=== PATIENT | female | born 1960 | race Caucasian/White ===

== ENCOUNTER 2016-10-15 15:53 | Outpatient (CLI) | payer OTHER | END 2016-10-15 15:54 | disposition home or self-care (01) | DX: Z12.2 Encounter for screening for malignant neoplasm of respiratory organs (principal); F17.210 Nicotine dependence, cigarettes, uncomplicated ==

== ENCOUNTER 2016-12-06 13:36 | Outpatient (CLI) | payer OTHER | END 2016-12-06 13:37 | disposition home or self-care (01) | DX: Z12.31 Encounter for screening mammogram for malignant neoplasm of breast (principal) ==

== ENCOUNTER 2017-01-17 11:56 | Outpatient (CLI) | payer OTHER | END 2017-01-17 11:57 | disposition home or self-care (01) | DX: N64.4 Mastodynia (principal) ==

== ENCOUNTER 2017-02-03 15:00 | Outpatient (CLI) | payer OTHER ==
[2017-02-03] MEDS ORDERED: GADOBUTROL 10 MMOL/10 ML VIAL IVP ONE (16:27)
[2017-02-03 16:29] LABS: CREATININE 0.8 mg/dL (0.4-1.0)
--- NOTE | 2017-02-03 21:33 | MRI Report ---
MRI CERVICAL SPINE WITHOUT AND WITH CONTRAST INDICATION: 56-year-old female with cervical radiculopathy. Please assess. TECHNIQUE: 1. Sagittal STIR, T1 and T2. 2. Axial T1 and T2. 3. 9 mL IV Gadavist. T1 axial and fat saturated T1 sagittal. COMPARISON: 10/14/2012. FINDINGS: There is straightening of the cervical alignment with absence of normal lordosis, unchanged. In addit ion, again demonstrated is mild retrolisthesis of C5 on C6 (roughly 2.5 mm), stable. Alignment is oth erwise unremarkable. Degenerative changes are demonstrated in the disks at all levels. There has been interval progression in disk space narrowing at C4-C5 with moderate disk space narrowing now demonstrated. Moderate to se daniela disk space narrowing is again seen at C5-C6. The disk space heights are otherwise relatively pre served. The marrow signal intensity is unremarkable. Axial images: C2-C3: No disk herniation or spinal stenosis. Right-sided degenerative facet arthrosis with associate d bony hypertrophy gives rise to mild to moderate right foraminal stenosis, essentially unchanged. No left foraminal narrowing. C3-C4: No disk herniation or spinal stenosis. Again demonstrated is fairly advanced, left-sided degen erative facet arthrosis with associated bony hypertrophy. In addition, there is left-sided uncoverteb ral hypertrophy. These changes appear to be giving rise to relatively severe left foraminal stenosis. There may have been some progression since the previous examination. There is mild right foraminal n arrowing, unchanged. C4-C5: Again demonstrated is a small right paracentral protrusion, essentially unchanged. The CSF jose elias tral to the right side of the cord remains effaced. There is a small amount of CSF dorsal to the cord without high-grade spinal stenosis. There is minimal, if any, flattening of the cord on the right to suggest impingement. Facet and uncovertebral hypertrophy give rise to foraminal narrowing that appea rs to be at least moderate on the right and probably mild to moderate on the left. C5-C6: Retrolisthesis. Posterior spondylotic bar indenting the ventral aspect of the thecal sac. The mid sagittal canal diameter appears be on the order of about 7 mm, decreased from about 7.5 mm on maikel or study. The CSF surrounding the cord is almost completely effaced. However, there is minimal if any cord flattening. No abnormal T2 hyperintensity is demonstrated in the spinal cord. Uncovertebral hyp ertrophy gives rise to foraminal narrowing that appears to be severe bilaterally, similar to previous examination. C6-C7: Small right paracentral protrusion, unchanged. No spinal stenosis. Mild foraminal narrowing. C7-T1: No disk herniation or spinal stenosis. Right-sided degenerative facet arthrosis with associate d bony hypertrophy. No significant foraminal encroachment. The spinal cord appears to have a normal signal intensity throughout. Postcontrast sequence shows no evidence of abnormal enhancement. In particular, no enhancing spinal c ord lesion is demonstrated. Again demonstrated is an ovoid, T2 hyperintense and nonenhancing lesion in posterior nasopharyngeal s oft tissues, consistent with a benign submucosal cyst. IMPRESSION: 1. Facet and uncovertebral hypertrophy give rise to relatively severe left-sided foraminal stenosis a t C3-C4. There certainly could be impingement of the exiting left C4 nerve root. Recommend clinical c orrelation for possible left C4 radiculopathy. 2. There continue to be high-grade, bony foraminal stenoses at C5-C6 bilaterally where there certainl y could be impingement of exiting right and/or left C6 nerve roots. 3. Multilevel degenerative disk disease with disk herniations or spondylotic bars at a few levels as described, similar to previous examination. There has been some interval progression in diskogenic sp inal stenosis at C5-C6. The mid sagittal canal diameter now measures about 7 mm and the CSF surroundi ng the cord is almost completely effaced. However, there is minimal if any flattening of the cord to suggest impingement. No abnormal T2 hyperintensity is demonstrated in the cord to suggest edema. Referring Provider Line: [phone] SITE ID: [id number]
== END 2017-02-03 15:01 | disposition home or self-care (01) ==
LOC: LAB 15:00
PROVIDERS: ATTEND Physical Medicine & Rehabilitation
DX: M50.10 Cervical disc disorder with radiculopathy, unspecified cervical region (principal); M50.221 Other cervical disc displacement at C4-C5 level; M50.223 Other cervical disc displacement at C6-C7 level; M47.892 Other spondylosis, cervical region; M47.893 Other spondylosis, cervicothoracic region; Z01.812 Encounter for preprocedural laboratory examination
CPT/HCPCS: 36415; 72156; 82565; 84520; A9585

== ENCOUNTER 2017-03-02 10:07 | Outpatient (CLI) | payer OTHER ==
[2017-03-02 13:00] LABS: BASOPHILS # (AUTO) 0.1 10^3/uL (0.0-0.1); BASOPHILS % (AUTO) 0.8 %; EOSINOPHILS # (AUTO) 0.5 10^3/uL (0.0-0.7); HCT - HEMATOCRIT 39.8 % (37.0-47.0); HGB - HEMOGLOBIN 13.5 g/dL (12.0-16.0); LYMPHOCYTES # (AUTO) 2.7 10^3/uL (1.5-3.5); LYMPHOCYTES % (AUTO) 28.9 %; MEAN CORPUSCULAR HEMOGLOBIN 34.2 pg (27.0-31.0); MEAN CORPUSCULAR VOLUME 100.6 fL (81.0-99.0); MEAN PLATELET VOLUME 7.9 fL (7.9-10.8); MONOCYTES # (AUTO) 0.6 10^3/uL (0.0-1.0); MONOCYTES % (AUTO) 6.1 %; NEUTROPHILS # (AUTO) 5.6 10^3/uL (1.5-6.6); NEUTROPHILS % (AUTO) 59.2 %; RED BLOOD COUNT 3.96 10^6/uL (4.20-5.40); RED CELL DISTRIBUTION WIDTH 15.5 % (12.0-15.0); UNCORRECTED WHITE BLOOD COUNT 9.4 x10^3/uL; WHITE BLOOD COUNT 9.4 x10^3/uL (4.8-10.8)
[2017-03-02 13:21] LABS: HEMOGLOBIN A1C 0.62 g/dL
[2017-03-02 13:24] LABS: ALBUMIN/GLOBULIN RATIO 1.3 (1.0-2.2); BILIRUBIN,TOTAL 0.6 mg/dL (0.2-1.0); BUN - BLOOD UREA NITROGEN 17 mg/dL (6-20); CALCIUM 9.6 mg/dL (8.5-10.3); CARBON DIOXIDE - CO2 27 mmol/L (21-32); CHLORIDE 102 mmol/L (101-111); CHOL/HDL RATIO 7.6 (<4.4); CHOLESTEROL 281 mg/dL; CREATININE 0.7 mg/dL (0.4-1.0); GFR - MDRD 86 (>89); GLUCOSE 128 mg/dL (70-100); HDL CHOLESTEROL 37 mg/dL; SODIUM 138 mmol/L (135-145); TOTAL PROTEIN 7.6 g/dL (6.7-8.2); TRIGLYCERIDES 501 mg/dL
[2017-03-02 14:01] LABS: LDL CHOLESTEROL,DIRECT 179 mg/dL; THYROID STIMULATING HORMONE 26.47 uIU/mL (0.34-5.60)
== END 2017-03-02 10:08 ==
LOC: LAB.WCP 10:07
PROVIDERS: ATTEND Physician Assistant Medical
DX: I10 Essential (primary) hypertension (principal); E11.9 Type 2 diabetes mellitus without complications; E03.9 Hypothyroidism, unspecified
CPT/HCPCS: 36415; 80053; 80061; 83036; 84436; 84443; 85025

== ENCOUNTER 2017-05-02 14:00 | Outpatient (CLI) | payer OTHER ==
--- NOTE | 2017-05-02 21:54 | MRI Report ---
EXAM: MRI LUMBAR SPINE WITHOUT CONTRAST EXAM DATE: 05/02/2017 02:42 PM. CLINICAL HISTORY: Other intervertebral disk displacement, lumbar reg. Chronic centralized low back pa in. COMPARISON: 08/28/2015. TECHNIQUE: Multiplanar, multisequence T1-weighted and fluid-sensitive sequences of the lumbar spine f rom T12 to S1 without contrast. Other: None. FINDINGS: Spinal Cord: The conus terminates at T12-L1. No signal abnormality in the visualized spinal cord. Alignment: As previous, loss of the normal lordosis above L4. Minimal, 23 mm retrolisthesis of L3 on L4 and L4 on L5. No evidence for pars defects. Bone Marrow: Five [id number] lumbar vertebral bodies are assumed. No gross fractures or bone les ions. No bone marrow edema. Disk Levels/Facets: T12-L1: Unremarkable. L1-L2: Unremarkable. L2-L3: Unremarkable. L3-L4: Mild disk height loss and disk desiccation. Mild to moderate facet arthropathy and circumferen tial bulge. Circumferential bulge extends to the right foraminal/extraforaminal zone with right extra foraminal annular fissure. Moderate right foraminal stenosis. Mild central canal narrowing and patent left neural foramen. No significant change. L4-L5: Disk desiccation. Bilateral facet arthropathy and ligamentum flavum thickening. Shallow right foraminal/subarticular protrusion associated with mild stenosis of the right subarticular and foramin al zone. No significant canal narrowing. Patent left neural foramen. No significant change. L5-S1: Mild bilateral facet arthropathy, otherwise unremarkable. No significant change. Musculature: Normal. No edema or fatty atrophy. Other: There is infrarenal abdominal aortic ectasia borderline aneurysm measuring up to 3 cm in anter oposterior diameter, similar and unchanged compared to 08/28/2015. IMPRESSION: 1. Unchanged degenerative slight retrolisthesis at L3-L4 and L4-L5. 2. At L3-L4, right extraforaminal protrusion abutting the right L3 nerve root, unchanged. Moderate ri ght foraminal narrowing, mild subarticular narrowing and mild canal narrowing appear unchanged. 3. At L4-L5, circumferential bulge with a shallow right foraminal and subarticular protrusion, unchan ged. Mild to moderate right greater than left subarticular narrowing appears unchanged around the rig ht L5 nerve root. Mild canal narrowing. Mild right foraminal narrowing. 4. At L5-S1, mild bilateral facet arthropathy, otherwise unremarkable. 5. Ectasia, and borderline aneurysm of the infrarenal abdominal aorta, without significant change com pared to 08/28/2015. Suggest ultrasound follow-up. Comment: The following findings are so common in adults without low back pain that while we report th eir presence, they must be interpreted with caution and in the context of the clinical situation. (Re jay Pradhan et al, Spine 2001) Prevalence of findings in patients without low back pain: Disk degeneration (any evidence): 92% Disk desiccation/T2 signal loss: 83% Disk height loss: 56% Disk bulge: 64% Disk protrusion: 32% Annular tear/high intensity zone: 38% [facility] Referring Provider Line: [phone] SITE ID: [id number]
== END 2017-05-02 14:01 | disposition home or self-care (01) ==
LOC: DI 14:00
PROVIDERS: ATTEND Physical Medicine & Rehabilitation
DX: M51.26 Other intervertebral disc displacement, lumbar region (principal)
CPT/HCPCS: 72148

== ENCOUNTER 2017-05-19 11:10 | Outpatient (CLI) | payer OTHER ==
[2017-05-19 11:21] LABS: CREATININE 0.6 mg/dL (0.4-1.0)
[2017-05-19] MEDS ORDERED: IOPAMIDOL-300 100 ML VIAL IVP ONE ×2 (16:47)
--- NOTE | 2017-05-20 10:50 | CT Report ---
CT ANGIOGRAM ABDOMINAL AORTA WITH RUNOFF: 05/19/2017 CLINICAL INDICATION: Aneurysm, claudication. TECHNIQUE: Axial CT images of the abdomen, pelvis, and lower extremities were obtained in arterial p hase of enhancement. Three-dimensional reconstructions were performed. In accordance with CT protocol optimization, one or more of the following dose reduction techniques w ere utilized for this exam: automated exposure control, adjustment of mA and/or KV based on patient size, or use of iterative reconstructive technique. FINDINGS: Limited evaluation of the lung bases is unremarkable. Abdomen: There is mild atherosclerotic disease of the abdominal aorta, with slight aneurysmal dilata tion distally, measuring up to 3 cm in diameter. There is no evidence of a hemodynamically significa nt stenosis. The celiac, superior mesenteric, inferior mesenteric arteries are patent. Main and acc essory renal arteries are patent bilaterally. Right leg: The right common, external, and internal iliac arteries are patent, with mild atheroscler otic disease. The right common femoral artery, profunda femoris, and superficial femoral artery are patent. The right popliteal artery is patent. There is two-vessel runoff to the right foot. Left leg: The left common iliac, internal and external iliac arteries are patent, with mild atherosc lerotic calcification. The left common femoral, profunda femoris, and superficial femoral arteries a re patent, and mildly diseased. The left popliteal artery is patent, and there is two-vessel runoff to the left foot. Limited evaluation of abdominal and pelvic organs is unremarkable, allowing for phase of contrast enh ancement. Osseous structures demonstrate degenerative changes. IMPRESSION: SMALL ABDOMINAL AORTIC ANEURYSM. NO EVIDENCE OF A HEMODYNAMICALLY SIGNIFICANT STENOSIS. NO EVIDENCE OF A HEMODYNAMICALLY SIGNIFICANT STENOSIS IN EITHER LEG. JOB #: [id number] EXT JOB #:[id number]
== END 2017-05-19 11:11 | disposition home or self-care (01) ==
LOC: DI 11:10
PROVIDERS: ATTEND Physician Assistant Medical
DX: I71.4 Abdominal aortic aneurysm, without rupture (principal)
CPT/HCPCS: 36415; 75635; 82565; Q9967

== ENCOUNTER 2017-07-01 08:48 | Outpatient (CLI) | payer OTHER ==
[2017-07-01 13:37] LABS: ALBUMIN/GLOBULIN RATIO 1.4 (1.0-2.2); BILIRUBIN,TOTAL 0.9 mg/dL (0.2-1.0); BUN - BLOOD UREA NITROGEN 15 mg/dL (6-20); CALCIUM 9.7 mg/dL (8.5-10.3); CARBON DIOXIDE - CO2 30 mmol/L (21-32); CHLORIDE 95 mmol/L (101-111); CHOL/HDL RATIO 4.5 (<4.4); CHOLESTEROL 176 mg/dL; CREATININE 0.8 mg/dL (0.4-1.0); GFR - MDRD 74 (>89); GLUCOSE 124 mg/dL (70-100); HDL CHOLESTEROL 39 mg/dL; LDL/HDL RATIO 1.6 (<4.4); POTASSIUM 4.3 mmol/L (3.5-5.0); SODIUM 135 mmol/L (135-145); TOTAL PROTEIN 7.8 g/dL (6.7-8.2); TRIGLYCERIDES 364 mg/dL; VLDL CHOLESTEROL 73 mg/dL
[2017-07-01 13:59] LABS: HEMOGLOBIN A1C 0.72 g/dL
[2017-07-01 14:25] LABS: THYROID STIMULATING HORMONE 49.4 uIU/mL (0.34-5.60)
== END 2017-07-01 08:49 | disposition home or self-care (01) ==
LOC: LAB.WCP 08:48
PROVIDERS: ATTEND Physician Assistant Medical
DX: Z51.81 Encounter for therapeutic drug level monitoring (principal); E03.9 Hypothyroidism, unspecified; E78.5 Hyperlipidemia, unspecified; E11.9 Type 2 diabetes mellitus without complications
CPT/HCPCS: 36415; 80053; 80061; 83036; 84439; 84443; 84481

== ENCOUNTER 2017-10-03 08:00 | Outpatient (CLI) | payer OTHER ==
[2017-10-03 19:19] LABS: ALBUMIN 4.4 g/dL (3.2-5.5); ALBUMIN/GLOBULIN RATIO 1.5 (1.0-2.2); ALKALINE PHOSPHATASE 58 IU/L (42-121); ALT ALANINE AMINOTRANSFERASE 55 IU/L (10-60); AST ASPARTATE AMINOTRANSFERASE 51 IU/L (10-42); BILIRUBIN,TOTAL 0.7 mg/dL (0.2-1.0); BUN - BLOOD UREA NITROGEN 16 mg/dL (6-20); CALCIUM 10.9 mg/dL (8.5-10.3); CARBON DIOXIDE - CO2 26 mmol/L (21-32); CHLORIDE 95 mmol/L (101-111); CHOL/HDL RATIO 5.6 (<4.4); CHOLESTEROL 207 mg/dL; CREATININE 0.8 mg/dL (0.4-1.0); GFR - MDRD 74 (>89); GLUCOSE 104 mg/dL (70-100); HDL CHOLESTEROL 37 mg/dL; SODIUM 135 mmol/L (135-145); TOTAL PROTEIN 7.3 g/dL (6.7-8.2)
[2017-10-03 19:25] LABS: HB2 TOTAL 14.4 g/dL; HEMOGLOBIN A1C 0.6 g/dL
[2017-10-03 19:27] LABS: THYROID STIMULATING HORMONE 39.72 uIU/mL (0.34-5.60)
[2017-10-03 19:42] LABS: LDL CHOLESTEROL,DIRECT 106 mg/dL; LDLD/HDL RATIO 2.9 (<4.4)
[2017-10-03 20:14] LABS: FREE T4 (FREE THYROXINE) 0.67 ng/dL (0.58-1.64)
== END 2017-10-03 08:01 | disposition home or self-care (01) ==
LOC: LAB.WCP 08:00
PROVIDERS: ATTEND Physician Assistant Medical
DX: Z51.81 Encounter for therapeutic drug level monitoring (principal); E78.5 Hyperlipidemia, unspecified; E11.9 Type 2 diabetes mellitus without complications; E03.9 Hypothyroidism, unspecified
CPT/HCPCS: 36415; 80053; 80061; 83036; 83721; 84439; 84443

== ENCOUNTER 2017-10-04 08:00 | Outpatient (CLI) | payer OTHER ==
[2017-10-05 12:08] LABS: HEPATITIS C ANTIBODY NON-REACTIVE (NON-REACTIVE)
== END 2017-10-04 08:01 | disposition home or self-care (01) ==
LOC: LAB.WCP 08:00
PROVIDERS: ATTEND Physician Assistant Medical
DX: R74.8 Abnormal levels of other serum enzymes (principal); K76.0 Fatty (change of) liver, not elsewhere classified; E03.9 Hypothyroidism, unspecified; E83.52 Hypercalcemia
CPT/HCPCS: 36415; 82306; 83970; 86803

== ENCOUNTER 2017-10-12 14:19 | Outpatient (CLI) | payer OTHER ==
--- NOTE | 2017-10-12 16:17 | Ultrasound Report ---
DATE OF SERVICE: 10/12/2017 THYROID ULTRASOUND: 10/12/2017 CLINICAL INDICATION: Hypothyroidism, hypercalcemia. TECHNIQUE: Real-time scanning was performed with administrative representative static images obtained. FINDINGS: The thyroid is diminutive, with the right lobe measuring 3.0 x 0.8 x 0.5 cm and the left lobe measuring 2.3 x 0.6 x 0.4 cm. The isthmus measures 3 mm. No focal thyroid lesion is seen. No adenopathy is appreciated. IMPRESSION: DIMINUTIVE THYROID, WITHOUT EVIDENCE OF A FOCAL LESION. TD: 10/12/2017 17:16
== END 2017-10-12 14:20 | disposition home or self-care (01) ==
LOC: DI 14:19
PROVIDERS: ATTEND Physician Assistant Medical
DX: E03.9 Hypothyroidism, unspecified (principal); E83.52 Hypercalcemia
CPT/HCPCS: 76536

== ENCOUNTER 2017-12-27 08:56 | Outpatient (CLI) | payer OTHER ==
[2017-12-27 13:21] LABS: ALBUMIN 4.5 g/dL (3.2-5.5); ALBUMIN/GLOBULIN RATIO 1.3 (1.0-2.2); ALKALINE PHOSPHATASE 70 IU/L (42-121); ALT ALANINE AMINOTRANSFERASE 69 IU/L (10-60); AST ASPARTATE AMINOTRANSFERASE 76 IU/L (10-42); BILIRUBIN,TOTAL 0.4 mg/dL (0.2-1.0); BUN - BLOOD UREA NITROGEN 17 mg/dL (6-20); CALCIUM 10.1 mg/dL (8.5-10.3); CARBON DIOXIDE - CO2 28 mmol/L (21-32); CHLORIDE 98 mmol/L (101-111); CHOL/HDL RATIO 7.3 (<4.4); CHOLESTEROL 240 mg/dL; CREATININE 0.8 mg/dL (0.4-1.0); GFR - MDRD 74 (>89); GLUCOSE 117 mg/dL (70-100); HDL CHOLESTEROL 33 mg/dL; SODIUM 136 mmol/L (135-145)
[2017-12-27 13:52] LABS: HB2 TOTAL 14.9 g/dL; HEMOGLOBIN A1C 0.61 g/dL; HEMOGLOBIN A1C % 5.9 % (4.6-6.2)
[2017-12-27 14:03] LABS: LDL CHOLESTEROL,DIRECT 109 mg/dL; LDLD/HDL RATIO 3.3 (<4.4)
== END 2017-12-27 08:57 | disposition home or self-care (01) ==
LOC: LAB.WCP 08:56
PROVIDERS: ATTEND Family Medicine
DX: R74.8 Abnormal levels of other serum enzymes (principal); Z51.81 Encounter for therapeutic drug level monitoring; E78.5 Hyperlipidemia, unspecified; E11.9 Type 2 diabetes mellitus without complications
CPT/HCPCS: 36415; 80053; 80061; 83036; 83721

== ENCOUNTER 2018-01-04 14:51 | Outpatient (CLI) | payer OTHER ==
--- NOTE | 2018-01-06 15:05 | DEXA Report ---
DEXA SCAN 01/04/2018 CLINICAL INDICATION: Osteopenia. TECHNIQUE: Dual energy x-ray absorptiometry (DXA) was performed on a [employer] system. Regions measured are the AP spine, femoral neck, and, if needed, forearm. FINDINGS Data for the lumbar spine is as follows: REGION BMD (g/cm/cm) T-SCORE Z-SCORE L1 0.968 -1.4 -1.2 L2 1.060 -1.2 -1.1 L3 1.030 -1.4 -1.3 L4 1.044 -1.3 -1.2 L1-L4s 1.028 -1.3 -1.2 NOTE: All evaluable vertebrae are used for classification. Data for the hip is as follows: REGION BMD (g/cm/cm) T-SCORE Z-SCORE Neck 0.984 -0.4 0.2 TOTAL 1.095 0.7 0.8 NOTE: The femoral neck or total proximal femur, whichever is lowest, is used for classification. IMPRESSION WHO CLASSIFICATION BASED ON THE INTERNATIONAL REFERENCE STANDARD IS OSTEOPENIA. FRACTURE RISK IS INCREASED. RECOMMENDATION: Patients with diagnosis of osteoporosis or osteopenia should have regular bone mineral density assessment. For those eligible for Medicare, routine testing is allowed once every 2 years. Testing frequency can be increased for patients who have rapidly progressing disease or for those who are receiving medical therapy to restore bone mass. COMMENT: World Health Organization (WHO) definitions for osteoporosis and osteopenia: NORMAL BMD: T-score at 1.0 or higher, fracture risk is low. OSTEOPENIA BMD: T-score between 1.0 and -2.5, fracture risk is increased. OSTEOPOROSIS BMD: T-score at 2.5 or lower, fracture risk high. National Osteoporosis Foundation recommends: 1. Obtain adequate dietary calcium (at least 1200 mg per day) and vitamin D (400 -800 international units per day). 2. Participate, as appropriate, in regular weightbearing and muscle- strengthening exercise. 3. Avoid tobacco use and reduce alcohol and caffeine intake. 4. For more detailed information see the website at www.NOF.org. TD: 01/05/2018 14:56 MTDLos
== END 2018-01-04 14:52 | disposition home or self-care (01) ==
LOC: DI 14:51
PROVIDERS: ATTEND Family Medicine
DX: M85.88 Other specified disorders of bone density and structure, other site (principal)
CPT/HCPCS: 77080

== ENCOUNTER 2018-01-19 15:03 | Outpatient (CLI) | payer OTHER ==
--- NOTE | 2018-01-24 12:52 | Mammography Report ---
DIGITAL SCREENING MAMMOGRAM: 01/19/2018 CLINICAL INDICATION: A 57-year-old for screening. COMPARISON: 01/2017, 11/2016, 11/2015, 09/2014, 08/2013, 08/2012, 07/2012, 06/2011, 06/2010. TECHNIQUE: Routine CC and MLO projections were obtained of the breasts. FINDINGS: The breasts again demonstrate heterogeneously dense fibroglandular parenchyma bilaterally. Coarse, typically benign calcifications are present. No suspicious masses, clustered microcalcifications, or regions of architectural distortion are identified. IMPRESSION: BENIGN FINDINGS. RECOMMENDATION: Routine annual screening unless otherwise clinically indicated. BI-RADS CATEGORY 2 - BENIGN FINDINGS. STANDARD QUALIFYING STATEMENTS: 1. This examination was reviewed with the aid of Computer-Aided Detection (CAD). 2. A negative or benign imaging report should not delay biopsy if clinically suspicious findings are present. Consider surgical consultation if warranted. More than 5% of cancers are not identified by imaging. 3. Dense breasts may obscure an underlying neoplasm. TD: 01/24/2018 12:29
== END 2018-01-19 15:04 | disposition home or self-care (01) ==
LOC: DI 15:03
PROVIDERS: ATTEND Family Medicine
DX: Z12.31 Encounter for screening mammogram for malignant neoplasm of breast (principal)
CPT/HCPCS: 77067

== ENCOUNTER 2018-02-14 08:00 | Outpatient (CLI) | payer OTHER ==
[2018-02-14 19:32] LABS: THYROID STIMULATING HORMONE 25.74 uIU/mL (0.34-5.60)
[2018-02-14 19:34] LABS: FREE T4 (FREE THYROXINE) 0.75 ng/dL (0.58-1.64)
[2018-02-14 19:37] LABS: ALBUMIN 4.6 g/dL (3.2-5.5); ALKALINE PHOSPHATASE 54 IU/L (42-121); ALT ALANINE AMINOTRANSFERASE 65 IU/L (10-60); AST ASPARTATE AMINOTRANSFERASE 81 IU/L (10-42); BILIRUBIN,DIRECT 0.1 mg/dL (0.1-0.5); BILIRUBIN,TOTAL 0.7 mg/dL (0.2-1.0); CHOL/HDL RATIO 5.3 (<4.4); CHOLESTEROL 171 mg/dL; HDL CHOLESTEROL 32 mg/dL; LDL CHOLESTEROL,CALCULATED 60 mg/dL; LDL/HDL RATIO 1.9 (<4.4); TOTAL PROTEIN 7.9 g/dL (6.7-8.2); VLDL CHOLESTEROL 79 mg/dL
[2018-02-14 20:09] LABS: HB2 TOTAL 15.9 g/dL; HEMOGLOBIN A1C 0.61 g/dL; HEMOGLOBIN A1C % 5.7 % (4.6-6.2)
== END 2018-02-14 08:01 | disposition home or self-care (01) ==
LOC: LAB.WCP 08:00
PROVIDERS: ATTEND Family Medicine
DX: R74.8 Abnormal levels of other serum enzymes (principal); E11.9 Type 2 diabetes mellitus without complications; E78.5 Hyperlipidemia, unspecified; E03.9 Hypothyroidism, unspecified
CPT/HCPCS: 36415; 80061; 80076; 82043; 83036; 83721; 84439; 84443

== ENCOUNTER 2018-04-09 09:58 | Outpatient (CLI) | payer OTHER ==
--- NOTE | 2018-04-09 23:52 | Ultrasound Report ---
Procedure Date: 04/09/2018 Accession Number: [id number] / [id number] Procedure: US - Abdomen Complete CPT Code: FULL RESULT: EXAM: ABDOMEN ULTRASOUND EXAM DATE: 04/09/2018 11:10 AM. CLINICAL HISTORY: Liver function tests, abnormal. COMPARISON: 05/19/2017. TECHNIQUE: Real-time scanning was performed with static images obtained. FINDINGS: Liver: Liver parenchyma is heterogeneous and moderately hyperechoic. No discrete liver masses or intrahepatic bile duct dilation. However, evaluation for masses is limited secondary to the echogenicity. 21.3 cm. Main portal vein flow: Hepatopetal. Gallbladder: Normal. No stones, wall thickening, or sonographic Caldera's sign. Biliary System: Common bile duct measures 6.7 mm. No intrahepatic or extrahepatic ductal dilatation. Pancreas: Visualized portion is unremarkable. Kidneys: Right: 14.4 cm longitudinally. Normal. No contour-deforming mass, stones, or hydronephrosis. Left: 14.7 cm longitudinally. Normal. No contour-deforming mass, stones, or hydronephrosis. Spleen: 11.6 x 5 x 4.4 cm. Normal in size and echotexture. Aorta and Inferior Vena Cava: Fusiform dilation of the distal abdominal aorta measuring 2.8 x 3.1 cm. No retroperitoneal hematoma. Normal IVC. Other: None. IMPRESSION: 1. Enlarged fatty liver. 2. Fusiform aneurysmal dilation of the distal abdominal aorta measuring 2.8 x 3.1 cm. 3. Otherwise, normal abdominal ultrasound. [facility]
== END 2018-04-09 09:59 | disposition home or self-care (01) ==
LOC: DI 09:58
PROVIDERS: ATTEND Family Medicine
DX: I71.4 Abdominal aortic aneurysm, without rupture (principal); K76.0 Fatty (change of) liver, not elsewhere classified; R94.5 Abnormal results of liver function studies
CPT/HCPCS: 76700

== ENCOUNTER 2018-07-07 08:38 | Outpatient (CLI) | payer OTHER ==
[2018-07-07 12:54] LABS: BASOPHILS # (AUTO) 0.1 10^3/uL (0.0-0.1); BASOPHILS % (AUTO) 0.8 %; EOSINOPHILS # (AUTO) 0.3 10^3/uL (0.0-0.7); EOSINOPHILS % (AUTO) 3.2 %; HGB - HEMOGLOBIN 12.8 g/dL (12.0-16.0); LYMPHOCYTES # (AUTO) 2.9 10^3/uL (1.5-3.5); LYMPHOCYTES % (AUTO) 28.5 %; MEAN CORPUSCULAR HEMOGLOBIN 35.6 pg (27.0-31.0); MEAN CORPUSCULAR HGB CONC 34.3 g/dL (32.0-36.0); MEAN PLATELET VOLUME 7.5 fL (7.9-10.8); MONOCYTES # (AUTO) 0.7 10^3/uL (0.0-1.0); MONOCYTES % (AUTO) 6.3 %; NEUTROPHILS # (AUTO) 6.3 10^3/uL (1.5-6.6); NEUTROPHILS % (AUTO) 61.2 %; PLT - PLATELET COUNT 351 10^3/uL (130-450); RED CELL DISTRIBUTION WIDTH 13.9 % (12.0-15.0); WHITE BLOOD COUNT 10.3 x10^3/uL (4.8-10.8)
[2018-07-07 13:21] LABS: ALBUMIN 4.6 g/dL (3.2-5.5); ALBUMIN/GLOBULIN RATIO 1.4 (1.0-2.2); ALKALINE PHOSPHATASE 63 IU/L (42-121); ALT ALANINE AMINOTRANSFERASE 43 IU/L (10-60); AST ASPARTATE AMINOTRANSFERASE 36 IU/L (10-42); BILIRUBIN,TOTAL 0.7 mg/dL (0.2-1.0); BUN - BLOOD UREA NITROGEN 22 mg/dL (6-20); CALCIUM 9.6 mg/dL (8.5-10.3); CARBON DIOXIDE - CO2 27 mmol/L (21-32); CHLORIDE 99 mmol/L (101-111); CHOL/HDL RATIO 3.4 (<4.4); CHOLESTEROL 155 mg/dL; CREATININE 0.8 mg/dL (0.4-1.0); GAMMA GLUTAMYL TRANSPEPTIDASE 111 IU/L (8-38); GFR - MDRD 74 (>89); GLUCOSE 114 mg/dL (70-100); HDL CHOLESTEROL 45 mg/dL; LDL CHOLESTEROL,CALCULATED 73 mg/dL; LDL/HDL RATIO 1.6 (<4.4); SODIUM 137 mmol/L (135-145); TOTAL PROTEIN 7.8 g/dL (6.7-8.2); VLDL CHOLESTEROL 37 mg/dL
[2018-07-07 14:03] LABS: HB2 TOTAL 13.3 g/dL; HEMOGLOBIN A1C 0.53 g/dL; HEMOGLOBIN A1C % 5.8 % (4.6-6.2)
[2018-07-08 11:11] LABS: HEPATITIS B SURFACE ANTIGEN NON-REACTIVE (NON-REACTIVE); HEPATITIS C ANTIBODY NON-REACTIVE (NON-REACTIVE)
== END 2018-07-07 08:39 | disposition home or self-care (01) ==
LOC: LAB.WCP 08:38
PROVIDERS: ATTEND Family Medicine
DX: R94.5 Abnormal results of liver function studies (principal); E83.52 Hypercalcemia; E11.9 Type 2 diabetes mellitus without complications
CPT/HCPCS: 36415; 80053; 80061; 82977; 83036; 83721; 83970; 85025; 86317; 86704; 86803; 87340

== ENCOUNTER 2019-02-09 16:46 | Outpatient (CLI) | payer OTHER ==
--- NOTE | 2019-02-12 08:54 | Mammography Report ---
Reason: SCREENING MAMMO Procedure Date: 02/09/2019 Accession Number: [id number] / [id number] Procedure: EWA - Screening Mammo w/Fredis CPT Code: FULL RESULT: EXAM: Screening Mammo w/Fredis DATE: 02/09/2019 5:05 PM CLINICAL HISTORY: Screening encounter. Family history of breast cancer in the maternal grandmother at age 76. TECHNIQUE: (B) - Bilateral CC and MLO views were obtained. COMPARISON: 01/19/2018 through 11/26/2015. PARENCHYMAL PATTERN: (A) - The breast(s) demonstrate(s) scattered fibroglandular densities. FINDINGS: There are no suspicious masses, calcifications, or areas of distortion. IMPRESSION: Negative examination. BI-RADS category 1. RECOMMENDATION: (ANNUAL) - Recommend routine annual screening mammography. BI-RADS CATEGORY: (1) - Negative. STANDARD QUALIFYING STATEMENTS: 1. This examination was not reviewed with the aid of Computer-Aided Detection (CAD). 2. A negative or benign imaging report should not preclude biopsy if clinically suspicious findings are present. 3. Dense breasts may obscure an underlying neoplasm. 4. This examination was reviewed with the aid of 3D breast imaging (tomosynthesis).
== END 2019-02-09 16:47 | disposition home or self-care (01) ==
LOC: DI 16:46
DX: Z12.31 Encounter for screening mammogram for malignant neoplasm of breast (principal); Z80.3 Family history of malignant neoplasm of breast
CPT/HCPCS: 77063; 77067

== ENCOUNTER 2019-02-13 15:48 | Outpatient (CLI) | payer OTHER ==
--- NOTE | 2019-02-14 10:46 | XRAY Report ---
Reason: WHEEZING Procedure Date: 02/13/2019 Accession Number: [id number] / [id number] Procedure: WCP - Chest 2 View X-Ray CPT Code: 58827 FULL RESULT: EXAM: CHEST RADIOGRAPHY EXAM DATE: 02/13/2019 03:59 PM. CLINICAL HISTORY: Wheezing, and shortness of breath. COMPARISON: None. TECHNIQUE: 2 views. FINDINGS: Lungs/Pleura: No focal opacities evident. No pleural effusion. No pneumothorax. Normal volumes. Mediastinum: Mild borderline cardiomegaly of the cardiac silhouette and mild calcifications of the aortic arch. Other: None. IMPRESSION: Mild borderline cardiomegaly with no definite airspace disease detected. [facility]
== END 2019-02-13 15:49 | disposition home or self-care (01) ==
LOC: DI.WCP 15:48
PROVIDERS: ATTEND Physician Assistant
DX: R06.2 Wheezing (principal)
CPT/HCPCS: 71046

== ENCOUNTER 2019-04-06 08:00 | Outpatient (CLI) | payer OTHER ==
[2019-04-06 12:38] LABS: BASOPHILS # (AUTO) 0.1 10^3/uL (0.0-0.1); BASOPHILS % (AUTO) 0.9 %; EOSINOPHILS # (AUTO) 0.4 10^3/uL (0.0-0.7); EOSINOPHILS % (AUTO) 4.4 %; HGB - HEMOGLOBIN 15.6 g/dL (12.0-16.0); LYMPHOCYTES # (AUTO) 3.2 10^3/uL (1.5-3.5); LYMPHOCYTES % (AUTO) 32.9 %; MEAN CORPUSCULAR HEMOGLOBIN 34.3 pg (27.0-31.0); MEAN CORPUSCULAR HGB CONC 32.1 g/dL (32.0-36.0); MEAN CORPUSCULAR VOLUME 106.8 fL (81.0-99.0); MEAN PLATELET VOLUME 9.7 fL (7.9-10.8); MONOCYTES # (AUTO) 0.7 10^3/uL (0.0-1.0); MONOCYTES % (AUTO) 6.9 %; NEUTROPHILS # (AUTO) 5.3 10^3/uL (1.5-6.6); NEUTROPHILS % (AUTO) 54.5 %; PLT - PLATELET COUNT 322 10^3/uL (130-450); RED BLOOD COUNT 4.55 10^6/uL (4.20-5.40); RED CELL DISTRIBUTION WIDTH 13.2 % (12.0-15.0); WHITE BLOOD COUNT 9.6 x10^3/uL (4.8-10.8)
[2019-04-06 13:18] LABS: PLATELET ESTIMATE, MANUAL NORMAL (130-450,000) (NORMAL); PLATELET MORPHOLOGY NORMAL APPEARANCE (NORMAL)
[2019-04-06 14:26] LABS: HB2 TOTAL 17.1 g/dL; HEMOGLOBIN A1C 0.68 g/dL; HEMOGLOBIN A1C % 5.8 % (4.6-6.2)
[2019-04-06 16:39] LABS: ALBUMIN 4.4 g/dL (3.2-5.5); ALBUMIN/GLOBULIN RATIO 1.2 (1.0-2.2); ALKALINE PHOSPHATASE 59 IU/L (42-121); ALT ALANINE AMINOTRANSFERASE 31 IU/L (10-60); AST ASPARTATE AMINOTRANSFERASE 42 IU/L (10-42); BILIRUBIN,TOTAL 0.6 mg/dL (0.2-1.0); BUN - BLOOD UREA NITROGEN 16 mg/dL (6-20); CALCIUM 9.8 mg/dL (8.5-10.3); CARBON DIOXIDE - CO2 28 mmol/L (21-32); CHLORIDE 97 mmol/L (101-111); CHOL/HDL RATIO 7.8 (<4.4); CHOLESTEROL 305 mg/dL; CREATININE 0.7 mg/dL (0.4-1.0); GFR - MDRD 86 (>89); GLUCOSE 99 mg/dL (70-100); HDL CHOLESTEROL 39 mg/dL; SODIUM 138 mmol/L (135-145); TOTAL PROTEIN 8.1 g/dL (6.7-8.2)
[2019-04-06 17:11] LABS: LDL CHOLESTEROL,DIRECT 225 mg/dL; LDLD/HDL RATIO 5.8 (<4.4)
[2019-04-06 17:18] LABS: CREATININE,URINE 132.4 mg/dL; MICROALBUM/CREATININE RATIO,UR 17.4 ug/mg (<30.0); MICROALBUMIN,URINE 2.3 mg/dL (0-300.0)
== END 2019-04-06 23:59 | disposition home or self-care (01) ==
LOC: LAB.WCP 08:00
PROVIDERS: ATTEND Family Medicine
DX: E11.9 Type 2 diabetes mellitus without complications (principal)
CPT/HCPCS: 36415; 80053; 80061; 82043; 82570; 83036; 83721; 84443; 85025

== ENCOUNTER 2019-04-24 17:33 | Outpatient (CLI) | payer OTHER ==
--- NOTE | 2019-04-26 06:44 | Ultrasound Report ---
Reason: AAA MONITORING Procedure Date: 04/24/2019 Accession Number: [id number] / [id number] Procedure: US - Retroperitoneal Limited CPT Code: FULL RESULT: EXAM: AORTIC DOPPLER ULTRASOUND. EXAM DATE: 04/24/2019 06:20 PM. CLINICAL HISTORY: Abdominal aortic aneurysm monitoring. COMPARISON: ABDOMEN COMPLETE 04/09/2018 10:33 AM. TECHNIQUE: Real-time sonographic imaging of retroperitoneal vascular structures, including color-flow, Doppler flow and spectral analysis was performed by the tile and marble setter. Multiple communications representative static images were saved for review. FINDINGS: Aorta: Atheromatous plaques are noted in the abdominal aorta. There is a fusiform aneurysmal dilation of the distal abdominal aorta measuring 4.7 cm in length and having an axial diameter of 3 x 3.3 cm measured by this radiologist. Previously measuring 2.8 x 3.1 cm. No retroperitoneal hematoma is noted. Aortic measurements are as follows: Aorta: Proximal: Sagittal AP 3 cm. Mid: Transverse 2.2 x 3.4 cm. Distal: Transverse 3.2 x 3.7 cm. Caliber: WNL: Abnormal, see above.. Plaque visualized: Present, see above. Iliacs: Right Iliac: Transverse 1.1 x 1.4 cm. Left Iliac: Transverse 1.1 x 1.5 cm. Doppler: Prox Aorta PSV: 62.3 cm/sec. Mid Aorta PSV: 46.0 cm/sec. Dist Aorta PSV: 58.7 cm/sec. Prox RCIA PSV: 124.2 cm/sec. Prox LCIA PSV: 168.9 cm/sec. Iliac Vessels: The visualized proximal common iliac arteries are normal in caliber. Other: Study limited by bowel gas. Echogenic fatty liver. No mass noted on this limited ultrasound. IMPRESSION: 1. Fusiform aneurysmal dilation of the distal abdominal aorta measuring 3 x 3.3 cm. Previously measuring 2.8 x 3.1 cm. 2. No retroperitoneal hematoma. [facility]
== END 2019-04-24 17:34 | disposition home or self-care (01) ==
LOC: DI 17:33
PROVIDERS: ATTEND Family Medicine
DX: I71.4 Abdominal aortic aneurysm, without rupture (principal)
CPT/HCPCS: 76775

== ENCOUNTER 2019-05-04 15:26 | Outpatient (CLI) | payer OTHER ==
[2019-05-04 15:50] LABS: BASOPHILS # (AUTO) 0.1 10^3/uL (0.0-0.1); BASOPHILS % (AUTO) 0.5 %; EOSINOPHILS # (AUTO) 0.3 10^3/uL (0.0-0.7); EOSINOPHILS % (AUTO) 2.8 %; HGB - HEMOGLOBIN 15.1 g/dL (12.0-16.0); LYMPHOCYTES # (AUTO) 3.1 10^3/uL (1.5-3.5); LYMPHOCYTES % (AUTO) 25.6 %; MEAN CORPUSCULAR HEMOGLOBIN 35.1 pg (27.0-31.0); MEAN CORPUSCULAR HGB CONC 33.9 g/dL (32.0-36.0); MEAN CORPUSCULAR VOLUME 103.7 fL (81.0-99.0); MONOCYTES # (AUTO) 0.8 10^3/uL (0.0-1.0); MONOCYTES % (AUTO) 6.9 %; NEUTROPHILS # (AUTO) 7.6 10^3/uL (1.5-6.6); NEUTROPHILS % (AUTO) 63.7 %; PLT - PLATELET COUNT 282 10^3/uL (130-450); RED CELL DISTRIBUTION WIDTH 12.9 % (12.0-15.0)
[2019-05-04] MEDS ORDERED: IOVERSOL 320 100 ML VIAL IVP ONE (15:51)
[2019-05-04] MEDS ORDERED: IOVERSOL 320 50 ML VIAL ONE (15:51)
[2019-05-04 16:06] LABS: ALBUMIN 4.4 g/dL (3.2-5.5); ALBUMIN/GLOBULIN RATIO 1.3 (1.0-2.2); BILIRUBIN,TOTAL 0.7 mg/dL (0.2-1.0); CALCIUM 10.2 mg/dL (8.5-10.3); CREATININE 0.7 mg/dL (0.4-1.0); TOTAL PROTEIN 7.9 g/dL (6.7-8.2)
--- NOTE | 2019-05-04 17:29 | CT Report ---
Reason: ABDOMINAL PAIN, LUQ Procedure Date: 05/04/2019 Accession Number: [id number] / [id number] Procedure: CT - Abdomen/Pelvis W CPT Code: FULL RESULT: EXAM: CT ABDOMEN AND PELVIS EXAM DATE: 05/04/2019 05:01 PM. CLINICAL HISTORY: ABDOMINAL PAIN, LUQ. COMPARISONS: None. TECHNIQUE: Routine helical CT imaging was performed through the abdomen and pelvis. IV contrast: . Enteric contrast: No. Reconstructions: Coronal and sagittal. In accordance with CT protocol optimization, one or more of the following dose reduction techniques were utilized for this exam: automated exposure control, adjustment of mA and/or KV based on patient size, or use of iterative reconstructive technique. FINDINGS: Lung Bases: Mild atelectasis and scarring in right middle lobe. There is a small hiatal hernia. Liver: Patchy hypoattenuating hepatic parenchyma suggestive of steatosis. No masses. Gallbladder/Bile Ducts: Unremarkable. Spleen: Normal. Pancreas: Normal. Adrenal Glands: Normal. Kidneys: Normal. No masses or hydronephrosis. Peritoneal Cavity/Bowel: Normal. No free fluid, free air or adenopathy. No masses or acute inflammatory process. The appendix is well visualized and normal. Diffuse colonic diverticulosis however no diverticulitis. Pelvic Organs: Normal. The bladder and visualized pelvic organs are within normal limits. Vasculature: No aneurysms or other significant abnormality. Bones: No significant abnormality. Other: None. IMPRESSION: Normal appendix. Diffuse colonic diverticulosis, however no diverticulitis. Mild diffuse hepatic steatosis. A small hiatal hernia. No other significant abnormality. [facility] The call report notification system was initiated by Dr. Prerna Subramanian at 05:28 PM on 05/04/2019. ADDENDUM: 05/04/19 17:30 The above call report findings were discussed with Holiday by Dr. Prerna Subramanian at 05:30 PM on 05/04/2019. Distal esophagus is thickened, wall thickness is 12 mm. Esophagitis. Esophageal mass is not excluded. Suggestion of endoscopy was made at the time of discussion.
== END 2019-05-04 15:27 | disposition home or self-care (01) ==
LOC: LAB 15:26 → DI 15:27
PROVIDERS: ATTEND Physician Assistant
DX: K57.30 Diverticulosis of large intestine without perforation or abscess without bleeding (principal); K76.0 Fatty (change of) liver, not elsewhere classified; K44.9 Diaphragmatic hernia without obstruction or gangrene; R10.12 Left upper quadrant pain
CPT/HCPCS: 36415; 74177; 80053; 82150; 83690; 85025; Q9967

== ENCOUNTER 2019-05-21 08:00 | Outpatient (CLI) | payer OTHER | END 2019-05-21 23:59 | disposition home or self-care (01) | LOC: LAB.WCP 08:00 | PROVIDERS: ATTEND Family Medicine | DX: R07.89 Other chest pain (principal) | CPT/HCPCS: 36415; 84484 ==

== ENCOUNTER 2019-05-21 09:46 | Outpatient (CLI) | payer OTHER ==
--- NOTE | 2019-05-22 10:40 | XRAY Report ---
Reason: CHEST PAIN Procedure Date: 05/21/2019 Accession Number: [id number] / [id number] Procedure: WCP - Chest 2 View X-Ray CPT Code: 80664 FULL RESULT: EXAM: CHEST RADIOGRAPHY EXAM DATE: 05/21/2019 10:44 AM. CLINICAL HISTORY: CHEST PAIN. COMPARISON: CHEST 2 VIEW 02/13/2019 3:40 PM CHEST ANGIO 05/19/2017 12:51 PM CHEST SCREEN LOW DOSE W/O 10/15/2016 4:12 PM. TECHNIQUE: 2 views. FINDINGS: Lungs/Pleura: Increased lung markings. Labs at the apices. Small bibasilar opacities. No effusions. Mediastinum: Stable Other: None. IMPRESSION: 1. Airways disease with blebs at the apices. 2. Bibasilar subsegmental atelectasis or scarring [facility]
== END 2019-05-21 23:59 | disposition home or self-care (01) ==
LOC: DI.WCP 09:46 → EDSTATUS 13:32 → DI.WCP 23:59
PROVIDERS: ATTEND Family Medicine
DX: R91.8 Other nonspecific abnormal finding of lung field (principal)
CPT/HCPCS: 71046

== ENCOUNTER 2019-07-09 15:49 | Outpatient (CLI) | payer OTHER ==
--- NOTE | 2019-07-09 17:22 | Ultrasound Report ---
Reason: RT LEG PAIN Procedure Date: 07/09/2019 Accession Number: [id number] / [id number] Procedure: US - Duplex Ext Veins Right CPT Code: FULL RESULT: EXAM: RIGHT LOWER EXTREMITY VENOUS ULTRASOUND EXAM DATE: 07/09/2019 04:21 PM. CLINICAL HISTORY: RT LEG PAIN. COMPARISON: None. TECHNIQUE: Real-time sonographic vascular imaging was performed by the gas plant worker through the lower extremity utilizing both color-flow and Doppler spectral analysis. Multiple strategic partnership representative static images were saved for review. FINDINGS: Right side: Common Femoral Vein (CFV): Normal. CFV-GSV Junction: Normal. Profunda Femoral Vein (PFV): Normal. Femoral Vein (FV) Prox: Normal. Femoral Vein (FV) Mid: Normal. Femoral Vein (FV) Dist: Normal. Popliteal Vein: Normal. Posterior Tibial Veins: Normal. Peroneal Veins: Normal. Other: None. IMPRESSION: No evidence for deep venous thrombosis right lower extremity. [facility]
== END 2019-07-09 15:50 | disposition home or self-care (01) ==
LOC: DI 15:49
PROVIDERS: ATTEND Family Medicine
DX: M79.604 Pain in right leg (principal)

== ENCOUNTER 2019-10-09 15:36 | Outpatient (CLI) | payer OTHER ==
[2019-10-09 19:20] LABS: CHOL/HDL RATIO 3.8 (<4.4); CHOLESTEROL 171 mg/dL; HDL CHOLESTEROL 45 mg/dL; LDL CHOLESTEROL,CALCULATED 71 mg/dL; LDL/HDL RATIO 1.6 (<4.4); VLDL CHOLESTEROL 55 mg/dL
[2019-10-09 19:43] LABS: HB2 TOTAL 14.9 g/dL; HEMOGLOBIN A1C 0.58 g/dL; HEMOGLOBIN A1C % 5.7 % (4.6-6.2)
== END 2019-10-09 23:59 | disposition home or self-care (01) ==
LOC: LAB.WCP 15:36
PROVIDERS: ATTEND Family Medicine
DX: E78.5 Hyperlipidemia, unspecified (principal); E11.9 Type 2 diabetes mellitus without complications; E03.9 Hypothyroidism, unspecified
CPT/HCPCS: 36415; 80061; 83036; 83721; 84439; 84481

== ENCOUNTER 2020-01-07 11:26 | Outpatient (CLI) | payer OTHER ==
--- NOTE | 2020-01-08 00:17 | Ultrasound Report ---
Reason: AORTIC ANEURYSM Procedure Date: 01/07/2020 Accession Number: [id number] / [id number] Procedure: US - Retroperitoneal Limited CPT Code: Final Report FULL RESULT: EXAM: AORTIC DOPPLER ULTRASOUND EXAM DATE: 01/07/2020 11:56 AM. CLINICAL HISTORY: AORTIC ANEURYSM. COMPARISON: RETROPERITONEAL LIMITED 04/24/2019 6:20 PM. TECHNIQUE: Real-time sonographic imaging of retroperitoneal vascular structures, including color-flow, Doppler flow and spectral analysis was performed by the cookie mixer helper. Multiple mill representative static images were saved for review. FINDINGS: Aorta: The abdominal aorta was adequately visualized. Distal aneurysmal dilatation is again seen, now measuring 3.4 x 3.2 cm (previously 3.3 x 3.0 cm on 04/24/2019). Proximal: 3.2 cm Mid: 2.4 x 2.3 cm Distal 3.4 x 3.2 cm Iliac Vessels: The visualized proximal common iliac arteries are normal in caliber. Other: None. IMPRESSION: No significant interval change in size of distal abdominal aortic aneurysm, now measuring 3.4 x 3.2 cm (previously 3.3 x 3.0 cm). [facility]
== END 2020-01-07 11:27 | disposition home or self-care (01) ==
LOC: DI 11:26
PROVIDERS: ATTEND Family Medicine
DX: I71.4 Abdominal aortic aneurysm, without rupture (principal)
CPT/HCPCS: 76775

== ENCOUNTER 2020-01-28 20:47 | Outpatient (CLI) | payer OTHER | END 2020-01-28 20:48 | disposition home or self-care (01) | LOC: COV 20:47 | PROVIDERS: ATTEND Family Medicine | DX: R50.9 Fever, unspecified (principal) | CPT/HCPCS: 81599 ==

== ENCOUNTER 2020-02-14 08:00 | Outpatient (CLI) | payer OTHER ==
[2020-02-14 18:28] LABS: BASOPHILS # (AUTO) 0.1 10^3/uL (0.0-0.1); BASOPHILS % (AUTO) 0.6 %; EOSINOPHILS # (AUTO) 0.3 10^3/uL (0.0-0.7); EOSINOPHILS % (AUTO) 3.4 %; HGB - HEMOGLOBIN 14.4 g/dL (12.0-16.0); LYMPHOCYTES # (AUTO) 3.1 10^3/uL (1.5-3.5); LYMPHOCYTES % (AUTO) 30.6 %; MEAN CORPUSCULAR HEMOGLOBIN 31.9 pg (27.0-31.0); MEAN CORPUSCULAR HGB CONC 32.2 g/dL (32.0-36.0); MEAN CORPUSCULAR VOLUME 99.1 fL (81.0-99.0); MEAN PLATELET VOLUME 9.6 fL (7.9-10.8); MONOCYTES # (AUTO) 0.8 10^3/uL (0.0-1.0); MONOCYTES % (AUTO) 7.6 %; NEUTROPHILS # (AUTO) 5.8 10^3/uL (1.5-6.6); NEUTROPHILS % (AUTO) 57.2 %; PLT - PLATELET COUNT 352 10^3/uL (130-450); RED BLOOD COUNT 4.51 10^6/uL (4.20-5.40); RED CELL DISTRIBUTION WIDTH 13.2 % (12.0-15.0); WHITE BLOOD COUNT 10.1 x10^3/uL (4.8-10.8)
[2020-02-14 19:03] LABS: ALBUMIN 4.3 g/dL (3.2-5.5); ALBUMIN/GLOBULIN RATIO 1.3 (1.0-2.2); ALKALINE PHOSPHATASE 78 IU/L (42-121); ALT ALANINE AMINOTRANSFERASE 19 IU/L (10-60); AST ASPARTATE AMINOTRANSFERASE 23 IU/L (10-42); BILIRUBIN,TOTAL 0.6 mg/dL (0.2-1.0); BUN - BLOOD UREA NITROGEN 18 mg/dL (6-20); CALCIUM 9.6 mg/dL (8.5-10.3); CARBON DIOXIDE - CO2 28 mmol/L (21-32); CHLORIDE 97 mmol/L (101-111); CHOLESTEROL 272 mg/dL; CREATININE 0.6 mg/dL (0.4-1.0); GLUCOSE 91 mg/dL (70-100); HDL CHOLESTEROL 45 mg/dL; SODIUM 137 mmol/L (135-145); TOTAL PROTEIN 7.5 g/dL (6.7-8.2)
[2020-02-14 19:04] LABS: HB2 TOTAL 14.8 g/dL; HEMOGLOBIN A1C 0.59 g/dL; HEMOGLOBIN A1C % 5.8 % (4.6-6.2)
[2020-02-14 19:08] LABS: CREATININE,URINE 82.2 mg/dL; MICROALBUM/CREATININE RATIO,UR 14.6 ug/mg (<30.0); MICROALBUMIN,URINE 1.2 mg/dL (0-300.0)
[2020-02-14 19:32] LABS: LDL CHOLESTEROL,DIRECT 165 mg/dL; LDLD/HDL RATIO 3.7 (<4.4)
[2020-02-14 19:41] LABS: FREE T4 (FREE THYROXINE) 0.99 ng/dL (0.58-1.64)
== END 2020-02-14 23:59 | disposition home or self-care (01) ==
LOC: LAB.WCP 08:00
PROVIDERS: ATTEND Family Medicine
DX: E11.9 Type 2 diabetes mellitus without complications (principal)
CPT/HCPCS: 36415; 80053; 80061; 82043; 82570; 83036; 83721; 84439; 84443; 85025

== ENCOUNTER 2020-02-14 10:18 | Outpatient (CLI) | payer OTHER ==
--- NOTE | 2020-02-14 12:40 | XRAY Report ---
Reason: COPD Procedure Date: 02/14/2020 Accession Number: [id number] / [id number] Procedure: WCP - Chest 2 View X-Ray CPT Code: 30891 Final Report FULL RESULT: PROCEDURE: Chest 2 View X-Ray INDICATIONS: COPD TECHNIQUE: 2 views of the chest. COMPARISON: 05/21/2019. FINDINGS: Surgical changes and devices: None. Lungs and pleura: No pleural effusions or pneumothorax. There is hyperinflation of the lungs with flattening of the hemidiaphragms compatible with COPD redemonstrated. No acute consolidation. Mediastinum: Mediastinal contours are normal. Heart size is normal. Bones and chest wall: No suspicious bony abnormalities. Soft tissues appear unremarkable. IMPRESSION: 1. Findings compatible with COPD redemonstrated without acute cardiopulmonary disease. Reviewed by: Beck Hardin MD on 02/14/2020 12:39 PM PDT Approved by: Beck Hardin MD on 02/14/2020 12:39 PM PDT Station ID: [id number]
== END 2020-02-14 23:59 | disposition home or self-care (01) ==
LOC: DI.WCP 10:18
PROVIDERS: ATTEND Family Medicine
DX: J44.9 Chronic obstructive pulmonary disease, unspecified (principal); E11.9 Type 2 diabetes mellitus without complications
CPT/HCPCS: 36415; 71046; 80053; 80061; 82043; 82570; 83036; 83721; 84439; 84443; 85025

== ENCOUNTER 2020-02-27 12:59 | Outpatient (CLI) | payer OTHER ==
--- NOTE | 2020-02-28 08:13 | Mammography Report ---
BILATERAL DIGITAL SCREENING MAMMOGRAM 3D/2D: 02/27/2020 CLINICAL: Routine screening. Comparison is made to exams dated: 02/09/2019 mammogram, 01/19/2018 mammogram, 01/17/2017 mammogram, and 12/06/2017 mammogram - [facility]. The tissue of both breasts is heterogeneously d ense. This may lower the sensitivity of mammography. There is a 0.6 cm oval equal density asymmetry in the right breast anterior depth central to the nipp le seen on the mediolateral oblique view only. This is more prominent. No other significant masses, calcifications, or other findings are seen in either breast. IMPRESSION: INCOMPLETE: NEEDS ADDITIONAL IMAGING EVALUATION The 0.6 cm oval equal density asymmetry in the right breast is indeterminate. Additional views with possible ultrasound are recommended. This exam was interpreted at Station ID: [id number]. NOTE: For mammograms, a report in lay terms will be sent to the patient. Approximately 15% of breast malignancies will not be visualized mammographically. In the management of a palpable breast mass, a negative mammogram must not discourage biopsy of a clinically suspicious lesion. Electronically Signed By: Lj douglas/karissa:02/27/2020 14:25:00 ACR BI-RADS Category 0: Incomplete 3340F PARENCHYMAL PATTERN: (D) - The breast(s) demonstrate(s) heterogeneously dense fibroglandular kranthi pereira. BI-RADS CATEGORY: (0) - 0 Mammo and US [id number] Immediate follow-up LATERALITY: (R)
== END 2020-02-27 13:00 | disposition home or self-care (01) ==
LOC: DI 12:59
DX: Z12.31 Encounter for screening mammogram for malignant neoplasm of breast (principal); R92.8 Other abnormal and inconclusive findings on diagnostic imaging of breast
CPT/HCPCS: 77063; 77067

== ENCOUNTER 2020-05-20 12:20 | Outpatient (CLI) | payer OTHER ==
--- NOTE | 2020-05-21 10:02 | Mammography Report ---
UNILATERAL RIGHT DIGITAL DIAGNOSTIC MAMMOGRAM 3D/2D: 05/20/2020 CLINICAL: Patient returns today to evaluate a focal asymmetry in the right breast. Comparison is made to exams dated: 02/27/2020 mammogram, 02/09/2019 mammogram, 01/19/2018 mammogram, mammogram, 01/17/2017 mammogram, and 01/17/2017 ultrasound - [facility]. The t issue of right breast is heterogeneously dense. This may lower the sensitivity of mammography. The asymmetry in the right breast anterior depth central to the nipple seen on the mediolateral obliq ue view only is less prominent on additional views. No other significant masses or calcifications are seen in the breast. IMPRESSION: INCOMPLETE: NEEDS ADDITIONAL IMAGING EVALUATION The oval asymmetry in the right breast likely represents fibroglandular tissue but is indeterminate. A targeted ultrasound of the right breast is recommended and will be performed immediately following this exam. This exam was interpreted at Station ID: [id number]. NOTE: For mammograms, a report in lay terms will be sent to the patient. Approximately 15% of breast malignancies will not be visualized mammographically. In the management of a palpable breast mass, a negative mammogram must not discourage biopsy of a clinically suspicious lesion. Electronically Signed By: Giulia Rehman M.D. lk/:05/20/2020 14:44:58 ACR BI-RADS Category 0: Incomplete 3340F PARENCHYMAL PATTERN: (D) - The breast(s) demonstrate(s) heterogeneously dense fibroglandular kranthi pereira. BI-RADS CATEGORY: (0) - 0 Ultrasound [id number] Immediate follow-up LATERALITY: (B)
--- NOTE | 2020-05-21 10:02 | Ultrasound Report ---
LIMITED ULTRASOUND OF RIGHT BREAST: 05/20/2020 CLINICAL: Patient returns today to evaluate a density in the right breast. Comparison is made to exams dated: 05/20/2020 mammogram, 02/27/2020 mammogram, 02/09/2019 mammogram, 01/10 mammogram, 12/06/2017 mammogram, and 01/17/2017 ultrasound - [facility]. Ultrasound of the right breast retroareolar was performed on the area of interest. IMPRESSION: NEGATIVE There is no sonographic evidence of malignancy. There is no sonographic abnormality seen in the right breast to correspond with the questionable mamm ographic asymmetry. The mammograppic finding is most consistent with superimposed fibroglandular tis timur and is benign. A 1 year screening mammogram is recommended. This exam was interpreted at Station ID: [id number]. Electronically Signed By: Giulia Rehman M.D. lk/:05/20/2020 14:56:08 Ultrasound BI-RADS: 1 Negative BI-RADS CATEGORY: (1) - 1 RECOMMENDATION: (ANNUAL) - Recommend routine annual screening mammography. [id number] 1 year screening LATERALITY: (B)
== END 2020-05-20 12:21 | disposition home or self-care (01) ==
LOC: DI 12:20
PROVIDERS: ATTEND Nurse Practitioner
DX: R92.8 Other abnormal and inconclusive findings on diagnostic imaging of breast (principal)
CPT/HCPCS: 76642

== ENCOUNTER 2020-07-31 09:15 | Outpatient (CLI) | payer OTHER | END 2020-07-31 23:59 | disposition home or self-care (01) | LOC: LAB.R 09:15 | PROVIDERS: ATTEND Internal Medicine | DX: N39.0 Urinary tract infection, site not specified (principal) | CPT/HCPCS: 87086; 87181 ==

== ENCOUNTER 2020-08-04 10:20 | Outpatient (CLI) | payer OTHER | END 2020-08-04 10:21 | disposition home or self-care (01) | LOC: COV 10:20 | PROVIDERS: ATTEND Family Medicine | DX: R50.9 Fever, unspecified (principal); R53.83 Other fatigue; Z20.828 Contact with and (suspected) exposure to other viral communicable diseases ==

== ENCOUNTER 2020-09-02 08:00 | Outpatient (CLI) | payer OTHER | END 2020-09-02 23:59 | disposition home or self-care (01) | LOC: LAB.N 08:00 | PROVIDERS: ATTEND Physician Assistant Medical | DX: J44.1 Chronic obstructive pulmonary disease with (acute) exacerbation (principal); Z20.828 Contact with and (suspected) exposure to other viral communicable diseases ==

== ENCOUNTER 2020-09-02 12:52 | Outpatient (CLI) | payer OTHER ==
--- NOTE | 2020-09-02 13:45 | XRAY Report ---
PROCEDURE: Chest 2 View X-Ray INDICATIONS: COPD, ACUTE EXACERBATION TECHNIQUE: 2 view(s) of the chest. COMPARISON: 05/21/2019 chest x-ray examination FINDINGS: Surgical changes and devices: None. Lungs and pleura: No pleural effusions or pneumothorax. Lungs are clear. Mediastinum: Mediastinal contours are normal. Heart size is normal. Bones and chest wall: No suspicious bony abnormalities. Soft tissues appear unremarkable. IMPRESSION: No acute process. Reviewed by: Librado Layne MD on 09/02/2020 1:43 PM PST Approved by: Librado Layne MD on 09/02/2020 1:43 PM PST Station ID: [id number]
== END 2020-09-02 23:59 | disposition home or self-care (01) ==
LOC: DI.N 12:52
PROVIDERS: ATTEND Physician Assistant Medical
DX: J44.1 Chronic obstructive pulmonary disease with (acute) exacerbation (principal)

== ENCOUNTER 2020-09-26 13:17 | Outpatient (CLI) | payer OTHER ==
--- NOTE | 2020-09-26 14:59 | CT Report ---
PROCEDURE: CHEST WO INDICATIONS: CHRONIC COUGH TECHNIQUE: Noncontrast 5 mm thick sections acquired from the pulmonary apices to the posterior costophrenic angl es. 7 mm thick coronal and sagittal MIP reformats were then acquired. For radiation dose reduction, the following was used: automated exposure control, adjustment of mA and/or kV according to patient size. COMPARISON: None. FINDINGS: Image quality: Excellent. Lungs and pleura: Scattered subsegmental scarring/atelectasis. No acute consolidation. . No pleur al effusions or pneumothorax. Diffuse peribronchial cuffing suggestive of nonspecific bronchitis and /or reactive airways disease. Upper lobe bilateral paraseptal emphysema. 2 mm pulmonary nodule seen i n the left lung base image 203/4 which is indeterminate Mediastinum: Heart size is normal. No pericardial effusion. No mediastinal adenopathy by size cri teria. Thoracic aorta and central pulmonary arteries are normal in size. Circumferential wall thicke preethi of the distal esophagus at the GE junction Coronary artery calcifications are noted. Scattered vascular calcifications are present in the aorta. Bones and chest wall: No suspicious bony lesions. No vertebral body compression fractures. No axi llary or supraclavicular adenopathy by size criteria. The thyroid is normal in size. Abdomen: Visualized upper abdominal solid organs and bowel loops appear normal in the absence of con trast. IMPRESSION: No acute consolidation. Scattered scarring and subsegmental atelectasis. Severe upper lobe paraseptal emphysema 2 mm indeterminate pulmonary nodule in the left lung base. As clinically warranted, follow-up with CT chest in one year could be performed for further assessment. Circumferential wall thickening of the distal esophagus, which could reflect infectious or inflammato ry etiologies are listed technically nonspecific and as clinically warranted, upper endoscopy could d irectly visualize to exclude malignant possibilities. Coronary artery disease Reviewed by: Eamon Del Cid MD on 09/26/2020 2:58 PM PST Approved by: Eamon Del Cid MD on 09/26/2020 2:58 PM PST Station ID: [id number]
== END 2020-09-26 13:18 | disposition home or self-care (01) ==
LOC: DI 13:17
PROVIDERS: ATTEND Family Medicine
DX: R05 Cough (principal); R91.1 Solitary pulmonary nodule; J43.9 Emphysema, unspecified
CPT/HCPCS: 71250

== ENCOUNTER 2020-10-31 12:40 | Outpatient (CLI) | payer OTHER | END 2020-10-31 12:41 | disposition home or self-care (01) | LOC: COV 12:40 | PROVIDERS: ATTEND Surgery | DX: Z01.812 Encounter for preprocedural laboratory examination (principal); K22.8 Other specified diseases of esophagus; E11.9 Type 2 diabetes mellitus without complications; Z86.010 Personal history of colon polyps; Z20.822 Contact with and (suspected) exposure to COVID-19 ==

== ENCOUNTER 2020-11-04 07:19 | Day surgery (SDC) | payer OTHER ==
[2020-11-04] MEDS ORDERED: LACTATED RINGERS 1,000 ML IV ONE ×2 (07:38→08:44)
[2020-11-04] MEDS ORDERED: LIDO GARGLE 30 ML BOTTLE ONE (07:48)
[2020-11-04] MEDS ORDERED: LIDO GARGLE 30 ML BOTTLE TOP ONE (07:55)
[2020-11-04] MEDS ORDERED: BENZOCAINE/TETRACAINE/BUTAMBEN 20 GM TOP ONE (07:56)
[2020-11-04] MEDS ORDERED: fentaNYL 250 MCG/5 ML VIAL ONE (08:04)
[2020-11-04] MEDS ORDERED: MIDAZOLAM 2 MG/2 ML VIAL ONE ×3 (08:04→08:14)
[2020-11-04 09:29] VITALS: BP 140/82
[2020-11-04] MEDS ORDERED: ONDANSETRON 4 MG/2 ML VIAL ONE (09:32)
== END 2020-11-04 07:20 | disposition home or self-care (01) ==
LOC: SDS 07:19
PROVIDERS: ATTEND Surgery
PROC: 0DB28ZX Excision of Middle Esophagus, Via Natural or Artificial Opening Endoscopic, Diagnostic (ICD-10-PCS; 2020-11-04)
PROC: 0DB38ZX Excision of Lower Esophagus, Via Natural or Artificial Opening Endoscopic, Diagnostic (ICD-10-PCS; 2020-11-04)
PROC: 0DB48ZX Excision of Esophagogastric Junction, Via Natural or Artificial Opening Endoscopic, Diagnostic (ICD-10-PCS; 2020-11-04)
PROC: 0DBL8ZZ Excision of Transverse Colon, Via Natural or Artificial Opening Endoscopic (ICD-10-PCS; principal; 2020-11-04 08:30)
PROC: 0DB98ZX Excision of Duodenum, Via Natural or Artificial Opening Endoscopic, Diagnostic (ICD-10-PCS; 2020-11-04 08:30)
DX: Z12.11 Encounter for screening for malignant neoplasm of colon (principal); D12.3 Benign neoplasm of transverse colon; K64.8 Other hemorrhoids; K22.8 Other specified diseases of esophagus; K29.70 Gastritis, unspecified, without bleeding; K44.9 Diaphragmatic hernia without obstruction or gangrene; K22.5 Diverticulum of esophagus, acquired; K21.9 Gastro-esophageal reflux disease without esophagitis; I10 Essential (primary) hypertension; J44.9 Chronic obstructive pulmonary disease, unspecified; F17.210 Nicotine dependence, cigarettes, uncomplicated
CPT/HCPCS: 43239; 45380; A9270; J3010; J7120

== ENCOUNTER 2020-11-11 13:11 | Outpatient (CLI) | payer OTHER ==
[2020-11-11] MEDS ORDERED: ALBUTEROL 1 PUFF INH STA (15:11)
== END 2020-11-11 13:12 | disposition home or self-care (01) ==
LOC: RT 13:11
PROVIDERS: ATTEND Family Medicine
DX: R05 Cough (principal)
CPT/HCPCS: 94060

== ENCOUNTER 2020-12-08 18:26 | Outpatient (CLI) | payer OTHER ==
--- NOTE | 2020-12-09 10:15 | XRAY Report ---
PROCEDURE: Lumbar Spine 2 View INDICATIONS: LOW BACK PX TECHNIQUE: AP and lateral views of the lumbar spine were acquired. COMPARISON: MRI dated 05/02/2017 . FINDINGS: Bones: 5 [id number] vertebrae are present. There is normal bony alignment. No acute vertebral body compression fractures. No suspicious bony lesions. Multilevel lumbar spondylitic changes are visualized as evidenced by degenerative endplate changes, small anterior endplate osteophyte formatio n and mid and lower lumbar facet arthropathy. Soft tissues: Overlying bowel gas pattern is normal. No suspicious soft tissue calcifications. Den se atherosclerotic calcifications of the abdominal aorta are visualized. The AP diameter measures patrica roximately 3.0 cm. IMPRESSION: 1. Lumbar spine without acute osseous abnormalities. 2. Mild multilevel mid and lower lumbar spondylosis. 3. Possible mild aneurysmal dilatation of the infrarenal abdominal aorta. Recommend further evaluatio n with dedicated ultrasound. Reviewed by: Lj Delgadillo MD on 12/09/2020 10:13 AM PDT Approved by: Lj Delgadillo MD on 12/09/2020 10:13 AM PDT Station ID: [id number]
--- NOTE | 2020-12-09 17:51 | XRAY Report ---
PROCEDURE: Cervical Spine 2 View INDICATIONS: CERVICAL PX TECHNIQUE: 3 view(s) of the cervical spine were acquired. COMPARISON: Prior cervical spine plain film imaging is not available for review.. FINDINGS: Bones: No fractures or dislocations to the T1 level. The lateral masses of C1 appear intact on the odontoid view. No suspicious bony lesions. Soft tissues: No prevertebral soft tissue swelling. IMPRESSION: There is moderate degenerative disc disease at C4-5 and moderately severe such degenerat ion at C5-6 with facet osteoarthritis difficult to visualize on the lateral view from the mid cervica l spine inferiorly. No acute trauma found. Significant spinal and foraminal stenosis may be present o ney the lower half of the cervical spine. Body habitus reduces quality of visualization, CT or MR sca nning may be warranted. Reviewed by: Tyler Mae MD on 12/09/2020 5:50 PM PDT Approved by: Tyler Mae MD on 12/09/2020 5:50 PM PDT Station ID: [id number]
== END 2020-12-08 18:27 | disposition home or self-care (01) ==
LOC: DI.N 18:26
PROVIDERS: ATTEND Family Medicine
DX: M47.816 Spondylosis without myelopathy or radiculopathy, lumbar region (principal); M50.321 Other cervical disc degeneration at C4-C5 level; M47.812 Spondylosis without myelopathy or radiculopathy, cervical region

== ENCOUNTER 2021-02-15 11:06 | Outpatient (CLI) | payer OTHER ==
--- NOTE | 2021-02-15 13:32 | Ultrasound Report ---
PROCEDURE: Retroperitoneal Limited INDICATIONS: AORTIC ANEURYSM TECHNIQUE: Real-time scanning was performed of the retroperitoneal organs, with image documentation. COMPARISON: Prior abdominal ultrasound 01/07/[address] 05/04/2019. FINDINGS: There is a normal caliber of the proximal aorta measuring up to 2.4 x 3.1 cm and the middl e third of the aorta is not aneurysmal measuring 2.3 x 2.4 cm. The distal third of the aorta shows a mild fusiform aneurysm over a craniocaudad length tapering above and below 4.8 cm with maximal axial dimension 3.3 x 3.2 cm. IMPRESSION: Mild distal abdominal aortic aneurysm, measuring up to 3.3 x 3.2 cm. No dissection found, no area of high-grade aortic stenosis suspected. Quality of visualization of the iliac arteries is limited by eduardo dy habitus and bowel gas and these measure between 1.6 and 1.0 cm, respectively. These are not aneury smal. Reviewed by: Tyler Mae MD on 02/15/2021 12:31 PM RONNY Approved by: Tyler Mae MD on 02/15/2021 12:31 PM RONNY Station ID: [id number]
== END 2021-02-15 11:07 | disposition home or self-care (01) ==
LOC: DI 11:06
PROVIDERS: ATTEND Family Medicine
DX: I71.9 Aortic aneurysm of unspecified site, without rupture (principal)

== ENCOUNTER 2021-02-16 08:00 | Outpatient (CLI) | payer OTHER ==
[2021-02-16 18:20] LABS: BASOPHILS % (AUTO) 0.5 %; EOSINOPHILS # (AUTO) 0.4 10^3/uL (0.0-0.7); EOSINOPHILS % (AUTO) 5.7 %; HCT - HEMATOCRIT 39.7 % (37.0-47.0); HGB - HEMOGLOBIN 12.9 g/dL (12.0-16.0); LYMPHOCYTES # (AUTO) 2.1 10^3/uL (1.5-3.5); MEAN CORPUSCULAR HEMOGLOBIN 33.1 pg (27.0-31.0); MEAN CORPUSCULAR HGB CONC 32.5 g/dL (32.0-36.0); MEAN CORPUSCULAR VOLUME 101.8 fL (81.0-99.0); MONOCYTES # (AUTO) 0.6 10^3/uL (0.0-1.0); MONOCYTES % (AUTO) 8.2 %; NEUTROPHILS # (AUTO) 4.2 10^3/uL (1.5-6.6); NEUTROPHILS % (AUTO) 56.9 %; PLT - PLATELET COUNT 289 10^3/uL (130-450); RED CELL DISTRIBUTION WIDTH 13.2 % (12.0-15.0); WHITE BLOOD COUNT 7.4 x10^3/uL (4.8-10.8)
[2021-02-16 18:36] LABS: ALBUMIN 4.5 g/dL (3.2-5.5); ALBUMIN/GLOBULIN RATIO 1.5 (1.0-2.2); ALKALINE PHOSPHATASE 76 IU/L (42-121); ALT ALANINE AMINOTRANSFERASE 108 IU/L (10-60); AST ASPARTATE AMINOTRANSFERASE 80 IU/L (10-42); BILIRUBIN,TOTAL 0.5 mg/dL (0.2-1.0); BUN - BLOOD UREA NITROGEN 21 mg/dL (6-20); CALCIUM 9.7 mg/dL (8.5-10.3); CARBON DIOXIDE - CO2 26 mmol/L (21-32); CHLORIDE 97 mmol/L (101-111); CHOL/HDL RATIO 5.9 (<4.4); CHOLESTEROL 259 mg/dL; CREATININE 0.9 mg/dL (0.4-1.0); GFR - MDRD 64 (>89); GLUCOSE 179 mg/dL (70-100); HDL CHOLESTEROL 44 mg/dL; POTASSIUM 4.9 mmol/L (3.5-5.0); SODIUM 136 mmol/L (135-145); TOTAL PROTEIN 7.6 g/dL (6.7-8.2); TRIGLYCERIDES 623 mg/dL
[2021-02-16 18:48] LABS: THYROID STIMULATING HORMONE 0.78 uIU/mL (0.34-5.60)
[2021-02-16 19:11] LABS: LDL CHOLESTEROL,DIRECT 167 mg/dL; LDLD/HDL RATIO 3.8 (<4.4)
[2021-02-16 21:52] LABS: ESTIMATED AVERAGE GLUCOSE 146 mg/dL (70-100); HEMOGLOBIN A1c% 6.7 % (4.27-6.07)
== END 2021-02-16 23:59 | disposition home or self-care (01) ==
LOC: LAB.WCP 08:00
PROVIDERS: ATTEND Family Medicine
DX: E11.9 Type 2 diabetes mellitus without complications (principal)
CPT/HCPCS: 36415; 80053; 80061; 83036; 83721; 84443; 85025

== ENCOUNTER 2021-05-16 10:17 | Outpatient (CLI) | payer OTHER ==
[2021-05-16 13:36] LABS: BASOPHILS % (AUTO) 0.4 %; EOSINOPHILS # (AUTO) 0.2 10^3/uL (0.0-0.7); EOSINOPHILS % (AUTO) 2.6 %; HGB - HEMOGLOBIN 12.3 g/dL (12.0-16.0); LYMPHOCYTES # (AUTO) 1.9 10^3/uL (1.5-3.5); MEAN CORPUSCULAR HEMOGLOBIN 32.9 pg (27.0-31.0); MEAN CORPUSCULAR HGB CONC 32.4 g/dL (32.0-36.0); MEAN CORPUSCULAR VOLUME 101.6 fL (81.0-99.0); MEAN PLATELET VOLUME 9.9 fL (7.9-10.8); MONOCYTES # (AUTO) 0.7 10^3/uL (0.0-1.0); MONOCYTES % (AUTO) 7.6 %; NEUTROPHILS # (AUTO) 6.2 10^3/uL (1.5-6.6); PLT - PLATELET COUNT 259 10^3/uL (130-450); RED BLOOD COUNT 3.74 10^6/uL (4.20-5.40); RED CELL DISTRIBUTION WIDTH 12.8 % (12.0-15.0); WHITE BLOOD COUNT 9.2 x10^3/uL (4.8-10.8)
[2021-05-16 14:01] LABS: ALBUMIN 4.1 g/dL (3.2-5.5); ALBUMIN/GLOBULIN RATIO 1.3 (1.0-2.2); ALKALINE PHOSPHATASE 80 IU/L (42-121); ALT ALANINE AMINOTRANSFERASE 131 IU/L (10-60); AST ASPARTATE AMINOTRANSFERASE 82 IU/L (10-42); BILIRUBIN,TOTAL 0.7 mg/dL (0.2-1.0); BUN - BLOOD UREA NITROGEN 20 mg/dL (6-20); CALCIUM 9.3 mg/dL (8.5-10.3); CARBON DIOXIDE - CO2 29 mmol/L (21-32); CHLORIDE 97 mmol/L (101-111); CHOL/HDL RATIO 5.2 (<4.4); CHOLESTEROL 237 mg/dL; CREATININE 0.7 mg/dL (0.4-1.0); GFR - MDRD 85 (>89); GLUCOSE 193 mg/dL (70-100); HDL CHOLESTEROL 46 mg/dL; LDL CHOLESTEROL,CALCULATED 131 mg/dL; LDL/HDL RATIO 2.8 (<4.4); POTASSIUM 4.8 mmol/L (3.5-5.0); SODIUM 138 mmol/L (135-145); TOTAL PROTEIN 7.2 g/dL (6.7-8.2); TRIGLYCERIDES 301 mg/dL; VLDL CHOLESTEROL 60 mg/dL
[2021-05-16 14:10] LABS: THYROID STIMULATING HORMONE 5.1 uIU/mL (0.34-5.60)
[2021-05-16 14:33] LABS: ESTIMATED AVERAGE GLUCOSE 203 mg/dL (70-100); HEMOGLOBIN A1c% 8.7 % (4.27-6.07)
[2021-05-16 16:59] LABS: CREATININE,URINE 123.6 mg/dL; MICROALBUM/CREATININE RATIO,UR 22.7 ug/mg (<30.0); MICROALBUMIN,URINE 2.8 mg/dL (0-300.0)
== END 2021-05-16 10:18 | disposition home or self-care (01) ==
LOC: LAB.N 10:17
PROVIDERS: ATTEND Family Medicine
DX: E11.9 Type 2 diabetes mellitus without complications (principal)
CPT/HCPCS: 36415; 80053; 80061; 82043; 82570; 83036; 83721; 84443; 85025

== ENCOUNTER 2021-06-08 09:38 | Outpatient (CLI) | payer OTHER ==
[2021-06-08] MEDS ORDERED: GADOBUTROL 15 MMOL/15 ML VIAL ONE (09:53)
--- NOTE | 2021-06-08 11:13 | MRI Report ---
PROCEDURE: Brain W/WO INDICATIONS: DIPLOPIA CONTRAST: IV CONTRAST: Gadavist ml: 8.6 TECHNIQUE: Noncontrast axial T1 spin echo, axial T2 fast spin echo, sagittal and axial FLAIR, coronal T2 fast sp in echo, axial gradient echo, axial diffusion and ADC through the brain. After the administration of contrast, axial and coronal T1 spin echo with fat saturation through the brain. COMPARISON: Relation is made with head CT, 02/01/2016 02/01/2016 FINDINGS: Image quality: Excellent. CSF spaces: Basal cisterns are patent. No extra-axial fluid collections. No hydrocephalus is seen. There is stable ex vacuo dilatation of the left lateral ventricle. Brain: No midline shift. No intracranial bleeds or masses. No abnormal intracranial enhancement. There is cerebral volume loss for age. There is periventricular white matter chronic small vessel is chemic change. The brainstem appears normal. Diffusion-weighted images demonstrate no acute ischemi c insults. There is a stable remote infarction seen involving the left basal ganglia and left deep w hannah matter, which is similar to the [address] Normal intravascular flow voids are present. Skull and face: Calvarial marrow is normal in signal. Orbits appear normal. Sinuses: Mild to moderate mucosal thickening is seen within the left sphenoid sinus, with milder muco richa thickening seen elsewhere within the paranasal sinuses. No significant abnormal fluid can be seen within the mastoid air cells or within the middle ear cavities. IMPRESSION: No imaging explanation is found for the patient's presenting symptoms. No masses or abnormal enhancement can be seen. No findings of acute or subacute infarction are seen. Remote, stable left sided infarction. Reviewed by: Prosper Becker MD on 06/08/2021 10:11 AM RONNY Approved by: Prosper Becker MD on 06/08/2021 10:11 AM RONNY Station ID: [id number]
[2021-06-08] MEDS ORDERED: GADOBUTROL 15 MMOL/15 ML VIAL IVP ONE (16:50)
== END 2021-06-08 09:39 | disposition home or self-care (01) ==
LOC: DI 09:38
PROVIDERS: ATTEND Family Medicine
DX: H53.2 Diplopia (principal); Z86.73 Personal history of transient ischemic attack (TIA), and cerebral infarction without residual deficits
CPT/HCPCS: 70553; A9585

== ENCOUNTER 2021-08-18 08:00 | Outpatient (CLI) | payer OTHER ==
[2021-08-18 21:31] LABS: BASOPHILS # (AUTO) 0.1 10^3/uL (0.0-0.1); BASOPHILS % (AUTO) 0.7 %; EOSINOPHILS # (AUTO) 0.4 10^3/uL (0.0-0.7); EOSINOPHILS % (AUTO) 5.9 %; HCT - HEMATOCRIT 37.8 % (37.0-47.0); HGB - HEMOGLOBIN 12.2 g/dL (12.0-16.0); LYMPHOCYTES # (AUTO) 2.4 10^3/uL (1.5-3.5); LYMPHOCYTES % (AUTO) 32.5 %; MEAN CORPUSCULAR HEMOGLOBIN 31.9 pg (27.0-31.0); MEAN CORPUSCULAR HGB CONC 32.3 g/dL (32.0-36.0); MEAN CORPUSCULAR VOLUME 98.7 fL (81.0-99.0); MONOCYTES # (AUTO) 0.5 10^3/uL (0.0-1.0); MONOCYTES % (AUTO) 6.2 %; NEUTROPHILS # (AUTO) 4.1 10^3/uL (1.5-6.6); NEUTROPHILS % (AUTO) 54.4 %; PLT - PLATELET COUNT 276 10^3/uL (130-450); RED BLOOD COUNT 3.83 10^6/uL (4.20-5.40); RED CELL DISTRIBUTION WIDTH 12.3 % (12.0-15.0); WHITE BLOOD COUNT 7.4 x10^3/uL (4.8-10.8)
[2021-08-18 22:22] LABS: ALBUMIN 4.1 g/dL (3.2-5.5); ALBUMIN/GLOBULIN RATIO 1.4 (1.0-2.2); ALKALINE PHOSPHATASE 58 IU/L (42-121); ALT ALANINE AMINOTRANSFERASE 123 IU/L (10-60); AST ASPARTATE AMINOTRANSFERASE 71 IU/L (10-42); BILIRUBIN,TOTAL 0.6 mg/dL (0.2-1.0); BUN - BLOOD UREA NITROGEN 19 mg/dL (6-20); CALCIUM 9.5 mg/dL (8.5-10.3); CARBON DIOXIDE - CO2 28 mmol/L (21-32); CHLORIDE 99 mmol/L (101-111); CHOLESTEROL 234 mg/dL; CREATININE 0.7 mg/dL (0.4-1.0); ESTIMATED AVERAGE GLUCOSE 140 mg/dL (70-100); GAMMA GLUTAMYL TRANSPEPTIDASE 101 IU/L (8-38); GFR - MDRD 85 (>89); GLUCOSE 150 mg/dL (70-100); HDL CHOLESTEROL 39 mg/dL; HEMOGLOBIN A1c% 6.5 % (4.27-6.07); LDL CHOLESTEROL,CALCULATED 154 mg/dL; LDL/HDL RATIO 3.9 (<4.4); POTASSIUM 4.3 mmol/L (3.5-5.0); SODIUM 139 mmol/L (135-145); TOTAL PROTEIN 7.1 g/dL (6.7-8.2); TRIGLYCERIDES 205 mg/dL; VLDL CHOLESTEROL 41 mg/dL
[2021-08-18 22:26] LABS: CREATININE,URINE 176.4 mg/dL
[2021-08-18 22:29] LABS: THYROID STIMULATING HORMONE 0.21 uIU/mL (0.34-5.60)
[2021-08-18 23:04] LABS: FREE T4 (FREE THYROXINE) 1.06 ng/dL (0.58-1.64)
== END 2021-08-18 23:59 | disposition home or self-care (01) ==
LOC: LAB.WCP 08:00
PROVIDERS: ATTEND Family Medicine
DX: E11.9 Type 2 diabetes mellitus without complications (principal); R94.5 Abnormal results of liver function studies; Z13.89 Encounter for screening for other disorder
CPT/HCPCS: 36415; 80053; 80061; 82043; 82570; 82977; 83036; 83721; 84439; 84443; 85025; 86735; 86762; 86765; 86787

== ENCOUNTER 2021-09-30 11:27 | Outpatient (CLI) | payer OTHER ==
--- NOTE | 2021-10-01 13:45 | Mammography Report ---
BILATERAL DIGITAL SCREENING MAMMOGRAM 3D/2D: 09/30/2021 CLINICAL: Routine screening. Comparison is made to exams dated: 05/20/2020 ultrasound, 05/20/2020 mammogram, 02/27/2020 mammogram, 01/12 mammogram, 01/19/2018 mammogram, and 12/06/2017 mammogram - [facility]. The t issue of both breasts is heterogeneously dense. This may lower the sensitivity of mammography. No significant masses, calcifications, or other findings are seen in either breast. There has been no significant interval change. IMPRESSION: NEGATIVE There is no mammographic evidence of malignancy. A 1 year screening mammogram is recommended. This exam was interpreted at Station ID: [id number]. NOTE: For mammograms, a report in lay terms will be sent to the patient. Approximately 15% of breast malignancies will not be visualized mammographically. In the management of a palpable breast mass, a negative mammogram must not discourage biopsy of a clinically suspicious lesion. Electronically Signed By: Dann Leach acr/penrad:09/30/2021 12:52:11 ACR BI-RADS Category 1: Negative 3341F PARENCHYMAL PATTERN: (D) - The breast(s) demonstrate(s) heterogeneously dense fibroglandular parjosé miguel ma. BI-RADS CATEGORY: (1) - 1 RECOMMENDATION: (ANNUAL) - Recommend routine annual screening mammography. [id number] 1 year screening LATERALITY: (B)
== END 2021-09-30 11:28 | disposition home or self-care (01) ==
LOC: DI.N 11:27
DX: Z12.31 Encounter for screening mammogram for malignant neoplasm of breast (principal)

== ENCOUNTER 2021-09-30 14:44 | Outpatient (CLI) | payer OTHER ==
--- NOTE | 2021-09-30 16:51 | CT Report ---
PROCEDURE: Low Dose Lung Cancer Screen INDICATIONS: FORMER SMOKER TECHNIQUE: Noncontrast low-dose images were acquired from the pulmonary apices to the posterior costophrenic ang les. Multiplanar MIP reformats were then acquired. For radiation dose reduction, the following was used: automated exposure control, adjustment of mA and/or kV according to patient size. COMPARISON: None. FINDINGS: Image quality: Excellent. Lungs and pleura: No evidence of edema or pneumonia. Moderate apical predominant emphysema. Mediastinum: Heart size is normal. No pericardial effusion. Mild calcification of the coronary vas culature. No mediastinal adenopathy by size criteria. Thoracic aorta and central pulmonary arteries are normal in size. Esophagus is normal in caliber. Small hiatal hernia. Bones and chest wall: No suspicious bony lesions. No vertebral body compression fractures. No axil donald or supraclavicular adenopathy by size criteria. The thyroid is normal in size and there are no incidental findings. Abdomen: Visualized portions of the upper abdomen demonstrate diffusely decreased hepatic density. IMPRESSION: 1. No evidence of malignancy. Lung RADS 1. Repeat screening chest CT in one year is recommended. 2. Emphysema. 3. Coronary artery disease. 4. Hiatal hernia. 5. Hepatic steatosis. Reviewed by: Librado Layne MD on 09/30/2021 4:49 PM PST Approved by: Librado Layne MD on 09/30/2021 4:49 PM PST Station ID: [id number]
== END 2021-09-30 14:45 | disposition home or self-care (01) ==
LOC: DI 14:44
PROVIDERS: ATTEND Family Medicine
DX: Z12.2 Encounter for screening for malignant neoplasm of respiratory organs (principal); Z87.891 Personal history of nicotine dependence; J43.9 Emphysema, unspecified; I25.10 Atherosclerotic heart disease of native coronary artery without angina pectoris; K44.9 Diaphragmatic hernia without obstruction or gangrene; K76.0 Fatty (change of) liver, not elsewhere classified

== ENCOUNTER 2021-11-04 08:08 | Outpatient (CLI) | payer OTHER ==
[2021-11-04 11:50] LABS: BASOPHILS % (AUTO) 0.5 %; EOSINOPHILS # (AUTO) 0.5 10^3/uL (0.0-0.7); EOSINOPHILS % (AUTO) 6.3 %; HCT - HEMATOCRIT 40.2 % (37.0-47.0); HGB - HEMOGLOBIN 13.2 g/dL (12.0-16.0); LYMPHOCYTES # (AUTO) 2.1 10^3/uL (1.5-3.5); MEAN CORPUSCULAR HEMOGLOBIN 32.6 pg (27.0-31.0); MEAN CORPUSCULAR HGB CONC 32.8 g/dL (32.0-36.0); MEAN CORPUSCULAR VOLUME 99.3 fL (81.0-99.0); MEAN PLATELET VOLUME 9.8 fL (7.9-10.8); MONOCYTES # (AUTO) 0.5 10^3/uL (0.0-1.0); NEUTROPHILS # (AUTO) 4.2 10^3/uL (1.5-6.6); NEUTROPHILS % (AUTO) 57.7 %; PLT - PLATELET COUNT 270 10^3/uL (130-450); RED BLOOD COUNT 4.05 10^6/uL (4.20-5.40); RED CELL DISTRIBUTION WIDTH 12.5 % (12.0-15.0); WHITE BLOOD COUNT 7.3 x10^3/uL (4.8-10.8)
[2021-11-04 12:13] LABS: CREATININE,URINE 181.1 mg/dL; MICROALBUMIN,URINE 3.8 mg/dL (0-300.0)
[2021-11-04 12:35] LABS: ALBUMIN/GLOBULIN RATIO 1.1 (1.0-2.2); ALKALINE PHOSPHATASE 62 IU/L (42-121); ALT ALANINE AMINOTRANSFERASE 105 IU/L (10-60); AST ASPARTATE AMINOTRANSFERASE 85 IU/L (10-42); BILIRUBIN,TOTAL 0.5 mg/dL (0.2-1.0); BUN - BLOOD UREA NITROGEN 14 mg/dL (6-20); CALCIUM 9.8 mg/dL (8.5-10.3); CARBON DIOXIDE - CO2 29 mmol/L (21-32); CHLORIDE 97 mmol/L (101-111); CHOL/HDL RATIO 5.5 (<4.4); CHOLESTEROL 224 mg/dL; CREATININE 0.6 mg/dL (0.4-1.0); GFR - MDRD 101 (>89); GLUCOSE 170 mg/dL (70-100); HDL CHOLESTEROL 41 mg/dL; LDL CHOLESTEROL,CALCULATED 128 mg/dL; LDL/HDL RATIO 3.1 (<4.4); POTASSIUM 4.2 mmol/L (3.5-5.0); SODIUM 139 mmol/L (135-145); TOTAL PROTEIN 7.6 g/dL (6.7-8.2); TRIGLYCERIDES 274 mg/dL; VLDL CHOLESTEROL 55 mg/dL
[2021-11-04 12:39] LABS: ESTIMATED AVERAGE GLUCOSE 163 mg/dL (70-100); HEMOGLOBIN A1c% 7.3 % (4.27-6.07)
== END 2021-11-04 08:09 | disposition home or self-care (01) ==
LOC: LAB.F 08:08
PROVIDERS: ATTEND Family Medicine
DX: E11.9 Type 2 diabetes mellitus without complications (principal)
CPT/HCPCS: 36415; 80053; 80061; 82043; 82570; 83036; 83721; 85025

== ENCOUNTER 2022-01-19 14:55 | Outpatient (CLI) | payer OTHER | END 2022-01-19 23:59 | disposition home or self-care (01) | LOC: LAB.N 14:55 | PROVIDERS: ATTEND Physician Assistant Medical | DX: R50.9 Fever, unspecified (principal); R31.9 Hematuria, unspecified; Z20.822 Contact with and (suspected) exposure to COVID-19 | CPT/HCPCS: 87086 ==

== ENCOUNTER 2022-01-22 08:00 | Outpatient (CLI) | payer OTHER ==
[2022-01-22 20:02] LABS: BILIRUBIN,URINE NEGATIVE (NEGATIVE); GLUCOSE, URINE (UA) NEGATIVE (NEGATIVE); KETONES,URINE (UA) NEGATIVE (NEGATIVE); LEUKOCYTE ESTERASE, URINE NEGATIVE (NEGATIVE); NITRITE,URINE NEGATIVE (NEGATIVE); OCCULT BLOOD,URINE NEGATIVE (NEGATIVE); PH,URINE 5.5 PH (5.0-7.5); PROTEIN,URINE NEGATIVE (NEGATIVE); UROBILINOGEN,URINE 0.2 (NORMAL) E.U./dL (NORMAL)
[2022-01-22 20:07] LABS: CLARITY,URINE CLOUDY (CLEAR)
[2022-01-22 20:12] LABS: AMORPHOUS SEDIMENT,UR Marked /LPF; BACTERIA,URINE None Seen /HPF (None Seen); RBC,URINE None Seen /HPF (0-5); SQUAMOUS EPITHELIAL CELL,UR NONE SEEN (<= Few); WBC,URINE 0-3 /HPF (0-5)
== END 2022-01-22 23:59 | disposition home or self-care (01) ==
LOC: LAB 08:00
PROVIDERS: ATTEND Nurse Practitioner Family
DX: R82.998 Other abnormal findings in urine (principal); R53.83 Other fatigue
CPT/HCPCS: 36415; 80053; 81001; 84443; 85025; 87086

== ENCOUNTER 2022-01-22 12:23 | Outpatient (CLI) | payer OTHER ==
[2022-01-22 18:14] LABS: ALBUMIN 3.6 g/dL (3.2-5.5); ALBUMIN/GLOBULIN RATIO 0.9 (1.0-2.2); BILIRUBIN,TOTAL 0.3 mg/dL (0.2-1.0); CALCIUM 9.6 mg/dL (8.5-10.3); CREATININE 0.8 mg/dL (0.4-1.0); POTASSIUM 4.2 mmol/L (3.5-5.0); TOTAL PROTEIN 7.4 g/dL (6.7-8.2)
[2022-01-22 18:22] LABS: THYROID STIMULATING HORMONE 0.54 uIU/mL (0.34-5.60)
[2022-01-22 18:28] LABS: BASOPHILS % (AUTO) 0.6 %; EOSINOPHILS # (AUTO) 0.3 10^3/uL (0.0-0.7); EOSINOPHILS % (AUTO) 4.4 %; HCT - HEMATOCRIT 33.6 % (37.0-47.0); HGB - HEMOGLOBIN 10.7 g/dL (12.0-16.0); LYMPHOCYTES % (AUTO) 28.1 %; MEAN CORPUSCULAR HEMOGLOBIN 32.4 pg (27.0-31.0); MEAN CORPUSCULAR HGB CONC 31.8 g/dL (32.0-36.0); MEAN CORPUSCULAR VOLUME 101.8 fL (81.0-99.0); MEAN PLATELET VOLUME 9.8 fL (7.9-10.8); MONOCYTES # (AUTO) 0.5 10^3/uL (0.0-1.0); NEUTROPHILS # (AUTO) 4.2 10^3/uL (1.5-6.6); NEUTROPHILS % (AUTO) 59.2 %; PLT - PLATELET COUNT 392 10^3/uL (130-450); RED CELL DISTRIBUTION WIDTH 12.9 % (12.0-15.0)
[2022-01-22 18:41] LABS: BILIRUBIN,URINE NEGATIVE (NEGATIVE); GLUCOSE, URINE (UA) NEGATIVE (NEGATIVE); KETONES,URINE (UA) NEGATIVE (NEGATIVE); LEUKOCYTE ESTERASE, URINE NEGATIVE (NEGATIVE); NITRITE,URINE NEGATIVE (NEGATIVE); OCCULT BLOOD,URINE NEGATIVE (NEGATIVE); PH,URINE 5.5 PH (5.0-7.5); PROTEIN,URINE NEGATIVE (NEGATIVE); UROBILINOGEN,URINE 0.2 (NORMAL) E.U./dL (NORMAL)
[2022-01-22 18:45] LABS: CLARITY,URINE CLOUDY (CLEAR)
[2022-01-22 18:55] LABS: RBC,URINE None Seen /HPF (0-5); WBC,URINE 0-3 /HPF (0-5)
[2022-01-22 18:56] LABS: AMORPHOUS SEDIMENT,UR Marked /LPF; BACTERIA,URINE None Seen /HPF (None Seen); SQUAMOUS EPITHELIAL CELL,UR NONE SEEN (<= Few)
== END 2022-01-22 12:24 | disposition home or self-care (01) ==
LOC: LAB.N 12:23
PROVIDERS: ATTEND Nurse Practitioner Family
DX: R53.83 Other fatigue (principal); R82.998 Other abnormal findings in urine
CPT/HCPCS: 36415; 80053; 81001; 84443; 85025; 87086

== ENCOUNTER 2022-01-30 09:45 | Outpatient (CLI) | payer OTHER ==
--- NOTE | 2022-01-30 15:32 | CT Report ---
PROCEDURE: CT abdomen pelvis without contrast INDICATIONS: HEMATURIA TECHNIQUE: Noncontrast 5 mm thick sections acquired from the diaphragms to the symphysis. 5 mm coronal and sagi ttal reformats were then performed. For radiation dose reduction, the following was used: automated exposure control, adjustment of mA and/or kV according to patient size. COMPARISON: None. FINDINGS: Lower thorax: Liver shows diffusely decreased attenuation without focal mass lesion. Distal esophagea l wall thickening could reflect esophagitis Liver: Normal in size and attenuation. No contour deformity present. Biliary system: No calcified cholelithiasis or pericholecystic inflammation. No evidence of bile du ct dilatation. Pancreas: Unremarkable without mass or inflammation evident. Spleen: Normal in size and density. Adrenals: Normal morphology and density. Reproductive system: Unremarkable as visualized. Urinary system: Normal renal size and attenuation. 2 mm nonobstructive right renal calculus noted wi thout hydronephrosis. Urinary bladder unremarkable. Gastrointestinal system: The bowel appears unremarkable with no evidence of bowel obstruction or inf lammation. The stomach appears unremarkable. Multiple diverticula arise from the colon without eviden ce of diverticulitis Appendix: No findings to suggest acute appendicitis. Peritoneal spaces: No mesenteric or retroperitoneal adenopathy. No free air. No free fluid. Vasculature: Infrarenal abdominal aortic aneurysm measures 3.5 cm, similar the prior Musculoskeletal: Normal bone mineralization. No acute fractures. Abdominal wall intact without justen dence of ventral or inguinal hernias. IMPRESSION: 1. Nonobstructive right renal 2 mm calculus. No hydronephrosis bilaterally. 2. Distal esophageal wall thickening may reflect chronic esophagitis. 3. Diverticulosis without evidence of diverticulitis. Stable infrarenal abdominal aortic aneurysm, 3. 5 cm Reviewed by: Anjel Cochran MD on 01/30/2022 2:31 PM AKDT Approved by: Anjel Cochran MD on 01/30/2022 2:31 PM AKDT Station ID: [id number]
== END 2022-01-30 09:46 | disposition home or self-care (01) ==
LOC: DI 09:45
PROVIDERS: ATTEND Physician Assistant Medical
DX: R31.0 Gross hematuria (principal); R50.9 Fever, unspecified; R53.83 Other fatigue; N20.0 Calculus of kidney; K57.30 Diverticulosis of large intestine without perforation or abscess without bleeding; I71.4 Abdominal aortic aneurysm, without rupture; R93.3 Abnormal findings on diagnostic imaging of other parts of digestive tract

== ENCOUNTER 2022-02-01 09:09 | Outpatient (CLI) | payer OTHER ==
[2022-02-01 12:36] LABS: BASOPHILS # (AUTO) 0.1 10^3/uL (0.0-0.1); BASOPHILS % (AUTO) 0.7 %; EOSINOPHILS # (AUTO) 0.4 10^3/uL (0.0-0.7); EOSINOPHILS % (AUTO) 5.3 %; HCT - HEMATOCRIT 37.4 % (37.0-47.0); HGB - HEMOGLOBIN 12.1 g/dL (12.0-16.0); LYMPHOCYTES # (AUTO) 2.2 10^3/uL (1.5-3.5); LYMPHOCYTES % (AUTO) 27.3 %; MEAN CORPUSCULAR HEMOGLOBIN 32.2 pg (27.0-31.0); MEAN CORPUSCULAR HGB CONC 32.4 g/dL (32.0-36.0); MEAN CORPUSCULAR VOLUME 99.5 fL (81.0-99.0); MEAN PLATELET VOLUME 9.6 fL (7.9-10.8); MONOCYTES # (AUTO) 0.6 10^3/uL (0.0-1.0); MONOCYTES % (AUTO) 7.2 %; NEUTROPHILS # (AUTO) 4.8 10^3/uL (1.5-6.6); NEUTROPHILS % (AUTO) 58.8 %; PLT - PLATELET COUNT 345 10^3/uL (130-450); RED BLOOD COUNT 3.76 10^6/uL (4.20-5.40); RED CELL DISTRIBUTION WIDTH 13.2 % (12.0-15.0); WHITE BLOOD COUNT 8.2 x10^3/uL (4.8-10.8)
[2022-02-01 12:41] LABS: ALBUMIN 3.9 g/dL (3.2-5.5); ALBUMIN/GLOBULIN RATIO 1.2 (1.0-2.2); ALKALINE PHOSPHATASE 59 IU/L (42-121); ALT ALANINE AMINOTRANSFERASE 95 IU/L (10-60); AST ASPARTATE AMINOTRANSFERASE 63 IU/L (10-42); BILIRUBIN,TOTAL 0.5 mg/dL (0.2-1.0); BUN - BLOOD UREA NITROGEN 12 mg/dL (6-20); CALCIUM 10.1 mg/dL (8.5-10.3); CARBON DIOXIDE - CO2 28 mmol/L (21-32); CHLORIDE 99 mmol/L (101-111); CHOL/HDL RATIO 6.9 (<4.4); CHOLESTEROL 229 mg/dL; CREATININE 0.6 mg/dL (0.4-1.0); GFR - MDRD 101 (>89); GLUCOSE 214 mg/dL (70-100); HDL CHOLESTEROL 33 mg/dL; LDL CHOLESTEROL,CALCULATED 131 mg/dL; POTASSIUM 4.6 mmol/L (3.5-5.0); SODIUM 138 mmol/L (135-145); TOTAL PROTEIN 7.2 g/dL (6.7-8.2); TRIGLYCERIDES 324 mg/dL; VLDL CHOLESTEROL 65 mg/dL
[2022-02-01 13:57] LABS: ESTIMATED AVERAGE GLUCOSE 197 mg/dL (70-100); HEMOGLOBIN A1c% 8.5 % (4.27-6.07)
== END 2022-02-01 09:10 | disposition home or self-care (01) ==
LOC: LAB.N 09:09
PROVIDERS: ATTEND Family Medicine
DX: E11.9 Type 2 diabetes mellitus without complications (principal)
CPT/HCPCS: 36415; 80053; 80061; 83036; 83721; 85025

== ENCOUNTER 2022-02-04 08:00 | Outpatient (CLI) | payer OTHER ==
[2022-02-04 20:28] LABS: BILIRUBIN,URINE NEGATIVE (NEGATIVE); GLUCOSE, URINE (UA) 100 mg/dL (NEGATIVE); KETONES,URINE (UA) NEGATIVE (NEGATIVE); LEUKOCYTE ESTERASE, URINE NEGATIVE (NEGATIVE); NITRITE,URINE NEGATIVE (NEGATIVE); OCCULT BLOOD,URINE NEGATIVE (NEGATIVE); PH,URINE 5.5 PH (5.0-7.5); PROTEIN,URINE NEGATIVE (NEGATIVE); UROBILINOGEN,URINE 0.2 (NORMAL) E.U./dL (NORMAL)
[2022-02-04 20:34] LABS: CLARITY,URINE CLOUDY (CLEAR)
[2022-02-04 20:54] LABS: AMORPHOUS SEDIMENT,UR Marked /LPF; BACTERIA,URINE Few /HPF (None Seen); RBC,URINE None Seen /HPF (0-5); SQUAMOUS EPITHELIAL CELL,UR NONE SEEN (<= Few)
[2022-02-04 20:55] LABS: WBC,URINE 0-3 /HPF (0-5)
== END 2022-02-04 23:59 | disposition home or self-care (01) ==
LOC: LAB 08:00
PROVIDERS: ATTEND Family Medicine
DX: N20.0 Calculus of kidney (principal)
CPT/HCPCS: 81001; 87086

== ENCOUNTER 2022-03-04 12:05 | Outpatient (CLI) | payer OTHER ==
[2022-03-04 17:48] LABS: BASOPHILS # (AUTO) 0.1 10^3/uL (0.0-0.1); BASOPHILS % (AUTO) 0.7 %; EOSINOPHILS # (AUTO) 0.5 10^3/uL (0.0-0.7); EOSINOPHILS % (AUTO) 5.3 %; HCT - HEMATOCRIT 38.9 % (37.0-47.0); HGB - HEMOGLOBIN 12.6 g/dL (12.0-16.0); LYMPHOCYTES # (AUTO) 2.2 10^3/uL (1.5-3.5); LYMPHOCYTES % (AUTO) 24.4 %; MEAN CORPUSCULAR HEMOGLOBIN 31.8 pg (27.0-31.0); MEAN CORPUSCULAR HGB CONC 32.4 g/dL (32.0-36.0); MEAN CORPUSCULAR VOLUME 98.2 fL (81.0-99.0); MEAN PLATELET VOLUME 10.2 fL (7.9-10.8); MONOCYTES # (AUTO) 0.6 10^3/uL (0.0-1.0); MONOCYTES % (AUTO) 7.3 %; NEUTROPHILS # (AUTO) 5.5 10^3/uL (1.5-6.6); NEUTROPHILS % (AUTO) 61.8 %; PLT - PLATELET COUNT 273 10^3/uL (130-450); RED BLOOD COUNT 3.96 10^6/uL (4.20-5.40); RED CELL DISTRIBUTION WIDTH 12.6 % (12.0-15.0); WHITE BLOOD COUNT 8.8 x10^3/uL (4.8-10.8)
== END 2022-03-04 12:06 | disposition home or self-care (01) ==
LOC: LAB.N 12:05
PROVIDERS: ATTEND Physician Assistant
DX: M70.30 Other bursitis of elbow, unspecified elbow (principal)
CPT/HCPCS: 36415; 85025

== ENCOUNTER 2022-06-14 09:26 | Outpatient (CLI) | payer OTHER ==
[2022-06-14 12:44] LABS: ESTIMATED AVERAGE GLUCOSE 169 mg/dL (70-100); HEMOGLOBIN A1c% 7.5 % (4.27-6.07)
[2022-06-14 12:52] LABS: CALCIUM 9.7 mg/dL (8.5-10.3); CREATININE 0.7 mg/dL (0.4-1.0); POTASSIUM 4.7 mmol/L (3.5-5.0)
== END 2022-06-14 09:27 | disposition home or self-care (01) ==
LOC: LAB.N 09:26
PROVIDERS: ATTEND Physician Assistant
DX: E11.9 Type 2 diabetes mellitus without complications (principal)
CPT/HCPCS: 36415; 80048; 83036

== ENCOUNTER 2022-07-08 12:42 | Outpatient (CLI) | payer OTHER ==
--- NOTE | 2022-07-08 15:36 | Ultrasound Report ---
PROCEDURE: Retroperitoneal Limited INDICATIONS: AAA TECHNIQUE: Real time scanning was performed of the aorta and iliac arteries, with image documentatio n. COMPARISON: CT abdomen pelvis 01/30/2022 FINDINGS: Aorta: Proximal aortic diameter measures 3.4 x 3.7 cm. Mid-aorta measures 2.3 x 2.0 cm. Distal aor tic diameter is 3.4 x 3.3 cm, for a length of 4.9 cm. Atherosclerotic calcification throughout the ao rta. Iliac arteries: Right common iliac artery measures 0.9 cm. Left common iliac artery measures 1.0 cm . IMPRESSION: 1. Proximal abdominal aorta has minimally increased in AP diameter by 2 mm since the prior CT scan. 2. The distal abdominal aortic aneurysm is stable size, measured 2 mm smaller than the prior CT scan in the AP direction. Reviewed by: Sully Araujo MD on 07/08/2022 2:35 PM RONNY Approved by: Sully Araujo MD on 07/08/2022 2:35 PM RONNY Station ID: [id number]
== END 2022-07-08 12:43 | disposition home or self-care (01) ==
LOC: DI 12:42
PROVIDERS: ATTEND Physician Assistant
DX: I71.40 Abdominal aortic aneurysm, without rupture, unspecified (principal)

== ENCOUNTER 2022-07-16 14:19 | Outpatient (CLI) | payer OTHER ==
[2022-07-16 14:56] VITALS: BP 128/68
--- NOTE | 2022-07-16 14:56 | SLEEP CARE CONSULTATION ---
Information from patient questionnaire entered by Sandra Antunez. I have reviewed and concur with the information entered by Sandra Antunez. This document represents the service I personally performed and the decisions made by me, Merary Chacon ARNP. History of Present Illness Service Date and Time: 07/16/2022 1419 Reason for Visit: New patient Chief Complaint: reports: Insomnia, Unrefreshed sleep, Snoring, Excessive daytime sleepiness, Fatigue, Frequent awakenings at night Date of Onset: 2YRS Usual bedtime: 10PM Time it takes to fall asleep: 2HRS Snores at night: No Observed to quit breathing while asleep: No Sleeps alone due to snoring: No Number of times waking at night: 6-7 Reasons for waking at night: reports: Pain, Bathroom, Other (UNKNOWN REASON ). denies: Choking Toss, Turn, or Twitch while sleeping: Yes Recalls having dreams: Yes Usually gets out of bed at: 8AM Feels refreshed in the morning: No Morning headache: No Sleepy or fatigued during the day: Yes Ever fallen asleep while driving: No Takes day naps: Yes (2 times a week for about 45-60 minutes) Dreams during day naps: Yes Prior sleep studies: No Additional HPI information: I had the pleasure of seeing BABS MCCABE today regarding the possibility of her having a sleep disorder. Her current complaints are insomnia, unrefreshed sleep, excessive daytime sleepiness, fatigue and frequent night awakenings. She has a chronic productive cough that they are looking more closely at because it is not improving over time. She is up about 2 times to use the bathroom but feels she is "constantly tossing and turning" in her bed at night. She is being woke up with cramping in her feet. She states her late partner did tell that she snores but he about 3.5 years ago. - Parasomnia Symptoms Ever been unable to move upon waking from sleep: No Walks in sleep: No Talks in sleep: Yes Ever acted out dreams in sleep: No Ever felt weak in the knees when startled or emotional: No Bothered by creepy, crawly, restless sensations in legs: Yes Problems with memory or concentration: Yes (memory, thinks it is age related) Subjective Initial Cando Sleepiness Scale score: 8 (06/23/2022) Past Medical History Past Medical History: reports: Hypertension, Diabetes, Stroke (2003, Jul), Arthritis, Hypothyroidism (SINCE 2003), Anemia, Anxiety, Asthma, Depression, Emphysema, GERD, Other (Barretts esophagus) Social History 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 Patient is Single and lives in [place]. Have you smoked in the past 12 months: No Alcohol use: Yes Alcohol amount and frequency: 3-4 DRINKS 5 DAYS Caffeine use: Yes Caffeine amount and frequency: 1 CUP 1 TIME DAILY Family History Family history of sleep disordered breathing: Yes Family Hx Sleep Apnea: Father: Snoring, Sleep apnea - Treated Allergies and Home Medications Known drug allergies: No Drug allergies reviewed: Yes (adhesive tape) Home medication list reviewed: Yes Allergy and home medication list: Medications: Acyclovir 400 mg, prn Albuterol HFA 90 mcg inhaler budesonide-formoterol Humalog Humulin NPH Ipratropium-albuterol nebs Levothyroxine 150 mcg Losartan 100 mg pantoprazole 20 mg Pravastatin 20 mg Verapamil SR 120 mg Review of Systems Weight gain over past 5 years: 40 Cardiovascular: reports: high blood pressure, palpitations, chest pain Respiratory: reports: shortness of breath, wheeze, sputum production, chronic cough Gastrointestinal: reports: heartburn, difficulty swallowing Urinary: reports: incontinence Neurological: reports: headaches Psychiatric: reports: anxiety, depression Ear/Nose/Throat: reports: nasal congestion, sinus problems, dry mouth/throat, wisdom teeth removed. denies: tonsillectomy Endocrine: reports: thyroid disease, sluggishness, too hot or cold, unexplained weakness Musculoskeletal: reports: joint pain, neck pain, back pain, muscle pain or cramping, mobility problems Immunologic: reports: itching Physical Exam Vital signs obtained and entered by: SANDRA Fernández MA Blood Pressure: 128/68 (left arm) Cuff size: regular Heart Rate: 99 O2 Saturation: 94 Height: 5 ft 4 in Weight: 210 lb 6.4 oz Body Mass Index: 36.1 BMI Classification: Obese Neck circumference: 19.25 Mouth and throat: narrow oropharynx Soft palate: long Hard palate: normal Uvula: normal Uvula visualization: 25% Mallampati Class III Tongue: normal in size Tonsils: small Neck: normal w/o lymphadenopathy or thyromegaly Heart: regular rate and rhythm Lungs: clear bilaterally Impression and Plan 1. Suspected Obstructive Sleep Apnea-Hypopnea Syndrome, as suggested by a history of loud and irregular snoring, frequent awakening during the night, unrefreshed sleep, cognitive impairment, and excessive daytime sleepiness. Narrow oropharynx and obesity are common predisposing factors for obstructive sleep apnea-hypopnea syndrome. I recommend proceeding to polysomnography to confirm the diagnosis and to assess severity. If the patient has significant sle ep disordered breathing, a manual CPAP titration study will also be performed to find the optimal treatment pressure. I informed the patient of what the sleep studies involve and after some discussion, obtained agreement to proceed. The pathophysiology of obstructive sleep apnea-hypopnea syndrome was discussed with the patient and health risks of cardiovascular and cerebrovascular disease if not treated. Risks of drowsy driving discussed in detail and patient advised to avoid long distance driving and to lung puller at the first sign of drowsiness. Patient agreed to plan. * Schedule polysomnography * Avoid long distance driving or driving when feeling sleepy. * Avoid alcohol, sedative and muscle relaxant around bedtime. * Attempt to lose weight. * Review instructions provided by trained office staff on how to prepare for the sleep study. * Return for follow-up after sleep study completed. Counseling Topics: Weight loss health impact Visit Type: In Office Time Spent with Patient (minutes): 31 Provider Statement: I spent 100% of the Face to Face Visit with the patient with greater than 50% spent counseling the patient and coordination of care.
== END 2022-07-16 14:20 | disposition home or self-care (01) ==
LOC: SC 14:19
PROVIDERS: ATTEND Nurse Practitioner Family
DX: G47.10 Hypersomnia, unspecified (principal); R53.83 Other fatigue; G47.8 Other sleep disorders; R06.83 Snoring; E11.9 Type 2 diabetes mellitus without complications; I10 Essential (primary) hypertension; E66.9 Obesity, unspecified; Z68.36 Body mass index [BMI] 36.0-36.9, adult
CPT/HCPCS: 99203; 99212

== ENCOUNTER 2022-08-03 20:41 | Outpatient (CLI) | payer OTHER | END 2022-08-03 20:42 | disposition home or self-care (01) | LOC: SC 20:41 | PROVIDERS: ATTEND Nurse Practitioner Family | DX: G47.33 Obstructive sleep apnea (adult) (pediatric) (principal); G47.61 Periodic limb movement disorder | CPT/HCPCS: 95810 ==

== ENCOUNTER 2022-09-02 12:49 | Outpatient (CLI) | payer OTHER ==
[2022-09-02 13:17] VITALS: BP 110/60
--- NOTE | 2022-09-02 13:17 | SLEEP CARE CONSULTATION ---
Information from patient questionnaire entered by Jame Lopez. I have reviewed and concur with the information entered by Jame Lopez. This document represents the service I personally performed and the decisions made by me, Merary Chacon ARNP. History of Present Illness Service Date and Time: 09/02/2022 1249 Initial Sandy Sleepiness Scale score: 8 (06/23/2022) Current Sandy Sleepiness Scale score: 3 (09/02/22) Additional HPI information: BABS MCCABE returns for follow up and results of the recently performed polysomnography. I explained the pathophysiology behind obstructive sleep apnea. We then spent quite a bit of time discussing different treatment options. For mild obstructive sleep apnea, surgery and oral appliance are alternatives to nasal CPAP therapy but in moderate or severe cases, nasal CPAP is the most effective and reliable treatment. Because apnea is primarily in supine position, then positional management therapy could be effective. Methods discussed such as positioning with pillows to prevent supine sleep. I reviewed the impact of weight changes on sleep apnea and strongly recommended losing weight. After some discussion, the patient opted to go with the nasal CPAP therapy. Nasal autoCPAP set at 4-15 cmH20 will be ordered with rationale explained. A manual titration study will be ordered if unable to find optimal pressure with office adjustments. I explained how CPAP machine works and what to expect when using the machine. Using CPAP every night in order to get used to it was emphasized. Patient advised to put CPAP mask on before getting into bed so as not to fall asleep without CPAP. To assist acclimation to CPAP use, it could also be used for a short time during day while reading or watching TV. The patient was instructed to call the CPAP supplier to discuss any mechanical problem that may occur. If the mask given is uncomfortable or is difficult to keep on through the night even with adjustment, contact the CPAP supplier as many will replace with another mask style if notified before 30 days. If snoring or perceives is not getting enough air or too much air from the machine, notify this office. Patient counseled not drink alcohol less than 4 hours before bedtime as it can increase snoring and apnea. Patient was cautioned about risks of drowsy driving until sleepiness symptoms resolve. Patient denies drowsy driving. Sleep Study - Results Type of Sleep Study: Polysomnography (DONE 08/03/22) Prior sleep studies: No Polysomnography/Home Sleep Study results: IMPRESSION: The quality of the study is good. The patient had reduced sleep efficiency due to two prolonged awakenings during the night. The sleep architecture was abnormal for sleep fragmentation and reduced amount of time spent in slow wave sleep (N3). Respiratory monitoring showed moderate obstructive sleep apnea-hypopnea (AHI = 23.2) associated with frequent arousals, oxyhemoglobin desaturation and mild hypoxia (elba oxygen saturation of 82%). The respiratory events occurred almost exclusively during supine sleep (supine AHI = 93.1; non-supine = 3.62). Snore was light to moderate in intensity. There was severe periodic leg movement of sleep contributing to the sleep fragmentation. Cardiac rhythm was normal sinus rhythm without significant arrhythmia. No abnormal behavior (parasomnia) observed during the night. Allergies and Home Medications Drug allergies reviewed: Yes (as listed in EMR) Home medication list reviewed: Yes (no changes) Review of Systems Review of systems same as previous: Yes (no changes) Physical Exam Vital signs obtained and entered by: MICHAEL SINGH Blood Pressure: 110/60 (left arm ) Cuff size: regular Heart Rate: 102 O2 Saturation: 98 Height: 5 ft 4 in Weight: 207 lb Body Mass Index: 35.5 BMI Classification: Obese Impression and Plan 1. Obstructive Sleep Apnea-Hypopnea Syndrome, moderate, with lowest oxygen saturation of 82%. Obviously this is the cause of the patients symptoms of unrefreshed sleep, and excessive daytime sleepiness. Positive pressure therapy could benefit hypertension, diabetes, cerebrovascular disease, anxiety, depression, gastric reflux and asthma. As mentioned above, the patient will be started on nasal autoCPAP therapy with pressure set at 4-15 cmH2O. Compliance guidelines also reviewed. A copy of compliance guidelines will be given for reference at check out. Because the apnea is more severe supine, I instructed to avoid sleeping supine using pillow positioning until able to start CPAP use. 2. Periodic limb movement, severe, that did fragment patients sleep. Periodic limb movement of sleep (PLMS) is characterized by episodes of repetitive limb movements that occur during sleep and usually involve the lower limbs. The etiology is unknown. Caffeine can aggravate PLMS and should be avoided. Sleep hygiene methods can also improve sleep as well as lifestyle changes such as regular exercise. Patient was advised that no treatment is needed at this time. If symptoms increase, then further evaluation is indicated. 3. Hypoxemia, mild, with a elba oxygen saturation of 82% and 84.9 minutes spent under 90%. Her baseline oxygen saturation was normal with an average oxygen saturation of 90%. * Nasal auto CPAP therapy, pressure at 4-15 cm H2O. * Attempt to lose weight. * Avoid alcohol consumption near bedtime. * Avoid supine sleep until using CPAP. * The patient is again cautioned about driving until sleepiness completely resolves. * Return one month after CPAP obtained. I will assess response to therapy and compliance at that time. Counseling Topics: Spare mask, Weight loss health impact Prescriptions: Auto CPAP Visit Type: In Office Time Spent with Patient (minutes): 20 Provider Statement: I spent 100% of the Face to Face Visit with the patient with greater than 50% spent counseling the patient and coordination of care.
== END 2022-09-02 12:50 | disposition home or self-care (01) ==
LOC: SC 12:49
PROVIDERS: ATTEND Nurse Practitioner Family
DX: G47.33 Obstructive sleep apnea (adult) (pediatric) (principal); G47.61 Periodic limb movement disorder; R09.02 Hypoxemia; E66.9 Obesity, unspecified; Z68.35 Body mass index [BMI] 35.0-35.9, adult
CPT/HCPCS: 99212; 99213

== ENCOUNTER 2022-09-29 09:03 | Outpatient (CLI) | payer OTHER ==
[2022-09-29 13:00] LABS: CALCIUM 9.4 mg/dL (8.5-10.3); CREATININE 0.8 mg/dL (0.4-1.0); POTASSIUM 4.2 mmol/L (3.5-5.0)
[2022-09-29 13:31] LABS: ESTIMATED AVERAGE GLUCOSE 154 mg/dL (70-100)
== END 2022-09-29 09:04 | disposition home or self-care (01) ==
LOC: LAB.N 09:03
PROVIDERS: ATTEND Physician Assistant
DX: E11.9 Type 2 diabetes mellitus without complications (principal)
CPT/HCPCS: 36415; 80048; 83036

== ENCOUNTER 2022-10-02 10:49 | Outpatient (CLI) | payer OTHER ==
--- NOTE | 2022-10-02 15:18 | CT Report ---
PROCEDURE: Low Dose Lung Cancer Screen INDICATIONS: FORMER SMOKER TECHNIQUE: Noncontrast low-dose axial images were acquired from the pulmonary apices to the posterior costophren ic angles. Multiplanar MIP reformats were then reconstructed. For radiation dose reduction, the follo wing was used: automated exposure control, adjustment of mA and/or kV according to patient size. COMPARISON: 09/30/2021 FINDINGS: Image quality: Excellent. Lungs and pleura: Severe biapical centrilobular and paraseptal emphysematous change. No suspicious l suad nodules. A few 2 mm calcifications in the left lower lobe consistent with healed granulomas. Tomi r bibasilar gravitational changes. No acute consolidations, pleural effusions, pleural calcification, or pneumothorax. Central and peripheral airways are normal. Mediastinum: Heart size is normal. No pericardial effusion. Moderate aortic valvular and mitral deborah ular calcification. No mediastinal adenopathy by size criteria. Thoracic aorta and central pulmonary arteries are normal in size. Esophagus is normal in caliber. Mild mid to distal esophageal wall thi ckening circumferentially. Tiny Hiatal hernia. Bones and chest wall: Left axilla is not fully imaged due to field of view for this study. No suspic ious bony lesions. No vertebral body compression fractures. No visible axillary or supraclavicular adenopathy by size criteria. The thyroid gland is not well seen due to technique. Abdomen: Visualized upper abdomen solid organs and bowel loops appear normal given technique and in the absence of contrast. IMPRESSION: 1. No suspicious lung nodules. Lung RADS category 1, negative. Continue annual low-dose chest CT scre ening as long as the patient meets established criteria. 2. Severe upper lobe emphysematous change. 3. Cardiac valvular calcification. Reviewed by: Sully Araujo MD on 10/02/2022 2:17 PM AKST Approved by: Sully Araujo MD on 10/02/2022 2:17 PM AKST Station ID: [id number]
== END 2022-10-02 10:50 | disposition home or self-care (01) ==
LOC: DI 10:49
PROVIDERS: ATTEND Physician Assistant
DX: Z12.2 Encounter for screening for malignant neoplasm of respiratory organs (principal); J43.9 Emphysema, unspecified; F17.201 Nicotine dependence, unspecified, in remission

== ENCOUNTER 2022-10-12 11:01 | Outpatient (CLI) | payer OTHER ==
--- NOTE | 2022-10-13 11:27 | Mammography Report ---
BILATERAL DIGITAL SCREENING MAMMOGRAM 3D/2D: 10/12/2022 CLINICAL: Routine screening. Comparison is made to exams dated: 09/30/2021 mammogram, 05/20/2020 ultrasound, 05/20/2020 mammogram, 02/10 mammogram, 02/09/2019 mammogram, and 01/19/2018 mammogram - [facility]. Both breasts are heterogeneously dense, which may obscure small masses (category c / 51-75% glandular tissue). No significant masses, calcifications, or other findings are seen in either breast. There has been no significant interval change. IMPRESSION: NEGATIVE There is no mammographic evidence of malignancy. A 1 year screening mammogram is recommended. Based on the Tyrer Cuzick model (a risk assessment model) the patients lifetime risk is 10.3% and he r 10 year risk is 4.7%. According to the ACR, ACS, and NCCN guidelines, an annual breast MRI exam anh ng with mammogram is recommended if the patients lifetime risk is 20% or greater. This exam was interpreted at Station ID: [id number]. NOTE: For mammograms, a report in lay terms will be sent to the patient. Approximately 15% of breast malignancies will not be visualized mammographically. In the management of a palpable breast mass, a negative mammogram must not discourage biopsy of a clinically suspicious lesion. Electronically Signed By: Lj Delgadillo M.D. atnina/ruirad:10/12/2022 17:18:36 ACR BI-RADS Category 1: Negative 3341F PARENCHYMAL PATTERN: (D) - The breast(s) demonstrate(s) heterogeneously dense fibroglandular kranthi pereira. BI-RADS CATEGORY: (1) - 1 RECOMMENDATION: (ANNUAL) - Recommend routine annual screening mammography. [id number] 1 year screening LATERALITY: (B)
== END 2022-10-12 11:02 | disposition home or self-care (01) ==
LOC: DI.N 11:01
DX: Z12.31 Encounter for screening mammogram for malignant neoplasm of breast (principal)

== ENCOUNTER 2022-10-21 06:50 | Outpatient (CLI) | payer OTHER ==
--- NOTE | 2022-10-21 17:27 | Ultrasound Report ---
PROCEDURE: Retroperitoneal Limited INDICATIONS: AAA TECHNIQUE: Real-time scanning was performed of the retroperitoneal organs, with image documentation. COMPARISON: Ultrasound retroperitoneum, limited, 07/08/2022. FINDINGS: Calcified plaques are seen throughout abdominal aorta and iliac arteries. Proximal abdominal aorta: 3.5 x 3.7 cm; previously 3.4 x 3.7 cm. Mid abdominal aorta: 2.3 x 2.3 cm; previously 2.3 x 2.0 cm. Distal abdominal aorta: 3.5 x 3.3 cm; previously 3.4 x 3.3 cm. There is fusiform dilation of the dist al abdominal aorta measuring 4.8 cm longitudinal. Right common iliac artery: 1.1 x 1.2 cm. Left common iliac artery: 0.9 x 1.1 cm. IMPRESSION: No significant change in abdominal aortic aneurysm. Reviewed by: Elfego Bustillo MD on 10/21/2022 4:55 PM PST Approved by: Elfego Bustillo MD on 10/21/2022 4:55 PM PST Station ID: [id number]
== END 2022-10-21 06:51 | disposition home or self-care (01) ==
LOC: DI 06:50
PROVIDERS: ATTEND Physician Assistant
DX: I71.40 Abdominal aortic aneurysm, without rupture, unspecified (principal)

== ENCOUNTER 2022-10-21 14:01 | Outpatient (CLI) | payer OTHER ==
[2022-10-21 14:50] VITALS: BP 116/58
--- NOTE | 2022-10-21 14:50 | SLEEP CARE CONSULTATION ---
Information from patient questionnaire entered by Sandra Antunez. I have reviewed and concur with the information entered by Sandra Antunez. This document represents the service I personally performed and the decisions made by me, Merary Chacon ARNP. History of Present Illness Service Date and Time: 10/21/2022 1401 Previous diagnosis: Moderate, Obstructive Sleep Apnea-Hypopnea Syndrome AHI: 23.2 (in 2021) Reason for follow up: other (2MONTH F/U) Equipment type: CPAP (RESMED PT WANTS TO BE SHOWN HOW TO USE CPAP) Prior sleep studies: No Type of Sleep Study: Polysomnography (DONE 08/03/22) HPI additional information: BABS MCCABE was diagnosed to have moderate, AHI 23.2, obstructive sleep apnea-hypopnea syndrome and returned today for CPAP therapy two month follow-up. Sleep Study - Results Type of Sleep Study: Polysomnography (DONE 08/03/22) Prior sleep studies: No CPAP Compliance Data Compliance data discussion: She has received her new ResMed Airsense 11 but does not know how to set up and use it. Subjective Initial Ephraim Sleepiness Scale score: 8 (06/23/2022) Current Ephraim Sleepiness Scale score: 3 (10/21/22) Allergies and Home Medications Drug allergies reviewed: Yes (adhesive tape) Home medication list reviewed: Yes (no changes) Review of Systems Review of systems same as previous: Yes (no changes) Physical Exam Vital signs obtained and entered by: SANDRA Fernández MA Blood Pressure: 116/58 (LEFT ARM) Cuff size: regular Heart Rate: 88 O2 Saturation: 94 Height: 5 ft 4 in Weight: 211 lb 9.6 oz Body Mass Index: 36.3 BMI Classification: Obese Impression and Plan 1. Obstructive Sleep Apnea-Hypopnea Syndrome, moderate. Patient comes in today for help with learning how to use her CPAP. I spent quite a bit of time helping her to put on her mask and connect all the hoses together. She downloaded MyAir and made a sign in. I showed her how to turn machine on to start therapy and how to turn off. We reviewed the menu on her ResMed Airsense 11 and how to use her MyAir application. She states she feels she will be able to use the CPAP now and will start tonight. She feels that her mouth may come open when she is using her CPAP and I advised trying a chinstrap and gave her a sample of one from the office and showed her how to put on. She will make an appointment for her first compliance. Patient's apnea severity and rationale for treatment to reduce apnea, improve sleep quality and reduce cardiovascular and cerebrovascular events was reviewed. I also reviewed the benefit of consistent device use of CPAP for hypertension, cerebrovascular disease, diabetes, gastric reflux, depression, anxiety, and asthma. 2. Obesity, unspecified. Currently patients BMI is 36.3. Obesity increases the risk of apnea, CPAP pressure requirements and overall health risks especially cardiovascular and diabetes. Thus patient is advised to lose weight. * Continue auto CPAP pressure at 4-15 cmH2O * Notify me if snoring with mask or feeling that the pressure is too much or too little * Attempt to lose weight * Call this office if any problems using CPAP * Return for follow up in 1 month, or sooner if concerns arise Counseling Topics: Weight loss health impact Visit Type: In Office Time Spent with Patient (minutes): 24 Provider Statement: I spent 100% of the Face to Face Visit with the patient with greater than 50% spent counseling the patient and coordination of care.
== END 2022-10-21 14:02 | disposition home or self-care (01) ==
LOC: SC 14:01
PROVIDERS: ATTEND Nurse Practitioner Family
DX: G47.33 Obstructive sleep apnea (adult) (pediatric) (principal); E66.9 Obesity, unspecified; Z68.36 Body mass index [BMI] 36.0-36.9, adult; I71.40 Abdominal aortic aneurysm, without rupture, unspecified
CPT/HCPCS: 99212; 99213

== ENCOUNTER 2022-11-24 07:59 | Outpatient (CLI) | payer OTHER | END 2022-11-24 08:00 | disposition home or self-care (01) | LOC: DI 07:59 | PROVIDERS: ATTEND Family Medicine | DX: I38 Endocarditis, valve unspecified (principal); I05.0 Rheumatic mitral stenosis; I70.0 Atherosclerosis of aorta | CPT/HCPCS: 93306 ==

== ENCOUNTER 2022-12-01 06:44 | Outpatient (CLI) | payer OTHER ==
--- NOTE | 2022-12-01 13:30 | Ultrasound Report ---
PROCEDURE: Ankle Brachial Index INDICATIONS: PVD TECHNIQUE: Ankle-brachial indices were obtained bilaterally and recorded. COMPARISONS: None. FINDINGS: Right ankle brachial index (CHERIE): 0.54 monophasic arterial flow. Left ankle brachial index (CHERIE): 0.51 monophasic arterial flow. Healing potential: Ankle pressures >55 mm Hg in non-diabetics and >80 mm Hg in diabetics are likely to achieve primary h ealing of ischemic foot ulcers. Toe pressures >30 mm Hg are likely to achieve primary healing of ischemic foot ulcers, toe or transme tatarsal amputations. IMPRESSION: Moderately decreased ankle brachial index bilaterally. Healing potential of any distal ischemic soft tissue disease is borderline. Reviewed by: Sully Araujo MD on 12/01/2022 1:28 PM PDT Approved by: Sully Araujo MD on 12/01/2022 1:28 PM PDT Station ID: [id number]
== END 2022-12-01 06:45 | disposition home or self-care (01) ==
LOC: DI 06:44
PROVIDERS: ATTEND Physician Assistant
DX: R94.39 Abnormal result of other cardiovascular function study (principal)
CPT/HCPCS: 93922

== ENCOUNTER 2022-12-08 14:29 | Outpatient (CLI) | payer OTHER ==
--- NOTE | 2022-12-08 16:32 | Ultrasound Report ---
PROCEDURE: Duplex Lwr Ext Arterial Bilat INDICATIONS: PAD TECHNIQUE: Color and pulse Doppler interrogation was performed of both lower extremity arterial systems, with im age documentation. COMPARISON: None FINDINGS: Right lower extremity: Common femoral artery: 100 cm/sec, with biphasic flow. Deep femoral artery: 43 cm/sec, with biphasic flow. Proximal superficial femoral artery: 94 cm/sec, with biphasic flow. Mid superficial femoral artery: 58 cm/sec, with biphasic flow. Distal superficial femoral artery: 87 cm/sec, with biphasic flow. Popliteal artery: 27 cm/sec, with biphasic flow. Posterior tibial artery: 38 cm/sec, with biphasic flow. Anterior tibial artery/dorsalis pedis: 51 cm/sec, with biphasic flow. Finney-scale imaging description: Mild diffuse plaque. Left lower extremity: Common femoral artery: 81 cm/sec, with biphasic flow. Deep femoral artery: 49 cm/sec, with biphasic flow. Proximal superficial femoral artery: 58 cm/sec, with biphasic flow. Mid superficial femoral artery: 48 cm/sec, with biphasic flow. Distal superficial femoral artery: 77 cm/sec, with biphasic flow. Popliteal artery: 19 cm/sec, with biphasic flow. Posterior tibial artery: 28 cm/sec, with biphasic flow. Anterior tibial artery/dorsalis pedis: 23 cm/sec, with biphasic flow. Finney-scale imaging description: Mild diffuse plaque. IMPRESSION: No significant stenosis in the lower extremities bilaterally. Reviewed by: Dann Leach on 12/08/2022 4:31 PM PDT Approved by: Dann Leach on 12/08/2022 4:31 PM PDT Station ID: [id number]
== END 2022-12-08 14:30 | disposition home or self-care (01) ==
LOC: DI 14:29
PROVIDERS: ATTEND Family Medicine
DX: I73.9 Peripheral vascular disease, unspecified (principal)
CPT/HCPCS: 93925

== ENCOUNTER 2022-12-29 09:38 | Outpatient (CLI) | payer OTHER ==
[2022-12-29 13:03] LABS: % IRON SATURATION 14 % (20-50); IRON 46 ug/dL (28-170); TOTAL IRON BINDING CAPACITY 319 ug/dL (250-450); TRANSFERRIN 228 mg/dL (192-382)
== END 2022-12-29 09:39 | disposition home or self-care (01) ==
LOC: LAB.N 09:38
PROVIDERS: ATTEND Physician Assistant
DX: E11.9 Type 2 diabetes mellitus without complications (principal)
CPT/HCPCS: 36415; 82728; 83540; 84466

== ENCOUNTER 2023-01-10 10:00 | Outpatient (CLI) | payer OTHER | END 2023-01-10 10:15 | disposition home or self-care (01) | LOC: LAB.N 10:00 | PROVIDERS: ATTEND Physician Assistant Medical | DX: R30.0 Dysuria (principal) | CPT/HCPCS: 87086; 87181 ==

== ENCOUNTER 2023-01-25 09:31 | Outpatient (CLI) | payer OTHER ==
--- NOTE | 2023-01-25 16:59 | Ultrasound Report ---
PROCEDURE: Retroperitoneal Limited INDICATIONS: AAA TECHNIQUE: Real-time scanning was performed of the retroperitoneal organs, with image documentation. COMPARISON: Retroperitoneal ultrasound 10/21/2022, CT abdomen pelvis 01/30/2022 FINDINGS: Proximal mid and distal portions of the abdominal aorta measure 2.7 x 2.9 cm, 2.0 x 1.9 cm and 3.0 x 3.5 x 5.5 cm within the proximal, mid and inferior portions respectively. Distal aorta previously antonia sured 3.5 x 3.3 x 4.8 cm on ultrasound of 10/21/2022. However, on prior CT of 01/30/2022, it measured 3. 3 x 3.5 x 5.7 cm.. Right common iliac artery measures 1.1 x 1.6 cm. Left common iliac artery measures 0.5 x 1.5 cm. IMPRESSION: Distal abdominal aorta appearing to demonstrate mild elongation in the craniocaudal dimension compare d to prior ultrasound but similar compared to CT of 01/30/2022. This is felt to be likely slight diffe rences in ultrasound technique between current and most recent prior exam and overall no convincing e vidence of interval enlargement. Reviewed by: Kerri Lyons MD on 01/25/2023 4:57 PM PDT Approved by: Kerri Lyons MD on 01/25/2023 4:57 PM PDT Station ID: [id number]
== END 2023-01-25 09:32 | disposition home or self-care (01) ==
LOC: DI 09:31
PROVIDERS: ATTEND Physician Assistant
DX: I71.9 Aortic aneurysm of unspecified site, without rupture (principal)

== ENCOUNTER 2023-02-02 08:03 | Outpatient (CLI) | payer OTHER ==
[2023-02-02 12:06] LABS: BASOPHILS # (AUTO) 0.1 10^3/uL (0.0-0.1); BASOPHILS % (AUTO) 0.7 %; EOSINOPHILS # (AUTO) 0.7 10^3/uL (0.0-0.7); EOSINOPHILS % (AUTO) 8.9 %; HCT - HEMATOCRIT 43.6 % (37.0-47.0); HGB - HEMOGLOBIN 14.2 g/dL (12.0-16.0); LYMPHOCYTES # (AUTO) 2.5 10^3/uL (1.5-3.5); LYMPHOCYTES % (AUTO) 29.5 %; MEAN CORPUSCULAR HGB CONC 32.6 g/dL (32.0-36.0); MEAN CORPUSCULAR VOLUME 98.2 fL (81.0-99.0); MEAN PLATELET VOLUME 10.2 fL (7.9-10.8); MONOCYTES # (AUTO) 0.6 10^3/uL (0.0-1.0); MONOCYTES % (AUTO) 7.1 %; NEUTROPHILS # (AUTO) 4.5 10^3/uL (1.5-6.6); NEUTROPHILS % (AUTO) 53.4 %; PLT - PLATELET COUNT 283 10^3/uL (130-450); RED BLOOD COUNT 4.44 10^6/uL (4.20-5.40); RED CELL DISTRIBUTION WIDTH 13.7 % (12.0-15.0); WHITE BLOOD COUNT 8.4 x10^3/uL (4.8-10.8)
[2023-02-02 12:09] LABS: ESTIMATED AVERAGE GLUCOSE 157 mg/dL (70-100); HEMOGLOBIN A1c% 7.1 % (4.27-6.07)
[2023-02-02 12:12] LABS: ALBUMIN/GLOBULIN RATIO 1.1 (1.0-2.2); ALKALINE PHOSPHATASE 60 IU/L (42-121); ALT ALANINE AMINOTRANSFERASE 47 IU/L (10-60); AST ASPARTATE AMINOTRANSFERASE 34 IU/L (10-42); BILIRUBIN,TOTAL 0.5 mg/dL (0.2-1.0); BUN - BLOOD UREA NITROGEN 13 mg/dL (6-20); CALCIUM 9.8 mg/dL (8.5-10.3); CARBON DIOXIDE - CO2 27 mmol/L (21-32); CHLORIDE 101 mmol/L (101-111); CHOL/HDL RATIO 6.6 (<4.4); CHOLESTEROL 232 mg/dL; CREATININE 0.7 mg/dL (0.4-1.0); GFR - MDRD 85 (>89); GLUCOSE 168 mg/dL (70-100); HDL CHOLESTEROL 35 mg/dL; POTASSIUM 4.6 mmol/L (3.5-5.0); SODIUM 138 mmol/L (135-145); TOTAL PROTEIN 7.6 g/dL (6.7-8.2); TRIGLYCERIDES 739 mg/dL
[2023-02-02 12:14] LABS: CREATININE,URINE 109.8 mg/dL; MICROALBUM/CREATININE RATIO,UR 20.9 ug/mg (<30.0); MICROALBUMIN,URINE 2.3 mg/dL (0-300.0)
[2023-02-02 12:18] LABS: THYROID STIMULATING HORMONE < 0.08 uIU/mL (0.34-5.60)
[2023-02-02 12:20] LABS: FREE T4 (FREE THYROXINE) 1.32 ng/dL (0.58-1.64)
[2023-02-02 12:31] LABS: LDL CHOLESTEROL,DIRECT 133 mg/dL; LDLD/HDL RATIO 3.8 (<4.4)
== END 2023-02-02 08:04 | disposition home or self-care (01) ==
LOC: LAB.N 08:03
PROVIDERS: ATTEND Physician Assistant
DX: E11.9 Type 2 diabetes mellitus without complications (principal); E78.5 Hyperlipidemia, unspecified; E03.9 Hypothyroidism, unspecified
CPT/HCPCS: 36415; 80053; 80061; 82043; 82570; 83036; 83721; 84439; 84443; 85025

== ENCOUNTER 2023-02-17 11:19 | Outpatient (CLI) | payer OTHER ==
--- NOTE | 2023-02-17 11:52 | SLEEP CARE CONSULTATION ---
Information from patient questionnaire entered by Yue Antunez. I have reviewed and concur with the information entered by Yue Antunez. This document represents the service I personally performed and the decisions made by me, Merary Chacon ARNP. History of Present Illness Service Date and Time: 02/17/2023 1119 Previous diagnosis: Moderate, Obstructive Sleep Apnea-Hypopnea Syndrome AHI: 23.2 (in 2021) Reason for follow up: other (5 MONTH F/U) Equipment type: CPAP (RESMED Airsense 11, 09/2022) Equipment obtained from: [facility] Mask style: Full face Backup mask available: Yes (nasal mask, unable to use) Prior sleep studies: No Type of Sleep Study: Polysomnography (DONE 08/03/22) HPI additional information: BABS MCCABE was diagnosed to have moderate, AHI 23.2, obstructive sleep apnea-hypopnea syndrome and returned today for CPAP therapy 5 month follow-up. Sleep Study - Results Type of Sleep Study: Polysomnography (DONE 08/03/22) Prior sleep studies: No CPAP Compliance Data - Data Reviewed with Patient Compliance rate %: 0 (pt states unable to use due to mask issues) Compliance data discussion: Patient got her new full face Dhara View medium cushion mask from [facility] but states she did not get it fitted to her face because she did not have time to travel to [facility] in [place]. She has not been using the machine because she did not know how to put the mask on properly. Subjective Missed days of use due to: reports: mask issues (needs mask fitting to use new full face mask) Patient concerns: reports: mask discomfort (nasal mask, unable to breathe with when laying down) On therapy, patient: denies: drowsiness while driving Initial Warren Sleepiness Scale score: 8 (06/23/2022) Current Warren Sleepiness Scale score: 1 (02/17/23) Allergies and Home Medications Known drug allergies: Yes (adhesive tape) Drug allergies reviewed: Yes Home medication list reviewed: Yes (no changes) Allergy and home medication list: Allergies adhesive tape Allergy (Verified 02/16/23 10:17) blisters please use paper tape. Review of Systems Review of systems same as previous: Yes (no changes) Physical Exam Vital signs obtained and entered by: YUE Fernández MA Blood Pressure: 110/52 (LEFT ARM) Cuff size: regular Heart Rate: 112 O2 Saturation: 94 Height: 5 ft 4 in Weight: 209 lb 9.6 oz Body Mass Index: 35.9 BMI Classification: Obese Impression and Plan 1. Obstructive Sleep Apnea-Hypopnea Syndrome, moderate, with poor treatment compliance and unknown apnea control. Babs tried to use the nasal mask but her nose would become congested when she lies down because she has a deviated septum to the right. She did receive a new mask to try, full face Dhara View, medium cushion. She came in today because she is not sure how to wear it and needs it fitted to her face. I showed the patient how to put the mask on and then had her demonstrate her ability to put the mask on and hookup the hose during the visit. She felt she would be able to put her mask on. I advised her to put the mask on and turn pressure on for about 30 minutes after dinner before using her CPAP the first time to help her acclimatized to it prior to going to bed. I advised her to put the mask on every night, adjust straps as needed for comfort and let me know if she has any problems with the pressure. She is to make an appointment to come back in 1 to 2 months so that we can check compliance and see how she is doing with the new mask. She voiced agreement with plan of care. Patient's apnea severity and rationale for treatment to reduce apnea, improve sleep quality and reduce cardiovascular and cerebrovascular events was reviewed. I also reviewed the benefit of consistent device use of CPAP for hypertension, cerebrovascular disease, gastric reflux, depression, anxiety and asthma. 2. Obesity, unspecified. Currently patients BMI is 35.9. Obesity increases the risk of apnea, CPAP pressure requirements and overall health risks especially cardiovascular and diabetes. Thus patient is advised to lose weight. * Continue auto CPAP pressure at 4-15 cmH2O * Notify me if snoring with mask or feeling that the pressure is too much or too little * Attempt to lose weight * Call this office if any problems using CPAP * Return for follow up in 1-2 months, or sooner if concerns arise Counseling Topics: Spare mask, Weight loss health impact Visit Type: In Office Time Spent with Patient (minutes): 23 Provider Statement: I spent 100% of the Face to Face Visit with the patient with greater than 50% spent counseling the patient and coordination of care.
[2023-02-17 11:54] VITALS: BP 110/52
== END 2023-02-17 11:20 | disposition home or self-care (01) ==
LOC: SC 11:19
PROVIDERS: ATTEND Nurse Practitioner Family
DX: G47.33 Obstructive sleep apnea (adult) (pediatric) (principal); E66.9 Obesity, unspecified; Z68.35 Body mass index [BMI] 35.0-35.9, adult
CPT/HCPCS: 99212; 99213

== ENCOUNTER 2023-04-07 08:00 | Outpatient (CLI) | payer OTHER ==
[2023-04-07 18:25] LABS: BILIRUBIN,URINE NEGATIVE (NEGATIVE); GLUCOSE, URINE (UA) >=1000 mg/dL (NEGATIVE); KETONES,URINE (UA) NEGATIVE (NEGATIVE); LEUKOCYTE ESTERASE, URINE NEGATIVE (NEGATIVE); NITRITE,URINE NEGATIVE (NEGATIVE); OCCULT BLOOD,URINE SMALL (NEGATIVE); PROTEIN,URINE NEGATIVE (NEGATIVE); UROBILINOGEN,URINE 0.2 (NORMAL) E.U./dL (NORMAL)
[2023-04-07 18:30] LABS: CLARITY,URINE HAZY (CLEAR)
[2023-04-07 19:08] LABS: BACTERIA,URINE Rare /HPF (None Seen); RBC,URINE TNTC /HPF (0-5); SQUAMOUS EPITHELIAL CELL,UR RARE Squamous (<= Few); WBC,URINE 0-3 /HPF (0-5)
== END 2023-04-07 23:59 | disposition home or self-care (01) ==
LOC: LAB 08:00
PROVIDERS: ATTEND Urology
DX: R32 Unspecified urinary incontinence (principal)
CPT/HCPCS: 81001; 87086

== ENCOUNTER 2023-07-06 09:10 | Outpatient (CLI) | payer OTHER ==
[2023-07-06 12:00] LABS: ALBUMIN 4.5 g/dL (3.2-5.5); ALBUMIN/GLOBULIN RATIO 1.6 (1.0-2.2); BILIRUBIN,TOTAL 0.4 mg/dL (0.2-1.0); CALCIUM 9.6 mg/dL (8.5-10.3); CREATININE 0.7 mg/dL (0.6-1.3); POTASSIUM 4.2 mmol/L (3.5-4.5); TOTAL PROTEIN 7.3 g/dL (6.4-8.9)
[2023-07-06 12:04] LABS: ESTIMATED AVERAGE GLUCOSE 126 mg/dL (70-100)
== END 2023-07-06 09:11 | disposition home or self-care (01) ==
LOC: LAB.N 09:10
PROVIDERS: ATTEND Physician Assistant
DX: E11.9 Type 2 diabetes mellitus without complications (principal)
CPT/HCPCS: 36415; 80053; 83036

== ENCOUNTER 2023-07-25 15:06 | Outpatient (CLI) | payer OTHER ==
--- NOTE | 2023-07-26 08:44 | Ultrasound Report ---
PROCEDURE: Carotid Doppler Complete INDICATIONS: CAROTID ARTERY STENOSIS TECHNIQUE: Color and pulse Doppler interrogation was performed of both carotid systems, with image documentation and velocity measurements. COMPARISON: Carotid Doppler ultrasound, 11/26/2015. FINDINGS: Right side: Brachial blood pressure: 123/64 mm Hg. Common carotid artery peak systolic velocity: 76 cm/sec. Internal carotid artery peak systolic velocity: 196 cm/sec. Internal carotid artery end diastolic velocity: 48 cm/sec. External carotid artery peak systolic velocity: 130 cm/sec. ICA/CCA peak systolic ratio: 2.58 . Finney scale imaging description: Moderate atherosclerotic plaque. Percent internal carotid artery stenosis: 50-69%. Vertebral artery: Flow direction is antegrade. Left side: Brachial blood pressure: 120/60 mm Hg. Common carotid artery peak systolic velocity: 107 cm/sec. Internal carotid artery peak systolic velocity: 202 cm/sec. Internal carotid artery end diastolic velocity: 33 cm/sec. External carotid artery peak systolic velocity: 142 cm/sec. ICA/CCA peak systolic ratio: 1.89 . Finney scale imaging description: Moderate atherosclerotic plaque. Percent internal carotid artery stenosis: 50-69%. Vertebral artery: Flow direction is antegrade. IMPRESSION: 1. 50-69% internal carotid artery stenosis bilaterally, wrists compared to last exam. 2. Moderate atherosclerotic plaques in carotid arteries bilaterally. 3. Antegrade blood flow within the vertebral arteries bilaterally. The estimate of stenosis included in the report of the imaging study was calculated using the [facility]-end orsed standards of carotid artery stenosis. Reviewed by: Elfego Bustillo MD on 07/26/2023 8:43 AM PST Approved by: Elfego Bustillo MD on 07/26/2023 8:43 AM PST Station ID: [id number]
== END 2023-07-25 15:07 | disposition home or self-care (01) ==
LOC: DI 15:06
PROVIDERS: ATTEND Physician Assistant
DX: I65.23 Occlusion and stenosis of bilateral carotid arteries (principal)
CPT/HCPCS: 93880

== ENCOUNTER 2023-08-05 14:03 | Outpatient (CLI) | payer OTHER ==
--- NOTE | 2023-08-05 14:41 | XRAY Report ---
PROCEDURE: Shoulder 3 View LT INDICATIONS: SHOULDER PAIN TECHNIQUE: 3 views of the shoulder were acquired. COMPARISON: None. FINDINGS: Bones: No fractures or dislocations. Mild degenerative changes of the acromioclavicular and glenohum eral joints. No suspicious bony lesions. Visualized ribs appear intact. Soft tissues: Calcification just to the greater tuberosity. No suspicious soft tissue calcifications . The visualized lungs are within normal limits. IMPRESSION: 1.Mild degenerative changes of the glenohumeral and acromial clavicular joints. 2.Calcification adjacent to the greater tuberosity, may represent calcific tendinosis. Reviewed by: Jeffrey Stoner MD on 08/05/2023 2:40 PM PST Approved by: Jeffrey Stoner MD on 08/05/2023 2:40 PM PST Station ID: [id number]
--- NOTE | 2023-08-05 14:42 | XRAY Report ---
PROCEDURE: Hips 2V BILAT INDICATIONS: BILATERAL HIP JOINT PAIN TECHNIQUE: 3 views of the bilateral hips were acquired. COMPARISON: None. FINDINGS: Bones: No fractures or dislocations. Mild degenerative changes of the bilateral hips. No suspicious bony lesions. Soft tissues: No suspicious soft tissue calcifications or masses. IMPRESSION: No acute bony abnormality. Mild degenerative changes of the bilateral hips. Reviewed by: Jeffrey Stoner MD on 08/05/2023 2:41 PM PST Approved by: Jeffrey Stoner MD on 08/05/2023 2:41 PM PST Station ID: [id number]
== END 2023-08-05 14:04 | disposition home or self-care (01) ==
LOC: DI 14:03
PROVIDERS: ATTEND Physician Assistant
DX: M19.012 Primary osteoarthritis, left shoulder (principal); M25.812 Other specified joint disorders, left shoulder; M16.0 Bilateral primary osteoarthritis of hip

== ENCOUNTER 2023-11-01 10:46 | Outpatient (CLI) | payer OTHER ==
--- NOTE | 2023-11-02 09:31 | Mammography Report ---
BILATERAL DIGITAL DIAGNOSTIC MAMMOGRAM 3D/2D: 11/01/2023 CLINICAL: Diffuse right breast pain. Due for bilateral exam. Comparison is made to exams dated: 10/12/2022 mammogram, 09/30/2021 mammogram, 05/20/2020 mammogram, 02/10 mammogram, 02/09/2019 mammogram, and 01/19/2018 mammogram - [facility]. Both breasts are heterogeneously dense, which may obscure small masses (category c / 51-75% glandular tissue). No significant masses, calcifications, or other findings are seen in either breast. Because the mainor ent's symptoms are diffuse no BB marker was placed. IMPRESSION: NEGATIVE No mammographic evidence of malignancy. A 1 year screening mammogram is recommended. Diffuse, non-focal symptoms, such as pain or fullness are typically benign. Clinical follow-up is rec ommended, and further management of these symptoms should be based on the results of clinical evaluat ion. If diffuse symptoms persist or become more focal in nature, further clinical evaluation should b e considered. Findings and recommendations were conveyed to the patient during today's evaluation. Based on the Tyrer Cuzick model (a risk assessment model) the patient's lifetime risk is 10.0% and he r 10 year risk is 4.7%. According to the ACR, ACS, and NCCN guidelines, an annual breast MRI exam anh ng with mammogram is recommended if the patient's lifetime risk is 20% or greater. This exam was interpreted at Station ID: [id number]. NOTE: For mammograms, a report in lay terms will be sent to the patient. Approximately 15% of breast malignancies will not be visualized mammographically. In the management of a palpable breast mass, a negative mammogram must not discourage biopsy of a clinically suspicious lesion. Electronically Signed By: Tatyana Henry M.D., PH.D eb/:11/01/2023 11:32:34 ACR BI-RADS Category 1: Negative 3341F PARENCHYMAL PATTERN: (D) - The breast(s) demonstrate(s) heterogeneously dense fibroglandular parjosé miguel pereira. BI-RADS CATEGORY: (1) - 1 Mammogram [id number] 1 year screening LATERALITY: (B)
== END 2023-11-01 10:47 | disposition home or self-care (01) ==
LOC: DI 10:46
PROVIDERS: ATTEND Physician Assistant
DX: N64.4 Mastodynia (principal); R92.333 Mammographic heterogeneous density, bilateral breasts

== ENCOUNTER 2023-11-01 10:47 | Outpatient (CLI) | payer OTHER ==
--- NOTE | 2023-11-01 16:40 | CT Report ---
PROCEDURE: Lung Cancer Screen INDICATIONS: NICOTINE ADDICTION TECHNIQUE: A CT scan of the chest was performed. Intravenous contrast media was not administered. Images were re corded and evaluated at appropriate window settings. Reformats: axial MIP of the chest, coronal and s agittal. For radiation dose reduction, the following was used: automated exposure control, adjustment of mA and/or kV according to patient size. COMPARISON: 10/02/2022, 09/30/2021 FINDINGS: Image quality: Excellent. Prior cancer history: None given Lungs and pleura: No pleural effusions. No pneumothorax. There is a 2 mm subpleural left lower lobe pulmonary nodule seen, as on series 4 image 57. This is not increased compared to the prior. No new p ulmonary nodules can be seen. There is right lower lobe scarring seen inferiorly. Mediastinum: Heart size is normal. No pericardial effusion. No large vessel abnormality. No mediastin al adenopathy by size criteria. Atherosclerotic calcification is seen, including moderate coronary c alcification. A small hiatal hernia is incidentally noted. Calcification of the mitral valve annulus can be seen. Chest wall and lower neck: Thyroid is unremarkable. No axillary or supraclavicular adenopathy by size . Bones: No aggressive osseous abnormality. Age-appropriate degenerative changes are seen. There is accentuated thoracic kyphosis. Upper Abdomen: Unremarkable. IMPRESSION: Stable 2 mm left lower lobe pulmonary nodule, which is regarded to be benign. Lung RAD: 2 - Benign. Recommendation: Recommend annual low-dose CT chest screening examinations, as long as the patient juni ts the published screening criteria. Additional findings: Calcification of the mitral valve annulus Moderate coronary calcification Small hiatal hernia Reviewed by: Prosper Becker MD on 11/01/2023 3:38 PM [place] Approved by: Prosper Becker MD on 11/01/2023 3:38 PM [place] Station ID: [id number]
== END 2023-11-01 10:48 | disposition home or self-care (01) ==
LOC: DI 10:47
PROVIDERS: ATTEND Physician Assistant
DX: Z12.2 Encounter for screening for malignant neoplasm of respiratory organs (principal); F17.201 Nicotine dependence, unspecified, in remission; R91.1 Solitary pulmonary nodule; I34.81 Nonrheumatic mitral (valve) annulus calcification; I25.10 Atherosclerotic heart disease of native coronary artery without angina pectoris; K44.9 Diaphragmatic hernia without obstruction or gangrene; N64.4 Mastodynia; R92.333 Mammographic heterogeneous density, bilateral breasts

== ENCOUNTER 2023-12-28 09:22 | Outpatient (CLI) | payer OTHER ==
--- NOTE | 2023-12-28 17:40 | Ultrasound Report ---
PROCEDURE: Ultrasound aorta INDICATIONS: AAA TECHNIQUE: Real-time scanning was performed of the retroperitoneal organs, with image documentation. COMPARISON: 01/25/2023 FINDINGS: Proximal bowel aorta is ectatic at 2.7 x 3.2 cm. Mid abdominal aorta measures at 2.2 x 2.1 cm it. Distal infrarenal abdominal aortic aneurysm measures 3.5 x 3.2 cm. Right and left common iliac arteries measure 1.1 x 1.1 cm in 1.6 x 1.4 cm respectively. IMPRESSION: 1. Stable infrarenal aortic aneurysm Reviewed by: Anjel Cochran MD on 12/28/2023 4:38 PM AKDT Approved by: Anjel Cochran MD on 12/28/2023 4:38 PM AKDT Station ID: [id number]
== END 2023-12-28 09:23 | disposition home or self-care (01) ==
LOC: DI 09:22
PROVIDERS: ATTEND Physician Assistant
DX: I71.43 Infrarenal abdominal aortic aneurysm, without rupture (principal)

== ENCOUNTER 2024-01-05 07:15 | Outpatient (CLI) | payer OTHER ==
[2024-01-05 12:00] LABS: BASOPHILS # (AUTO) 0.1 10^3/uL (0.0-0.1); BASOPHILS % (AUTO) 0.7 %; EOSINOPHILS # (AUTO) 0.6 10^3/uL (0.0-0.7); EOSINOPHILS % (AUTO) 7.9 %; HGB - HEMOGLOBIN 13.5 g/dL (12.0-16.0); MEAN CORPUSCULAR HEMOGLOBIN 31.1 pg (27.0-31.0); MEAN CORPUSCULAR HGB CONC 31.4 g/dL (32.0-36.0); MEAN CORPUSCULAR VOLUME 99.1 fL (81.0-99.0); MEAN PLATELET VOLUME 9.9 fL (7.9-10.8); MONOCYTES # (AUTO) 0.7 10^3/uL (0.0-1.0); MONOCYTES % (AUTO) 8.8 %; NEUTROPHILS # (AUTO) 4.3 10^3/uL (1.5-6.6); NEUTROPHILS % (AUTO) 56.5 %; PLT - PLATELET COUNT 308 10^3/uL (130-450); RED BLOOD COUNT 4.34 10^6/uL (4.20-5.40); RED CELL DISTRIBUTION WIDTH 12.8 % (12.0-15.0); WHITE BLOOD COUNT 7.6 x10^3/uL (4.8-10.8)
[2024-01-05 12:19] LABS: ALBUMIN 4.6 g/dL (3.2-5.5); ALBUMIN/GLOBULIN RATIO 1.6 (1.0-2.2); ALKALINE PHOSPHATASE 60 IU/L (42-121); ALT ALANINE AMINOTRANSFERASE 24 IU/L (10-60); AST ASPARTATE AMINOTRANSFERASE 19 IU/L (10-42); BILIRUBIN,TOTAL 0.5 mg/dL (0.2-1.0); BUN - BLOOD UREA NITROGEN 22 mg/dL (6-20); CALCIUM 10.3 mg/dL (8.5-10.3); CARBON DIOXIDE - CO2 28 mmol/L (21-32); CHLORIDE 102 mmol/L (101-111); CHOL/HDL RATIO 3.9 (<4.4); CHOLESTEROL 139 mg/dL; CREATININE 0.8 mg/dL (0.6-1.3); GFR - MDRD 72 (>89); GLUCOSE 174 mg/dL (74-104); HDL CHOLESTEROL 36 mg/dL; LDL CHOLESTEROL,CALCULATED 41 mg/dL; LDL/HDL RATIO 1.1 (<4.4); POTASSIUM 4.3 mmol/L (3.5-4.5); SODIUM 138 mmol/L (135-145); TOTAL PROTEIN 7.4 g/dL (6.4-8.9); TRIGLYCERIDES 308 mg/dL (48-352); VLDL CHOLESTEROL 62 mg/dL
[2024-01-05 12:29] LABS: CREATININE,URINE 166.8 mg/dL; ESTIMATED AVERAGE GLUCOSE 126 mg/dL (70-100); MICROALBUM/CREATININE RATIO,UR 17.4 ug/mg (<30.0); MICROALBUMIN,URINE 2.9 mg/dL
[2024-01-05 12:34] LABS: THYROID STIMULATING HORMONE 0.06 uIU/mL (0.34-5.60)
== END 2024-01-05 07:16 | disposition home or self-care (01) ==
LOC: LAB.N 07:15
PROVIDERS: ATTEND Physician Assistant
DX: E11.9 Type 2 diabetes mellitus without complications (principal); E03.9 Hypothyroidism, unspecified
CPT/HCPCS: 36415; 80053; 80061; 82043; 82570; 83036; 83721; 84439; 84443; 85025

== ENCOUNTER 2024-03-23 07:17 | Outpatient (CLI) | payer OTHER ==
[2024-03-23 12:34] LABS: ALBUMIN 4.3 g/dL (3.2-5.5); ALBUMIN/GLOBULIN RATIO 1.4 (1.0-2.2); BILIRUBIN,TOTAL 0.4 mg/dL (0.2-1.0); CALCIUM 10.3 mg/dL (8.5-10.3); CREATININE 0.7 mg/dL (0.6-1.3); POTASSIUM 4.3 mmol/L (3.5-4.5); TOTAL PROTEIN 7.4 g/dL (6.4-8.9)
[2024-03-23 12:47] LABS: THYROID STIMULATING HORMONE 0.81 uIU/mL (0.34-5.60)
== END 2024-03-23 07:18 | disposition home or self-care (01) ==
LOC: LAB.N 07:17
PROVIDERS: ATTEND Physician Assistant
DX: E03.9 Hypothyroidism, unspecified (principal); E78.1 Pure hyperglyceridemia
CPT/HCPCS: 36415; 80053; 84439; 84443

== ENCOUNTER 2024-06-05 12:30 | Outpatient (CLI) | payer OTHER | END 2024-06-05 12:45 | disposition home or self-care (01) | LOC: LAB.N 12:30 | PROVIDERS: ATTEND Physician Assistant Medical | DX: N30.00 Acute cystitis without hematuria (principal) | CPT/HCPCS: 87086 ==

== ENCOUNTER 2025-08-13 13:43 | Observation (INO) ==
--- OUTSIDE RECORDS SUMMARY | 2025-08-13 13:52 | EXTERNAL MEDICAL SUMMARY RPT | Continuity of Care Document ---
Author Organization [facility] Address [address] [address] Phone Problems date description facility 2025-06-12 00:04 Type 2 diabetes mellitus with h yperglycemia [facility] 2025-06-12 00:04 Type 2 [facility] t complications [facility] 11:51 Type 2 diabetes mellitus with h yperglycemia [facility] 2025-06-14 11:56 Type 2 diabetes mellitus with h yperglycemia [facility] 2025-06-14 11:56 Type 2 diabetes mellitus withou t complications [facility] 2025-06-14 11:56 Encounter for screen ing for malignant neoplasm of colon [facility] 2025-06-14 11:56 Encounter for immunization [employer] 2025-06-21 11:13 Type 2 diabetes mellitus with d iabetic polyneuropathy [facility] 2025-06-21 11:13 Type 2 diabetes mellitus with h yperglycemia [facility] [employer] [facility] 2025-06-21 11:13 Type 2 diabetes mellitus withou t complications [facility] 2025-06-21 11:13 Pure hyperglyceridemia [facility] 2025-06-21 11:13 Chronic obstructive pulmonary d isease, unspecified [facility] [employer] [facility] 2025-06-21 11:13 Lower abdominal pain, unspecifi ed [facility]25-[facility]-21 11:13 Right lower quadrant pain [employer] 2025-06-21 11:13 Other abnormal cytol ogical findings on specimens from cervix uteri [facility] 2025-06-21 11:13 Encounter for screen ing for malignant neoplasm of colon [facility] 2025-06-21 11:13 Encounter for immunization [employer] 2025-07-08 13:31 Diarrhea, unspecified [facility] 2025-07-08 13:58 Papillomavirus as th e cause of diseases classified elsewhere [facility] 2025-07-08 13:58 Cervical high risk h uman papillomavirus (HPV) DNA test positive [facility] 2025-07-09 00:05 Diarrhea, unspecified [facility] 2025-07-10 10:02 Diarrhea, unspecified [facility] 2025-07-17 11:43 Diarrhea, unspecified [facility] 2025-08-07 09:01 Benign neoplasm of colon, unspe [facility]ified [facility] 2025-08-07 09:01 Gastro-esophageal reflux diseas e without esophagitis [facility] 2025-08-07 09:01 Esophageal obstruction [facility] 2025-08-07 09:01 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 [facility] 2025-08-07 09:01 Diarrhea, unspecified [facility] 2025-08-07 14:09 [facility]ign [facility] colon, [facility] 2025-08-07 14:09 Gastro-esophageal reflux diseas e without esophagitis [facility] 2025-08-07 14:09 Esophageal obstruction [facility] [employer] [facility] 2025-08-07 14:09 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 [facility] 2025-08-07 14:09 [facility]arrhea, unspecified [facility] 2025-08-09 13:48 Shortness of breath [facility] Results/Labs test date facility value unit notes Result panel 1 NUCLEATED RED BLOOD CELLS AUTO 2025-06-11 09:34 [email or web address] 0.0 /100wbc (missing) NRBC ABSOLUTE COUNT (AUTO) 2025-06-11 09:34 [facility] 0.00 x10 3/ul (missing) BASOPHILS # (AUTO) 2025-06-11 09:34 [facility] 0.1 10 3/ul (missing) MONOCYTES # (AUTO) 2025-06-11 09:34 [facility] 0.5 10 3/ul (missing) EOSINOPHILS # (AUTO) 2025-06-11 09:34 [facility] 0.8 10 3/ul (missing) CREATININE 2025-06-11 09:34 [email or web address] 0.8 mg/dl As of March 2023 testing method has changed, this may include reference ranges. LYMPHOCYTES # (AUTO) 2025-06-11 09:34 [email or web address] 1.8 10 3/ul (missing) LDL/HDL RATIO 2025-06-11 09:34 [email or web address] 1.9 (missing) (missing) MEAN PLATELET VOLUME 2025-06-11 09:34 [email or web address] 10.0 fl (missing) CHLORIDE 2025-06-11 09:34 [email or web address] 101 mmol/l As of March 2023 testing method has changed, this may include reference ranges. RED CELL DISTRIBUTION WIDTH 2025-06-11 09:34 [email or web address] 12.9 % (missing) HGB - HEMOGLOBIN 2025-06-11 09:34 [email or web address] 13.5 g/dl (missing) ESTIMATED AVERAGE GLUCOSE 2025-06-11 09:34 [email or web address] 137 mg/dl (missing) SODIUM 2025-06-11 09:34 [email or web address] 138 mmol/l (missing) GLUCOSE 2025-06-11 09:34 [email or web address] 155 mg/dl As of March 2023 testing method has changed, this may include reference ranges. CHOLESTEROL 2025-06-11 09:34 [email or web address] 163 mg/dl Total Cholesterol Risk Classification Cholesterol Level Risk Classification <200 mg/dL Desirable 200-239 mg/dL Borderline High >240 mg/dL High As of March 2023 testing method has changed, this may include reference ranges. BUN - BLOOD UREA NITROGEN 2025-06-11 09:34 [email or web address] 19 mg/dl As of March 2023 testing method has changed, this may include reference ranges. TRIGLYCERIDES 2025-06-11:34 [email or web address] 199 mg/dl Unknown Triglyceride Risk Classification <150 mg/dL Normal 150-199 mg/dL Borderline High 200-499 mg/dL High >500 mg/dL Very High As of March 2023 testing method has changed, this may include reference ranges. PLT - PLATELET COUNT 2025-06-11 09:34 [email or web address] 263 10 3/ul (missing) CHOL/HDL RATIO 2025-06-11 09:34 [email or web address] 3.9 (missing) NATIONAL CHOLESTEROL GUIDELINE [facility] ([facility]) guidelines for classificaton, testing and management of cholesterol levels in adults over 20 years of age. This new classification creates three categories of risk for coronary heart disease, regardless of age or sex, according to total amd LDL cholesterols levels: Based on total cholesterol level Desirable <200 mg/dl Borderline-high 200-239 mg/dl High >=240 mg/dl Based on cholesterol ratio CHD RISK CHOL/HDL RATIO MALE FEMALE 0.5 x Average 3.4 3.3 1.0 x Average 5.0 4.4 2.0 x Average 9.6 7.1 3.0 x Average 13.5 11.0 CARBON DIOXIDE - CO2 2025-06-11 09:34 [email or web address] 30 mmol/l As of March 2023 testing method has changed, this may include reference ranges. MEAN CORPUSCULAR HEMOGLOBIN 2025-06-11 09:34 [email or web address] 32.6 pg (missing) MEAN CORPUSCULAR HGB CONC 2025-06-11 09:34 [email or web address] 32.8 g/dl (missing) POTASSIUM 2025-06-11:34 [email or web address] 4.1 mmol/l As of March 2023 testing method has changed, this may include reference ranges. RED BLOOD COUNT 2025-06-11 09:34 [email or web address] 4.14 10 6/ul (missing) VLDL CHOLESTEROL 2025-06-11:34 [email or web address] 40 mg/dl (missing) HCT - HEMATOCRIT 2025-06-11:34 [email or web address] 41.2 % (missing) HDL CHOLESTEROL 2025-06-11:34 [email or web address] 42 mg/dl Coronary Heart Disease Risk Classification HDL Level Risk factor < 40 mg/dL major risk > 60 mg/dL negative risk As of March 2023 testing method has changed, this may include reference ranges. NEUTROPHILS # (AUTO) 2025-06-11 09:34 [email or web address] 5.2 10 3/ul (missing) HEMOGLOBIN A1c% 2025-06-11 09:34 [email or web address] 6.4 % The [place] [employer] (ADA) has made the following recommendations: Monitoring HbA1c in Diabetic Patients: A1c (NGSP%) Goal <8 Less Stringent Goal <7 General Goal <6.5 More Stringent Goal Diagnosis of Diabetes: A1c (NGSP%) Goal >6.5 Diabetic 5.7-6.4 Pre-Diabetic <5.7 Non-Diabetic ANION GAP 2025-06-11 09:34 [email or web address] 7.0 (missing) (missing) GFR - MDRD 2025-06-11 09:34 [email or web address] 72 (missing) The IDMS-traceable MDRD Study Equation has been validated extensively in and populations between the ages of 18 and 70 with impaired kidney function (eGFR < 60 mL/min/1.73m2) and has shown good performance for patients with all common causes of kidney disease. Although this equation has not been validated for patients older than 70, an MDRD-derived eGFR may still be a useful tool for providers caring for patients older than 70. References: http://www.nkdep.nih .gov/lab-evaluation/ gfr/creatinine-stand ardization, last updated November 2011. WHITE BLOOD COUNT 2025-06-11 09:34 [email or web address] 8.4 x10 3/ul (missing) LDL CHOLESTEROL,CALCULAT ED 2025-06-11 09:34 [email or web address] 81 mg/dl LDLD REFERENCE RANGE AND CARDIOVASCULAR RISK: <130 mg/dL Desirable 130-159 mg/dL Borderline High Risk >160 mg/dL High Risk CALCIUM 2025-06-11 09:34 [email or web address] 9.9 mg/dl As of March 2023 testing method has changed, this may include reference ranges. MEAN CORPUSCULAR VOLUME 2025-06-11 09:34 [email or web address] 99.5 fl (missing) Result panel 2 MICROALBUMIN,URINE 2025-06-11 09:36 [email or web address] 12.9 mg/dl [place] [employer] Definition of Moderately increased urine albumin Spot collection Urine 24-h collection Timed collection (g/mg Volume (mg/24h) (g/min) creatinine) ======= Normal < 30 < 20 < 30 Moderately 30 - 299 20 - 199 30 - 299 increased Clinical >= 300 >= 200 >= 300 albuminuria Reference Intervals shown above were taken from the literature. As of March 2023 testing method has changed, this may include reference ranges. CREATININE,URINE 2025-06-11 09:36 [email or web address] 231.8 mg/dl As of March 2023 testing method has changed, this may include reference ranges. MICROALBUM/CREATININE RATIO,UR 2025-06-11 09:36 [email or web address] 55.7 ug/mg (missing) Result panel 3 CALPROTECTIN FECAL 2025-07-08 10:00 [email or web address] 9 ug/g Concentration Interpretation Follow-Up < 5 - 50 ug/g Normal None >50 -120 ug/g Borderline Re-evaluate in 4-6 weeks >120 ug/g Abnormal Repeat as clinically indicated Performed at: [facility] [address] [facility] [address], [place] [id number] Special Crimes Investigator: Amelie Miller MD, Phone: [phone] SALMONELLA/SHIGELL A RESULT 1 2025-07-08 10:00 [email or web address] Comment (missing ) Microbiological testing to rule out the presence of possible pathogens is in progress. Performed at: [facility], [place], [place] [id number] Special Crimes Investigator: Beck Dumont MD, Phone: [phone] SALMONELLA/SHIGELL A RESULT 1 2025-07-08 10:00 [email or web address] Comment (missing ) Microbiological testing to rule out the presence of possible pathogens is in progress. CAMPYLOBACTER CULTURE RESULT 1 2025-07-08 10:00 [email or web address] Comment (missing ) No Campylobacter species isolated. SALMONELLA/SHIGELL A RESULT 1 2025-07-08 10:00 [email or web address] Comment (missing ) No Salmonella or Shigella recovered. O P RESULT 1 2025-07-08 10:00 [facility] Comment (missing ) No ova, cysts, or parasites seen. One negative specimen does not rule out the possibility of a parasitic infection. Performed at: [facility] [address] [facility] [address], [place], [place] [id number] Special Crimes Investigator: Amelie Miller MD, Phone: [phone] CAMPYLOBACTER CULTURE 2025-07-08 10:00 [facility] Final report (missing ) (missing) SALMONELLA/SHIGELL A SCREEN 2025-07-08 10:00 [facility] Final report (missing ) (missing) OVA + PARASITE EXAM 2025-07-08 10:00 [facility] Final report (missing ) These results were obtained using wet preparation(s) and trichrome stained smear. This test does not include testing for Cryptosporidium parvum, Cyclospora, or Microsporidia. E COLI SHIGA TOXIN EIA 2025-07-08 10:00 [facility] Negative (missing ) Performed at: [address], [place] [id number] Special Crimes Investigator: Beck Dumont MD, Phone: [phone] SALMONELLA/SHIGELL A SCREEN 2025-07-08 10:00 [facility] Preliminary report (missing ) (missing) Result panel 4 GLUCOSE, WHOLE BLOOD 2025-08-07 06:56 [facility] 179 (missing) RN notified. Social History date description facility
--- NOTE | 2025-08-13 14:45 | XRAY Report ---
PROCEDURE: XR Chest 1V INDICATIONS: chest pain, tightness TECHNIQUE: One view of the chest was acquired. COMPARISON: 08/30/2024 FINDINGS: Surgical changes and devices: None. Lungs and pleura: No pleural effusions or pneumothorax. Mild pulmonary vascular congestion is seen. No consolidation. Mediastinum: Mediastinal contours appear normal. Heart size is enlarged. Bones and chest wall: No suspicious bony lesions. Overlying soft tissues appear unremarkable. IMPRESSION: Cardiomegaly and mild congestion. No focal infiltrate, pleural effusion or pneumothorax. Reviewed by: Brandon Mina MD on 08/13/2025 2:41 PM PST Approved by: Brandon Mina MD on 08/13/2025 2:41 PM PST Station ID: [id number]
[2025-08-13 14:54] LABS: HCT - HEMATOCRIT 40.5 % (37.0-47.0); HGB - HEMOGLOBIN 13.2 g/dL (12.0-16.0); MEAN PLATELET VOLUME 9.4 fL (7.9-10.8); NRBC ABSOLUTE COUNT (AUTO) 0.00 x10^3/uL; NUCLEATED RED BLOOD CELLS AUTO 0.0 /100WBC; PLT - PLATELET COUNT 412 10^3/uL (130-450); RED CELL DISTRIBUTION WIDTH 13.5 % (12.0-15.0)
[2025-08-13 15:17] LABS: ALT ALANINE AMINOTRANSFERASE 15.0 IU/L (10-60); AST ASPARTATE AMINOTRANSFERASE 13.0 IU/L (10-42); BUN - BLOOD UREA NITROGEN 31.0 mg/dL (6-20); CARBON DIOXIDE - CO2 27.0 mmol/L (21-32); CREATININE 0.8 mg/dL (0.6-1.3); GFR - MDRD 72.0 (>89)
[2025-08-13 15:24] LABS: TROPONIN I HIGH SENSITIVITY 4.8 ng/L (2.3-14.8)
[2025-08-13] MEDS: IPRATROPIUM/ALBUTEROL 3 ML NEB INH PRN (15:40)
[2025-08-13 16:23] LABS: B. PARAPERTUSSIS- RESP PCR PAN NOT DETECTED; B. PERTUSSIS- RESP PCR PANEL NOT DETECTED; C. PNEUMONIAE- RESP PCR PANEL NOT DETECTED; CORONAVIRUS 229E-RESP PCR NOT DETECTED; CORONAVIRUS HKU1-RESP PCR NOT DETECTED; CORONAVIRUS NL63-RESP PCR NOT DETECTED; CORONAVIRUS OC43-RESP PCR NOT DETECTED; HUMAN METAPNEUMOVIRUS NOT DETECTED; INFLUENZA A- RESP PCR PANEL NOT DETECTED; INFLUENZA B - RESP PCR PANEL NOT DETECTED; M. PNEUMONIAE- RESP PCR PANEL NOT DETECTED; PARAINFLUENZA VIRUS 1 NOT DETECTED; PARAINFLUENZA VIRUS 2 NOT DETECTED; PARAINFLUENZA VIRUS 4 NOT DETECTED; RHINOVIRUS/ENTEROVIRUS NOT DETECTED; RSV- RESP PCR PANEL NOT DETECTED; SARS-CoV-2 -RESP PCR PANEL NOT DETECTED
--- NOTE | 2025-08-13 17:09 | CT Report ---
PROCEDURE: CT Angio Chest INDICATIONS: PE ruleout, week of chest pain CONTRAST: OMNI 300 80ml TECHNIQUE: After the administration of intravenous contrast images of the chest were acquired. 3-dimensional coronal oblique maximum intensity projection (MIP) reformats, axial MIP, and coronal and sagittal MPR reformats were then performed through the chest. For radiation dose reduction, the following was used: automated exposure control, adjustment of mA and/or kV according to patient size. COMPARISON: CT chest without contrast dated 09/26/2020 FINDINGS: Image quality: Excellent. Large vessels: No filling defects within the opacified pulmonary arteries, accounting for motion and contrast timing. No evidence of acute aortic syndrome or aortic aneurysm. Lungs and pleura: Severe biapical emphysematous change. No focal pulmonary infiltrates. No suspicious pulmonary nodules. No pleural effusions. No pneumothorax. No suspicious pulmonary nodules which require follow up. Mediastinum: Heart size is normal. Coronary artery calcifications. Dense mitral annular calcifications. No pericardial effusion. No large vessel abnormality. No mediastinal adenopathy by size criteria. Small hiatal hernia. Mild distal esophageal thickening. Chest wall and lower neck: Thyroid is unremarkable. No axillary or supraclavicular adenopathy by size. Bones: No aggressive osseous abnormality. Upper Abdomen: Mild supraceliac upper abdominal aortic aneurysm measuring 3.3 x 3.5 cm. There is mild associated luminal thrombus. Right kidney is at least somewhat small. IMPRESSION: No pulmonary embolus. No acute cardiopulmonary pathology. Severe centrilobular emphysema. Coronary artery disease. 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 Small hiatal hernia with distal esophageal thickening suggesting distal reflux esophagitis. Reviewed by: Grover Angela MD on 08/13/2025 5:06 PM PST Approved by: Grover Angela MD on 08/13/2025 5:06 PM PST Station ID: [id number]
--- NOTE | 2025-08-13 17:59 | ED Physician Documentation ---
History of Present Illness Stated complaint Stated Complaint: CP/SOA X5 DAYS Chief complaint Chief Complaint: Cardiac Additonal information Additional information: 64-year-old female presenting to the ER with a weeklong history of chest tightness, chest pain. She was evaluated last week by a previous physician who thought that she could be having COPD exacerbation. She was started on steroids daily for 5 days, 60 mg daily. She has also been using her albuterol with increasing regularity over the last several days, though the symptoms have not improved much. She was evaluated earlier today, where walk-in provider was concerned that possibly patient was having an acute ischemic event. Patient denies chest pain that radiates to her back. Endorses persistent chest tightness and pressure sensation. Denies fever, chills. Endorses chronic cough. Endorses history of MARTIN at baseline. Denies abdominal pain, flank pain, changes to urination or bowel movements. Denies nausea. Review of Systems Status of ROS: See HPI Meds/Allgy Home Medications Ambulatory Orders Medication Instructions Recorded Confirmed nebulizer and compressor (Vios 07/14/22 08/13/25 Aerosol Delivery System) blood-glucose meter (Gruviuch #1 ea 06/20/24 08/13/25 Verio Flex Meter) B complex 11-folic acid 1 mg-C 100 1 tab PO QDAY 07/1008/13/25 mg-biotin 300 mcg-zinc 50 mg tablet blood sugar diagnostic (SnapeeeTouch 07/10/24 08/13/25 Verio test strips) cetirizine 10 mg tablet 10 mg PO QDAY PRN allergy sy mptoms 07/10/24 08/13/25 cholecalciferol (vitamin D3) 125 125 mcg PO QDAY 07/1008/13/25 mcg (5,000 unit) capsule clobetasol 0.05 % scalp solution 1 applic topical QDAY 07/10/24 08/13/25 flash glucose sensor (FreeStyle 07/10/24 08/13/25 Adela 14 Day Sensor kit) lancets 33 gauge 07/10/24 08/13/25 magnesium oxide 400 mg PO QDAY 07/10/2411/06 multivitamin (Daily Multi-Vitamin 1 tab PO QDAY 08/13/25 tablet) omega-3 fatty acids 1,000 mg 1,000 mg PO QDAY 07/10/24 08/13/25 capsule pen needle, diabetic 31 gauge x 07/10/24 08/13/25 5/16" semaglutide 2 mg/dose (8 mg/3 mL) 2 mg (0.75 mL) subcu t QWEEK #3 mL 08/31/24 08/13/25 subcutaneous pen injector (Ozempic) verapamil 120 mg tablet,extended 120 mg PO BID #180 ta bs 09/18/24 08/13/25 release rosuvastatin 40 mg tablet See Rx Instructions .Route 0 12/27/24 08/13/25 .COMPLEX #90 tabs acyclovir 400 mg tablet 400 mg PO BID #180 tabs 04/0508/13/25 albuterol sulfate 90 mcg/actuation See Rx Instructions .Route 01/19/25 08/13/25 aerosol inhaler .COMPLEX #20.1 grams losartan 100 mg tablet See Rx Instructions .Route 0 01/24/25 08/13/25 .COMPLEX #90 tabs levothyroxine 200 mcg tablet 200 mcg PO QDAY #90 tabs 03/08/25 08/13/25 (Synthroid) duloxetine 60 mg capsule,delayed 60 mg PO QDAY #90 cap s 04/19/25 08/13/25 release ipratropium 0.5 mg-albuterol 3 mg 3 ml inhalation QID #180 mL 07/04/25 08/13/25 (2.5 mg base)/3 mL nebulization soln pregabalin 50 mg capsule 50 mg PO BID #60 caps 08/13/25 tiotropium 2.5 mcg-olodaterol 2.5 2 puff inhalation QD AY #12 grams 08/06/25 08/13/25 mcg/actuation mist for inhalation pantoprazole 40 mg tablet,delayed 40 mg PO DAILY #90 t abs 08/07/25 08/13/25 release prednisone 20 mg tablet 60 mg (3 x 20 mg) PO QDAY 5 days 08/09/25 08/13/25 #15 tabs Allergies Allergies Allergy/AdvReac Type Severity Reaction Status Date / Time adhesive tape Allergy Severe blisters Verified 08/13/25 13:50 grass pollen Allergy Unknown Unknown Verified 08/13/25 13:50 codeine AdvReac Severe nausea, Verified 08/13/25 13:50 blisters meloxicam AdvReac Severe shortness Verified 08/13/25 13:50 of breath latex AdvReac Unknown Rash Verified 08/13/25 13:50 PFS Active Problems All Active Problems (Updated 08/13/25 @ 20:07 by LICHA Bolaños) Hyponatremia (Acute) Sleep apnea (Chronic) COPD exacerbation (Acute) CAP (community acquired pneumonia) (Acute) Acute and chronic respiratory failure (Acute) Chest tightness (Acute) SOB (shortness of breath) on exertion (Acute) Pyloric ulcer (Acute) HPV in female (Acute) GERD with stricture (Acute) Pap smear abnormality of cervix/human papillomavirus (HPV) positive (Acute) Cervical cancer screening (Acute) Diabetic peripheral neuropathy (Acute) Pelvic fracture (Acute) Left carotid artery occlusion (Acute) Allodynia (Acute) Postmenopausal status (Acute) Macrocytosis associated with alcohol (Acute) Chronic neck pain (Acute) UTI (urinary tract infection) (Acute) Tobacco abuse, in remission (Acute 09/15/21) Neurogenic claudication due to lumbar spinal stenosis (Acute 02/26/21) Chronic low back pain (Acute 12/01/20) Pain of both hip joints (Acute 03/04/22) Anxiety and depression (Acute 09/03/16) Peripheral artery disease (Acute 12/02/22) Osteopenia (Acute 11/11/15) Obstructive sleep apnea, adult (Acute 01/05/23) Eczema (Acute 06/05/20) Diabetes mellitus, type II (Acute 02/12/16) Chronic obstructive pulmonary disease (Chronic 06/15/13) Carotid artery stenosis (Acute) Johns's esophagus (Acute 11/13/20) Aortic aneurysm (Acute 05/05/17) Migraine (Acute) Medical History Medical History Diarrhea 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 Herniated lumbar intervertebral disc (11/11/15) Nonalcoholic fatty liver disease (10/04/17) Degenerative joint disease of cervical spine (06/03/21) CVA (cerebral vascular accident) (02/12/16) Pain of both breasts (10/19/23) Incisional hernia of anterior abdominal wall without obstruction or gangrene (06/14/11) Vertigo (05/31/18) Valvular heart disease (10/04/22) Tubular adenoma of colon (11/11/15) Recurrent UTI (10/06/18) Onychocryptosis (11/11/15) Menopausal syndrome (08/21/15) Kidney stone (02/04/22) Hypertriglyceridemia (02/26/21) Hypercalcemia (10/04/17) Hematuria (01/19/22) Esophagitis (05/04/19) Dry eye syndrome, bilateral (10/01/16) Contact dermatitis (11/07/14) Closed fracture of metatarsal bone (03/31/12) Cervical radiculopathy (11/05/13) Arthropathy of lumbar facet joint (11/11/15) Alcoholism (03/21/18) Surgical History Surgical History History of abdominoplasty History of bilateral inguinal hernia repair laparoscopic Hx of esophagogastroduodenoscopy (~08/07/25) [facility] Dr. Shawn jaquez- mild chronic Gastritis [facility] 11/04/2020 Dr Morrow path- Gastroeso junction bx consistent with Barretts 2024: gastritis, small superficial pyloric ulcer Hx of colonoscopy (~08/07/25) [facility] DR. Escobar 11/04/[address] [facility] [address] Morrow TA Repeat in 3 to 5 years 2024: diverticulosis, no polyps. Hx of appendectomy Family History Family History Father Diabetes High blood pressure Mother Allergies Maternal grandmother Breast cancer Brother Prostate cancer Social History Social History Smoking Status: Former smoker If you are a former smoker, when did you quit? (Date/Year): 04/2020 Number of Years Smoked: 40 How many cigarettes a day do you smoke? 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 HENMT normocephalic Eyes conjunctivae normal Neck/C-Spine visual inspection normal, cervical full ROM noted and supple Respiratory Diminished breath sounds bilaterally, with no wheeze, no rhonchi. Saturating at 94% on 2 L nasal cannula. Cardiovascular normal heart rate noted, regular rhythm noted, no murmur and peripheral pulses 2+ throughout Distant heart sounds, regular rate and rhythm. No murmur appreciated. Normal S1-S2 despite limitations of auscultation. 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 and GCS 15 Psychiatry mental status grossly normal and oriented x3 Results Vitals Vitals: Vital Signs - 24 hr 08/13/25 13:54 08/13/25 13:58 08/13/25 14:02 Temperature 36.5 C Temperature Source Temporal Artery Scan Pulse Rate 75 77 Respiratory Rate 17 Blood Pressure 143/82 H 143/82 H Blood Pressure [Left] 143/82 H O2 Saturation 94 93 O2 Source Room air Room air If not protocol: Oxygen Flow, liters/minute Pain Intensity 3 08/13/25 15:09 08/13/25 15:44 08/13/25 17:18 Temperature Temperature Source Pulse Rate 80 77 82 Respiratory Rate 25 H Blood Pressure 152/75 H 145/70 H Blood Pressure [Left] O2 Saturation 92 93 O2 Source Nasal cannula Nasal cannula If not protocol: Oxygen Flow, liters/minute 1 1 Pain Intensity 5 Oxygen O2 Source Nasal cannula Labs Labs: Laboratory Tests 08/13/25 08/13/25 14:35 15:10 WBC 12.0 H RBC 4.17 L Hgb 13.2 Hct 40.5 MCV 97.1 MCH 31.7 H MCHC 32.6 RDW 13.5 Plt Count 412 MPV 9.4 Neut # (Auto) 9.8 H Lymph # (Auto) 1.1 L [place] # (Auto) 0.9 Eos # (Auto) 0.0 Baso # (Auto) 0.0 Absolute Nucleated RBC 0.00 Nucleated RBC % 0.0 Sodium 128 L Potassium 4.6 H Chloride 93 L Carbon Dioxide 27 Anion Gap 8.0 BUN 31 H Creatinine 0.8 Estimated GFR (MDRD) 72 L Glucose 205 H Calcium 10.1 Total Bilirubin 0.5 AST 13 ALT 15 Alkaline Phosphatase 47 Troponin I High Sens 4.8 B-Natriuretic Peptide 59 Total Protein 7.4 Albumin 4.5 Globulin 2.9 Albumin/Globulin Ratio 1.6 Nasal Adenovirus (PCR) NOT DETECTED Nasal B. parapertussis DNA (PCR) NOT DETECTED Nasal Coronavir 229E PCR NOT DETECTED Nasal Coronavir HKU1 PCR NOT DETECTED Nasal Coronavir NL63 PCR NOT DETECTED Nasal Coronavir OC43 PCR NOT DETECTED Nasal Enterovir/Rhinovir PCR NOT DETECTED Nasal Influenza B PCR NOT DETECTED Nasal Influenza A PCR NOT DETECTED Nasal Parainfluen 1 PCR NOT DETECTED Nasal Parainfluen 2 PCR NOT DETECTED Nasal Parainfluen 3 PCR NOT DETECTED Nasal Parainfluen 4 PCR NOT DETECTED Nasal RSV (PCR) NOT DETECTED Nasal B.pertussis DNA PCR NOT DETECTED Nasal C.pneumoniae (PCR) NOT DETECTED Bob Human Metapneumo PCR NOT DETECTED Nasal M.pneumoniae (PCR) NOT DETECTED Nasal SARS-CoV-2 (PCR) NOT DETECTED PD Medical Decision Making ED course ED course: Assessment: 64-year-old female with significant medical history, presenting with 5 days of chest pain not responded to conservative treatment of COPD exacerbation at home. Endorses anterior chest tightness and pain minimally relieved by COPD treatment. Denies previous history of cardiac stenting or ACS. Was given aspirin via ambulance earlier today. DDx: Includes but is not limited to, ACS, [place], NSTEMI, STEMI, PE, myocarditis, pericarditis, COPD exacerbation, pneumonia, viral upper respiratory illness, bacterial pneumonia, etc. Workup: CBC with white count 12.0. Sodium with new hyponatremia at 128, potassium 4.6. BUN 31. Glucose 205. Initial troponin 4.8. BNP 59. Respiratory panel negative. Chest x-ray shows cardiomegaly with some congestion. No effusion, no pneumothorax, no infiltrates. CTA chest shows no PE, severe emphysema, CAD, as well as mild aneurysmal dilation of the supraceliac abdominal aorta. Patient does have a small hiatal hernia with distal esophageal thickening suggestive of distal reflux esophagitis. EKG per my read: Sinus rhythm, rate 75, regular intervals. Leftward axis deviation. No malignant ST segment changes. Discussion: Patient has had a workup with notable hyponatremia, significant emphysema, some evidence of congestion in her chest without a corresponding BNP rise. Troponin is not elevated. EKG appears stable. However despite this workup, patient continues to have discomfort across her chest. When I road tested this patient with oxygen monitoring, she desaturated to the low 80s. Ultimately discussed this patient's presentation with hospitalist, who agreed that it would be reasonable to admit this patient for observation given her risk factors and desaturation event today. Nontender to clear was causing her chest pain this time, though have less concern for cardiac event. Possible this was related to esophagitis that was seen on CT. Discharge Plan Discharge Patient Disposition: 66 [facility] DC/Xfer Condition: Stable Clinical Impression: Acute and chronic respiratory failure Interventions: ED Admission Assessment Last Done: 08/13/25 19:35 Vitals documented within 30 minutes of discharge?: No
[2025-08-13] MEDS ORDERED: oxyCODONE 5 MG TABLET PO PRN (18:59)
[2025-08-13] MEDS ORDERED: ONDANSETRON 4 MG/2 ML VIAL IVP PRN (18:59)
[2025-08-13] MEDS ORDERED: ROSUVASTATIN 40 MG SCH (18:59)
[2025-08-13] MEDS ORDERED: KETOROLAC 15 MG/ML VIAL IVP PRN (18:59)
[2025-08-13] MEDS ORDERED: LOSARTAN 50 MG TABLET PO SCH ×2 (19:00→20:00)
[2025-08-13] MEDS ORDERED: LEVOTHYROXINE 100 MCG TABLET PO SCH (19:00)
--- NOTE | 2025-08-13 19:12 | HISTORY & PHYSICAL EXAMINATION ---
Chief Complaint Chief Complaint Chief Complaint: shortness of breath History of Present Illness Admitted From Admitted From:: home History Obtained From Records Reviewed: [facility]/Primary care notes History obtained from: patient History of Present Illness HPI Comment/Other: 64-year-old female with past medical history of COPD, non-smoker for 5 years, diabetes mellitus, sleep apnea, peripheral vascular disease, depression hypertension hyperlipidemia presents to the emergency department with shortness of breath. She is been sick now for 7 days. She has been seen by several outpatient providers, she has been on prednisone 60 mg a day for about 3 days now. She has a home nebulizer and has been using her albuterol treatments at home greater than 4 times a day. She is also taking her prescribed COPD medications. She had a colonoscopy and EGD done several days ago was diagnosed with a gastric ulcer. Biopsies are pending at this time. She has been having worsening midsternal chest pain. This is accompanied by the hypoxia. In the emergency department she had CT of the chest which was negative for pneumonia, pulmonary embolism or esophageal perforation. She had a negative troponin. ED provider did not trend the troponin given that the pain has been going on for 5 days now. 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 Does not drink alcohol or use marijuana. She lives with a roommate who is non-I[place]ic speaking. [place] Her daughter is her power of transactional attorney and surrogate medical decision maker. Her daughter lives in [place]. Her CODE STATUS is full code. She does not have a POLST. Meds/Allgy Home Medications Ambulatory Orders Medication Instructions Recorded Confirmed nebulizer and compressor (Vios 07/14/22 08/13/25 Aerosol Delivery System) blood-glucose meter ([employer] TekTouch #1 ea 06/20/24 08/13/25 Verio Flex Meter) B complex 11-folic acid 1 mg-C 100 1 tab PO QDAY 07/1008/13/25 mg-biotin 300 mcg-zinc 50 mg tablet blood sugar diagnostic (OneTouch 07/10/24 08/13/25 Verio test strips) cetirizine 10 mg tablet 10 mg PO QDAY PRN allergy sy mptoms 07/10/24 08/13/25 cholecalciferol (vitamin D3) 125 125 mcg PO QDAY 07/1008/13/25 mcg (5,000 unit) capsule clobetasol 0.05 % scalp solution 1 applic topical QDAY 07/10/24 08/13/25 flash glucose sensor (FreeStyle 07/10/24 08/13/25 Adela 14 Day Sensor kit) lancets 33 gauge 07/10/24 08/13/25 magnesium oxide 400 mg PO QDAY 07/10/2411/06 multivitamin (Daily Multi-Vitamin 1 tab PO QDAY 08/13/25 tablet) omega-3 fatty acids 1,000 mg 1,000 mg PO QDAY 07/10/24 08/13/25 capsule pen needle, diabetic 31 gauge x 07/10/24 08/13/25 5" semaglutide 2 mg/dose (8 mg/3 mL) 2 mg (0.75 mL) subcu t QWEEK #3 mL 08/31/24 08/13/25 subcutaneous pen injector ([employer]) verapamil 120 mg tablet,extended 120 mg PO BID #180 ta bs 09/18/24 08/13/25 release rosuvastatin 40 mg tablet See Rx Instructions .Route 0 12/27/24 08/13/25 .COMPLEX #90 tabs acyclovir 400 mg tablet 400 mg PO BID #180 tabs 04/0508/13/25 albuterol sulfate 90 mcg/actuation See Rx Instructions .Route 01/19/25 08/13/25 aerosol inhaler .COMPLEX #20.1 grams losartan 100 mg tablet See Rx Instructions .Route 0 01/24/25 08/13/25 .COMPLEX #90 tabs levothyroxine 200 mcg tablet 200 mcg PO QDAY #90 tabs 03/08/25 08/13/25 (Synthroid) duloxetine 60 mg capsule,delayed 60 mg PO QDAY #90 cap s 04/19/25 08/13/25 release ipratropium 0.5 mg-albuterol 3 mg 3 ml inhalation QID #180 mL 07/04/25 08/13/25 (2.5 mg base)/3 mL nebulization soln pregabalin 50 mg capsule 50 mg PO BID #60 caps 08/13/25 tiotropium 2.5 mcg-olodaterol 2.5 2 puff inhalation QD AY #12 grams 08/06/25 08/13/25 mcg/actuation mist for inhalation pantoprazole 40 mg tablet,delayed 40 mg PO DAILY #90 t abs 08/07/25 08/13/25 release prednisone 20 mg tablet 60 mg (3 x 20 mg) PO QDAY 5 days 08/09/25 08/13/25 #15 tabs Allergies Allergies Allergy/AdvReac Type Severity Reaction Status Date / Time adhesive tape Allergy Severe blisters Verified 08/13/25 13:50 grass pollen Allergy Unknown Unknown Verified 08/13/25 13:50 codeine AdvReac Severe nausea, Verified 08/13/25 13:50 blisters meloxicam AdvReac Severe shortness Verified 08/13/25 13:50 of breath latex AdvReac Unknown Rash Verified 08/13/25 13:50 PFSH Active Problems All Active Problems (Updated 08/13/25 @ 20:07 by LICHA Bolaños) Hyponatremia (Acute) Sleep apnea (Chronic) COPD exacerbation (Acute) CAP (community acquired pneumonia) (Acute) Acute and chronic respiratory failure (Acute) Chest tightness (Acute) SOB (shortness of breath) on exertion (Acute) Pyloric ulcer (Acute) HPV in female (Acute) GERD with stricture (Acute) Pap smear abnormality of cervix/human papillomavirus (HPV) positive (Acute) Cervical cancer screening (Acute) Diabetic peripheral neuropathy (Acute) Pelvic fracture (Acute) Left carotid artery occlusion (Acute) Allodynia (Acute) Postmenopausal status (Acute) Macrocytosis associated with alcohol (Acute) Chronic neck pain (Acute) UTI (urinary tract infection) (Acute) Tobacco abuse, in remission (Acute 09/15/21) Neurogenic claudication due to lumbar spinal stenosis (Acute 02/26/21) Chronic low back pain (Acute 12/01/20) Pain of both hip joints (Acute 03/04/22) Anxiety and depression (Acute 09/03/16) Peripheral artery disease (Acute 12/02/22) Osteopenia (Acute 11/11/15) Obstructive sleep apnea, adult (Acute 01/05/23) Eczema (Acute 06/05/20) Diabetes mellitus, type II (Acute 02/12/16) Chronic obstructive pulmonary disease (Chronic 06/15/13) Carotid artery stenosis (Acute) Johns's esophagus (Acute 11/13/20) Aortic aneurysm (Acute 05/05/17) Migraine (Acute) Medical History Medical History Diarrhea 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 Herniated lumbar intervertebral disc (11/11/15) Nonalcoholic fatty liver disease (10/04/17) Degenerative joint disease of cervical spine (06/03/21) CVA (cerebral vascular accident) (02/12/16) Pain of both breasts (10/19/23) Incisional hernia of anterior abdominal wall without obstruction or gangrene (06/14/11) Vertigo (05/31/18) Valvular heart disease (10/04/22) Tubular adenoma of colon (11/11/15) Recurrent UTI (10/06/18) Onychocryptosis (11/11/15) Menopausal syndrome (08/21/15) Kidney stone (02/04/22) Hypertriglyceridemia (02/26/21) Hypercalcemia (10/04/17) Hematuria (01/19/22) Esophagitis (05/04/19) Dry eye syndrome, bilateral (10/01/16) Contact dermatitis (11/07/14) Closed fracture of metatarsal bone (03/31/12) Cervical radiculopathy (11/05/13) Arthropathy of lumbar facet joint (11/11/15) Alcoholism (03/21/18) Surgical History Surgical History History of abdominoplasty History of bilateral inguinal hernia repair laparoscopic Hx of esophagogastroduodenoscopy (~08/07/25) [facility] Dr. Escobar path- mild chronic Gastritis [facility] 11/04/2020 Dr Morrow path- Gastroeso junction bx consistent with Barretts 2024: gastritis, small superficial pyloric ulcer Hx of colonoscopy (~08/07/25) [facility] DR. Escobar 11/04/[address] [facility] DR. Cristhian CONSTANTINO Repeat in 3 to 5 years 2024: diverticulosis, no polyps. Hx of appendectomy Family History Family History Father Diabetes High blood pressure Mother Allergies Maternal grandmother Breast cancer Brother Prostate cancer Social History Social History Smoking Status: Former smoker If you are a former smoker, when did you quit? (Date/Year): 04/2020 Number of Years Smoked: 40 How many cigarettes a day do you smoke? 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 Does not use assistive devices. She does have a nebulizer at home Exam Exam Vital Signs: Vital Signs x48h Temp Pulse Pulse Resp BP BP BP 08/13/25 18:49 36.5 C 80 18 160/88 H 08/13/25 18:48 20 08/13/25 18:47 18 08/13/25 17:18 82 145/70 H 08/13/25 15:44 77 25 H 08/13/25 15:09 80 152/75 H 08/13/25 14:02 77 143/82 H 08/13/25 13:58 143/82 H 08/13/25 13:54 36.5 C 75 17 143/82 H Pulse Ox O2 Flow Rate 08/13/25 18:49 92 1 08/13/25 18:48 80 L 08/13/25 18:47 90 L 08/13/25 17:18 93 1 08/13/25 15:44 08/13/25 15:09 92 1 08/13/25 14:02 93 08/13/25 13:58 08/13/25 13:54 94 Constitutional normal general appearance and no apparent distress Sitting in a chair, fully dressed in the emergency department room with oxygen in place. Well-groomed but looks like she feels ill. HENMT normocephalic, nasal mucous membranes normal, oral mucous membranes normal, dentition normal and gingiva normal Eyes conjunctivae normal and no scleral icterus Neck/C-Spine visual inspection normal and trachea midline Lymph no lymphadenopathy noted Respiratory breath sounds equal bilaterally and normal respiratory effort No wheezes rales or rhonchi on exam. She has decreased breath sounds at the bases. Cardiovascular normal heart rate noted Gastrointestinal abdomen soft to palpation Extremities normal to inspection Neurology no movement abnormality noted, no focal motor deficit noted, gait normal and GCS 15 Psychiatry mental status grossly normal, oriented x3, thought process normal and cooperative Skin skin color normal Conclusion/Plan Problem List (1) Acute and chronic respiratory failure: Plan: 64-year-old female not on home oxygen with a past medical history of COPD non- smoker for 5 years presents to the emergency department with progressive dyspnea over the last week having tried multiple outpatient therapies At home her pulse oximetry read at 66%. She was 90% on room air at rest here, then got up to the bathroom and was dyspneic and recorded at 80% on room air with minimal exertion. Given her refractory symptoms I think this patient is appropriate for admission to observation. I discussed this patient with Dr. Del Angel in the emergency department who is requesting to admit her to observation for acute hypoxic respiratory failure likely secondary to COPD exacerbation and possible community-acquired pneumonia. (2) COPD exacerbation: Plan: This has been going on for a week now. Is been getting worse and worse. She has been placed on prednisone outpatient. She has been using her nebulizer at home multiple times a day and not getting better. She is having dyspnea chest pain and hypoxia. She is on prednisone. 60 mg a day she has completed 3 days of this treatment and it is refractory to that. She has not received any antibiotics. She has had workup for other causes of this pain to include troponin which was negative CT PE protocol chest which was also negative I believe much of her symptoms may be due to COPD exacerbation given her hypoxia. I am placing her on 4 times daily DuoNebs. I am giving her Solu- Medrol 40 mg 3 times daily..I am also presumptively treating her for pneumonia given her leukocytosis. (3) CAP (community acquired pneumonia): Plan: With her chest pain/tightness difficulty breathing cough and hypoxia I believe this patient may have a community-acquired pneumonia which is not showing up on imaging. She also has leukocytosis which admittedly may be due to steroid use. I am going to place her on azithromycin 500 mg daily x 3 days and Rocephin 1 g IV daily x 5 days. (4) Pyloric ulcer: Plan: Status post EGD and colonoscopy on 08/07/2025. I reviewed Dr. Ricardo's notes. She did have a gastric ulcer. Patient has been changed from famotidine to pantoprazole. I will be giving her pantoprazole IV BID while she is here given the stress of steroids. And given the fact that she is having this chest pain. She states that her chest pain that she has been experiencing these last several days is not as bad as any GERD symptoms she has ever had. I wonder if this may be related to her GI pathology. CT of the chst not showing any signs of perforation related to recent endoscopy. (5) Peripheral artery disease: Plan: Status post bilateral iliac stenting by Dr. Pop prakash in [place] in 2022. She is on chronic Lyrica therapy for neuropathy. I do not see any antiplatelet regimen in her home medications. She is a non-smoker x 5 years. (6) Diabetes mellitus, type II: Plan: She takes Ozempic on Saturdays. She did take her dose this weekend. I will place her on [id number] glucose testing AC and at bedtime and sliding scale insulin to cover. Last A1c in the outpatient environment was 06/11/2025 at 6.4%. I will repeat A1c in the AM. (7) Sleep apnea: Plan: .She is not compliant with home CPAP that has been prescribed. (8) Hyponatremia: Plan: Hyponatremia of 128. Looking back in this patient's history she does not have a history of hyponatremia. She is on on SSRI treatment. I suspect that her hyponatremia will resolve as her acute illness resolves. Plan I have spent 85 minutes in the care of this patient today. This includes time [id number], review and ordering of diagnostic imaging and laboratory studies and consultation with other providers. Monitoring the patient's signs symptoms, evaluation of medication effectiveness and patient's response to treatment. Lab Results Lab results reviewed: Yes 08/13/25 14:35 08/13/25 14:35
[2025-08-13] MEDS ORDERED: PETROLATUM WHITE 5 GM PACKET TOP PRN (19:29)
[2025-08-13] MEDS: IPRATROPIUM/ALBUTEROL 3 ML NEB INH SCH (19:37)
[2025-08-13] MEDS: PANTOPRAZOLE 40 MG VIAL IVP SCH ×2 (19:41→21:39)
[2025-08-13] MEDS: VERAPAMIL ER 120 MG TABLET PO SCH (21:37)
[2025-08-13] MEDS: PREGABALIN 25 MG CAPSULE PO SCH (21:37)
[2025-08-13] MEDS: ATORVASTATIN 40 MG TABLET PO SCH (21:38)
[2025-08-13] MEDS: methylPREDNISolone SUCCINATE 40 MG/ML VIAL IVP SCH (21:39)
[2025-08-13] MEDS: INSULIN LISPRO 300 UNIT/3 ML PEN SUBQ SCH (21:41)
[2025-08-14] MEDS: SODIUM CHLORIDE FLUSH 0.9% 10 ML SYRINGE IVP SCH (01:03)
[2025-08-14 05:52] LABS: HCT - HEMATOCRIT 43.1 % (37.0-47.0); HGB - HEMOGLOBIN 14.1 g/dL (12.0-16.0); MEAN PLATELET VOLUME 9.2 fL (7.9-10.8); NRBC ABSOLUTE COUNT (AUTO) 0.00 x10^3/uL; NUCLEATED RED BLOOD CELLS AUTO 0.0 /100WBC; PLT - PLATELET COUNT 415 10^3/uL (130-450); RED CELL DISTRIBUTION WIDTH 13.4 % (12.0-15.0)
[2025-08-14 06:08] LABS: BUN - BLOOD UREA NITROGEN 36.0 mg/dL (6-20); CARBON DIOXIDE - CO2 25.0 mmol/L (21-32); CREATININE 0.9 mg/dL (0.6-1.3); GFR - MDRD 63.0 (>89)
[2025-08-14] MEDS: SODIUM CHLORIDE FLUSH 0.9% 10 ML SYRINGE IVP PRN (07:02)
[2025-08-14] MEDS: LEVOTHYROXINE 100 MCG TABLET PO SCH (08:58)
[2025-08-14] MEDS: AZITHROMYCIN INJ 500 MG in SODIUM CHLORIDE 0.9% 250 ML IV SCH (09:00)
[2025-08-14] MEDS ORDERED: PANTOPRAZOLE 40 MG TABLET PO SCH (09:00)
[2025-08-14] MEDS: cefTRIAXone 1 GM in SODIUM CHLORIDE 0.9% MINIBAG 100 ML IV SCH (09:00)
[2025-08-14] MEDS: ENOXAPARIN 40 MG/0.4 ML SYRINGE SUBQ SCH (09:03)
[2025-08-14 09:25] LABS: ESTIMATED AVERAGE GLUCOSE 134 mg/dL (70-100); HEMOGLOBIN A1c% 6.3 % (4.27-6.07)
[2025-08-14] MEDS: ACETAMINOPHEN 325 MG TABLET PO PRN (10:52)
--- NOTE | 2025-08-14 12:01 | PHARMACY PROGRESS NOTE ---
Best Possible Medication History Admit Date and Time: 08/13/25 1759 Home Medications Medication Instructions Recorded Confirmed Type nebulizer and compressor (Vios 07/14/22 08/13/25 Hist ory Aerosol Delivery System) blood-glucose meter (OneTouch #1 ea 06/20/24 08/13/25 Rx Verio Flex Meter) B complex 11-folic acid 1 mg-C 100 1 tab PO DAILY 06/1308/14/25 History mg-biotin 300 mcg-zinc 50 mg tablet blood sugar diagnostic (OneTouch 07/10/24 08/13/25 Hi story Verio test strips) cetirizine 10 mg tablet 10 mg PO DAILY PRN allergy s ymptoms 07/10/24 08/14/25 History cholecalciferol (vitamin D3) 125 125 mcg PO DAILY 06/1308/14/25 History mcg (5,000 unit) capsule clobetasol 0.05 % scalp solution 1 applic topical PRN 07/10/24 08/14/25 History flash glucose sensor (FreeStyle 07/10/24 08/13/25 His tory Adela 14 Day Sensor kit) lancets 33 gauge 07/10/24 08/13/25 History magnesium oxide 400 mg PO QDAY 07/10/2412/04 History multivitamin (Daily Multi-Vitamin 1 tab PO QDAY 08/14/25 History tablet) omega-3 fatty acids 1,000 mg 1,000 mg PO QDAY 07/10/24 08/14/25 History capsule pen needle, diabetic 31 gauge x 07/10/24 08/13/25 His tory 5/16" semaglutide 2 mg/dose (8 mg/3 mL) 2 mg (0.75 mL) subcu t QWEEK #3 mL 08/31/24 08/14/25 Rx subcutaneous pen injector (Ozempic) verapamil 120 mg tablet,extended 120 mg PO BID #180 ta bs 09/18/24 08/14/25 Rx release rosuvastatin 40 mg tablet See Rx Instructions .Route 0 12/27/24 08/14/25 Rx .COMPLEX #90 tabs acyclovir 400 mg tablet 400 mg PO BID #180 tabs 05/0 04/0508/14/25 Rx albuterol sulfate 90 mcg/actuation See Rx Instructions .Route 05/10/25 12/03/25 Rx aerosol inhaler .COMPLEX #20.1 grams ipratropium 0.5 mg-albuterol 3 mg 3 ml inhalation QID #180 mL 07/04/25 08/13/25 Rx (2.5 mg base)/3 mL nebulization soln pregabalin 50 mg capsule 50 mg PO BID #60 caps 08/14/25 Rx tiotropium 2.5 mcg-olodaterol 2.5 2 puff inhalation QD AY #12 grams 08/06/25 08/14/25 Rx mcg/actuation mist for inhalation pantoprazole 40 mg tablet,delayed 40 mg PO DAILY #90 t abs 08/07/25 08/13/25 Rx release duloxetine 60 mg capsule,delayed 60 mg PO DAILY 08/14/25 History release levothyroxine 200 mcg tablet 200 mcg PO DAILY 08/14/25 08/14/25 History (Synthroid) losartan 100 mg tablet 100 mg PO DAILY 08/14/2512/04 History prednisone 20 mg tablet 60 mg PO DAILY 08/14/2512/04 History Processed by: Pharmacy (Medication reconciliation completed by Auditing ClerkFina) Medications reviewed in ED?: No Medication History completed: Yes Patient Interview: Completed Secondary Source(s): Insurance records [facility] Statement: As the person ultimately responsible for medication therapy, providers are able to order a medication from an existing home medication list in [facility] via the "Reconcile Routine" prior to Confirmation of that medication by computer technical support specialist. Such practice is discouraged except when the physician, in their clinical judgment, deems that a medical need exists for a medication without regard to previous use.
[2025-08-14 13:02] VITALS: TEMP 98.8
[2025-08-14 14:33] VITALS: BP 115/57; O2SAT 91
--- NOTE | 2025-08-14 16:19 | Discharge Summary ---
Discharge Summary Admit Date: 08/13/25 Discharge Date: 08/14/25 Discharging Provider: Radha Wong PA-C Primary Care Provider: Sonia Jason PA-C Code Status: Attempt Resuscitation DIAGNOSES Discharge Diagnoses with Status of Each Condition: Acute on chronic respiratory failure, resolved COPD exacerbation Community acquired pneumonia, treated Pyloric ulcer Peripheral arterial disease Diabetes mellitus type 2 Sleep apnea, noncompliant with therapy Hyponatremia, resolving HPI History of Present Illness: 64-year-old female with past medical history of COPD, non-smoker for 5 years, diabetes mellitus, sleep apnea, peripheral vascular disease, depression hypertension hyperlipidemia presents to the emergency department with shortness of breath. She is been sick now for 7 days. She has been seen by several outpatient providers, she has been on prednisone 60 mg a day for about 3 days now. She has a home nebulizer and has been using her albuterol treatments at home greater than 4 times a day. She is also taking her prescribed COPD medications. She had a colonoscopy and EGD done several days ago was diagnosed with a gastric ulcer. Biopsies are pending at this time. She has been having worsening midsternal chest pain. This is accompanied by the hypoxia. In the emergency department she had CT of the chest which was negative for pneumonia, pulmonary embolism or esophageal perforation. She had a negative troponin. ED provider did not trend the troponin given that the pain has been going on for 5 days now. 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 Does not drink alcohol or use marijuana. She lives with a roommate who is non-Liberian speaking. [place] Her daughter is her power of consumer attorney and surrogate medical decision maker. Her daughter lives in [place]. Her CODE STATUS is full code. She does not have a POLST. HOSPITAL COURSE Hospital Course: Admitted with acute hypoxic respiratory failure and hypoxia with ambulation after several healthcare encounters in the outpatient setting. She been placed on oral steroids. She was having midsternal chest pain and pressure. Workup in the ED showed a negative troponin. She had had an EGD and colonoscopy on 08/07/2025 with general surgery and at that time Dr. Ricardo identified a gastric ulcer. With her hypoxia and chest discomfort I think it is possible that this patient had a radiographically negative pneumonia and I believed it to be worthwhile to treat her with antibiotics for community-acquired pneumonia. This was started and she was placed on supplemental oxygen. By the afternoon of hospital day 2 she had weaned to room air and was independently ambulatory in the room without dyspnea. Her chest pain was much better and she requested discharge to home. She was discharged home in stable condition with instructions to complete courses of Zithromax and Augmentin. I instructed her to double up on her Protonix to 40 mg twice a day. She insisted to me that she did not need additional refills on this. She was also encouraged to use her nebulizer as needed at home. I have encouraged her to follow-up with general surgery to discuss biopsy results and discuss her diagnosis of peptic ulcer. I have encouraged her to follow-up with primary care for her COPD exacerbation and treatment of the community-acquired pneumonia. ALLERGIES Allergies Allergy/AdvReac Type Severity Reaction Status Date / Time adhesive tape Allergy Severe blisters Verified 08/13/25 13:50 grass pollen Allergy Unknown Unknown Verified 08/13/25 13:50 codeine AdvReac Severe nausea, Verified 08/13/25 13:50 blisters meloxicam AdvReac Severe shortness Verified 08/13/25 13:50 of breath latex AdvReac Unknown Rash Verified 08/13/25 13:50 MEDICATIONS Ambulatory Orders Medication Instructions Recorded Confirmed nebulizer and compressor (Vios 07/14/22 08/13/25 Aerosol Delivery System) blood-glucose meter (XipLinkuch #1 ea 06/20/24 08/13/25 Verio Flex Meter) B complex 11-folic acid 1 mg-C 100 1 tab PO DAILY 06/1308/14/25 mg-biotin 300 mcg-zinc 50 mg tablet blood sugar diagnostic (SolazymeTouch 07/10/24 08/13/25 Verio test strips) cetirizine 10 mg tablet 10 mg PO DAILY PRN allergy s ymptoms 07/10/24 08/14/25 cholecalciferol (vitamin D3) 125 125 mcg PO DAILY 06/1308/14/25 mcg (5,000 unit) capsule clobetasol 0.05 % scalp solution 1 applic topical PRN 07/10/24 08/14/25 flash glucose sensor (FreeStyle 07/10/24 08/13/25 Adela 14 Day Sensor kit) lancets 33 gauge 07/10/24 08/13/25 magnesium oxide 400 mg PO QDAY 07/10/24 12/12/04 multivitamin (Daily Multi-Vitamin 1 tab PO QDAY 08/14/25 tablet) omega-3 fatty acids 1,000 mg 1,000 mg PO QDAY 07/10/24 08/14/25 capsule pen needle, diabetic 31 gauge x 07/10/24 08/13/25 5/16" semaglutide 2 mg/dose (8 mg/3 mL) 2 mg (0.75 mL) subcu t QWEEK #3 mL 08/31/24 08/14/25 subcutaneous pen injector (Ozempic) verapamil 120 mg tablet,extended 120 mg PO BID #180 ta bs 09/18/24 08/14/25 release rosuvastatin 40 mg tablet See Rx Instructions .Route 0 12/27/24 08/14/25 .COMPLEX #90 tabs acyclovir 400 mg tablet 400 mg PO BID #180 tabs 04/0508/14/25 albuterol sulfate 90 mcg/actuation See Rx Instructions .Route 01/19/25 08/14/25 aerosol inhaler .COMPLEX #20.1 grams ipratropium 0.5 mg-albuterol 3 mg 3 ml inhalation QID #180 mL 07/04/25 08/13/25 (2.5 mg base)/3 mL nebulization soln pregabalin 50 mg capsule 50 mg PO BID #60 caps 08/14/25 tiotropium 2.5 mcg-olodaterol 2.5 2 puff inhalation QD AY #12 grams 08/06/25 08/14/25 mcg/actuation mist for inhalation pantoprazole 40 mg tablet,delayed 40 mg PO DAILY #90 t abs 08/07/25 08/13/25 release Augmentin 875 mg-potassium 1 tab PO BID #8 tabs clavulanate 125 mg tablet azithromycin 500 mg tablet 500 mg PO DAILY 2 days #2 t abs 08/14/25 (Zithromax) duloxetine 60 mg capsule,delayed 60 mg PO DAILY 08/14/25 release levothyroxine 200 mcg tablet 200 mcg PO DAILY 08/14/25 08/14/25 (Synthroid) losartan 100 mg tablet 100 mg PO DAILY 08/14/2512/04 prednisone 20 mg tablet 60 mg PO DAILY 08/14/25 1212/04 PHYSICAL EXAM AT DISCHARGE Vital Signs: Vital Signs x48h Temp Pulse Resp BP Pulse Ox 08/14/25 14:00 37.1 C 90 16 115/57 L 91 L 08/14/25 13:00 37.1 C 85 16 123/64 92 LABS 08/14/25 05:29 08/14/25 05:29 DIAGNOSTIC IMAGING Diagnostic Imaging Results Comments: CTA chest: No PE, no acute cardiopulmonary pathology, severe centrilobular emphysema, coronary artery disease, 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 No focal infiltrate, pleural effusion or pneumothorax. FOLLOW UP Follow Up: PCP 7 to 10 days General Surgery when biopsy findings are back TIME SPENT Time Spent in Discharge (Minutes): 45 Discharge Plan Discharge Patient Disposition: Home, Self Care Condition: Stable Prescriptions: New amoxicillin-pot clavulanate 875-125 mg tablet 1 tab PO BID Qty: 8 0RF azithromycin [Zithromax] 500 mg tablet 500 mg PO DAILY 2 Days Qty: 2 0RF Rx Instructions: start on day 2 of therapy Continued (DME) blood-glucose meter [SolazymeTouch Verio Flex meter] [facility] See Rx Instructions .Route Qty: 1 0RF Rx Instructions: Use twice daily as directed to check blood sugars, DX E11.9, insulin use Ozempic 2 mg/dose (8 mg/3 mL) pen injector 2 mg subcut QWEEK Qty: 3 6RF Patient Comments: Tuesday verapamil 120 mg tablet extended release 120 mg PO BID Qty: 180 3RF Rx Instructions: Take 1 tablet by mouth twice a day rosuvastatin 40 mg tablet See Rx Instructions .ROUTE .COMPLEX Qty: 90 3RF Dose Instruction: Take 1 tablet by mouth every evening Rx Instructions: Take 1 tablet by mouth every evening acyclovir 400 mg tablet 400 mg PO BID Qty: 180 3RF Rx Instructions: Take 1 tablet by mouth twice a day for prevention of cold sores albuterol sulfate 90 mcg/actuation HFA aerosol inhaler See Rx Instructions .ROUTE .COMPLEX Qty: 20.1 2RF Dose Instruction: Inhale 2 puffs every 4 hours as needed for wheezing. Rx Instructions: Inhale 2 puffs every 4 hours as needed for wheezing. ipratropium-albuterol 0.5 mg-3 mg(2.5 mg base)/3 mL solution for nebulization 3 ml inhalation QID Qty: 180 3RF Rx Instructions: Inhale contents of 1 vial (1 ampule) via nebulizer four times a day pregabalin 50 mg capsule 50 mg PO BID Qty: 60 4RF tiotropium-olodaterol 2.5-2.5 mcg/actuation mist 2 puff inhalation QDAY Qty: 12 3RF Rx Instructions: Inhale 2 puffs once a day (DME) nebulizer and compressor [zLenseos Aerosol Delivery System] 1 EACH device See Rx Instructions .Route .COMPLEX Rx Instructions: pt inhales a small amount 3 x daily pantoprazole 40 mg tablet,delayed release (DR/EC) 40 mg PO DAILY Qty: 90 4RF prednisone 20 mg tablet 60 mg PO DAILY levothyroxine [Synthroid] 200 mcg tablet 200 mcg PO DAILY Rx Instructions: Take 1 tablet by mouth once a day. Skip dose one day a week losartan 100 mg tablet 100 mg PO DAILY duloxetine 60 mg capsule,delayed release(DR/EC) 60 mg PO DAILY (DME) OneTouch Verio test strips Strip See Rx Instructions .Route Rx Instructions: As directed clobetasol 0.05 % solution 1 applic topical PRN (DME) pen needle, diabetic 31 gauge x 5/16" needle See Rx Instructions .Route Rx Instructions: As directed (DME) FreeStyle Adela 14 Day Sensor Kit See Rx Instructions .Route Rx Instructions: As directed B complex 78-rryvw-Y-biot-zinc [id number] ll-cv-rwd-mg tablet 1 tab PO DAILY Rx Instructions: administer with a meal cetirizine 10 mg tablet 10 mg PO DAILY PRN (Reason: allergy symptoms) Rx Instructions: Take 1 tablet by mouth once a day as needed for allergies cholecalciferol (vitamin D3) 125 mcg (5,000 unit) capsule 125 mcg PO DAILY Rx Instructions: Take 1 capsule by mouth once a day magnesium oxide 400 mg magnesium tablet 400 mg PO QDAY Rx Instructions: Take 1 tablet by mouth once a day multivitamin [Daily Multi-Vitamin] Tablet 1 tab PO QDAY Rx Instructions: Take 1 tablet by mouth once a day omega-3 fatty acids 1,000 mg capsule 1,000 mg PO QDAY Rx Instructions: Take 1 capsule by mouth once a day (DME) lancets 33 gauge misc See Rx Instructions .Route Rx Instructions: As directed Interventions: Belongings Inventory Last Done: 08/13/25 19:28 Discharge Last Done: 08/14/25 14:33 Discharge Checklist - Nursing Last Done: 08/14/25 14:33 Discharge Vital Signs (30 Minutes) Last Done: 08/14/25 14:00 Health Concerns: You are being discharged home after treatment for aflare-up of your chronic lung disease (COPD) and pneumonia. Please follow these instructions carefully to continue your recovery. Your Medications Antibiotics for Pneumonia and Lung Infection: * Start your antibiotic tomorrowas prescribed * Take the full 5-day course even if you feel better. * Common antibiotics used include amoxicillin-clavulanate, and azithromycin * If you develop a rash, severe diarrhea, or difficulty breathing after starting the antibiotic, contact your doctor immediately Stomach Ulcer Treatment: * Take your proton pump inhibitor (PPI)twice dailyuntil your surgical follow- up appointment * This medication reduces stomach acid to help your ulcer heal * Take it 30-60 minutes before meals for best results * Most ulcers heal within 4 weeks, though larger ulcers may require 8 weeks of treatment * Continue this medication until your surgeon tells you to stop Inhaler Medications: * Continue all your regular COPD inhalers as prescribed * Use your rescue inhaler (short-acting bronchodilator) as needed for shortness of breath * If you were given steroids, complete the full course (typically 5 days) Warning Signs - Call Your Doctor or Go to the Emergency Room If You Experience: * Worsening shortness of breath not relieved by your rescue inhaler * Fever (temperature above 100.4F or 38C) * Chest pain * Increased swelling in your legs or ankles * Confusion or difficulty thinking clearly * Coughing up blood * Severe abdominal pain or black, tarry stools (may indicate ulcer bleeding) Activity and Recovery * Rest as needed, but try to stay as active as possible * Recovery from a COPD flare-up can take 4-6 weeks * Avoid smoking and secondhand smoke, as this slows healing and increases risk of future flare-ups * Gradually increase your activity level as you feel better Follow-Up Care * Schedule an appointment with your primary care doctor within 1 weekof discharge * Keep your scheduled surgical follow-up appointment to reassess your stomach ulcer * A follow-up chest X-ray is typically not needed unless your symptoms persist or worsen Preventing Future Flare-Ups * Take all your COPD medications exactly as prescribed, even when feeling well * Get your annual flu shot and pneumonia vaccine as recommended * Wash your hands frequently to prevent infections * Avoid people who are sick when possible * Continue taking your ulcer medication as directed to prevent complications Questions or Concerns If you have any questions about your medications or recovery, contact your doctor's office. Do not stop taking any medications without talking to your doctor first. Print Language: Liberian Patient Instructions: Bleeding Peptic Ulcer: Treatment, Discharge Instructions: COPD Follow-up Care: Mary Alice Jason PA-C [Primary Care Provider, Family Practice] Codi Ricardo DO [Provider Admit Priv/Credential, Surgery, General] Vitals documented within 30 minutes of discharge?: Yes
[2025-08-15] MEDS ORDERED: LEVOTHYROXINE 100 MCG TABLET PO SCH (07:00)
--- OUTSIDE RECORDS SUMMARY | 2025-08-17 21:51 | EXTERNAL MEDICAL SUMMARY RPT | Encounter Summary ---
Author Organization [facility] Address [address] [place] [address] Care Team Providers Care Hot Mill Tin Roller Name Role Phone Demetra Clark Primary Care Provider [phone] Mary Alice Jason Primary Care Provider Unavailabl e Reason for Referral * Radiology (Routine) - Closed Specialty Diagnoses / Procedures Referred By Contac t Referred To Contact Radiology Diagnoses Chronic obstructive pulmonary disease with acute exacerbation Moderate persistent asthma with acute exacerbation Cough Procedures REF RADIOLOGY COMPUTED TOMOGRAPHY, THORAX, DIAGNOSTIC; W/O CONTRAST MATERIAL Demetra Clark [employer] PRIMARY CAR [address] [place] [address] fax: [facility] [place] [address] [address] [place] [address] Referral ID Status Reason Start Date Expiration Date V isits Requested Visits Authorized [id number] Closed Itemized Services 09/19/2020 03/18/2021 1 1 Encounter Details Date Type Department Care Team (Latest Contact Info) Description 09/19/2020 Community Orders Non [facility] Provider Demetra Clark [employer] [facility]IMARY [facility] [address] [place] [address] Chronic obstructive pulmonary disease with acute exacerbation (Primary Dx); Moderate persistent asthma with acute exacerbation; Cough Social History Tobacco Use Types Packs/Day Years Used Date Smoking Tobacco: Never Assessed Comments Unknown Sex and Gender Information Value Date Recorded Sex Assigned at Not on file Legal Sex Female 5:59 AM PST Gender Identity Not on file Sexual Orientation Not on file documented as of this encounter Plan of Treatment Not on file documented as of this encounter Visit Diagnoses Diagnosis Chronic obstructive pulmonary disease with acute exacerbation- Primary Obstructive chronic bronchitis with exacerbation Moderate persistent asthma with acute exacerbation Cough documented in this encounter Care Teams Hot Mill Tin Roller Relationship Specialty Start Date End Date Demetra Clark [employer] PRIMARY CAR [address] [place], [place] [id number] PCP - General 05/16/18 12/22/21 Mary Alice Jason [employer] PRIMARY [facility] [address] [place] [address] PCP - General 12/23/21 documented as of this encounter
--- OUTSIDE RECORDS SUMMARY | 2025-08-17 21:51 | EXTERNAL MEDICAL SUMMARY RPT | Encounter Summary ---
Author Organization [facility] Address [address] [place] [address] Care Team Providers Care Guide Escort Name Role Phone Mary Alice Jason Primary Care Provider Aster ayers Reason for Referral * PT/OT/ST (Routine) - Authorized Specialty Diagnoses / Procedures Referred By Isamar jim Referred To Contact Physical Therapy Diagnoses Right shoulder pain, unspecified chronicity Procedures REF PHYSICAL THERAPY - EXTERNAL THERA PROC 1+ AREAS EA 15 MIN THERA EXERCISES Mary Alice Jason PRIMARY [facility] [address] [place] [address] Therapy, [facility] [address] [place] [address] Referral ID Status Reason Start Date Expiration Date Visits Requested Visits Authorized [id number] Authorized Itemized Services 07/14/2023 07/14/2024 15 15 Encounter Details Date Type Department Care Team (Late st Contact Info) Description 07/14/2023 Community Orders Non [facility] Provider Mary Alice Jason PRIMARY [facility] [address] [place] [address] Right shoulder pain, unspecified chronicity (Primary Dx) Social History Tobacco Use Types Packs/Day Years Used Date Smoking Tobacco: Never Assessed Comments Unknown Sex and Gender Information Value Date Recorded Sex Assigned at Not on file Legal Sex Female 5:59 AM PST Gender Identity Not on file Sexual Orientation Not on file documented as of this encounter Plan of Treatment Not on file documented as of this encounter Visit Diagnoses Diagnosis Right shoulder pain, unspecified chronicity- Primary documented in this encounter Care Teams Guide Escort Relationship Specialty Start Date End Date [facility] [address] [place] [address] PCP - General 12/23/21 documented as of this encounter
--- OUTSIDE RECORDS SUMMARY | 2025-08-17 21:51 | EXTERNAL MEDICAL SUMMARY RPT | Encounter Summary ---
Author Organization [facility] Address [address] [place] [address] Care Team Providers Care Environmental Systems Coordinator Name Role Phone Demetra Clark Primary Care Provider [phone] Mary Alice Jason Primary Care Provider Unavailabl e Reason for Referral * PT/OT/ST (Routine) - Closed Specialty Diagnoses / Procedures Referred By Contac t Referred To Contact Physical Therapy Diagnoses Chronic low back pain, unspecified back pain laterality, unspecified whether sciatica present Disc disease, degenerative, cervical Procedures REF PT/OT THERA PROC 1+ AREAS EA 15 MIN THERA EXERCISES Demetra Clark [employer] PRIMARY CAR [address] [place] [address] fax: [facility] [address] [place] [address] Phone: tel: Referral ID Status Reason Start Date Expiration Date V isits Requested Visits Authorized [id number] Closed Itemized Services 12/11/2020 06/12/2021 15 15 Encounter Details Date Type Department Care Team (Late st Contact Info) Description 12/11/2020 Community Orders Non [facility] Provider Demetra Clark [employer] PRIMARY CAR [address] [place] [address] Chronic low back pain, unspecified back pain laterality, unspecified whether sciatica present (Primary Dx); Disc disease, degenerative, cervical Social History Tobacco Use Types Packs/Day Years [...] of this encounter Visit Diagnoses Diagnosis Chronic low back pain, unspecified back pain laterality, unspecified whether sciatica present- Primary Disc disease, degenerative, cervical Degeneration of cervical intervertebral disc documented in this encounter Care Teams Environmental Systems Coordinator Relationship Specialty Start Date End Date Demetra Clark [facility] [address] [place], [place] [id number] PCP - General 05/16/18 12/22/21 Mary Alice Jason [employer] PRIMARY CAR [address] [place] [address] PCP - General 12/23/21 documented as of this encounter
--- OUTSIDE RECORDS SUMMARY | 2025-08-17 21:51 | EXTERNAL MEDICAL SUMMARY RPT | Encounter Summary ---
Author Organization [facility] Address [address] [place] [address] Care Team Providers Care Feedmobile Driver Name Role Phone Mary Alice Jason Primary Care Provider Aster ayers Reason for Referral * Outpatient Service (Urgent) - Authorized Specialty Diagnoses / Procedures Referred By Isamar jim Referred To Contact Otolaryngology (ENT) Diagnoses Unspecified chronic suppurative otitis media Procedures REF BIANCA/ENT - EXTERNAL OFFICE/OUTPATIENT ESTABLISHED MOD MDM 30 MIN Mary Alice Jason [facility]IMARY [facility] [address] [place] [address] [facility] [address] [place] [address] Referral ID Status Reason Start Date Expiration Date Visits Requested Visits Authorized [id number] Authorized Evaluate and Treat-Surgery if Indicated 05/18/2024 05/18/2025 6 6 Encounter Details Date Type Department Care Team (Late st Contact Info) Description 05/18/2024 Community Orders Non [facility] Provider Mary Alice Jason [employer]IMARY [facility] [address] [place] [address] Unspecified chronic suppurative otitis media (Primary Dx) Social History Tobacco Use Types [...] as of this encounter Visit Diagnoses Diagnosis Unspecified chronic suppurative otitis media- Primary documented in this encounter Care Teams Feedmobile Driver Relationship Specialty Start Date End Date [facility] [address] [place] [address] PCP - General 12/23/21 documented as of this encounter
--- OUTSIDE RECORDS SUMMARY | 2025-08-17 21:51 | EXTERNAL MEDICAL SUMMARY RPT | Encounter Summary ---
Author Organization [facility] Address [address] [place] [address] Care Team Providers Care House Worker General Name Role Phone Pcp, None Selected Primary Care Provider Unavail able Encounter Details Date Type Department Care Team (Late st Contact Info) Description 06/09/2022 Orders Only [facility] [address] [phone] Tameka Hutson MA Social History Tobacco Use Types Packs/Day Years Used Date Smoking Tobacco: Former Cigarettes 1.5 45.6 0 09/12/1974 - 04/14/2020 Smokeless Tobacco: Never Comments:Quit 2019. Alcohol Use Standard Drinks/Week Comments Yes 13 (1 standard drink = 0.6 oz pu re alcohol) Vodka 9 drinks a week Comments No Sex and Gender Information Value Date Recorded Sex Assigned at Female 07/07/2021 9:51 AM PDT Legal Sex Female 5:23 PM PDT Gender Identity Female 07/07/2021 9:51 AM PDT Sexual Orientation Straight 07/07/2021 9: 51 AM PDT documented as of this encounter Plan of Treatment Not on file documented as of this encounter Visit Diagnoses Not on filedocumented in this encounter Care Teams House Worker General Relationship Specialty Start Date End Date Pcp, None Selected PCP - General Internal Medicine 05/07/25 documented as of this encounter
--- OUTSIDE RECORDS SUMMARY | 2025-08-17 21:51 | EXTERNAL MEDICAL SUMMARY RPT | Encounter Summary ---
Author Organization [facility] Address [address] [place] [address] Care Team Providers Care Radio Frequency Design Engineer Name Role Phone Pcp, None Selected Primary Care Provider Unavail able Reason for Visit * Reason Onset Date Comments Appointment 01/22/2022 surgery surgery scheduling 01/22/2022 Encounter Details Date Type Department Care Team (Late st Contact Info) Description 01/22/2022 Telephone [facility] Orthopedics [id number] [place] [address] Gab Ureña, DO [address] [address] Appointment (surgery); surgery scheduling Social History Tobacco Use Types Packs/Day Years [...] AM PDT documented as of this encounter Miscellaneous Notes * Telephone Encounter - Conchis [place] - 01/22/2022 9:47 AM PDT Surgery scheduled for 01/28/22. Pre op and post ops scheduled. Patient was informed to get a covid swab 3 days prior to surgery. Approved CPT codes: 87682 Patient Class: outpatient Future Appointments Provider Department 02/12/2022 1:00 PM LICHA Bingham [facility] 03/12/2022 1:00 PM Gab Ureña DO [facility] * Telephone Encounter - Yue Pickens - 01/22/2022 9:34 AM PDT Patient is returning a call; warm transferred to project scheduler documented in this encounter Plan of Treatment Not on file documented as of this encounter Visit Diagnoses Not on filedocumented in this encounter Care Teams Radio Frequency Design Engineer Relationship Specialty Start Date End Date Pcp, None Selected PCP - General Internal Medicine 05/07/25 documented as of this encounter
--- OUTSIDE RECORDS SUMMARY | 2025-08-17 21:51 | EXTERNAL MEDICAL SUMMARY RPT | Encounter Summary ---
Author Organization [facility] Address [address] [place] [address] Care Team Providers Care Legal Support Manager Name Role Phone Mary Alice Jason Primary Care Provider Aster e Reason for Referral * Radiology (Routine) - Authorized Specialty Diagnoses / Procedures Referred By Controb t Referred To Contact Radiology Diagnoses Tobacco abuse, in remission Procedures REF RADIOLOGY COMPUTED TOMOGRAPHY, THORAX, LOW DOSE LUNG CA SCREENING, W/O CONTRAST Mary Alice Jason [facility] [address] [place] [address] [facility] [address] [address] [place] [address] Referral ID Status Reason Start Date Expiration Date Visits Requested Visits Authorized [id number] Authorized Itemized Services 10/05/2023 04/06/2024 1 1 Encounter Details Date Type Department Care Team (Late st Contact Info) Description 10/05/2023 Community Orders Non [facility] Provider Mary Alice Jason [facility] PRIMARY CAR [address] [place] [address] Tobacco abuse, in remission (Primary Dx) Social History Tobacco Use Types [...] as of this encounter Visit Diagnoses Diagnosis Tobacco abuse, in remission- Primary Personal history of tobacco use, presenting hazards to health documented in this encounter Care Teams Legal Support Manager Relationship Specialty Start Date End Date Mary Alice Jason [facility] PRIMARY CAR [address] [place] [address] PCP - General 12/23/21 documented as of this encounter
--- OUTSIDE RECORDS SUMMARY | 2025-08-17 21:51 | EXTERNAL MEDICAL SUMMARY RPT | Encounter Summary ---
Author Organization [facility] Address [address] [place] [address] Care Team Providers Care Crop Roller Name Role Phone Demetra Clark Primary Care Provider [phone] Mary Alice Jason Primary Care Provider Unavailabl e Reason for Referral * Outpatient Service (Routine) - Closed Specialty Diagnoses / Procedures Referred By Isamar jim Referred To Contact Physical Medicine & Rehabilitation Diagnoses DDD (degenerative disc disease), cervical Chronic low back pain, unspecified back pain laterality, unspecified whether sciatica present Procedures REF PHYSICAL MED/ REHAB OFFICE VISIT E&M EST PT, MODERATE MDM, 30-39 MINS Demetra Clark [facility] PRIMARY [address] [place] [address] fax: [address] [phone] fax: Referral ID Status Reason Start Date Expiration Date V isits Requested Visits Authorized [id number] Closed Evaluate and Treat-Surgery if Indicated 06/10/2021 06/10/2022 6 6 Encounter Details Date Type Department Care Team (Late st Contact Info) Description 06/10/2021 Community Orders Non [facility] Provider Demetra Clark [facility] PRIMARY CAR [address] [place] [address] DDD (degenerative disc disease), cervical (Primary Dx); Chronic low back pain, unspecified back pain laterality, unspecified whether sciatica present Social History Tobacco Use Types Packs/Day Years Used Date Smoking Tobacco: Never Assessed Comments Unknown Sex and Gender Information Value Date Recorded Sex Assigned at Not on file Legal Sex Female 5:59 AM PST Gender Identity Not on file Sexual Orientation Not on file documented as of this encounter Plan of Treatment Not on file documented as of this encounter Visit Diagnoses Diagnosis DDD (degenerative disc disease), cervical- Primary Degeneration of cervical intervertebral disc Chronic low back pain, unspecified back pain laterality, unspecified whether sciatica present documented in this encounter Care Teams Crop Roller Relationship Specialty Start Date End Date Demetra Clark [facility] PRIMARY CAR [address] [place], [place] [id number] PCP - General 05/16/18 12/22/21 Mary Alice Jason [employer] PRIMARY CAR [address] [place] [address] PCP - General 12/23/21 documented as of this encounter
--- OUTSIDE RECORDS SUMMARY | 2025-08-17 21:51 | EXTERNAL MEDICAL SUMMARY RPT | Encounter Summary ---
Author Organization [facility] Address [address] [place] [address] Care Team Providers Care Technical Agronomist Name Role Phone Pcp, None Selected Primary Care Provider Unavail able Encounter Details Date Type Department Care Team (Late st Contact Info) Description 06/13/2024 Abstract [facility] Nose [facility] Throat [place] [id number] [place] [phone] Maynor Sung MD [address] [place] [address] Social History Tobacco Use Types Packs/Day Years Used Date Smoking Tobacco: Former Cigarettes 1.5 45.6 0 09/12/1974 - 04/14/2020 Passive Smoke Exposure: Never Smokeless Tobacco: Never Comments:Quit 2019. Alcohol Use [...] on filedocumented in this encounter Care Teams Technical Agronomist Relationship Specialty Start Date End Date Pcp, None Selected PCP - General Internal Medicine 05/07/25 documented as of this encounter
--- OUTSIDE RECORDS SUMMARY | 2025-08-17 21:51 | EXTERNAL MEDICAL SUMMARY RPT | Encounter Summary ---
Author Organization [facility] Address [address] [place] [address] Care Team Providers Care Cad Draftsman Name Role Phone Mary Alice Jason Primary Care Provider Aster e Reason for Referral * Alternative Health (Routine) - Authorized Specialty Diagnoses / Procedures Referred By Isamar jim Referred To Contact Massage Therapy Diagnoses Neck pain Chronic neck pain Procedures REF MASSAGE THERAPY THERA PROC 1+ AREAS EA 15 MIN MASSAGE Mary Alice Jason PR[address] [place] [address] Therapy, [facility] [address] [place] [phone] Referral ID Status Reason Start Date Expiration Date Visits Requested Visits Authorized [id number] Authorized Itemized Services 09/20/2024 09/20/2025 8 8 Encounter Details Date Type Department Care Team (Late st Contact Info) Description 09/20/2024 Community Orders Non [facility] Provider Mary Alice Jason PRIMARY [address] [place] [address] Neck pain (Primary Dx); Chronic neck pain Social History Tobacco Use Types Packs/Day Years Used Date Smoking Tobacco: Never Assessed Comments Unknown Sex and Gender Information Value Date Recorded Sex Assigned at Not on file Legal Sex Female 5:59 AM PST Gender Identity Not on file Sexual Orientation Not on file documented as of this encounter Plan of Treatment Not on file documented as of this encounter Visit Diagnoses Diagnosis Neck pain- Primary Cervicalgia Chronic neck pain Cervicalgia documented in this encounter Care Teams Cad Draftsman Relationship Specialty Start Date End Date Mary Alice Jason [facility] PRIMARY CAR [address] [place] [address] PCP - General 12/23/21 documented as of this encounter
--- OUTSIDE RECORDS SUMMARY | 2025-08-17 21:51 | EXTERNAL MEDICAL SUMMARY RPT | Encounter Summary ---
Author Organization [facility] Address [address] [place] [address] Care Team Providers Care Olericulture Professor Name Role Phone Mary Alice Jason Primary Care Provider Unavailabl e Encounter Details Date Type Department Care Team (Late st Contact Info) Description 07/28/2023 Community Orders Non [facility] Provider Inez Michaels [address] [place] [address] Social History Tobacco Use Types Packs/Day Years [...] on filedocumented in this encounter Care Teams Olericulture Professor Relationship Specialty Start Date End Date Mary Alice Jason [facility] PRIMARY CAR [address] [place] [address] PCP - General 12/23/21 documented as of this encounter
--- OUTSIDE RECORDS SUMMARY | 2025-08-17 21:51 | EXTERNAL MEDICAL SUMMARY RPT | Encounter Summary ---
Author Organization [facility] Address [address] [place] [address] Care Team Providers Care Rnfa Name Role Phone Serahernán Demetra Betancourt Primary Care Provider [phone] Mary Alice Jason Primary Care Provider Unavailabl e Reason for Referral * Radiology (Routine) - Denied Specialty Diagnoses / Procedures Referred By Contac t Referred To Contact Radiology Diagnoses Lumbar radiculopathy Procedures REF RADIOLOGY MRI LUMBAR W/WO CONTRST SPINE [facility] PR[facility] [address] [place] [address] fax: [facility] [address] [place] [phone] fax: Referral ID Status Reason Start Date Expiration Date V isits Requested Visits Authorized [id number] Denied Itemized Services 03/11/2021 09/11/2021 1 0 Encounter Details Date Type Department Care Team (Latest Contact Info) Description 03/11/2021 Community Orders Non [facility] [address] [place] [address] Lumbar radiculopathy (Primary Dx) Social History Tobacco Use Types [...] as of this encounter Visit Diagnoses Diagnosis Lumbar radiculopathy- Primary Thoracic or lumbosacral neuritis or radiculitis, unspecified documented in this encounter Care Teams Rnfa Relationship Specialty Start Date End Date Demetra Clark [facility]ENTERPi[facility]qual[facility] PRIMARY CAR [address] [place], [place] [phone] PCP - General 05/16/18 12/22/21 Mary Alice Jason [facility]ENTERPi[facility]qual[facility] PRIMARY [address] [place] [address] PCP - General 12/23/21 documented as of this encounter
--- OUTSIDE RECORDS SUMMARY | 2025-08-17 21:51 | EXTERNAL MEDICAL SUMMARY RPT | Encounter Summary ---
Author Organization [facility] Address [address] [place] [address] Care Team Providers Care Asphalt Blender Name Role Phone Mary Alice Jason Primary Care Provider Aster ayers Reason for Referral * Outpatient Service (Routine) - Authorized Specialty Diagnoses / Procedures Referred By Isamar jim Referred To Contact Dermatology Diagnoses Eczema, unspecified type Procedures REF DERMATOLOGY-EXTERNAL OFFICE/OUTPATIENT ESTABLISHED MOD MDM 30 MIN Mary Alice Jason PRIMARY [address] [place] [address] [facility] [address] [place] [address] Referral ID Status Reason Start Date Expiration Date Visits Requested Visits Authorized [id number] Authorized Evaluate and Treat-Surgery if Indicated 4 08/23/2025 6 6 Encounter Details Date Type Department Care Team (Late st Contact Info) Description 08/23/2024 Community Orders Non [facility] Provider Mary Alice Jason PRIMARY [address] [place] [address] Eczema, unspecified type (Primary Dx) Social History Tobacco Use Types [...] as of this encounter Visit Diagnoses Diagnosis Eczema, unspecified type- Primary documented in this encounter Care Teams Asphalt Blender Relationship Specialty Start Date End Date Mary Alice Jason [employer] PRIMARY CAR [address] [place] [address] PCP - General 12/23/21 documented as of this encounter
--- OUTSIDE RECORDS SUMMARY | 2025-08-17 21:51 | EXTERNAL MEDICAL SUMMARY RPT | Encounter Summary ---
Author Organization [facility] Address [address] [place] [address] Care Team Providers Care Core Driller Helper Name Role Phone Pcp, None Selected Primary Care Provider Unavail able Encounter Details Date Type Department Care Team (Late st Contact Info) Description 07/13/2022 Abstract [facility] [place] [address] [place] [phone] Lauren Khan, DO [address] [place] [address] Social History Tobacco Use Types Packs/Day Years [...] on filedocumented in this encounter Care Teams Core Driller Helper Relationship Specialty Start Date End Date Pcp, None Selected PCP - General Internal Medicine 05/07/25 documented as of this encounter
--- OUTSIDE RECORDS SUMMARY | 2025-08-17 21:51 | EXTERNAL MEDICAL SUMMARY RPT | Encounter Summary ---
Author Organization [facility] Address [address] [place] [address] Care Team Providers Care Database Design Analyst Name Role Phone Demetra Clark Primary Care Provider + Mary Alice Jason Primary Care Provider Unavailabl e Reason for Referral * Radiology (Routine) - Denied Specialty Diagnoses / Procedures Referred By Contac t Referred To Contact Radiology Diagnoses Chronic low back pain, unspecified back pain laterality, unspecified whether sciatica present Procedures REF RADIOLOGY MRI LUMBAR W/WO CONTRST SPINE Demetra Clark [employer] PRIMARY [address] [place] [address] fax: [address] [phone] fax: Referral ID Status Reason Start Date Expiration Date V isits Requested Visits Authorized [id number] Denied Itemized Services 02/26/2021 08/29/2021 1 0 Encounter Details Date Type Department Care Team (Late st Contact Info) Description 02/26/2021 Community Orders Non [facility] Provider Demetra Clark [employer] PRIMARY [address] [place] [address] Chronic low back pain, unspecified back pain laterality, unspecified whether sciatica present (Primary Dx) Social History Tobacco Use Types [...] pain laterality, unspecified whether sciatica present- Primary documented in this encounter Care Teams Database Design Analyst Relationship Specialty Start Date End Date Demetra Clark [employer] PRIMARY CAR [address] [place], [place] [phone] PCP - General 05/16/18 12/22/21 Mary Alice Jason [employer] PRIMARY CAR [address] [place] [address] PCP - General 12/23/21 documented as of this encounter
--- OUTSIDE RECORDS SUMMARY | 2025-08-17 21:51 | EXTERNAL MEDICAL SUMMARY RPT | Encounter Summary ---
Author Organization [facility] Address [address] [place] [address] Care Team Providers Care Mathematics Technician Name Role Phone Pcp, None Selected Primary Care Provider Unavail able Encounter Details Date Type Department Care Team (Late st Contact Info) Description 06/17/2022 Orders Only [facility] Ear N[facility] and Throat [address] [place] [phone] Maynor Sung MD [address] [place] [address] Chronic pansinusitis; Postnasal drip Social History Tobacco Use Types Packs/Day Years [...] on file documented as of this encounter Procedures Procedure Name Priority Date/Time Associated Diagnosis Comments CT SINUS WITHOUT CONTRAST Routine 06/17/2022 Chronic pansinusitis Postnasal drip documented in this encounter Results * CT SINUS WITHOUT CONTRAST (06/17/2022) us Maynor Sung MD [facility] CT PROCEDURES Final R esult documented in this encounter Visit Diagnoses Diagnosis Chronic pansinusitis Other chronic sinusitis Postnasal drip documented in this encounter Care Teams Mathematics Technician Relationship Specialty Start Date End Date Pcp, None Selected PCP - General Internal Medicine 05/07/25 documented as of this encounter
--- OUTSIDE RECORDS SUMMARY | 2025-08-17 21:51 | EXTERNAL MEDICAL SUMMARY RPT | Clinical Summary ---
Author Organization [facility] Address [address] [place] [address] Care Team Providers Care Business Technology Teacher Name Role Phone Pcp, None Selected Primary Care Provider Unavail able Allergies Active Allergy Reactions Criticality Noted Date Comments Adhesive Tape-Silicones High 02/15/2022 Other reaction(s): blisters Other Reaction(s): Other (See Comments) Blister Codeine GI intolerance Medium 08/20/2010 Other reaction(s): Vomiting Latex Other (see comments) High 10/06/2017 blisters Metformin Diarrhea 08/17/2022 Meloxicam Other (see comments) High 10/06/2017 Medications blood sugar diagnostic strip 2 (two) times a day. Active lancets 33 gauge misc 2 (two) times a day. Active ipratropium-alb uterol (DUO-NEB) 0.5-2.5 mg/3 mL nebulizer solution Take 3 mL by nebulization daily Active albuterol HFA (PROVENTIL HFA;VENTOLIN HFA) 90 mcg/actuation inhaler Inhale 2 puffs every 6 (six) hours as needed for wheezing Active acyclovir (ZOVIRAX) 400 mg tablet Take 1 tablet (400 mg total) by mouth 2 (two) times a day Active insulin NPH isoph U-100 human (HumuLIN N NPH Insulin KwikPen) 100 unit/mL (3 mL) insulin pen Inject 12 Units under the skin 2 times daily 1 Active losartan (COZAAR) 100 mg tablet Take 1 tablet (100 mg total) by mouth daily 1 Active pen needle, diabetic 31 gauge x 3/16" needle use to inject insulin every evening 1 Active verapamil SR (CALAN-SR) 120 mg CR tablet Take 1 tablet (120 mg total) by mouth nightly 1 Active Vios Aerosol Delivery System device INHALE A SMALL AMOUNT DIRECTED THREE TIMES A DAY 2 Active tiotropium-olod ateroL 2.5-2.5 mcg/actuation mistIndications :Simple chronic bronchitis (CMS/HCC) Inhale 2 puffs daily 12 g 3 2 Active ibuprofen (ADVIL,MOTRIN) 600 mg tablet Take 1 tablet (600 mg total) by mouth every 6 (six) hours as needed 2 Active levothyroxine (SYNTHROID) 200 mcg tablet Take 1 tablet (200 mcg total) by mouth daily Active b complex vitamins tablet Take 1 tablet by mouth daily Active cholecalciferol (VITAMIN D3) 125 mcg (5,000 unit) tablet oral tablet Take 1 tablet (5,000 Units total) by mouth daily Active cetirizine (ZyrTEC) 10 mg tablet Take 1 tablet (10 mg total) by mouth daily Active omega 2-xhy-htd-fish oil 1,200 (144-216) mg capsule Take by mouth Active biotin 10,000 mcg capsule Take by mouth Acti ve multivitamin (THERAGRAN) tablet tablet Take 1 tablet by mouth daily Active ascorbic acid/collagen hydr (COLLAGEN PLUS VITAMIN C ORAL) Take by mouth Active diazePAM (VALIUM) 5 mg tabletIndicatio ns:History of spinal surgery Take 1 tablet (5 mg total) by mouth every 6 (six) hours as needed for muscle spasms for up to 7 days 28 tablet 3 Active aspirin 81 mg EC tablet Take 1 tablet (81 mg total) by mouth daily Active rosuvastatin (CRESTOR) 10 mg tablet Take 2 tablets (20 mg total) by mouth daily 3 Active TURMERIC ORAL Take by mouth Ac tive MAGNESIUM ORAL Take by mouth A ctive MILK THISTLE ORAL Take by mouth daily Active escitalopram (LEXAPRO) 10 mg tablet Take 1 tablet (10 mg total) by mouth daily 3 Active DULoxetine (CYMBALTA) 60 mg capsule Take 1 capsule (60 mg total) by mouth daily 5 Active famotidine (PEPCID) 20 mg tablet Take 1 tablet (20 mg total) by mouth 5 Active ketorolac (TORADOL) 10 mg tablet Take 1 tablet (10 mg total) by mouth 4 times daily as needed 5 Active hydrocortisone 2.5 % ointment Apply topically 5 Active pregabalin (LYRICA) 50 mg capsule Take 1 capsule (50 mg total) by mouth 2 times daily 5 Active Ozempic 2 mg/dose (8 mg/3 mL) pen injector Inject 2 mg under the skin 4 Active tacrolimus (PROTOPIC) 0.1 % ointment Apply topically 5 Active clopidogreL (PLAVIX) 75 mg tablet Take 1 tablet (75 mg total) by mouth daily 5 Active clobetasoL (TEMOVATE) 0.05 % external solution Apply topically 5 Active blood-glucose meter (Propel Fuelsuch Verio Flex meter) [facility] [place] Use twice daily as directed to check blood sugars 4 Active calcipotriene 0.005 % Apply topically 5 Active chlorhexidine (PERIDEX) 0.12 % solution 15 mL by mucous membrane route 2 times daily 5 Active sodium chloride 3 % nebulizer solution Inhale 4 mL 4 Active Active Problems Problem Noted Date Diagnosed Date Spinal stenosis of lumbar re gion without neurogenic claudication 01/13/2023 Overview (01/13/2023): Added automatically from request for surgery [id number] De Quervain's tenosynovitis 01/18/2022 Type 2 diabetes mellitus 07/14/[address] scan, esophagus 05/29/2019 Overview (05/29/2019): Added automatically from request for surgery [id number] History of colon polyps 05/29/2019 Overview (05/29/2019): Added automatically from request for surgery [id number] Nausea and vomiting 05/29/2019 Overview (05/29/2019): Added automatically from request for surgery [id number] Change in stool 05/29/2019 Overview (05/29/2019): Added automatically from request for surgery [id number] Gastroesophageal reflux disease 05/29/2019 Overview (05/29/2019): Added automatically from request for surgery [id number] Dysphagia 05/29/2019 Overview (05/29/2019): Added automatically from request for surgery [id number] Primary hypothyroidism 10/25/2017 Hypercalcemia 10/25/2017 Encounters Date Type Department Care Team Description 06/13/2025 Telephone [facility] [address] [phone] Pcp, None Selected Appointment 06/11/2025 Telephone [facility] [address] [phone] Pcp, None Selected Referral from Last 3 Months Family History Medical History Relation Comments Cancer Brother 1 Cancer Brother 2 Alcohol abuse Father Diabetes Father Hearing loss Father Heart disease Father carotid artery s tenosis Hypertension Father Kidney disease Father Arthritis Mother Asthma Mother defects Mother Miscarriages / Stillbirths Mother Anesthesia Complications Sister Relation Status Comments Brother 1 Brother 2 Father (Age 74) Mother Alive Sister Social History Tobacco Use Types Packs/Day Years [...] Orientation Straight 07/07/2021 9: 51 AM PDT Last Filed Vital Signs Vital Sign Reading Time Taken Comments Blood Pressure 130/70 05/17/2025 12:02 PM PDT Pulse 74 05/17/2025 12:02 PM PDT Temperature 36.1 C (97 F) 05/31/2023 9:00 AM PDT Respiratory Rate 18 05/31/2023 12:0 2 PM PDT Oxygen Saturation 97% 05/17/2025 12: 02 PM PDT Inhaled Oxygen Concentration - - Weight 96.6 kg (212 lb 14.4 oz) 025 12:02 PM PDT Height 163.8 cm (5' 4.5") 03/13/2025 9:21 AM PDT Body Mass Index 35.98 03/13/2025 9:21 AM PDT Plan of Treatment Health Maintenance Due Date Last Done Comments Bone Density Scan 1959 Breast Cancer Screening 1959 Diabetic Eye Exam 1959 Diabetes Urine Protein Screening 1969 Diabetic Foot Exam 1969 Depression Screening (PHQ-2) 1971 Cervical Cancer Screening Combined Topic 1989 Cervical Cancer-Pap screening 1989 HPV/Cotest 1989 Colorectal Cancer Screening (FOBT) 2004 Colorectal Cancer Screening (Fecal DNA) 2004 Lung Cancer Screening 2009 RSV Patients Over 60 years OR qualifying ( Patients) (1 - Risk 50-74 years 1-dose series) 2009 HM Pneumococcal Adult 50+ (2 of 2 - PCV) 07/15/2011 07/15/2010 Fall Risk Screening 2024 COVID-19 Vaccine ( season) 2025 06/22/2024, 06/10/2023, 06/23/2022, Additional history exists Influenza Vaccine (#1) 2025 , 05/27/2023, 07/07/2022, Additional history exists Hemoglobin A1C 09/13/2025 03/13/2025, 02/15/2022 Colorectal Cancer Screening (Colonoscopy) 08/13/2031 08/13/2021, 06/06/2019 Colorectal Cancer Screening Combined 08/13/2031 DTaP,Tdap,and Td Vaccines (3 - Td or Tdap) 04/07/2032 04/07/2022, 01/24/2012, 10/13/1998 Hepatitis A Vaccines Aged Out 05/25/1999, 10/13/18 99 No longer eligible based on patient's age to complete this topic HM Pneumococcal Combined Age 0-49 Discontinued 07/15/2010 Hepatitis B Vaccines Completed 01/08/2022, 11/05/2013, 06/04/2013, Additional history exists Zoster Vaccines Completed 06/09/2022, 04/07/2022 HPV Vaccines Aged Out No longer eligi ble based on patient's age to complete this topic IPV Vaccines Aged Out No longer eligi ble based on patient's age to complete this topic MMR Vaccines Aged Out No longer eligi ble based on patient's age to complete this topic Procedures Procedure Name Priority Date/Time Associated Diagnosis Comments HEMOGLOBIN A1C Routine 03/13/2025 9:57 AM PDT Burning sensation of skin S/P carotid endarterectomy from Last 3 Months or Most Recently Relevant to Health Maintenance Results * (ABNORMAL) Hemoglobin A1c (03/13/2025 9:57 AM PDT) Hemoglobin A1c 5.8(H) 4.8 - 5.6 % LAB CHEMISTRY METHOD 03/13/2025 12:56 PM PDT [facility] Comment: Reference Ranges: Normal: 4.8% to 5.6% Prediabetes: 5.7% to 6.4% Diabetes: 6.5% or higher Estimated Average Glucose (eAG) 120 No Reference Range Established mg/dL 03/13/2025 12:56 PM [facility] Blood Venous blood / Unknown Venipuncture / Unknown 03/13/2025 9:57 AM PDT 03/13/2025 11:16 AM PDT Narrative [facility] - 03/13/2025 12:56 PM PDT Specimens containing high amount of Hgb F (>7%) may result in lower than expected %A1c values. Louie Lopez LAB BLOOD ORDERABLES Fin al Result [facility] [address] [place] [address], [place] [phone] from Last 3 Months or Most Recently Relevant to Health Maintenance [facility] [employer] Advance Directives * Full Code (Latest Code Status on File) Date Activated Date Inactivated Comments 05/31/2023 8:49 AM 05/31/2023 2:21 PM * Full Code Date Activated Date Inactivated Comments 03/01/2023 8:18 AM 03/01/2023 6:17 PM * Full Code Date Activated Date Inactivated Comments 02/25/2022 5:42 AM 02/25/2022 10:48 AM * Full Code Date Activated Date Inactivated Comments 08/13/2021 1:08 PM 08/13/2021 4:59 PM * Full Code Date Activated Date Inactivated Comments 06/06/2019 12:33 PM 06/06/2019 4:40 PM Care Teams Business Technology Teacher Relationship Specialty Start Date End Date Pcp, None Selected PCP - General Internal Medicine 05/07/25
--- OUTSIDE RECORDS SUMMARY | 2025-08-17 21:51 | EXTERNAL MEDICAL SUMMARY RPT | Encounter Summary ---
Author Organization [facility] Address [address] [place] [address] Care Team Providers Care Sand Tester Name Role Phone Pcp, None Selected Primary Care Provider Unavail able Encounter Details Date Type Department Care Team (Late st Contact Info) Description 05/29/[address] [facility] [place] [id number] [place] [phone] Maynor Sung MD [address] [place] [address] Social History Tobacco Use Types Packs/Day Years [...] on filedocumented in this encounter Care Teams Sand Tester Relationship Specialty Start Date End Date Pcp, None Selected PCP - General Internal Medicine 05/07/25 documented as of this encounter
--- OUTSIDE RECORDS SUMMARY | 2025-08-17 21:51 | EXTERNAL MEDICAL SUMMARY RPT | Encounter Summary ---
Author Organization [facility] Address [address] [place] [address] Care Team Providers Care Business Integration Analyst Name Role Phone Pcp, None Selected Primary Care Provider Unavail able Encounter Details Date Type Department Care Team (Late st Contact Info) Description 05/20/2023 Abstract [facility] [place] [address] [place] [phone] Amilcar Menezes, DO [address] [phone] Social History Tobacco Use Types Packs/Day Years Used Date Smoking Tobacco: Former Cigarettes 1.5 45.6 0 09/12/1974 - 04/14/2020 Passive Smoke Exposure: Never Smokeless Tobacco: Never Tobacco Cessation:Counseling Given: Not Answered Comments:Quit 2019. Alcohol Use Standard Drinks/Week Comments [...] on filedocumented in this encounter Care Teams Business Integration Analyst Relationship Specialty Start Date End Date Pcp, None Selected PCP - General Internal Medicine 05/07/25 documented as of this encounter
--- OUTSIDE RECORDS SUMMARY | 2025-08-17 21:51 | EXTERNAL MEDICAL SUMMARY RPT | Encounter Summary ---
Author Organization [facility] Address [address] [place] [address] Care Team Providers Care Train Conductor Name Role Phone Mary Alice Jason Primary Care Provider Aster ayers Reason for Referral * Radiology (Routine) - Authorized Specialty Diagnoses / Procedures Referred By Isamar jim Referred To Contact Radiology Diagnoses Postmenopausal status Procedures REF RADIOLOGY DXA BONE DENSITY STUDY 1+ SITS AXIAL SKE Mary Alice Jason [facility] PR[facility] [address] [place] [address] [facility] [address] [address] [place] [address] Referral ID Status Reason Start Date Expiration Date Visits Requested Visits Authorized [id number] Authorized Itemized Services 03/06/2025 4 4 Encounter Details Date Type Department Care Team (Latest Contact Info) Description 09/03/2024 Community Orders Non [facility] Provider Mary Alice Jason [facility] PR[facility] [address] [place] [address] Postmenopausal status (Primary Dx) Social History Tobacco Use Types [...] as of this encounter Visit Diagnoses Diagnosis Postmenopausal status- Primary Asymptomatic postmenopausal status (age-related) (natural) documented in this encounter Care Teams Train Conductor Relationship Specialty Start Date End Date Mary Alice Jason [facility] [address] [place] [address] PCP - General 12/23/21 documented as of this encounter
--- OUTSIDE RECORDS SUMMARY | 2025-08-17 21:51 | EXTERNAL MEDICAL SUMMARY RPT | Encounter Summary ---
Author Organization [facility] Address [address] [place] [address] Care Team Providers Care Feeder Switchboard Operator Name Role Phone Mary Alice Jason Primary Care Provider Aster ayers Reason for Referral * Outpatient Service (Routine) - Authorized Specialty Diagnoses / Procedures Referred By Isamar t Referred To Contact Vascular Surgery Diagnoses Stenosis of carotid artery, unspecified laterality Procedures REF VASCULAR SURGERY - EXTERNAL OFFICE VISIT E&M EST PT, MODERATE MDM, 30-39 MINS Mary Alice Jason PRIMARY [address] [place] [address] [place], [facility] [address] [address] [place] [address] Referral ID Status Reason Start Date Expiration Date Visits Requested Visits Authorized [id number] Authorized Evaluate and Treat-Surgery if Indicated 3 08/10/2024 6 6 Encounter Details Date Type Department Care Team (Late st Contact Info) Description 08/10/2023 Community Orders Non [facility] Provider Mary Alice Jason [address] [place] [address] Stenosis of carotid artery, unspecified laterality (Primary Dx) Social History Tobacco Use Types [...] as of this encounter Visit Diagnoses Diagnosis Stenosis of carotid artery, unspecified laterality- Primary documented in this encounter Care Teams Feeder Switchboard Operator Relationship Specialty Start Date End Date Mary Alice Jason [facility] PRIMARY CAR [address] [place] [address] PCP - General 12/23/21 documented as of this encounter
--- OUTSIDE RECORDS SUMMARY | 2025-08-17 21:51 | EXTERNAL MEDICAL SUMMARY RPT | Encounter Summary ---
Author Organization Loc[facility] Address [address] [place] [address] Care Team Providers Care Powertrain Engineer Name Role Phone Pcp, None Selected Primary Care Provider Unavail able Encounter Details Date Type Department Care Team (Late st Contact Info) Description 02/15/2023 Abstract [facility] [place] [id number] [place] [phone] Maynor Sung MD [address] [place] [address] Social History Tobacco Use Types Packs/Day Years [...] on filedocumented in this encounter Care Teams Powertrain Engineer Relationship Specialty Start Date End Date Pcp, None Selected PCP - General Internal Medicine 05/07/25 documented as of this encounter
--- OUTSIDE RECORDS SUMMARY | 2025-08-17 21:51 | EXTERNAL MEDICAL SUMMARY RPT | Encounter Summary ---
Author Organization [facility] Address [address] [place] [address] Care Team Providers Care Dental Therapist Name Role Phone Demetra Clark Primary Care Provider [phone] Mary Alice Jason Primary Care Provider Unavailabl e Reason for Referral * Outpatient Service (Routine) - Canceled Specialty Diagnoses / Procedures Referred By Contac t Referred To Contact General Surgery Diagnoses Esophageal thickening Procedures REF GENERAL SURG UPPER GI ENDO DX (SEP PROC) Eileen Junior [facility] [address] [place] [address] Phone: tel: fax: [facility] [address] [address] [place] [address] Referral ID Status Reason Start Date Expiration Date V isits Requested Visits Authorized [id number] Canceled Procedure Only 10/10/2020 10/10/2020 3 3 * Outpatient Service (Routine) - Closed Specialty Diagnoses / Procedures Referred By Contac t Referred To Contact General Surgery Diagnoses Personal history of colonic polyps Other specified diseases of esophagus Procedures REF GENERAL SURG COLONOSCOPY W/ BX SINGLE/MULT UPPER GI ENDO DX (SEP PROC) Eileen Junior [facility] [address] [place] [address] Phone: tel: fax: [facility] [address] [address] [place] [address] Referral ID Status Reason Start Date Expiration Date V isits Requested Visits Authorized [id number] Closed Procedure Only 10/10/2020 04/08/2021 1 1 Encounter Details Date Type Department Care Team (Late st Contact Info) Description 10/10/2020 Community Orders Non [facility] Provider Eileen Junior [facility] [place] [address] [place], [place] [id number] Personal history of colonic polyps (Primary Dx); Esophageal thickening Social History Tobacco Use Types Packs/Day Years Used Date Smoking Tobacco: Never Assessed Comments Unknown Sex and Gender Information Value Date Recorded Sex Assigned at Not on file Legal Sex Female 5:59 AM PST Gender Identity Not on file Sexual Orientation Not on file documented as of this encounter Plan of Treatment Not on file documented as of this encounter Visit Diagnoses Diagnosis Personal history of colonic polyps- Primary Esophageal thickening Other specified disorder of the esophagus documented in this encounter Care Teams Dental Therapist Relationship Specialty Start Date End Date Demetra Clark [facility] PR[facility] [address] [place] [address] PCP - General 05/16/18 12/22/21 Mary Alice Jason Buddy PRIMARY CAR [address] [place] [address] PCP - General 12/23/21 documented as of this encounter
--- OUTSIDE RECORDS SUMMARY | 2025-08-17 21:51 | EXTERNAL MEDICAL SUMMARY RPT | Encounter Summary ---
Author Organization [facility] Address [address] [place] [address] Care Team Providers Care Membership Sales Advisor Name Role Phone Demetra Clark Primary Care Provider [phone] Mary Alice Jason Primary Care Provider Unavailabl e Reason for Referral * Outpatient Service (Routine) - Closed Specialty Diagnoses / Procedures Referred By Contact Referred To Contact Physical Medicine & Rehabilitation Diagnoses Chronic low back pain, unspecified back pain laterality, unspecified whether sciatica present Disc disease, degenerative, cervical Procedures REF INTERVENTIONAL PAIN MANAGEMENT (ANESTHESIA,SPINAL,EPIDU RAL) OFFICE VISIT E&M EST PT, MODERATE MDM, 30-39 MINS Demetra Clark [employer] [facility] PRIMARY CAR [address] [place] [address] fax:[phone] [place] [id number] [place] [phone] fax:[phone] Referral ID Status Reason Start Date Expiration Date V isits Requested Visits Authorized [id number] Closed Evaluate and Treat-Surgery if Indicated 12/02/2020 06/04/2021 6 6 Encounter Details Date Type Department Care Team (Late st Contact Info) Description 12/02/2020 Community Orders Non [facility] Provider Demetra Clark [employer] PRIMARY CAR [address] [place] [address] Chronic low back pain, unspecified [...] disc documented in this encounter Care Teams Membership Sales Advisor Relationship Specialty Start Date End Date Demetra Clark [employer] PRIMARY [address] [place], [place] [id number] PCP - General 05/16/18 12/22/21 Mary Alice Jason [employer] PRIMARY CAR [address] [place] [address] PCP - General 12/23/21 documented as of this encounter
--- OUTSIDE RECORDS SUMMARY | 2025-08-17 21:51 | EXTERNAL MEDICAL SUMMARY RPT | Encounter Summary ---
Author Organization [facility] Address [address] [place] [address] Care Team Providers Care Public Relations Assistant Name Role Phone Pcp, None Selected Primary Care Provider Unavail able Encounter Details Date Type Department Care Team (Late st Contact Info) Description 03/14/2023 Telephone [facility] [place] [address] [place] [address] Amilcar Menezes, DO [address] [phone] Social History Tobacco Use Types [...] Orientation Straight 07/07/2021 9: 51 AM PDT COVID-19 Exposure Response Date Recorded In the last 10 days, have yo u been in contact with someone who was confirmed or suspected to have Coronavirus/COVID-19? No / Unsure 02/28/2023 10:57 AM PDT documented as of this encounter Miscellaneous Notes * Telephone Encounter - Corey Sandoval - 03/14/2023 2:[address] Pathak is calling and trying to reach Dr. Menezes. he is requesting to know if there is a way to get a note to him today as he is not able to through [employer] for some reason. Warm transferred to front line. documented in this encounter Plan of Treatment Not on file documented as of this encounter Visit Diagnoses Not on filedocumented in this encounter Care Teams Public Relations Assistant Relationship Specialty Start Date End Date Pcp, None Selected PCP - General Internal Medicine 05/07/25 documented as of this encounter
--- OUTSIDE RECORDS SUMMARY | 2025-08-17 21:51 | EXTERNAL MEDICAL SUMMARY RPT | Encounter Summary ---
Author Organization [facility] Address [address] [place] [address] Care Team Providers Care Kid Club Attendant Name Role Phone Pcp, None Selected Primary Care Provider Unavail able Encounter Details Date Type Department Care Team (Late st Contact Info) Description 07/30/2022 Orders Only [facility] [place] [address] [place] [phone] Lauren Khan, DO [address] [place] [address] Simple chronic bronchitis (CMS-HCC); Cigarette nicotine dependence in remission Social History Tobacco Use Types Packs/Day Years Used Date Smoking Tobacco: Former Cigarettes 2 45.6 0 09/12/1974 - 04/14/2020 Smokeless Tobacco: Never Comments:Quit 2019. Alcohol Use Standard Drinks/Week Comments Yes 6 (1 standard drink = 0.6 oz pur e alcohol) Vodka 9 drinks a week Comments No Sex and Gender Information Value Date Recorded Sex Assigned at Female 07/07/2021 9:51 AM PDT Legal Sex Female 5:23 PM PDT Gender Identity Female 07/07/2021 9:51 AM PDT Sexual Orientation Straight 07/07/2021 9: 51 AM PDT documented as of this encounter Plan of Treatment Not on file documented as of this encounter Visit Diagnoses Diagnosis Simple chronic bronchitis (CMS/HCC) Simple chronic bronchitis Cigarette nicotine dependence in remission documented in this encounter Care Teams Kid Club Attendant Relationship Specialty Start Date End Date Pcp, None Selected PCP - General Internal Medicine 05/07/25 documented as of this encounter
--- OUTSIDE RECORDS SUMMARY | 2025-08-17 21:51 | EXTERNAL MEDICAL SUMMARY RPT | Encounter Summary ---
Author Organization [facility] Address [address] [place] [address] Care Team Providers Care Mint Wafer Depositor Name Role Phone Pcp, None Selected Primary Care Provider Unavail able Encounter Details Date Type Department Care Team (Late st Contact Info) Description 02/15/2023 Documentation [facility] [address] [place] [phone] Tyler Ireland MD [address] [place] [address] [address] [place], [place] [id number] Anesthesia Record Procedure Summary Procedure Name Responsible Anesthesiologist Anesthesia Start Time Anesthesia Stop Time L3-L4, L4-L5 (Back) Parmjit Platt MD 03/01/23 1053 1325 Events Date Time Event Comment 03/01/2023 1031 1053 An Start 1053 An Start Data 1054 An Induction The patient was reevaluated immediately before moderate or deep sedation use and before anesthesia induction. 1054 In Room 1057 An Intubation 1106 Anesthesia Ready 1122 Proc Start 1322 An Extubation The patient wa s evaluated by the practitioner and determined to be ready for extubation as evidenced by one or more of the following: maintains O2 sat, presence of swallow/cough, follows instructions, TOF= 4/4, lifts head for > 5 sec, adequate Vt, EtCO2 appropriate. Oropharynx suctioned prior to extubation. 1323 an stop data 1323 Proc Fin 1324 Out of Room 1325 Handoff to RN I completed my handoff to the receiving nurse during which we: 1. Identified the patient 2. Identified the responsible provider 3. Reviewed the pertinent medical history 4. Discussed the surgical course 5. Reviewed intra-op anesthesia management and issues during anesthesia 6. Set expectations for post-procedure period 7. Allowed opportunity for questions and acknowledgement of understanding. 1325 An Stop Meds * Agents No agents on file. * Blood No blood administrations on file. Lines, Drains, and Airways Type Details Placement Removal Incision 02/25/22; 0713; Fingers to Elbow; Left 02/25/22 0713 by Meagan Ordonez Incision 02/25/22; 0740; No; Hand; Anterior, Left 02/25/22 0740 by Meaganthiago Georgein Incision 03/01/23; 1150; Back; Other (Comment) 03/01/23 1150 by Marleni Menendez Peripheral IV Placement Date: 03/01/23; Placement Time: 0957; Catheter Size: 20 G; Orientation: Left; Location: Antecubital; Site Prep: Chlorhexidine; Local Anesth: Injectable; Technique: Anatomical landmarks; Inserted by: Unit staff; Removal Date: 03/01/23; Removal Time: 1054; Removal Reason: Site change 03/01/23 0957 by Lizzeth Peterson 03/01/23 1054 by Lizzeth Peterson Peripheral IV Placement Date: 03/01/23; Placement Time: 1055; Catheter Size: 20 G; Orientation: Right, Posterior; Location: Hand; Site Prep: Chlorhexidine; Local Anesth: Injectable; Technique: Anatomical landmarks; Inserted by: Unit staff; Removal Date: 03/01/23; Removal Time: 1608 03/01/23 1055 by Lizzeth Peterson 03/01/23 1608 by Maylin Navarrete RN ETT Placement Date: 03/01/23; Placement Time: 1057 (created via procedure documentation); Technique: Direct laryngoscopy; Type: ETT - single; Single Lumen Tube Size: 7.5 mm; Cuffed: Yes; Blade Size: 2; Location: Oral; Grade View: Grade I; Placement Verification: Auscultation, Capnometry, Palpation of cuff; Removal Date: 03/01/23; Removal Time: 1322 03/01/23 1057 by Parmjit Platt MD 03/01/23 1322 by Parmjit Platt MD Urethral Catheter Placement Date: 03/01/23; Placement Time: 1110; Inserted by: Unit staff; Type: Non-latex; Size: 14 Fr.; Balloon Size: 10 mL; Urine Returned: Yes; Removal Date: 03/01/23; Removal Time: 1323; Removal Reason: (end of surgery, surgeon request) 03/01/23 1110 by Marleni Menendez 03/01/23 1323 by Marleni Menendez documented in this encounter Social History Tobacco Use Types Packs/Day Years [...] AM PDT documented as of this encounter OR Notes * Anesthesia PAT Note - Tyler Ireland MD - 02/15/2023 1:07 PM PDT Summary: 62y F with IDDM, COPD, PAD, MARTIN, and spinal stenosis. Ok to proceed pending DOS eval by anesthesiologist Ms Che is a 62yo female with multiple medical issues who is scheduled for 2 level laminectomy. She is significantly symptomatic from her stenosis which is negatively impacting her quality of life and likely ability to improve some of her other medical issues. PMHx: PAD/PVD--has seen vascular surgery who diagnosed some PAD in her lower extremities. At present it is not limb-threatening. He recommended a follow-up CT angiogram for suspected aorto-iliac dz. I don't see that she's done that but it shouldn't impact this surgery. COPD--she has been in close follow-up with her transit survey worker. There was some discussion of her completing pulmonary rehab but she as yet hasn't done this. I can envision that this would be difficult to complete with her current back/radicular issues. MARTIN--she should increase her compliance with CPAP. Bring CPAP on DOS IDDM--Continued efforts to keep blood surgery in normal range, lose weight, etc. She did recently undergo hand surgery under local/MAC and did fine. A/P: As above. I think she is probably optimized for this surgery. Recommend proceeding pending DOS evaluation by her anesthesiologist of the day. Tyler Ireland MD documented in this encounter Plan of Treatment Not on file documented as of this encounter Visit Diagnoses Not on filedocumented in this encounter Care Teams Mint Wafer Depositor Relationship Specialty Start Date End Date Pcp, None Selected PCP - General Internal Medicine 05/07/25 documented as of this encounter
--- OUTSIDE RECORDS SUMMARY | 2025-08-17 21:51 | EXTERNAL MEDICAL SUMMARY RPT | Encounter Summary ---
Author Organization [facility] Address [address] [place] [address] Care Team Providers Care Vice President Investor Relations Name Role Phone Pcp, None Selected Primary Care Provider Unavail able Encounter Details Date Type Department Care Team (Late st Contact Info) Description 05/20/2023 Abstract [facility] Surgery [place] [address] [facility] [address] [place] [phone] Jaimie Rodriguez MD [address] [place] [address] Social History Tobacco Use Types [...] on filedocumented in this encounter Care Teams Vice President Investor Relations Relationship Specialty Start Date End Date Pcp, None Selected PCP - General Internal Medicine 05/07/25 documented as of this encounter
--- OUTSIDE RECORDS SUMMARY | 2025-08-17 21:51 | EXTERNAL MEDICAL SUMMARY RPT | Encounter Summary ---
Author Organization [facility] Address [address] [place] [address] Care Team Providers Care Casino Runner Name Role Phone Mary Alice Jason Primary Care Provider Aster e Reason for Referral * PT/OT/ST (Routine) - Authorized Specialty Diagnoses / Procedures Referred By Isamar jim Referred To Contact Physical Therapy Diagnoses Bilateral hip pain Procedures REF PHYSICAL THERAPY - EXTERNAL THERA PROC 1+ AREAS EA 15 MIN THERA EXERCISES Mary Alice Jason [address] [place] [address] Therapy, [facility] Physical [address] [place] [address] Referral ID Status Reason Start Date Expiration Date Visits Requested Visits Authorized [id number] Authorized Itemized Services 08/12/2023 08/12/2024 15 15 Encounter Details Date Type Department Care Team (Late st Contact Info) Description 08/12/[address] [facility] Provider Mary Alice Jason PRIMARY [facility] [address] [place] [address] Bilateral hip pain (Primary Dx) Social History Tobacco Use Types [...] as of this encounter Visit Diagnoses Diagnosis Bilateral hip pain- Primary Pain in joint, pelvic region and thigh documented in this encounter Care Teams Casino Runner Relationship Specialty Start Date End Date Mary Alice Jason [place] [facility] [address] [place] [address] PCP - General 12/23/21 documented as of this encounter
--- OUTSIDE RECORDS SUMMARY | 2025-08-17 21:51 | EXTERNAL MEDICAL SUMMARY RPT | Encounter Summary ---
Author Organization [facility] Address [address] [place] [address] Care Team Providers Care Sponge Clipper Name Role Phone Demetra Clark Primary Care Provider [phone] Mary Alice Jason Primary Care Provider Unavailabl e Reason for Referral * Radiology (Routine) - Closed Specialty Diagnoses / Procedures Referred By Isamar jim Referred To Contact Radiology Diagnoses Diplopia Procedures REF RADIOLOGY MRI BRAIN FUNCTIONAL W/PHYSICIAN ADMNISTRATION Demetra Clark [address] PR[address] [place] [address] fax: [facility] [address] [place] [address] Phone: tel: Referral ID Status Reason Start Date Expiration Date V isits Requested Visits Authorized [id number] Closed Itemized Services 05/22/2021 08/20/2021 4 4 * Eye Care (Routine) - Closed Specialty Diagnoses / Procedures Referred By Isamar jim Referred To Contact Ophthalmology Diagnoses Diplopia Procedures REF OPHTHALMOLOGY OFFICE VISIT E&M EST PT, MODERATE MDM, 30-39 MINS Demetra Clark [address] PR[employer] [address] [place] [address] fax: [facility] [place] [facility] [address] [place] [address] Referral ID Status Reason Start Date Expiration Date V isits Requested Visits Authorized [id number] Closed Evaluate and Treat-Surgery if Indicated 05/22/2021 05/22/2022 6 6 Encounter Details Date Type Department Care Team (Late st Contact Info) Description 05/22/2021 Community Orders Non [facility] Provider Demetra Clark [place] [facility] [address] [place], [place] [id number] Diplopia (Primary Dx) Social History Tobacco Use Types [...] as of this encounter Visit Diagnoses Diagnosis Diplopia- Primary documented in this encounter Care Teams Sponge Clipper Relationship Specialty Start Date End Date Demetra Clark [address] [employer] [employer] [address] [place] [address] PCP - General 05/16/18 12/22/21 Mary Alice Jason [address] PRIMARY [address] [place] [address] PCP - General 12/23/21 documented as of this encounter
--- OUTSIDE RECORDS SUMMARY | 2025-08-17 21:51 | EXTERNAL MEDICAL SUMMARY RPT | Encounter Summary ---
Author Organization [facility] Address [address] [place] [address] Care Team Providers Care Coal Getter Name Role Phone Pcp, None Selected Primary Care Provider Unavail able Encounter Details Date Type Department Care Team (Late st Contact Info) Description 04/12/2023 Abstract [facility] Orthopedics [place] [address] [place] [phone] Amilcar Menezes, DO [address] [phone] Social History Tobacco Use Types Packs/Day Years [...] on filedocumented in this encounter Care Teams Coal Getter Relationship Specialty Start Date End Date Pcp, None Selected PCP - General Internal Medicine 05/07/25 documented as of this encounter
--- OUTSIDE RECORDS SUMMARY | 2025-08-17 21:51 | EXTERNAL MEDICAL SUMMARY RPT | Encounter Summary ---
Author Organization [facility] Address [address] [place] [address] Care Team Providers Care Pilot Supervisor Name Role Phone Demetra Clark Primary Care Provider [phone] Mary Alice Jason Primary Care Provider Unavailabl e Reason for Referral * Outpatient Service (Routine) - Closed Specialty Diagnoses / Procedures Referred By Contac t Referred To Contact Dermatology Diagnoses Skin neoplasm Procedures REF DERMATOLOGY OFFICE VISIT E&M EST PT, MODERATE MDM, 30-39 MINS Demetra Clark [employer] PRIMARY CAR [address] [place] [address] fax: [facility] [address] [place] [address] Referral ID Status Reason Start Date Expiration Date V isits Requested Visits Authorized [id number] Closed Evaluate and Treat-Surgery if Indicated 01/13/2021 07/16/2021 6 6 Encounter Details Date Type Department Care Team (Late st Contact Info) Description 01/13/2021 Community Orders Non [facility] Provider Demetra Clark [employer] PRIMARY CAR [address] [place] [address] Skin neoplasm (Primary Dx) Social History Tobacco Use Types [...] as of this encounter Visit Diagnoses Diagnosis 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
--- OUTSIDE RECORDS SUMMARY | 2025-08-17 21:51 | EXTERNAL MEDICAL SUMMARY RPT | Encounter Summary ---
Author Organization [facility] Address [address] [place] [address] Care Team Providers Care Timber Incisor Operator Name Role Phone Demetra Clark Primary Care Provider + Mary Alice Jason Primary Care Provider Unavailabl e Reason for Referral * Outpatient Service (Routine) - Closed Specialty Diagnoses / Procedures Referred By Trayac t Referred To Contact General Surgery Diagnoses Esophageal thickening Procedures REF GENERAL SURG OFFICE VISIT E&M EST PT, MODERATE MDM, 30-39 MINS Demetra Clark [employer] PRIMARY [address] [place] [address] fax: [facility] [address] [address] [place] [address] Referral ID Status Reason Start Date Expiration Date V isits Requested Visits Authorized [id number] Closed Evaluate and Treat-Surgery if Indicated 09/29/2020 03/29/2021 6 6 * Outpatient Service (Routine) - Canceled Specialty Diagnoses / Procedures Referred By Contac t Referred To Contact General Surgery Diagnoses Esophageal thickening Procedures REF GENERAL SURG OFFICE VISIT E&M NEW PT STRAIGHTFORWARD MDM, 15-29 MINS Demetra Clark [employer] PRIMARY [address] [place] [address] fax: [facility] [address] [address] [place] [address] Referral ID Status Reason Start Date Expiration Date V isits Requested Visits Authorized [id number] Canceled Consult Only 09/29/2020 09/29/2020 3 3 Encounter Details Date Type Department Care Team (Late st Contact Info) Description 09/29/[address] [facility] Provider Demetra Clark [employer] PRIMARY CAR [address] [place], [place] [phone] Esophageal thickening (Primary Dx) Social History Tobacco Use Types [...] as of this encounter Visit Diagnoses Diagnosis Esophageal thickening- Primary Other specified disorder of the esophagus documented in this encounter Care Teams Timber Incisor Operator Relationship Specialty Start Date End Date Demetra Clark [employer] PRIMARY CAR [address] [place] [address] PCP - General 05/16/18 12/22/21 Mary Alice Jason [employer] PRIMARY CAR [address] [place] [address] PCP - General 12/23/21 documented as of this encounter
--- OUTSIDE RECORDS SUMMARY | 2025-08-17 21:52 | EXTERNAL MEDICAL SUMMARY RPT | Encounter Summary ---
Author Organization [facility] Address [address] [place] [address] Care Team Providers Care Biomechanical Engineer Name Role Phone Mary Alice Jason Primary Care Provider Unavailgaye e Reason for Referral * Radiology (Routine) - Closed Specialty Diagnoses / Procedures Referred By Controb t Referred To Contact Radiology Diagnoses Simple chronic bronchitis Procedures REF RADIOLOGY COMPUTED TOMOGRAPHY, THORAX, DIAGNOSTIC; W/O CONTRAST MATERIAL Lauren Khan [address] [place] [address] Phone: tel: fax: [facility] [address] [place] [address] Referral ID Status Reason Start Date Expiration Date V isits Requested Visits Authorized [id number] Closed Itemized Services 01/31/2023 08/03/2023 4 4 Encounter Details Date Type Department Care Team (Late st Contact Info) Description 01/31/2023 Community Orders Non [facility] Provider Lauren Khan [address] [place], [place] [phone] Simple chronic bronchitis (Primary Dx) Social History Tobacco Use Types [...] this encounter Visit Diagnoses Diagnosis Simple chronic bronchitis- Primary documented in this encounter Care Teams Biomechanical Engineer Relationship Specialty Start Date End Date Mary Alice Jason [facility] PRIMARY CAR [address] [place] [address] PCP - General 12/23/21 documented as of this encounter
--- OUTSIDE RECORDS SUMMARY | 2025-08-17 21:52 | EXTERNAL MEDICAL SUMMARY RPT | Encounter Summary ---
Author Organization [facility] Address [address] [place] [address] Care Team Providers Care Manual Winder Name Role Phone Mary Alice Jason Primary Care Provider Unavailabl e Reason for Referral * Outpatient Service (Routine) - Authorized Specialty Diagnoses / Procedures Referred By Contac t Referred To Contact Orthopedic Surgery Diagnoses Spinal stenosis, lumbar region, without neurogenic claudication Procedures REF ORTHO EXTERNAL OFFICE VISIT E&M EST PT, MODERATE MDM, 30-39 MINS Fritz Garcia [facility] PRIMARY [address] [place] [address] fax: [facility] [address] [place] [address] Referral ID Status Reason Start Date Expiration Date Visits Requested Visits Authorized [id number] Authorized Evaluate and Treat-Surgery if Indicated 2 09/02/2023 6 6 Encounter Details Date Type Department Care Team (Latest Contact Info) Description 09/02/2022 Community Orders Non [facility] Provider Fritz Garcia [facility] [address] [address] Spinal stenosis, lumbar region, without neurogenic claudication (Primary Dx) Social History Tobacco Use Types [...] as of this encounter Visit Diagnoses Diagnosis Spinal stenosis, lumbar region, without neurogenic claudication- Primary documented in this encounter Care Teams Manual Winder Relationship Specialty Start Date End Date Mary Alice Jason [facility] PRIMARY CAR [address] [place] [address] PCP - General 12/23/21 documented as of this encounter
--- OUTSIDE RECORDS SUMMARY | 2025-08-17 21:52 | EXTERNAL MEDICAL SUMMARY RPT | Encounter Summary ---
Author Organization [facility] Address [address] [place] [address] Care Team Providers Care Burn Table Operator Name Role Phone Pcp, None Selected Primary Care Provider Unavail able Reason for Referral * Consultation (Urgent) - Closed Specialty Diagnoses / Procedures Referred By Isamar jim Referred To Contact Otolaryngology Diagnoses Throat pain Globus sensation Amanda Adair PA [address] [place] [address] Phone: tel: fax: [facility] [address] [address] Phone: tel: fax: Referral ID Status Reason Start Date Expiration Date V isits Requested Visits Authorized [id number] Closed Specialty Services Required 01/05/2023 01/06/2024 6 6 Encounter Details Date Type Department Care Team (Latest Contact Info) Description 01/04/2023 Orders Only [facility] Gastroenterology [place] [address] [place] [phone] Amanda Adair PA [address] [facility] [phone] [place] [address] Throat pain (Primary Dx); Globus sensation Social History Tobacco Use Types Packs/Day Years [...] as of this encounter Plan of Treatment Scheduled Referrals Name Type Priority Associated Diagnoses Orde r Schedule *SRC MV Referral to ENT (aka Otolaryngology) Outpatient Referral Routine Throat pain Globus sensation Ordered: 01/04/2023 documented as of this encounter Visit Diagnoses Diagnosis Throat pain- Primary Globus sensation Gastrointestinal malfunction arising from mental factors documented in this encounter Care Teams Burn Table Operator Relationship Specialty Start Date End Date Pcp, None Selected PCP - General Internal Medicine 05/07/25 documented as of this encounter
--- OUTSIDE RECORDS SUMMARY | 2025-08-17 21:52 | EXTERNAL MEDICAL SUMMARY RPT | Encounter Summary ---
Author Organization [facility] Address [address] [place] [address] Care Team Providers Care Earth Science Technical Officer Name Role Phone Mary Alice Jason Primary Care Provider Aster ayers Reason for Referral * Outpatient Service (Routine) - Authorized Specialty Diagnoses / Procedures Referred By Isamar t Referred To Contact Cardiology Diagnoses Peripheral vascular disease, unspecified Primary hypertension Cerebrovascular accident (CVA) due to stenosis of cerebral artery Procedures REF CARDIOLOGY - EXTERNAL DUPLEX SCAN, VEINS, BILATERAL NON-INVASIVE STUDY EXTREMITY ARTERY BILAT SINGLE Mary Alice Jason [employer] PR[address] [place] [address] [facility] [address] [address] [place] [address] Referral ID Status Reason Start Date Expiration Date Visits Requested Visits Authorized [id number] Authorized Procedure Only 11/18/2022 11/19/2023 6 6 Encounter Details Date Type Department Care Team (Late st Contact Info) Description 11/18/2022 Community Orders Non [facility] Provider Mary Alice Jason [employer] PRIMARY CAR [address] [place] [address] Peripheral vascular disease, unspecified (Primary Dx); Primary hypertension; Cerebrovascular accident (CVA) due to stenosis of cerebral artery Social History Tobacco Use Types Packs/Day Years Used Date Smoking Tobacco: Never Assessed Comments Unknown Sex and Gender Information Value Date Recorded Sex Assigned at Not on file Legal Sex Female 5:59 AM PST Gender Identity Not on file Sexual Orientation Not on file documented as of this encounter Plan of Treatment Not on file documented as of this encounter Visit Diagnoses Diagnosis Peripheral vascular disease, unspecified- Primary Primary hypertension Unspecified essential hypertension Cerebrovascular accident (CVA) due to stenosis of cerebral artery documented in this encounter Care Teams Earth Science Technical Officer Relationship Specialty Start Date End Date Mary Alice Jason [facility] PRIMARY CAR [address] [place] [address] PCP - General 12/23/21 documented as of this encounter
--- OUTSIDE RECORDS SUMMARY | 2025-08-17 21:52 | EXTERNAL MEDICAL SUMMARY RPT | Encounter Summary ---
Author Organization [facility] Address [address] [place] [address] Care Team Providers Care Canned Food Reconditioning Inspector Name Role Phone Jason Jasontlin Primary Care Provider Unavailabl e Reason for Visit * Reason Comments Message Center Call Encounter Details Date Type Department Care Team (Latest Contact Info) Description 08/16/2025 [facility] Telephone Encounter [facility] [address] [place] [address] Vera Jimenez MD [address] [place], [place] [phone] Message Center Call Social History Tobacco Use Types Packs/Day Years Used Date Smoking Tobacco: Never Assessed Comments Unknown Sex and Gender Information Value Date Recorded Sex Assigned at Not on file Legal Sex Female 5:59 AM PST Gender Identity Not on file Sexual Orientation Not on file documented as of this encounter Miscellaneous Notes * Telephone Encounter - Lashaun Cervantes - 08/16/2025 10:35 AM PST Returned patient's call and informed her that per referral services team, a PA/referral is not needed for labs done externally. Patient agreeable with plan and had no further questions. * Telephone Encounter - Cathie Nolen - 08/16/2025 8:20 AM PST Caller is requesting a call back from a nurse. Additional Comments: requesting pre auth for blood test, please call to confirm Ok to leave a detailed message: Yes Thank you, Cathie Nolen documented in this encounter Plan of Treatment Not on file documented as of this encounter Visit Diagnoses Not on filedocumented in this encounter Care Teams Canned Food Reconditioning Inspector Relationship Specialty Start Date End Date Mary Alice Jason [facility] PRIMARY CAR [address] [place] [address] PCP - General 12/23/21 documented as of this encounter
--- OUTSIDE RECORDS SUMMARY | 2025-08-17 21:52 | EXTERNAL MEDICAL SUMMARY RPT | Encounter Summary ---
Author Organization [facility] Address [address] [place] [address] Care Team Providers Care Gum Worker Name Role Phone Mary Alice Jason Primary Care Provider Unavailabl e Reason for Referral * Outpatient Service (Urgent) - Authorized Specialty Diagnoses / Procedures Referred By Isamar jim Referred To Contact Vascular Surgery Diagnoses Occlusion and stenosis of left carotid artery Procedures REF VASCULAR SURGERY - EXTERNAL OFFICE/OUTPATIENT ESTABLISHED MOD MDM 30 MIN Mary Alice Jason PRIMARY [address] [place] [address] Surg, Pmg [facility] [address] [address] [place] [address] Referral ID Status Reason Start Date Expiration Date Visits Requested Visits Authorized [id number] Authorized Evaluate and Treat-Surgery if Indicated 12/21/2024 12/21/2025 6 6 Encounter Details Date Type Department Care Team (Late st Contact Info) Description 12/21/2024 Community Orders Non [facility] Provider Mary Alice Jason PRIMARY CAR [address] [place] [address] Occlusion and stenosis of left carotid artery (Primary Dx) Social History Tobacco Use Types [...] as of this encounter Visit Diagnoses Diagnosis Occlusion and stenosis of left carotid artery- Primary Occlusion and stenosis of carotid artery without mention of cerebral infarction documented in this encounter Care Teams Gum Worker Relationship Specialty Start Date End Date Mary Alice [facility] [address] [place] [address] PCP - General 12/23/21 documented as of this encounter
--- OUTSIDE RECORDS SUMMARY | 2025-08-17 21:52 | EXTERNAL MEDICAL SUMMARY RPT | Encounter Summary ---
Author Organization [facility] Address [address] [place] [address] Care Team Providers Care Naval Surface Fire Support Planner Name Role Phone Pcp, None Selected Primary Care Provider Unavail able Encounter Details Date Type Department Care Team (Late st Contact Info) Description 01/21/2023 Abstract [facility] Pulmonology [place] [address] [place] [phone] Lauren Khan, DO [address] [place] [address] Social History Tobacco Use Types Packs/Day Years [...] on filedocumented in this encounter Care Teams Naval Surface Fire Support Planner Relationship Specialty Start Date End Date Pcp, None Selected PCP - General Internal Medicine 05/07/25 documented as of this encounter
--- OUTSIDE RECORDS SUMMARY | 2025-08-17 21:52 | EXTERNAL MEDICAL SUMMARY RPT | Encounter Summary ---
Author Organization [facility] Address [address] [place] [address] Care Team Providers Care Body Masker Name Role Phone Mary Alice Jason Primary Care Provider Unavailgaye e Reason for Referral * Outpatient Service (Routine) - Closed Specialty Diagnoses / Procedures Referred By Isamar t Referred To Contact Sleep Medicine Diagnoses Obstructive sleep apnea (adult) (pediatric) Procedures REF SLEEP DISORDER - EXTERNAL SLEEP STUDY ATTENDED Merary Chacon [facility] [address] [place] [address] Phone: tel: fax: [facility] [address] [place] [address] Phone: tel: Referral ID Status Reason Start Date Expiration Date V isits Requested Visits Authorized [id number] Closed Itemized Services 07/16/2022 07/16/2023 2 2 Encounter Details Date Type Department Care Team (Late st Contact Info) Description 07/16/2022 Community Orders Non [facility] Provider Merary Chacon [facility] [address] [place], [place] [phone] Obstructive sleep apnea (adult) (pediatric) (Primary Dx) Social History Tobacco Use Types [...] as of this encounter Visit Diagnoses Diagnosis Obstructive sleep apnea (adult) (pediatric)- Primary documented in this encounter Care Teams Body Masker Relationship Specialty Start Date End Date Mary Alice Jason [facility] PRIMARY CAR [address] [place] [address] PCP - General 12/23/21 documented as of this encounter
--- OUTSIDE RECORDS SUMMARY | 2025-08-17 21:52 | EXTERNAL MEDICAL SUMMARY RPT | Encounter Summary ---
Author Organization [facility] Address [address] [place] [address] Care Team Providers Care Television Tube Inspector Name Role Phone Mary Alice Jason Primary Care Provider Unavailabl e Reason for Visit * Observation (Urgent) - Authorized Specialty Diagnoses / Procedures Referred By Contac t Referred To Contact Inpatient Hospital Diagnoses Chronic obstructive pulmonary disease with (acute) exacerbation Referrals, Generic Provider For [place], [facility] [address] [place] [address] Phone: tel: Referral ID Status Reason Start Date Expiration Date Visits Requested Visits Authorized [id number] Authorized Itemized Services 08/13/2025 08/14/2025 1 1 Encounter Details Date Type Department Care Team (Late st Contact Info) Description 08/13/2025 5:59 PM PST - 08/14/2025 2:[address] [facility] Hospital Encounter [facility] - INPATIENT VIRTUAL [address] [place] [address] Virtual, Generic Provider - Inpatient Discharge Disposition: Home or Self Care Social History Tobacco Use Types Packs/Day Years Used Date Smoking Tobacco: Never Assessed Comments Unknown Sex and Gender Information Value Date Recorded Sex Assigned at Not on file Legal Sex Female 5:59 AM PST Gender Identity Not on file Sexual Orientation Not on file documented as of this encounter Medications at Time of Discharge pantoprazole (PROTONIX) 40 mg delayed release tablet Take 1 tablet (40 mg) by mouth daily 90 tablet 4 08/11/2025 6:45 PM PST 08/07/2025 tiotropium-olod ateroL (STIOLTO RESPIMAT) 2.5-2.5 mcg/actuation inhaler Inhale 2 puffs daily 12 g 3 08/09/2025 7:39 PM PST 08/06/2025 pregabalin (LYRICA) 50 mg capsule Take 1 capsule (50 mg) by mouth 2 times daily 60 capsule 4 07/31/2025 8:22 PM PST 07/30/2025 ipratropium-alb uteroL (DUONEB) 0.5 mg-3 mg/3 mL neb solution Inhale contents of 1 vial (1 ampule) via nebulizer 4 times daily 180 mL 3 07/05/2025 4:56 PM PDT 07/04/2025 DULoxetine (CYMBALTA) 60 mg delayed release capsule Take 1 capsule (60 mg) by mouth daily 90 capsule 3 07/14/2025 6:22 PM PST 04/19/2025 amoxicillin (AMOXIL) 500 mg tablet Take 1 tablet (500 mg) by mouth 3 times daily until gone. Start the day prior to the procedure. 21 tablet 03/20/2025 5:22 PM PDT 03/18/2025 chlorhexidine (PERIDEX) 0.12 % mouthwash Swish and spit with 15 mL 2 times daily. Begin 4 days prior to surgery. Discontinue 10 days after surgery 473 mL 03/20/2025 5:22 PM PDT 03/18/2025 levothyroxine (SYNTHROID) 0.2 mg tablet Take 1 tablet (0.2 mg) by mouth six times per week Skip dose one day a week 90 tablet 1 06/05/2025 6:18 AM PDT 03/08/2025 losartan (COZAAR) 100 mg tablet Take 1 tablet (100 mg) by mouth daily for high blood pressure 90 tablet 3 07/18/2025 11:55 AM PST 01/24/2025 albuterol 90 mcg/actuation inhaler Inhale 2 puffs every 4 hours as needed for wheezing. 20.1 g 2 03/13/2025 10:39 AM PDT 01/19/2025 calcipotriene (DOVONEX) 0.005 % topical solution Apply to red itchy areas on scalp twice daily for maintenance (after finishing 7 days of topical steroid). 60 mL 11 02/15/2025 10:13 PM PDT 01/18/2025 acyclovir (ZOVIRAX) 400 mg tablet Take 1 tablet (400 mg) by mouth 2 times daily for prevention of cold sores 180 tablet 3 07/30/2025 8:54 AM PST 01/16/2025 rosuvastatin (CRESTOR) 40 mg tablet Take 1 tablet by mouth every evening 90 tablet 3 06/21/2025 8:55 AM PDT 12/27/2024 clobetasoL (TEMOVATE) 0.05 % topical solution Apply to scalp twice a day to affected red itchy areas for 7 days. After 7 days, Then switch to calcipotriene 50 mL 1 09/24/2024 10:42 PM PST 09/19/2024 hydrocortisone 2.5 % topical ointment Apply thin film to affected areas on ears, face, neck x 7 days. Then switch to tacrolimus. 28.35 g 3 09/24/2024 10:42 PM PST 09/19/2024 tacrolimus (PROTOPIC) 0.1 % topical ointment After hydrocortisone course, apply to affected areas on neck, face, ears twice a day as maintenance therapy 60 g 11 09/24/2024 10:42 PM PST 09/19/2024 verapamiL (CALAN SR) 120 mg extended release tablet Take 1 tablet (120 mg) by mouth 2 times daily 180 tablet 3 06/09/2025 6:02 PM PDT 09/18/2024 sodium chloride 3 % neb solution Take 4 mL by nebulization as needed for cough Use after albuterol nebulizer 4 times daily to avoid bronchospasm 240 mL 12 12/16/2024 9:48 AM PDT 09/07/2024 semaglutide (OZEMPIC) 2 mg/dose (8 mg/3 mL) sub-q pen Inject 2 mg under the skin once a week . Inject into the abdomen, thigh, or upper arm at any time of day on the same day each week. 3 mL 6 07/30/2025 8:54 AM PST 08/31/2024 blood glucose meter kit ([employer] VERIO FLEX) Use twice daily as directed to check blood sugars 1 each 06/21/2024 12:55 PM PDT 06/20/2024 blood glucose test strips ([employer]ste[employer]OUCH VERIO) Use 1 strip via meter four times a day 400 each 3 06/08/2024 1:50 PM PDT 06/01/2024 ciprofloxacin-d examethasone (CIPRODEX) 0.3-0.1 % ear drops Administer 4 drops into the right ear 2 (two) times a day for 7 days 7.5 mL 05/24/2024 8:05 PM PDT 05/21/2024 escitalopram oxalate (LEXAPRO) 10 mg tablet Take 1 tablet (10 mg) by mouth daily 90 tablet 2 07/15/2024 12:49 PM PST 01/19/2024 clobetasoL (TEMOVATE) 0.05 % topical solution Apply thin film to dry scalp once daily (maximum dose: 50 g/week or 50 mL/week); leave in place for 15 minutes, then add water, lather, and rinse thoroughly. Limit treatment to 2 consecutive weeks. 50 mL 12/14/2023 7:21 PM PDT 12/14/2023 lidocaine (LIDOCAINE VISCOUS) 2 % oral solution Bring to dental appointment for use with oral pain. 120 mL 3 08/11/2023 11:44 AM PST 08/09/2023 insulin needles (PEN NEEDLE) 31 gauge x 5/16" use one needle with pen up to 3 times/day 100 each 11 04/12/2023 pantoprazole (PROTONIX) 40 mg delayed release tablet Take 1 tablet (40 mg) by mouth 2 times daily before meals. Take 30 minutes before eating 60 tablet 3 06/07/2023 3:40 PM PDT 03/10/2023 traMADoL (ULTRAM) 50 mg tablet Take 1 tablet (50 mg) by mouth 2 times daily as needed for pain 42 tablet 1 11/04/2022 1:12 PM PST 11/02/2022 pregabalin (LYRICA) 75 mg capsule Take 1 capsule (75 mg) by mouth 2 times daily 180 capsule 2 10/28/2022 5:29 PM PST 10/27/2022 tiotropium-olod ateroL (STIOLTO RESPIMAT) 2.5-2.5 mcg/actuation inhaler Inhale 2 puffs daily 12 g 3 05/04/2023 1:33 PM PDT 07/20/2022 albuterol 90 mcg/actuation inhaler Inhale 2 puffs every 4 hours as needed for wheezing 20.1 g 07/07/2022 6:08 PM PDT 07/05/2022 insulin NPH (HUMULIN N KWIKPEN) 100 unit/mL (3 mL) sub-q pen Inject 14 units under the skin 2 times daily 15 mL 5 05/04/2023 1:48 PM PDT 07/05/2022 pantoprazole (PROTONIX) 20 mg delayed release tablet Take 1 tablet by mouth twice a day 180 tablet 3 12/31/2022 2:18 PM PDT 04/13/2022 methocarbamoL (ROBAXIN) 500 mg tablet Take 1 tablet by mouth every eight hours as needed for muscle spasm 21 tablet 04/13/2022 4:25 PM PDT 04/07/2022 lancets 33 gauge (ONETOUCH DELICA) Use 2 times daily and as needed 200 each 3 04/02/2022 1:30 PM PDT 03/31/2022 ibuprofen (MOTRIN) 600 mg tablet Take 1 tablet (600 mg) by mouth daily with food for pain. 30 tablet 2 07/29/2022 10:42 AM PST 03/24/2022 insulin needles 31 gauge x 5/16" Use 1 needle once intramuscularly up to 3 times/day 100 each 11 05/24/2022 5:32 PM PDT 03/04/2022 blood glucose meter start kit (ONETOUCH VERIO FLEX) Use twice a day as directed to check blood sugars 1 kit 1 09/29/2021 4:15 PM PST 09/29/2021 documented as of this encounter Plan of Treatment Not on file documented as of this encounter Visit Diagnoses Not on filedocumented in this encounter Care Teams Television Tube Inspector Relationship Specialty Start Date End Date Mary Alice Jason [facility] [address] [place] [address] PCP - General 12/23/21 documented as of this encounter
--- OUTSIDE RECORDS SUMMARY | 2025-08-17 21:52 | EXTERNAL MEDICAL SUMMARY RPT | Encounter Summary ---
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 (Primary Dx); Colon cancer screening Social History Tobacco Use Types Packs/Day Years Used Date Smoking Tobacco: Never Assessed Comments Unknown Sex and Gender Information Value Date Recorded Sex Assigned at Not on file Legal Sex Female 5:59 AM PST Gender Identity Not on file Sexual Orientation Not on file documented as of this encounter Plan of Treatment Not on file documented as of this encounter Visit Diagnoses Diagnosis Pap smear abnormality of cervix/human papillomavirus (HPV) positive- Primary Other abnormal Papanicolaou smear of cervix and cervical HPV Colon cancer screening Special screening for malignant neoplasms, colon documented in this encounter Care Teams Roll Forming Machine Set Up Mechanic Relationship Specialty Start Date End Date Mary Alice Jason [place] PRIMARY CAR [address] [place] [address] PCP - General 12/23/21 documented as of this encounter
--- OUTSIDE RECORDS SUMMARY | 2025-08-17 21:52 | EXTERNAL MEDICAL SUMMARY RPT | Encounter Summary ---
Author Organization [facility] Address [address] [place] [address] Care Team Providers Care Supervisor Cytogenetic Laboratory Name Role Phone Mary Alice Jason Primary Care Provider Unavailabl e Reason for Referral * Outpatient Service (Routine) - Authorized Specialty Diagnoses / Procedures Referred By Contac t Referred To Contact Respiratory Therapy Diagnoses Simple chronic bronchitis Procedures REF RESPIRATORY THERAPY (PFT) SPIROMETRY W/GRAPHIC RECORD/VITAL CAPACITY/FLOW OTH RESP PROC GROUP OTH RESP PROC INDIV THERA PROCD STRG ENDUR PHYS/QHP [facility] OP PULM REHAB WO CONT OXIMTRY MNTR PHYS/QHP [facility] OP PULM REHAB W/CONT OXIMTRY MNTR Lauren Khan [facility] [id number] [place] [address] Phone: tel: fax: [facility] Phone: tel: fax: Referral ID Status Reason Start Date Expiration Date Visits Requested Visits Authorized [id number] Authorized Procedure Only 11/05/2022 11/05/2023 36 36 Encounter Details Date Type Department Care Team (Late st Contact Info) Description 11/05/2022 Community Orders Non [facility] Provider Lauren Khan [address] [place] [address] Simple chronic bronchitis (Primary Dx) Social History [...] Primary documented in this encounter Care Teams Supervisor Cytogenetic Laboratory Relationship Specialty Start Date End Date Mary Alice Jason [facility] PRIMARY CAR [address] [place] [address] PCP - General 12/23/21 documented as of this encounter
--- OUTSIDE RECORDS SUMMARY | 2025-08-17 21:52 | EXTERNAL MEDICAL SUMMARY RPT | Encounter Summary ---
Author Organization [facility] Address [address] [place] [address] Care Team Providers Care Dictaphone Mechanic Name Role Phone Mary Alice Jason Primary Care Provider Unavailabl e Reason for Visit * Reason Comments Message Center Call Medication Consult Encounter Details Date Type Department Care Team (Latest Contact Info) Description 08/15/2025 [facility] Telephone Encounter [facility] [address] [place] [address] Vera Jimenez MD [address] [place], [place] [phone] Message Center Call; Medication Consult Social History Tobacco Use Types Packs/Day Years Used Date Smoking Tobacco: Never Assessed Comments Unknown Sex and Gender Information Value Date Recorded Sex Assigned at Not on file Legal Sex Female 5:59 AM PST Gender Identity Not on file Sexual Orientation Not on file documented as of this encounter Miscellaneous Notes * Telephone Encounter - Lashaun Cervantes - 08/15/2025 1:54 PM PST [facility] Patient notified via . * Telephone Encounter - Forrest Caldera - 08/15/2025 9:50 AM PST Pt is requesting a TPSB1 Requisition form be sent to [facility] for her blood draw since it is closer to her home. Their fax# is: [phone]. documented in this encounter Plan of Treatment Not on file documented as of this encounter Visit Diagnoses Not on filedocumented in this encounter Care Teams Dictaphone Mechanic Relationship Specialty Start Date End Date Mary Alice Jason [facility] PRIMARY CAR [address] [place] [address] PCP - General 12/23/21 documented as of this encounter
--- OUTSIDE RECORDS SUMMARY | 2025-08-17 21:52 | EXTERNAL MEDICAL SUMMARY RPT | Encounter Summary ---
Author Organization [facility] Address [address] [place] [address] Care Team Providers Care Bore Miner Operator Name Role Phone Mary Alice Jason Primary Care Provider Aster e Reason for Referral * Outpatient Service (Routine) - Authorized Specialty Diagnoses / Procedures Referred By Contac t Referred To Contact Vascular Surgery Diagnoses Carotid stenosis, left Procedures REF VASCULAR SURGERY - EXTERNAL THROMBOENDARTECTMY NECK,NECK INCIS [place] [address] [place] [address] Phone: tel: fax: Surg, Pmg [facility] [address] [address] [place] [address] Referral ID Status Reason Start Date Expiration Date Visits Requested Visits Authorized [id number] Authorized Procedure Only 01/25/2025 01/25/2026 1 1 Encounter Details Date Type Department Care Team (Late st Contact Info) Description 01/25/2025 Community Orders Non [facility] Provider [place] Pathak [address] [place], [place] [phone] Carotid stenosis, left (Primary Dx) Social History Tobacco Use Types [...] as of this encounter Visit Diagnoses Diagnosis Carotid stenosis, left- Primary Occlusion and stenosis of carotid artery without mention of cerebral infarction documented in this encounter Care Teams Bore Miner Operator Relationship Specialty Start Date End Date Mary Alice Jason [facility] PRIMARY CAR [address] [place] [address] PCP - General 12/23/21 documented as of this encounter
--- OUTSIDE RECORDS SUMMARY | 2025-08-17 21:52 | EXTERNAL MEDICAL SUMMARY RPT | Encounter Summary ---
Author Organization [facility] Address [address] [place] [address] Care Team Providers Care Cp Bleacher Operator Name Role Phone Mary Alice Jason Primary Care Provider Unavailabl e Reason for Referral * Outpatient Service (Routine) - Authorized Specialty Diagnoses / Procedures Referred By Isamar jim Referred To Contact Family Medicine Diagnoses Elevated serum tryptase Burning sensation of skin S/P carotid endarterectomy Type 2 diabetes mellitus with diabetic polyneuropathy half-way (current) use of insulin Procedures REF FAMILY MEDICINE - EXTERNAL OFFICE/OUTPATIENT ESTABLISHED MOD MDM 30 MIN Margarita Lopez [address] [place] [address] Phone: tel: fax: [facility] [address] [place] [address] Referral ID Status Reason Start Date Expiration Date Visits Requested Visits Authorized [id number] Authorized Evaluate and Treat-Surgery if Indicated 05/20/2025 05/20/2026 6 6 Encounter Details Date Type Department Care Team (Late st Contact Info) Description 05/20/2025 Community Orders Non [facility] Provider Margarita Lopez [address] [address] Elevated serum tryptase (Primary Dx); Burning sensation of skin; S/P carotid endarterectomy; Type 2 diabetes mellitus with diabetic polyneuropathy, with long-term current use of insulin Social History Tobacco Use Types Packs/Day Years Used Date Smoking Tobacco: Never Assessed Comments Unknown Sex and Gender Information Value Date Recorded Sex Assigned at Not on file Legal Sex Female 5:59 AM PST Gender Identity Not on file Sexual Orientation Not on file documented as of this encounter Plan of Treatment Not on file documented as of this encounter Visit Diagnoses Diagnosis Elevated serum tryptase- Primary Burning sensation of skin S/P carotid endarterectomy Other postprocedural status Type 2 diabetes mellitus with diabetic polyneuropathy, with long-term current use of insulin documented in this encounter Care Teams Cp Bleacher Operator Relationship Specialty Start Date End Date Mary Alice [facility] [address] [place] [address] PCP - General 12/23/21 documented as of this encounter
--- OUTSIDE RECORDS SUMMARY | 2025-08-17 21:52 | EXTERNAL MEDICAL SUMMARY RPT | Encounter Summary ---
Author Organization [facility] Address [address] [place] [address] Care Team Providers Care Flavorings Compounder Name Role Phone Mary Alice Jason Primary Care Provider Unavailgaye e Encounter Details Date Type Department Care Team (Latest Contact Info) Description 06/17/2025 Community Orders Non [facility] Provider Mary Alice Jason [place] PRIMARY CAR [address] [place] [address] Pap smear abnormality of cervix/human papillomavirus (HPV) [...] colon documented in this encounter Care Teams Flavorings Compounder Relationship Specialty Start Date End Date Mary Alice Jason [place] PRIMARY CAR [address] [place] [address] PCP - General 12/23/21 documented as of this encounter
--- OUTSIDE RECORDS SUMMARY | 2025-08-17 21:52 | EXTERNAL MEDICAL SUMMARY RPT | Encounter Summary ---
Author Organization [facility] Address [address] [place] [address] Care Team Providers Care Cancer Program Coordinator Name Role Phone Mary Alice Jason Primary Care Provider Unavailgaye e Reason for Referral * Outpatient Service (Routine) - Authorized Specialty Diagnoses / Procedures Referred By Isamar t Referred To Contact Allergy & Immunology / Allergy & Asthma Diagnoses Elevated serum tryptase Burning sensation of skin S/P carotid endarterectomy Type 2 diabetes mellitus with diabetic polyneuropathy, with long-term current use of insulin Procedures REF ALLERGY ASTHMA - INTERNAL Margarita Lopez [address] [place] [address] Phone: tel: fax: [facility] [address] [place] [address] Phone: tel: fax: Referral ID Status Reason Start Date Expiration Date Visits Requested Visits Authorized [id number] Authorized Evaluate and Treat-Surgery if Indicated 06/04/2025 12/01/2025 1 1 Encounter Details Date Type Department Care Team (Late st Contact Info) Description 06/04/2025 Community Orders Non [facility] Provider Margarita Lopez [address] [place] [address] Elevated serum tryptase (Primary Dx); [...] insulin documented in this encounter Care Teams Cancer Program Coordinator Relationship Specialty Start Date End Date Mary Alice Jason [facility] PRIMARY CAR [address] [place] [address] PCP - General 12/23/21 documented as of this encounter
--- OUTSIDE RECORDS SUMMARY | 2025-08-17 21:52 | EXTERNAL MEDICAL SUMMARY RPT | Encounter Summary ---
Author Organization [facility] Address [address] [place] [address] Care Team Providers Care Business Analyst Consultant Name Role Phone Demetra Clark Primary Care Provider [phone] Mary Alice Jason Primary Care Provider Unavailabl e Reason for Referral * Radiology (Routine) - Closed Specialty Diagnoses / Procedures Referred By Contac t Referred To Contact Radiology Diagnoses Tobacco abuse, in remission Procedures REF RADIOLOGY COMPUTED TOMOGRAPHY, THORAX, LOW DOSE LUNG CA SCREENING, W/O CONTRAST Demetra Clark [employer] PRIMARY CAR [address] [place] [address] fax: [facility] [address] [address] [place] [address] Referral ID Status Reason Start Date Expiration Date V isits Requested Visits Authorized [id number] Closed Itemized Services 09/18/2021 03/17/2022 1 1 Encounter Details Date Type Department Care Team (Late st Contact Info) Description 09/18/2021 Community Orders Non [facility] Provider Demetra Clark [employer] PRIMARY [facility] [address] [place] [address] Tobacco abuse, in remission (Primary Dx) Social [...] health documented in this encounter Care Teams Business Analyst Consultant Relationship Specialty Start Date End Date Demetra Clark [facility] PRIMARY CAR [address] [place], [place] [id number] PCP - General 05/16/18 12/22/21 Mary Alice Jason [facility] [address] [place] [address] PCP - General 12/23/21 documented as of this encounter
--- OUTSIDE RECORDS SUMMARY | 2025-08-17 21:52 | EXTERNAL MEDICAL SUMMARY RPT | Encounter Summary ---
Author Organization [facility] Address [address] [place] [address] Care Team Providers Care Senior Research Manager Name Role Phone Mary Alice Jason Primary Care Provider Aster e Reason for Referral * Radiology (Routine) - Authorized Specialty Diagnoses / Procedures Referred By Controb t Referred To Contact Radiology Diagnoses Tobacco abuse, in remission Procedures REF RADIOLOGY COMPUTED TOMOGRAPHY, THORAX, LOW DOSE LUNG CA SCREENING, W/O CONTRAST Mary Alice Jason [facility] [address] [place] [address] [facility] [address] [address] [place] [address] Referral ID Status Reason Start Date Expiration Date Visits Requested Visits Authorized [id number] Authorized Itemized Services 10/17/2024 04/19/2025 1 1 Encounter Details Date Type Department Care Team (Late st Contact Info) Description 10/17/2024 Community Orders Non [facility] Provider Mary Alice Jason [facility] PR[facility] [address] [place] [address] Tobacco abuse, in remission (Primary Dx) Social [...] health documented in this encounter Care Teams Senior Research Manager Relationship Specialty Start Date End Date Mary Alice Jason [facility] PRIMARY CAR [address] [place] [address] PCP - General 12/23/21 documented as of this encounter
--- OUTSIDE RECORDS SUMMARY | 2025-08-17 21:52 | EXTERNAL MEDICAL SUMMARY RPT | Encounter Summary ---
Author Organization [facility] Address [address] [place] [address] Care Team Providers Care Milk Delivery Driver Name Role Phone Mary Alice Jason Primary Care Provider Unavailabl e Reason for Referral * Radiology (Routine) - Authorized Specialty Diagnoses / Procedures Referred By Controb t Referred To Contact Radiology Diagnoses Right inguinal pain Procedures REF RADIOLOGY MRI ANY JOINT Rita Forrest [facility] PR[facility] [address] [place] [address] Phone: tel: fax: [facility] [address] [address] [place] [address] Referral ID Status Reason Start Date Expiration Date Visits Requested Visits Authorized [id number] Authorized Itemized Services 02/01/2025 08/04/2025 4 4 Encounter Details Date Type Department Care Team (Late st Contact Info) Description 02/01/2025 Community Orders Non [facility] Provider Rita Forrest [facility] PR[facility] [address] [place] [address] Right inguinal pain (Primary Dx) Social History Tobacco Use [...] of this encounter Visit Diagnoses Diagnosis Right inguinal pain- Primary Abdominal pain, right lower quadrant documented in this encounter Care Teams Milk Delivery Driver Relationship Specialty Start Date End Date Mary Alice Jason [facility] PRIMARY CAR [address] [place] [address] PCP - General 12/23/21 documented as of this encounter
--- OUTSIDE RECORDS SUMMARY | 2025-08-17 21:52 | EXTERNAL MEDICAL SUMMARY RPT | Encounter Summary ---
Author Organization [facility] Address [address] [place] [address] Care Team Providers Care Event Lighting Specialist Name Role Phone Mary Alice Jason Primary Care Provider Unavailgaye e Reason for Referral * Surgical Services (Routine) - Closed Specialty Diagnoses / Procedures Referred By Isamar jim Referred To Contact Orthopedic Surgery Diagnoses De Quervain's tenosynovitis Procedures REF ORTHO EXTERNAL ARTHROTOMY WRIST JNT W/ SYNOVECTOMY Gab Ureña [address] [address] Phone: tel: fax: [facility] [address] [place] [address] Referral ID Status Reason Start Date Expiration Date V isits Requested Visits Authorized [id number] Closed Procedure Only 01/19/2022 01/19/2023 2 2 Encounter Details Date Type Department Care Team (Latest Contact Info) Description 01/19/2022 Community Orders Non [facility] Provider Gab Ureña [address] [address] De Quervain's tenosynovitis (Primary Dx) Social History Tobacco Use Types [...] as of this encounter Visit Diagnoses Diagnosis De Quervain's tenosynovitis- Primary Radial styloid tenosynovitis documented in this encounter Care Teams Event Lighting Specialist Relationship Specialty Start Date End Date Mary Alice Jason [facility] PRIMARY CAR [address] [place] [address] PCP - General 12/23/21 documented as of this encounter
--- OUTSIDE RECORDS SUMMARY | 2025-08-17 21:52 | EXTERNAL MEDICAL SUMMARY RPT | Encounter Summary ---
Author Organization [facility] Address [address] [place] [address] Care Team Providers Care Service Operations Manager Name Role Phone Mary Alice Jason Primary Care Provider Unavailgaye e Reason for Referral * Outpatient Service (Routine) - Authorized Specialty Diagnoses / Procedures Referred By Contac t Referred To Contact Cardiology Diagnoses Type 2 diabetes mellitus with hyperglycemia, with long-term current use of insulin Primary hypertension Pure hypertriglyceridemia Cerebrovascular accident (CVA) due to occlusion of anterior cerebral artery, unspecified blood vessel laterality Heart valve stenosis Procedures REF CARDIOLOGY - EXTERNAL TTE (ECHO) WITH SPECTRAL & COLOR FLOW DOPPLER Demetra Clark [employer] PRIMARY CAR [address] [place] [address] fax: [facility] [address] [address] [place] [address] Referral ID Status Reason Start Date Expiration Date Visits Requested Visits Authorized [id number] Authorized Procedure Only 10/06/2022 10/06/[address] [facility] Encounter Details Date Type Department Care Team (Late st Contact Info) Description 10/06/[address] [facility] Provider Demetra Clark [place] PRIMARY [facility] [address] [place] [address] Type 2 diabetes mellitus with hyperglycemia, with long-term current use of insulin (Primary Dx); Primary hypertension; Pure hypertriglyceridemia ; Cerebrovascular accident (CVA) due to occlusion of anterior cerebral artery, unspecified blood vessel laterality; Heart valve stenosis Social History Tobacco Use Types Packs/Day Years Used Date Smoking Tobacco: Never Assessed Comments Unknown Sex and Gender Information Value Date Recorded Sex Assigned at Not on file Legal Sex Female 5:59 AM PST Gender Identity Not on file Sexual Orientation Not on file documented as of this encounter Plan of Treatment Not on file documented as of this encounter Visit Diagnoses Diagnosis Type 2 diabetes mellitus with hyperglycemia, with long-term current use of insulin- Primary Primary hypertension Unspecified essential hypertension Pure hypertriglyceridemia Pure hyperglyceridemia Cerebrovascular accident (CVA) due to occlusion of anterior cerebral artery, unspecified blood vessel laterality Heart valve stenosis Endocarditis, valve unspecified, unspecified cause documented in this encounter Care Teams Service Operations Manager Relationship Specialty Start Date End Date Mary Alice Jason [facility] PRIMARY CAR [address] [place] [address] PCP - General 12/23/21 documented as of this encounter
--- OUTSIDE RECORDS SUMMARY | 2025-08-17 21:52 | EXTERNAL MEDICAL SUMMARY RPT | Encounter Summary ---
Author Organization [facility] Address [address] [place] [address] Care Team Providers Care Stock Tracer Name Role Phone Mary Alice Jason Primary Care Provider Unavailabl e Reason for Referral * Surgical Services (Routine) - Authorized Specialty Diagnoses / Procedures Referred By Contac t Referred To Contact Orthopedic Surgery Diagnoses Spinal stenosis, lumbar region, without neurogenic claudication Procedures REF ORTHO EXTERNAL RAHUL W/ MYELOTOMY CERV THORACIC/THORA Amilcar Menezes Phone: tel: fax: [facility] [address] [place] [address] Referral ID Status Reason Start Date Expiration Date Visits Requested Visits Authorized [id number] Authorized Procedure Only 02/11/2023 02/12/2024 3 3 Encounter Details Date Type Department Care Team (Latest Contact Info) Description 02/11/2023 Community Orders Non [facility] Provider Amilcar Menezes [address] [address] Spinal stenosis, lumbar region, without neurogenic claudication [...] Primary documented in this encounter Care Teams Stock Tracer Relationship Specialty Start Date End Date Mary Alice Jason [facility] PRIMARY CAR [address] [place] [address] PCP - General 12/23/21 documented as of this encounter
--- OUTSIDE RECORDS SUMMARY | 2025-08-17 21:52 | EXTERNAL MEDICAL SUMMARY RPT | Encounter Summary ---
Author Organization [facility] Address [address] [place] [address] Care Team Providers Care Paper Products Printer Name Role Phone Mary Alice Jason Primary Care Provider Unavailgaye e Reason for Referral * Radiology (Routine) - Closed Specialty Diagnoses / Procedures Referred By Controb t Referred To Contact Radiology Diagnoses Cigarette nicotine dependence in remission Procedures REF RADIOLOGY COMPUTED TOMOGRAPHY, THORAX, LOW DOSE LUNG CA SCREENING, W/O CONTRAST Mary Alice Jason [facility] PRIMARY CAR [address] [place] [address] [facility] [address] [place] [address] Phone: tel: Referral ID Status Reason Start Date Expiration Date V isits Requested Visits Authorized [id number] Closed Itemized Services 09/18/2022 03/19/2023 1 1 Encounter Details Date Type Department Care Team (Late st Contact Info) Description 09/18/2022 Community Orders Non [facility] Provider Mary Alice Jason [facility] PR[facility] [address] [place] [address] Cigarette nicotine dependence in remission (Primary Dx) Social History Tobacco [...] as of this encounter Visit Diagnoses Diagnosis Cigarette nicotine dependence in remission- Primary Tobacco use disorder documented in this encounter Care Teams Paper Products Printer Relationship Specialty Start Date End Date Mary Alice Jason [facility] PR[facility] [address] [place] [address] PCP - General 12/23/21 documented as of this encounter
--- OUTSIDE RECORDS SUMMARY | 2025-08-17 21:52 | EXTERNAL MEDICAL SUMMARY RPT | Encounter Summary ---
Author Organization [facility] Address [address] [place] [address] Care Team Providers Care Site Leader Name Role Phone Mary Alice Jason Primary Care Provider Unavailabl e Reason for Visit * Reason Comments Lab/test Results Message Center Call Encounter Details Date Type Department Care Team (Latest Contact Info) Description 08/16/2025 [facility] Telephone Encounter [facility] [address] [place] [address] Vera Jimenez MD [address] [place], [place] [id number] Lab/test Results; Message Center Call Social History Tobacco Use Types Packs/Day Years Used Date Smoking Tobacco: Never Assessed Comments Unknown Sex and Gender Information Value Date Recorded Sex Assigned at Not on file Legal Sex Female 5:59 AM PST Gender Identity Not on file Sexual Orientation Not on file documented as of this encounter Miscellaneous Notes * Telephone Encounter - Lashaun Cervantes - 08/16/2025 1:56 PM PST [facility] that they are able to do C-kit lab. Will be drawn there but processed through [facility]. Lab order faxed to [phone]. Confirmation of successful fax received. * Telephone Encounter - Shirley Finney - 08/16/2025 12:56 PM PST Lab Orders: Name of Test: C-Kit mutations PCP: Mary Alice Jason [facility] Primary Care - [place] BUTLER to leave a detailed message regarding clinical information: No Additional Comments: Please contact Kallie at [employer]. They do not provide the kits for the c-kit mutations. She said you would have to send it to them or to Sarah. Please contact Kallie at [phone] [facility] or [phone] [facility]. Thank you, Martha documented in this encounter Plan of Treatment Not on file documented as of this encounter Visit Diagnoses Not on filedocumented in this encounter Care Teams Site Leader Relationship Specialty Start Date End Date Mary Alice Jason [facility] PRIMARY CAR [address] [place] [address] PCP - General 12/23/21 documented as of this encounter
--- OUTSIDE RECORDS SUMMARY | 2025-08-17 21:52 | EXTERNAL MEDICAL SUMMARY RPT | Encounter Summary ---
Author Organization [facility] Address [address] [place] [address] Care Team Providers Care Hooker Off Name Role Phone Demetra Clark Primary Care Provider [phone] Mary Alice Jason Primary Care Provider Unavailabl e Reason for Referral * Outpatient Service (Routine) - Closed Specialty Diagnoses / Procedures Referred By Controb t Referred To Contact Dermatology Diagnoses Neoplasm of unspecified nature of bone, soft tissue, and skin Procedures REF DERMATOLOGY-EXTERNAL OFFICE VISIT E&M EST PT, MODERATE MDM, 30-39 MINS Demetra Clark [employer] PRIMARY [address] [address] fax: [facility] [address] [place] [address] Referral ID Status Reason Start Date Expiration Date V isits Requested Visits Authorized [id number] Closed Evaluate and Treat-Surgery if Indicated 10/16/2021 10/16/2022 6 6 Encounter Details Date Type Department Care Team (Late st Contact Info) Description 10/16/2021 Community Orders Non [facility] Provider Demetra Clark [employer] PRIMARY CAR [address] [place] [address] Neoplasm of unspecified nature of bone, soft tissue, and skin (Primary Dx) Social History Tobacco Use Types [...] as of this encounter Visit Diagnoses Diagnosis Neoplasm of unspecified nature of bone, soft tissue, and skin- Primary documented in this encounter Care Teams Hooker Off Relationship Specialty Start Date End Date Demetra Clark [employer] PRIMARY CAR [address] [place], [place] [phone] PCP - General 05/16/18 12/22/21 Mary Alice Jason [facility] PR[facility] [address] [place] [address] PCP - General 12/23/21 documented as of this encounter
--- OUTSIDE RECORDS SUMMARY | 2025-08-17 21:52 | EXTERNAL MEDICAL SUMMARY RPT | Encounter Summary ---
Author Organization [facility] Address [address] [place] [address] Care Team Providers Care Body Wirer Name Role Phone Mary Alice Jason Primary Care Provider Unavailabl e Reason for Referral * Radiology (Routine) - Closed Specialty Diagnoses / Procedures Referred By Contac t Referred To Contact Radiology Diagnoses Hematuria, unspecified type Procedures REF RADIOLOGY CT ABD & PELVIS W/O CONTRST 1+ BODY REGNS [facility] [place] [facility] [address] [address] [place] [address] Referral ID Status Reason Start Date Expiration Date V isits Requested Visits Authorized [id number] Closed Itemized Services 01/25/2022 04/25/2022 4 4 Encounter Details Date Type Department Care Team (Late st Contact Info) Description 01/25/2022 Community Orders Non [facility] Provider [place] Hematuria, unspecified type (Primary Dx) Social History Tobacco [...] as of this encounter Visit Diagnoses Diagnosis Hematuria, unspecified type- Primary documented in this encounter Care Teams Body Wirer Relationship Specialty Start Date End Date Mary Alice Jason [facility] PRIMARY CAR [address] [place] [address] PCP - General 12/23/21 documented as of this encounter
--- OUTSIDE RECORDS SUMMARY | 2025-08-17 21:52 | EXTERNAL MEDICAL SUMMARY RPT | Encounter Summary ---
Author Organization [facility] Address [address] [place] [address] Care Team Providers Care Secondary Market Manager Name Role Phone Mary Alice Jason Primary Care Provider Aster ayers Reason for Referral * Outpatient Service (Routine) - Closed Specialty Diagnoses / Procedures Referred By Contact Referred To Contact Nutritional Counseling Diagnoses Type 2 diabetes mellitus without complication, unspecified whether alf insulin use Procedures REF NUTRITION [employer] MEDICINE PRACTITIONER MED NUTRIT THRPY INIT ASSESS 15 MIN Mary Alice Jason [facility] PRIMARY [facility] [address] [address] [facility] [address] [address] [place] [address] Referral ID Status Reason Start Date Expiration Date V isits Requested Visits Authorized [id number] Closed Itemized Services 03/08/2022 03/08/[phone] Encounter Details Date Type Department Care Team (Late st Contact Info) Description 03/08/2022 Community Orders Non [facility] Provider Mary Alice Jason [facility] PRIMARY CAR [address] [place] [address] Type 2 diabetes mellitus without complication, unspecified whether alf insulin use (Primary Dx) Social History Tobacco Use Types [...] Visit Diagnoses Diagnosis Type 2 diabetes mellitus without complication, unspecified whether alf insulin use- Primary documented in this encounter Care Teams Secondary Market Manager Relationship Specialty Start Date End Date Mary Alice Jason [facility] PRIMARY CAR [address] [place] [address] PCP - General 12/23/21 documented as of this encounter
--- OUTSIDE RECORDS SUMMARY | 2025-08-17 21:52 | EXTERNAL MEDICAL SUMMARY RPT | Encounter Summary ---
Author Organization [facility] Address [address] [place] [address] Care Team Providers Care Iron Melter Name Role Phone Pcp, None Selected Primary Care Provider Unavail able Encounter Details Date Type Department Care Team (Late st Contact Info) Description 11/15/[address] [facility] [place] [address] [place] [address] Amilcar Menezes, DO [address] [address] Low back pain without sciatica, unspecified back pain laterality, unspecified chronicity Social History Tobacco Use Types Packs/Day Years Used Date Smoking Tobacco: Former Cigarettes 1.5 45.6 0 09/12/1974 - 04/14/2020 Passive Smoke Exposure: Never Smokeless Tobacco: Never Comments:Quit 2019. Alcohol Use Standard Drinks/Week Comments Yes 10 (1 standard drink = 0.6 oz pu [...] Procedure Name Priority Date/Time Associated Diagnosis Comments MR LUMBAR SPINE WITHOUT CONTRAST Routine 10/25/2022 Low back pain without sciatica, unspecified back pain laterality, unspecified chronicity documented in this encounter Results * MR LUMBAR SPINE WITHOUT CONTRAST (10/25/2022) Anatomical Region Laterality Modality Spine, L-spine N/A Magnetic Resonan ce Amilcar Menezes DO [facility] MR PROCEDURES Fi nal Result documented in this encounter Visit Diagnoses Diagnosis Low back pain without sciatica, unspecified back pain laterality, unspecified chronicity documented in this encounter Care Teams Iron Melter Relationship Specialty Start Date End Date Pcp, None Selected PCP - General Internal Medicine 05/07/25 documented as of this encounter
--- OUTSIDE RECORDS SUMMARY | 2025-08-17 21:52 | EXTERNAL MEDICAL SUMMARY RPT | Encounter Summary ---
Author Organization [facility] Address [address] [place] [address] Care Team Providers Care Tetryl Boiling Tub Operator Name Role Phone Demetra Clark Primary Care Provider [phone] Mary Alice Jason Primary Care Provider Unavailabl e Reason for Referral * Outpatient Service (Routine) - Closed Specialty Diagnoses / Procedures Referred By Contac t Referred To Contact Physical Medicine & Rehabilitation Diagnoses Degenerative disc disease, cervical Spinal stenosis, lumbar region with neurogenic claudication Procedures REF PHYSICAL MED/ REHAB OFFICE VISIT E&M EST PT, MODERATE MDM, 30-39 MINS Rita Forrest PRIMARY CAR [address] [place] [address] Phone: tel: fax: [address] [address] fax:[phone] Referral ID Status Reason Start Date Expiration Date V isits Requested Visits Authorized [id number] Closed Evaluate and Treat-Surgery if Indicated 09/30/2021 09/30/2022 6 6 Encounter Details Date Type Department Care Team (Late st Contact Info) Description 09/30/2021 Community Orders Non [facility] Provider Rita Forrest PRIMARY CAR [address] [place] [address] Degenerative disc disease, cervical (Primary Dx); Spinal stenosis, lumbar region with neurogenic claudication Social History Tobacco Use Types Packs/Day Years Used Date Smoking Tobacco: Never Assessed Comments Unknown Sex and Gender Information Value Date Recorded Sex Assigned at Not on file Legal Sex Female 5:59 AM PST Gender Identity Not on file Sexual Orientation Not on file documented as of this encounter Plan of Treatment Not on file documented as of this encounter Visit Diagnoses Diagnosis Degenerative disc disease, cervical- Primary Degeneration of cervical intervertebral disc Spinal stenosis, lumbar region with neurogenic claudication documented in this encounter Care Teams Tetryl Boiling Tub Operator Relationship Specialty Start Date End Date Demetra Clark [employer] PRIMARY [address] [place], [place] [id number] PCP - General 05/16/18 12/22/21 Mary Alice Jason [employer] PRIMARY [address] [place] [address] PCP - General 12/23/21 documented as of this encounter
--- OUTSIDE RECORDS SUMMARY | 2025-08-17 21:52 | EXTERNAL MEDICAL SUMMARY RPT | Encounter Summary ---
Author Organization [facility] Address [address] [place] [address] Care Team Providers Care Radio Broadcaster Name Role Phone Mary Alice Jason Primary Care Provider Unavailabl e Reason for Referral * Radiology (Routine) - Authorized Specialty Diagnoses / Procedures Referred By Contac t Referred To Contact Radiology Diagnoses Burning sensation Postsurgical state, eye Procedures REF RADIOLOGY MRI BRAIN W/ & W/O CONTRAST, Margarita Lopez [address] [place] [address] Phone: tel: fax: [facility] [address] [place] [address] Referral ID Status Reason Start Date Expiration Date Visits Requested Visits Authorized [id number] Authorized Itemized Services 03/22/2025 09/22/2025 4 4 Encounter Details Date Type Department Care Team (Late st Contact Info) Description 03/22/2025 Community Orders Non [facility] Provider Margarita Lopez [address] [place] [address] Burning sensation (Primary Dx); Postsurgical state, eye Social History Tobacco Use Types Packs/Day Years Used Date Smoking Tobacco: Never Assessed Comments Unknown Sex and Gender Information Value Date Recorded Sex Assigned at Not on file Legal Sex Female 5:59 AM PST Gender Identity Not on file Sexual Orientation Not on file documented as of this encounter Plan of Treatment Not on file documented as of this encounter Visit Diagnoses Diagnosis Burning sensation- Primary Disturbance of skin sensation Postsurgical state, eye Other states following surgery of eye and adnexa documented in this encounter Care Teams Radio Broadcaster Relationship Specialty Start Date End Date Mary Alice Jason [facility] PRIMARY CAR [address] [place] [address] PCP - General 12/23/21 documented as of this encounter
--- OUTSIDE RECORDS SUMMARY | 2025-08-17 21:52 | EXTERNAL MEDICAL SUMMARY RPT | Encounter Summary ---
Author Organization [facility] Address [address] [place] [address] Care Team Providers Care Product Grader Name Role Phone Mary Alice Jason Primary Care Provider Unavailabl e Reason for Referral * Outpatient Service (Routine) - Authorized Specialty Diagnoses / Procedures Referred By Isamar t Referred To Contact Sleep Medicine Diagnoses Obstructive sleep apnea (adult) (pediatric) Procedures REF SLEEP DISORDER - EXTERNAL OFFICE/OUTPATIENT ESTABLISHED MOD MDM 30 MIN Mary Alice Jason [employer] PRIMARY [address] [address] [facility] [address] [place] [address] Phone: tel: Referral ID Status Reason Start Date Expiration Date Visits Requested Visits Authorized [id number] Authorized Evaluate and Treat-Surgery if Indicated 01/04/2025 01/04/2026 6 6 Encounter Details Date Type Department Care Team (Late st Contact Info) Description 01/04/2025 Community Orders Non [facility] Provider Mary Alice Jason Meebler PRIMARY [facility] [address] [place] [address] Obstructive sleep apnea (adult) (pediatric) (Primary Dx) [...] Primary documented in this encounter Care Teams Product Grader Relationship Specialty Start Date End Date Mary Alice Jason [facility] PRIMARY CAR [address] [place] [address] PCP - General 12/23/21 documented as of this encounter
--- OUTSIDE RECORDS SUMMARY | 2025-08-17 21:52 | EXTERNAL MEDICAL SUMMARY RPT | Encounter Summary ---
Author Organization [facility] Address [address] [place] [address] Care Team Providers Care Displayer Name Role Phone Mary Alice Jason Primary Care Provider Unavailabl e Reason for Referral * Outpatient Service (Routine) - Authorized Specialty Diagnoses / Procedures Referred By Isamar t Referred To Contact Neurology Diagnoses Elevated serum tryptase Burning sensation of skin S/P carotid endarterectomy Type 2 diabetes mellitus with diabetic polyneuropathy, with long-term current use of insulin Procedures REF EMG - EXTERNAL EMG NEEDLE 3 EXTREMITIES W/WO RELATED PARASPINAL Margarita Lopez [address] [place] [address] Phone: tel: fax: [facility] [address] [place] [address] Referral ID Status Reason Start Date Expiration Date Visits Requested Visits Authorized [id number] Authorized Procedure Only 05/30/2025 11/26/2025 1 1 Encounter Details Date Type Department Care Team (Late st Contact Info) Description 05/30/2025 Community Orders Non [facility] Provider Margarita Lopez [address] [place] [address] Elevated serum tryptase (Primary Dx); [...] insulin documented in this encounter Care Teams Displayer Relationship Specialty Start Date End Date Mary Alice [facility] [address] [place] [address] PCP - General 12/23/21 documented as of this encounter
--- OUTSIDE RECORDS SUMMARY | 2025-08-17 21:52 | EXTERNAL MEDICAL SUMMARY RPT | Encounter Summary ---
Author Organization [facility] Address [address] [place] [address] Care Team Providers Care Computer Terminal Operator Name Role Phone Mary Alice Jason Primary Care Provider Unavailabl e Reason for Referral * Radiology (Urgent) - Authorized Specialty Diagnoses / Procedures Referred By Contac t Referred To Contact Radiology Diagnoses Occlusion of carotid artery, unspecified laterality Procedures REF RADIOLOGY CT ANGIOGRAPHY, NECK Mary Alice [facility] [employer] PRIMARY [address] [place] [address] [facility] [address] [address] [place] [address] Referral ID Status Reason Start Date Expiration Date Visits Requested Visits Authorized [id number] Authorized Itemized Services 12/19/2024 06/20/2025 4 4 * Radiology (Routine) - Authorized Specialty Diagnoses / Procedures Referred By Controb jim Referred To Contact Radiology Diagnoses Occlusion of carotid artery, unspecified laterality Procedures REF RADIOLOGY CT ANGIOGRAPHY, HEAD Mary Alice Jason [facility] PRIMARY [address] [place] [address] [facility] [address] [address] [place] [address] Referral ID Status Reason Start Date Expiration Date Visits Requested Visits Authorized [id number] Authorized Itemized Services 12/18/2024 06/20/2025 4 4 Encounter Details Date Type Department Care Team (Late st Contact Info) Description 12/18/[address] [facility] Provider Mary Alice Jason [employer] [employer] PRIMARY [address] [place] [address] Occlusion of carotid artery, unspecified laterality (Primary Dx) [...] of this encounter Visit Diagnoses Diagnosis Occlusion of carotid artery, unspecified laterality- Primary documented in this encounter Care Teams Computer Terminal Operator Relationship Specialty Start Date End Date Mary Alice Jason [facility] PRIMARY CAR [address] [place] [address] PCP - General 12/23/21 documented as of this encounter
--- OUTSIDE RECORDS SUMMARY | 2025-08-17 21:52 | EXTERNAL MEDICAL SUMMARY RPT | Encounter Summary ---
Author Organization [facility] Address [address] [place] [address] Care Team Providers Care Jewel Hole Driller Name Role Phone Mary Alice Jason Primary Care Provider Unavailgaye e Reason for Referral * Outpatient Service (Routine) - Authorized Specialty Diagnoses / Procedures Referred By Isamar t Referred To Contact Sleep Medicine Diagnoses Obstructive sleep apnea (adult) (pediatric) Procedures REF SLEEP DISORDER - EXTERNAL SLEEP STUDY ATTENDED Merary Chacon [facility] [address] [place] [address] Phone: tel: fax: [facility] [address] [place] [address] Phone: tel: Referral ID Status Reason Start Date Expiration Date Visits Requested Visits Authorized [id number] Authorized Itemized Services 02/13/2025 02/13/2026 2 2 Encounter Details Date Type Department Care Team (Late st Contact Info) Description 02/13/2025 Community Orders Non [facility] Provider Merary Chacon [facility] [address] [place], [place] [id number] Obstructive sleep apnea (adult) (pediatric) (Primary Dx) [...] Primary documented in this encounter Care Teams Jewel Hole Driller Relationship Specialty Start Date End Date Mary Alice Jason [facility] PRIMARY CAR [address] [place] [address] PCP - General 12/23/21 documented as of this encounter
--- OUTSIDE RECORDS SUMMARY | 2025-08-17 21:52 | EXTERNAL MEDICAL SUMMARY RPT | Encounter Summary ---
Author Organization [facility] Address [address] [place] [address] Care Team Providers Care Metal Mockup Maker Name Role Phone Mary Alice Jason Primary Care Provider Unavailabl e Reason for Referral * Outpatient Service (Routine) - Closed Specialty Diagnoses / Procedures Referred By Contac t Referred To Contact Otolaryngology (ENT) Diagnoses PND (post-nasal drip) Cough Procedures REF BIANCA/ENT - EXTERNAL OFFICE VISIT E&M EST PT, MODERATE MDM, 30-39 MINS Amanda Adair fax: [facility] [address] [place] [address] Referral ID Status Reason Start Date Expiration Date V isits Requested Visits Authorized [id number] Closed Evaluate and Treat-Surgery if Indicated 04/21/2022 04/21/2023 6 6 Encounter Details Date Type Department Care Team (Late st Contact Info) Description 04/21/2022 Community Orders Non [facility] Provider Amanda Adair [address] [facility] [phone] [place], [place] [id number] PND (post-nasal drip) (Primary Dx); Cough Social History Tobacco Use Types Packs/Day [...] as of this encounter Visit Diagnoses Diagnosis PND (post-nasal drip)- Primary Postnasal drip Cough documented in this encounter Care Teams Metal Mockup Maker Relationship Specialty Start Date End Date Eren Mary Alice [facility] PRIMARY CAR [address] [place] [address] PCP - General 12/23/21 documented as of this encounter
--- OUTSIDE RECORDS SUMMARY | 2025-08-17 21:52 | EXTERNAL MEDICAL SUMMARY RPT | Encounter Summary ---
Author Organization [facility] Address [address] [place] [address] Care Team Providers Care Senior Art Director Name Role Phone Mary Alice Jason Primary Care Provider Unavailabl e Reason for Referral * Outpatient Service (Urgent) - Authorized Specialty Diagnoses / Procedures Referred By Isamar jim Referred To Contact Vascular Surgery Diagnoses Peripheral vascular disease, unspecified Procedures REF VASCULAR SURGERY - EXTERNAL DUPLEX LARGE VESSEL(S),COMPLETE Nicho Loaiza [address] [address] Phone: tel: fax: Surg, [facility] [address] [address] [place] [address] Referral ID Status Reason Start Date Expiration Date Visits Requested Visits Authorized [id number] Authorized Itemized Services 12/26/2024 12/26/2025 1 1 * Outpatient Service (Urgent) - Authorized Specialty Diagnoses / Procedures Referred By Contac t Referred To Contact Vascular Surgery Diagnoses Peripheral vascular disease, unspecified Procedures REF VASCULAR SURGERY - EXTERNAL NON-INVASIVE STUDY EXTREMITY ARTERY BILAT SINGLE Nicho Loaiza [address] [employer] [address] [address] Phone: tel: fax: Surg, [facility] [address] [address] [place] [address] Referral ID Status Reason Start Date Expiration Date Visits Requested Visits Authorized [id number] Authorized Itemized Services 12/26/2024 12/26/2025 1 1 * Outpatient Service (Urgent) - Authorized Specialty Diagnoses / Procedures Referred By Isamar t Referred To Contact Vascular Surgery Diagnoses Carotid stenosis, bilateral Procedures REF VASCULAR SURGERY - EXTERNAL DUPLEX SCAN EXTRACRANIAL,BILAT Nicho Loaiza [address] [place] [address] Phone: tel: fax: Surg, [facility] [address] [address] [place] [address] Referral ID Status Reason Start Date Expiration Date Visits Requested Visits Authorized [id number] Authorized Itemized Services 12/26/2024 12/26/2025 1 1 Encounter Details Date Type Department Care Team (Late st Contact Info) Description 12/26/2024 Community Orders Non [facility] Provider Nicho Loaiza [address] [place], [place] [id number] Carotid stenosis, bilateral (Primary Dx); Peripheral vascular disease, unspecified Social History Tobacco Use Types Packs/Day Years [...] this encounter Visit Diagnoses Diagnosis Carotid stenosis, bilateral- Primary Occlusion and stenosis of multiple and bilateral precerebral arteries without mention of cerebral infarction Peripheral vascular disease, unspecified documented in this encounter Care Teams Senior Art Director Relationship Specialty Start Date End Date Mary Alice Jason [facility] PRIMARY CAR [address] [place] [address] PCP - General 12/23/21 documented as of this encounter
--- OUTSIDE RECORDS SUMMARY | 2025-08-17 21:52 | EXTERNAL MEDICAL SUMMARY RPT | Encounter Summary ---
Author Organization [facility] Address [address] [place] [address] Care Team Providers Care Model And Dye Person Name Role Phone Mary Alice Jason Primary Care Provider Unavailabl e Reason for Referral * Radiology (Routine) - Denied Specialty Diagnoses / Procedures Referred By Contac t Referred To Contact Radiology Diagnoses Low back pain without sciatica, unspecified back pain laterality, unspecified chronicity Procedures REF RADIOLOGY MRI LUMBAR W/WO CONTRST SPINE Amilcar Menezes Phone: tel: fax: [address] [address] fax: Referral ID Status Reason Start Date Expiration Date V isits Requested Visits Authorized [id number] Denied Itemized Services 10/11/2022 04/11/2023 1 0 Encounter Details Date Type Department Care Team (Late st Contact Info) Description 10/11/2022 Community Orders Non [facility] Provider Amilcar Menezes [address] [address] Low back pain without sciatica, unspecified back pain laterality, unspecified chronicity (Primary Dx) Social History Tobacco [...] as of this encounter Visit Diagnoses Diagnosis Low back pain without sciatica, unspecified back pain laterality, unspecified chronicity- Primary documented in this encounter Care Teams Model And Dye Person Relationship Specialty Start Date End Date Mary Alice Jason [facility] PRIMARY CAR [address] [place] [address] PCP - General 12/23/21 documented as of this encounter
--- OUTSIDE RECORDS SUMMARY | 2025-08-17 21:52 | EXTERNAL MEDICAL SUMMARY RPT | Encounter Summary ---
Author Organization [facility] Address [address] [place] [address] Care Team Providers Care Reception Centre Manager Name Role Phone Demetra Clark Primary Care Provider [phone] Mary Alice Jason Primary Care Provider Unavailabl e Reason for Referral * Outpatient Service (Routine) - Closed Specialty Diagnoses / Procedures Referred By Isamar jim Referred To Contact Orthopedic Surgery Diagnoses De Quervain's tenosynovitis Procedures REF ORTHO EXTERNAL OFFICE VISIT E&M EST PT, MODERATE MDM, 30-39 MINS Demetra Clark [employer] PRIMARY [address] [place] [address] fax: [facility] [address] [place] [address] Referral ID Status Reason Start Date Expiration Date V isits Requested Visits Authorized [id number] Closed Evaluate and Treat-Surgery if Indicated 12/08/2021 12/08/2022 6 6 Encounter Details Date Type Department Care Team (Latest Contact Info) Description 12/08/[address] [facility] Provider Demetra Clark [employer] PRIMARY [address] [place] [address] De Quervain's tenosynovitis (Primary Dx) Social History [...] tenosynovitis documented in this encounter Care Teams Reception Centre Manager Relationship Specialty Start Date End Date Demetra Clark [email or web address] PRIMARY CAR [address] [place], [place] [address] PCP - General 05/16/18 12/22/21 Mary Alice Jason [email or web address] PRIMARY [address] [place] [address] PCP - General 12/23/21 documented as of this encounter
--- OUTSIDE RECORDS SUMMARY | 2025-08-17 21:52 | EXTERNAL MEDICAL SUMMARY RPT | Encounter Summary ---
Author Organization [facility] Address [address] [place] [address] Care Team Providers Care Tool Engineer Name Role Phone Mary Alice Jason Primary Care Provider Unavailgaye e Encounter Details Date Type Department Care Team (Late st Contact Info) Description 05/27/2025 Community Orders Non [facility] Provider Margarita Lopez [facility] [address] [place] [address] Social History Tobacco Use Types Packs/Day Years [...] on filedocumented in this encounter Care Teams Tool Engineer Relationship Specialty Start Date End Date Mary Alice Jason [facility] PRIMARY CAR [address] [place] [address] PCP - General 12/23/21 documented as of this encounter
--- OUTSIDE RECORDS SUMMARY | 2025-08-17 21:52 | EXTERNAL MEDICAL SUMMARY RPT | Encounter Summary ---
Author Organization [facility] Address [address] [place] [address] Care Team Providers Care Bottle Packing Machine Cleaner Name Role Phone Mary Alice Jason Primary Care Provider Aster ayers Reason for Referral * Radiology (Routine) - Closed Specialty Diagnoses / Procedures Referred By Isamar jim Referred To Contact Radiology Diagnoses Postmenopausal status Procedures REF RADIOLOGY DXA BONE DENSITY STUDY 1+ SITS AXIAL SKE Mary Alice Jason [email or web address] PRIMARY [facility] [address] [address] [facility] [address] [address] [place] [address] Referral ID Status Reason Start Date Expiration Date V isits Requested Visits Authorized [id number] Closed Itemized Services 04/09/2022 10/06/2022 4 4 Encounter Details Date Type Department Care Team (Latest Contact Info) Description 04/09/2022 Community Orders Non [facility] Provider Mary Alice Jason [facility] PRIMARY [facility] [address] [place] [address] Postmenopausal status (Primary Dx) Social History Tobacco [...] (natural) documented in this encounter Care Teams Bottle Packing Machine Cleaner Relationship Specialty Start Date End Date Mary Alice Jason [facility] PR[facility] [address] [place] [address] PCP - General 12/23/21 documented as of this encounter
--- OUTSIDE RECORDS SUMMARY | 2025-08-17 21:52 | EXTERNAL MEDICAL SUMMARY RPT | Encounter Summary ---
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 Gastroesophageal reflux disease without esophagitis Procedures REF ANESTHESIOLOGY ANES UPR GI ENDO PX, INTRO PROXIMAL TO DUODERM, NOS Codi Ricardo [facility] [address] [address] [place] [address] Anesthesia, [facility] [address] [address] [place] [address] Referral ID Status Reason Start Date Expiration Date Visits Requested Visits Authorized [id number] Authorized Procedure Only 06/26/2025 06/26/2026 1 1 * Outpatient Service (Routine) - Authorized Specialty Diagnoses / Procedures Referred By Isamar t Referred To Contact General Surgery Diagnoses 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 Gastroesophageal reflux disease without esophagitis Procedures REF GENERAL SURGERY - EXTERNAL UPPER GI ENDO DX (SEP PROC) Codi Ricardo [facility] [address] [place] [address] Center, [facility] [address] [address] [place] [address] Referral ID Status Reason Start Date Expiration Date Visits Requested Visits Authorized [id number] Authorized Procedure Only 06/26/2025 06/26/2026 3 3 * Outpatient Service (Routine) - Authorized Specialty Diagnoses / Procedures Referred By Isamar jim Referred To Contact Anesthesiology Diagnoses Hx of colonic polyps Diarrhea, unspecified type Procedures REF ANESTHESIOLOGY ANES LWR INTESTINAL ENDO PX, INTRO DISTAL/DUODENUM, SCREENING COL Codi Ricardo [address] [address] Anesthesia, [facility] [address] [address] [place] [address] Referral ID Status Reason Start Date Expiration Date Visits Requested Visits Authorized [id number] Authorized Procedure Only 06/26/2025 06/26/2026 1 1 * Outpatient Service (Routine) - Authorized Specialty Diagnoses / Procedures Referred By Isamar jim Referred To Contact General Surgery Diagnoses Hx of colonic polyps Diarrhea, unspecified type Procedures REF GENERAL SURGERY - EXTERNAL COLONOSCOPY W/ BX SINGLE/MULT Codi Ricardo [address] [address] Center, [facility] [address] [address] [place] [address] Referral ID Status Reason Start Date Expiration Date Visits Requested Visits Authorized [id number] Authorized Procedure Only 06/26/2025 06/26/2026 2 2 Encounter Details Date Type Department Care Team (Late st Contact Info) Description 06/26/2025 Community Orders Non [facility] Provider Codi Ricardo [address] [address] Hx of colonic polyps (Primary Dx); Diarrhea, unspecified type; 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; Gastroesophageal reflux disease without esophagitis Social History Tobacco Use Types Packs/Day Years Used Date Smoking Tobacco: Never Assessed Comments Unknown Sex and Gender Information Value Date Recorded Sex Assigned at Not on file Legal Sex Female 5:59 AM PST Gender Identity Not on file Sexual Orientation Not on file documented as of this encounter Plan of Treatment Not on file documented as of this encounter Visit Diagnoses Diagnosis Hx of colonic polyps- Primary Personal history of colonic polyps Diarrhea, unspecified type 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
--- OUTSIDE RECORDS SUMMARY | 2025-08-17 21:52 | EXTERNAL MEDICAL SUMMARY RPT | Encounter Summary ---
Author Organization [facility] Address [address] [place] [address] Care Team Providers Care Control Operator Flow Coat Name Role Phone Mary Alice Jason Primary Care Provider Unavailgaye e Reason for Referral * Outpatient Service (Routine) - Authorized Specialty Diagnoses / Procedures Referred By Isamar t Referred To Contact Orthopedic Surgery Diagnoses Closed nondisplaced fracture of pelvis, unspecified part of pelvis, initial encounter Procedures REF ORTHO EXTERNAL OFFICE/OUTPATIENT ESTABLISHED MOD MDM 30 MIN [facility] [address] [place] [address] Phone: tel: fax: Orthopedics, [facility] [address] [address] fax: Referral ID Status Reason Start Date Expiration Date Visits Requested Visits Authorized [id number] Authorized Evaluate and Treat-Surgery if Indicated 02/18/2025 02/18/2026 6 6 Encounter Details Date Type Department Care Team (Late st Contact Info) Description 02/18/2025 Community Orders Non [facility] Provider Rita Forrest [facility] [address] [place] [address] Closed nondisplaced fracture of pelvis, unspecified part of pelvis, initial encounter (Primary Dx) Social History Tobacco Use Types [...] as of this encounter Visit Diagnoses Diagnosis Closed nondisplaced fracture of pelvis, unspecified part of pelvis, initial encounter- Primary documented in this encounter Care Teams Control Operator Flow Coat Relationship Specialty Start Date End Date Mary Alice Jason [facility] [address] [place] [address] PCP - General 12/23/21 documented as of this encounter
--- OUTSIDE RECORDS SUMMARY | 2025-08-17 21:52 | EXTERNAL MEDICAL SUMMARY RPT | Encounter Summary ---
Author Organization [facility] Address [address] [place] [address] Care Team Providers Care Refrigerator Cabinetmaker Name Role Phone Mary Alice Jason Primary Care Provider Aster ayers Reason for Referral * Outpatient Service (Routine) - Closed Specialty Diagnoses / Procedures Referred By Isamar jim Referred To Contact Podiatry Diagnoses Type 2 diabetes mellitus without complication, unspecified whether termite helper insulin use Procedures REF PODIATRY OFFICE VISIT E&M EST PT, MODERATE MDM, 30-39 MINS Mary Alice Jason [facility] [address] [place] [address] [facility] [address] [facility] [address] [place] [address] fax: Referral ID Status Reason Start Date Expiration Date V isits Requested Visits Authorized [id number] Closed Evaluate and Treat-Surgery if Indicated 06/21/2022 06/21/2023 6 6 Encounter Details Date Type Department Care Team (Late st Contact Info) Description 06/21/2022 Community Orders Non [facility] Provider Mary Alice Jason [facility] [address] [place] [address] Type 2 diabetes mellitus without complication, unspecified whether senior living insulin use (Primary Dx) Social History Tobacco [...] 2 diabetes mellitus without complication, unspecified whether senior living insulin use- Primary documented in this encounter Care Teams Refrigerator Cabinetmaker Relationship Specialty Start Date End Date Mary Alice Jason [facility] [address] [place] [address] PCP - General 12/23/21 documented as of this encounter
--- OUTSIDE RECORDS SUMMARY | 2025-08-17 21:52 | EXTERNAL MEDICAL SUMMARY RPT | Encounter Summary ---
Author Organization [facility] Address [address] [place] [address] Care Team Providers Care Licensed Practical Nurse Instructor Name Role Phone Mary Alice Jason Primary Care Provider Unavailgaye e Reason for Referral * Outpatient Service (Routine) - Authorized Specialty Diagnoses / Procedures Referred By Isamar t Referred To Contact Vascular Surgery Diagnoses Carotid stenosis, bilateral Procedures REF VASCULAR SURGERY - EXTERNAL DUPLEX SCAN EXTRACRANIAL,BILRyder Elise [address] [place] [address] Phone: tel: fax: [facility] [address] [address] [place] [address] Referral ID Status Reason Start Date Expiration Date Visits Requested Visits Authorized [id number] Authorized Itemized Services 03/22/2025 03/22/2026 1 1 Encounter Details Date Type Department Care Team (Late st Contact Info) Description 03/22/2025 Community Orders Non [facility] Provider Ryder Kelly [address] [place] [address] Carotid stenosis, bilateral (Primary Dx) Social History Tobacco Use Types [...] precerebral arteries without mention of cerebral infarction documented in this encounter Care Teams Licensed Practical Nurse Instructor Relationship Specialty Start Date End Date Mary Alice Jason [facility] [address] [place] [address] PCP - General 12/23/21 documented as of this encounter
--- OUTSIDE RECORDS SUMMARY | 2025-08-17 21:52 | EXTERNAL MEDICAL SUMMARY RPT | Clinical Summary ---
Author Organization [facility] Address [address] [place] [address] Care Team Providers Care Bushel Worker Name Role Phone Mary Alice Jason Primary Care Provider Unavailabl e Source Comments NOTE: The information displayed by Care Everywhere is extracted from the complete medical record and may not identify all current or past patient conditions.[facility] Allergies Active Allergy Reactions Criticality Noted Date Comments Adhesive Tape-Silicones Other High 02/15/2022 Other reaction(s): blisters Codeine Vomit,GI upset 11/21/2012 Latex Other High 10/06/2017 blisters Meloxicam Unknown High 10/06/2017 Metformin Diarrhea 08/17/2022 Medications blood glucose meter start kit (ONETOUCH VERIO FLEX) Use twice a day as directed to check blood sugars 1 kit 1 2 4:15 PM PST 09/29/19 22 Active insulin needles 31 gauge x 5/16" Use 1 needle once intramuscularly up to 3 times/day 100 each 11 2 5:32 PM PDT 03/04/20 22 Active ibuprofen (MOTRIN) 600 mg tablet Take 1 tablet (600 mg) by mouth daily with food for pain. 30 tablet 2 2 10:42 AM PST 03/24/20 22 Active lancets 33 gauge (ONETOUCH DELICA) Use 2 times daily and as needed 200 each 3 2 1:30 PM PDT 03/31/20 22 Active methocarbamoL (ROBAXIN) 500 mg tablet Take 1 tablet by mouth every eight hours as needed for muscle spasm 21 tablet 2 4:25 PM PDT 04/07/20 22 Active pantoprazole (PROTONIX) 20 mg delayed release tablet Take 1 tablet by mouth twice a day 180 tablet 3 3 2:18 PM PDT 04/13/20 22 Active albuterol 90 mcg/actuation inhaler Inhale 2 puffs every 4 hours as needed for wheezing 20.1 g 2 6:08 PM PDT 07/05/20 22 Active insulin NPH (HUMULIN N KWIKPEN) 100 unit/mL (3 mL) sub-q pen Inject 14 units under the skin 2 times daily 15 mL 5 3 1:48 PM PDT 07/05/20 22 Active tiotropium-olo dateroL (STIOLTO RESPIMAT) 2.5-2.5 mcg/actuation inhaler Inhale 2 puffs daily 12 g 3 3 1:33 PM PDT 07/20/20 22 Active pregabalin (LYRICA) 75 mg capsule Take 1 capsule (75 mg) by mouth 2 times daily 180 capsule 2 3 5:29 PM PST 10/27/19 23 Active traMADoL (ULTRAM) 50 mg tablet Take 1 tablet (50 mg) by mouth 2 times daily as needed for pain 42 tablet 1 3 1:12 PM PST 11/02/19 23 Active pantoprazole (PROTONIX) 40 mg delayed release tablet Take 1 tablet (40 mg) by mouth 2 times daily before meals. Take 30 minutes before eating 60 tablet 3 3 3:40 PM PDT 03/10/20 23 Active insulin needles (PEN NEEDLE) 31 gauge x 5/16" use one needle with pen up to 3 times/day 100 each 11 04/12/20 23 Active lidocaine (LIDOCAINE VISCOUS) 2 % oral solution Bring to dental appointment for use with oral pain. 120 mL 3 3 11:44 AM PST 08/09/20 23 Active clobetasoL (TEMOVATE) 0.05 % topical solution Apply thin film to dry scalp once daily (maximum dose: 50 g/week or 50 mL/week); leave in place for 15 minutes, then add water, lather, and rinse thoroughly. Limit treatment to 2 consecutive weeks. 50 mL 4 7:21 PM PDT 12/14/19 24 Active escitalopram oxalate (LEXAPRO) 10 mg tablet Take 1 tablet (10 mg) by mouth daily 90 tablet 2 4 12:49 PM PST 01/19/20 24 Active ciprofloxacin- dexamethasone (CIPRODEX) 0.3-0.1 % ear drops Administer 4 drops into the right ear 2 (two) times a day for 7 days 7.5 mL 4 8:05 PM PDT 05/21/20 24 Active blood glucose test strips (ONETOUCH VERIO) Use 1 strip via meter four times a day 400 each 3 4 1:50 PM PDT 06/01/20 24 Active blood glucose meter kit (ONETOUCH VERIO FLEX) Use twice daily as directed to check blood sugars 1 each 4 12:55 PM PDT 06/20/20 24 Active semaglutide (OZEMPIC) 2 mg/dose (8 mg/3 mL) sub-q pen Inject 2 mg under the skin once a week . Inject into the abdomen, thigh, or upper arm at any time of day on the same day each week. 3 mL 6 5 8:54 AM PST 08/31/20 24 Active sodium chloride 3 % neb solution Take 4 mL by nebulization as needed for cough Use after albuterol nebulizer 4 times daily to avoid bronchospasm 240 mL 12 5 9:48 AM PDT 09/07/20 24 Active verapamiL (CALAN SR) 120 mg extended release tablet Take 1 tablet (120 mg) by mouth 2 times daily 180 tablet 3 5 6:02 PM PDT 09/18/19 25 Active clobetasoL (TEMOVATE) 0.05 % topical solution Apply to scalp twice a day to affected red itchy areas for 7 days. After 7 days, Then switch to calcipotriene 50 mL 1 5 10:42 PM PST 09/19/19 25 Active hydrocortisone 2.5 % topical ointment Apply thin film to affected areas on ears, face, neck x 7 days. Then switch to tacrolimus. 28.35 g 3 5 10:42 PM PST 09/19/19 25 Active tacrolimus (PROTOPIC) 0.1 % topical ointment After hydrocortisone course, apply to affected areas on neck, face, ears twice a day as maintenance therapy 60 g 11 5 10:42 PM PST 09/19/19 25 Active rosuvastatin (CRESTOR) 40 mg tablet Take 1 tablet by mouth every evening 90 tablet 3 5 8:55 AM PDT 12/28/19 25 Active acyclovir (ZOVIRAX) 400 mg tablet Take 1 tablet (400 mg) by mouth 2 times daily for prevention of cold sores 180 tablet 3 5 8:54 AM PST 01/17/20 25 Active albuterol 90 mcg/actuation inhaler Inhale 2 puffs every 4 hours as needed for wheezing. 20.1 g 2 5 10:39 AM PDT 01/20/20 25 Active calcipotriene (DOVONEX) 0.005 % topical solution Apply to red itchy areas on scalp twice daily for maintenance (after finishing 7 days of topical steroid). 60 mL 11 5 10:13 PM PDT 01/19/20 25 Active losartan (COZAAR) 100 mg tablet Take 1 tablet (100 mg) by mouth daily for high blood pressure 90 tablet 3 5 11:55 AM PST 01/25/20 25 Active levothyroxine (SYNTHROID) 0.2 mg tablet Take 1 tablet (0.2 mg) by mouth six times per week Skip dose one day a week 90 tablet 1 5 6:18 AM PDT 03/08/20 25 Active amoxicillin (AMOXIL) 500 mg tablet Take 1 tablet (500 mg) by mouth 3 times daily until gone. Start the day prior to the procedure. 21 tablet 5 5:22 PM PDT 03/18/20 25 Active chlorhexidine (PERIDEX) 0.12 % mouthwash Swish and spit with 15 mL 2 times daily. Begin 4 days prior to surgery. Discontinue 10 days after surgery 473 mL 5 5:22 PM PDT 03/18/20 25 Active DULoxetine (CYMBALTA) 60 mg delayed release capsule Take 1 capsule (60 mg) by mouth daily 90 capsule 3 5 6:22 PM PST 04/19/20 25 Active ipratropium-al buteroL (DUONEB) 0.5 mg-3 mg/3 mL neb solution Inhale contents of 1 vial (1 ampule) via nebulizer 4 times daily 180 mL 3 5 4:56 PM PDT 07/04/20 25 Active pregabalin (LYRICA) 50 mg capsule Take 1 capsule (50 mg) by mouth 2 times daily 60 capsule 4 5 8:22 PM PST 07/30/20 25 Active tiotropium-olo dateroL (STIOLTO RESPIMAT) 2.5-2.5 mcg/actuation inhaler Inhale 2 puffs daily 12 g 3 5 7:39 PM PST 08/06/20 25 Active pantoprazole (PROTONIX) 40 mg delayed release tablet Take 1 tablet (40 mg) by mouth daily 90 tablet 4 5 6:45 PM PST 08/07/20 25 Active estradiol-nore thindrone (COMBIPATCH) 0.05-0.14 mg/24 hr twice weekly transdermal patch APPLY PATCH TWICE WEEKLY T0 CLEAN DRY SKIN 24 patch 3 11/18/19 16 022 Discontinu ed(Therapy completed) amitriptyline (ELAVIL) 25 mg tablet TAKE ONE TABLET BY MOUTH AT BEDTIME FOR BACK PAIN. L&I 30 tablet 10 02/10/20 16 017 Discontinu ed(Patient declined/s topped) atorvastatin (LIPITOR) 80 mg tablet Take 1 tablet (80 mg) by mouth every evening for choleserol (replaces simvastatin) 90 tablet 3 7 3:14 PM PST 09/07/20 16 018 Discontinu ed(Alterna te therapy) ranitidine (ZANTAC) 150 mg tablet Take 1 tablet (150 mg) by mouth 2 times daily 180 tablet 4 8 1:31 PM PDT 04/20/20 18 022 Discontinu ed(Therapy completed) lisinopril (ZESTRIL, PRINIVIL) 10 mg tablet Take 1 tablet (10 mg) by mouth daily 90 tablet 3 9 3:28 PM PDT 04/20/20 18 022 Discontinu ed(Therapy completed) FLUoxetine (PROZAC) 10 mg capsule Take 1 capsule (10 mg) by mouth daily 90 capsule 3 8 5:17 PM PST 08/29/20 18 022 Discontinu ed(Therapy completed) diazePAM (VALIUM) 2 mg tablet Take 1 tablet (2 mg) by mouth at bedtime as needed. Maximum of once daily. 30 tablet 9 4:18 PM PDT 01/27/20 19 022 Discontinu ed(Therapy completed) traZODone (DESYREL) 50 mg tablet Take 1 tablet (50 mg) by mouth at bedtime as needed for insomnia 90 tablet 3 9 6:32 PM PDT 02/14/20 19 022 Discontinu ed(Therapy completed) budesonide-for moteroL (SYMBICORT) 160-4.5 mcg/actuation inhaler Inhale two actuations twice daily, rinse mouth after use 10.2 g 2 1 4:20 PM PST 09/18/19 21 022 Discontinu ed(Therapy completed) buPROPion (WELLBUTRIN XL) 300 mg extended release (24 hr) tablet Take 1 tablet (300 mg) by mouth every morning 90 tablet 3 1 6:25 PM PDT 10/23/19 21 021 Discontinu ed(Patient declined/s topped) celecoxib (CELEBREX) 200 mg capsule Take 1 capsule (200 mg) by mouth daily 90 capsule 2 05/14/20 21 021 Discontinu ed(Patient declined/s topped) glimepiride (AMARYL) 2 mg tablet Take 1 tablet (2 mg) by mouth daily with breakfast 90 tablet 3 1 2:20 PM PDT 05/20/20 21 021 Discontinu ed(Patient declined/s topped) insulin glargine (LANTUS SOLOSTAR U-100 INSULIN) 100 unit/mL (3 mL) sub-q pen Inject 15 units under the skin every evening 15 mL 3 06/30/20 21 021 Discontinu ed(Discont inued by another clinician) omeprazole (PRILOSEC) 40 mg delayed release capsule Take 1 capsule (40 mg) by mouth 2 times daily 180 capsule 3 2 3:41 PM PST 09/23/19 22 023 Discontinu ed(Alterna te therapy) esomeprazole magnesium (NEXIUM) 40 mg delayed release capsule Take 1 capsule by mouth once a day 30 capsule 3 04/07/20 22 022 Discontinu ed(Duplica te) pravastatin (PRAVACHOL) 20 mg tablet Take 1 tablet by mouth every night 90 tablet 3 3 4:58 PM PDT 04/13/20 22 023 Discontinu ed(Discont inued by another clinician) metFORMIN (GLUCOPHAGE) 500 mg tablet Take 2 tablets (1,000 mg) by mouth 2 times daily 360 tablet 3 2 4:08 PM PST 05/24/20 22 022 Discontinu ed(Allergy /Intoleran ce/Side effects) empagliflozin (JARDIANCE) 10 mg tablet Take 1 tablet (10 mg) by mouth every morning 30 tablet 12 3 12:21 PM PDT 06/30/20 22 023 Discontinu ed(Discont inued by another clinician) insulin lispro (HUMALOG KWIKPEN INSULIN) 100 unit/mL (3 mL) sub-q pen Inject 5 units under the skin 3 times daily with meals. Start with ONE meal per day. Advance as needed WITH meals only 15 mL 3 3 11:51 AM PDT 09/22/19 23 023 Discontinu ed(Patient declined/s topped) cilostazoL (PLETAL) 50 mg tablet Take 1 tablet (50 mg) by mouth 2 times daily 30 tablet 3 3 3:54 PM PDT 01/28/20 23 024 Discontinu ed(Therapy completed) famotidine (PEPCID) 20 mg tablet Take 1 tablet (20 mg) by mouth 2 times daily as needed as directed for acid reflux 180 tablet 1 5 10:49 AM PDT 12/28/19 25 025 Discontinu ed(Discont inued by another clinician) pregabalin (LYRICA) 50 mg capsule Take 1 capsule (50 mg) by mouth 2 times daily 60 capsule 4 5 4:00 PM PDT 03/08/20 25 025 Discontinu ed(Reorder ed) tiotropium-olo dateroL (STIOLTO RESPIMAT) 2.5-2.5 mcg/actuation inhaler Inhale 2 puffs daily 4 g 3 5 8:14 AM PDT 04/10/20 25 025 Discontinu ed(Reorder ed) Active Problems Problem Noted Date Diagnosed Date Psoriasis vulgaris 12/30/2022 Allergic rhinitis 02/23/2018 Overview (02/23/2018): Condition was added by Paz willett as part of pharmacy chronic condition review. Asthma 02/23/2018 Overview (02/23/2018): Condition was added by Paz willett as part of pharmacy chronic condition review. Chronic pain 02/23/2018 Overview (02/23/2018): Condition was added by Paz willett as part of pharmacy chronic condition review. Chronic obstructive pulmonary disease (COPD) Overview (02/23/2018): Condition was added by Paz willett as part of pharmacy chronic condition review. Depression 02/23/2018 Overview (02/23/2018): Condition was added by Paz willett as part of pharmacy chronic condition review. Diabetes 02/23/2018 Overview (02/23/2018): Condition was added by Paz willett as part of pharmacy chronic condition review. GERD (gastroesophageal reflux disease) 8 Overview (02/23/2018): Condition was added by Paz willett as part of pharmacy chronic condition review. High blood pressure 02/23/2018 Overview (02/23/2018): Condition was added by Paz willett as part of pharmacy chronic condition review. Migraine 02/23/2018 Overview (02/23/2018): Condition was added by Paz willett as part of pharmacy chronic condition review. Stroke 02/23/2018 Overview (02/23/2018): Condition was added by Paz willett as part of pharmacy chronic condition review. Patient marked CVD, Stroke, TIA on ACC form. Hyperlipidemia 01/02/2018 Overview (01/02/2018): Condition was added by Dakota Tucker [facility] as part of pharmacy chronic condition review. Hypothyroid 04/30/2016 Encounters Date Type Department Care Team Description 08/16/2025 [facility] Telephone Encounter [facility] [address] [place] [phone] Vera Jimenez MD Lab/test Results; Message Center Call 08/16/2025 [facility] Telephone Encounter [facility] [address] [place] [phone] Vera Jimenez MD Message Center Call 08/15/2025 [facility] Telephone Encounter [facility] [address] [place] [phone] Vera Jimenez MD Message Center Call; Medication Consult 08/13/2025 5:59 PM PST - 08/14/2025 2:15 PM PST Hospital Encounter [facility] [address] [place] [address] Virtual, Generic Provider - Inpatient Discharge Disposition: Home or Self Care 07/24/2025 11:00 AM PST Phone Visit [facility] [address] [place] [phone] Vera Jimenez MD Allodynia (Primary Dx); Elevated serum tryptase; Dizziness 07/04/2025 Telephone Mail Order Pharmacy [address] [place] [phone] Padmini Gann [facility] Drug Use Management ([facility]); Encounter Opened in Error 06/26/2025 Community Orders Non [facility] Provider Codi Ricardo Hx of colonic polyps (Primary Dx); Diarrhea, unspecified type; 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; Gastroesophageal reflux disease without esophagitis 06/17/2025 [facility] Provider Mary Alice Jason Pap smear abnormality of cervix/human papillomavirus (HPV) positive (Primary Dx); Colon cancer screening 06/15/2025 [facility] Provider Mary Alice Jason Pap smear abnormality of cervix/human papillomavirus (HPV) positive (Primary Dx); Colon cancer screening 06/04/2025 [facility] Provider Margarita Lopez Elevated serum tryptase (Primary Dx); Burning sensation of skin; S/P carotid endarterectomy; Type 2 diabetes mellitus with diabetic polyneuropathy, with long-term current use of insulin 05/30/2025 [facility] Margarita Lopez Elevated serum tryptase (Primary Dx); Burning sensation of skin; S/P carotid endarterectomy; Type 2 diabetes mellitus with diabetic polyneuropathy, with long-term current use of insulin 05/27/2025 [facility] Provider Margarita Lopez 05/20/2025 [facility] Margarita Lopez Elevated serum tryptase (Primary Dx); Burning sensation of skin; S/P carotid endarterectomy; Type 2 diabetes mellitus with diabetic polyneuropathy, with long-term current use of insulin from Last 3 Months Immunizations Immunization Administration Dates Next Due *HIGH DOSE SYRINGE* FluZONE (65+ yrs) TRI 05/20/2025 *STANDARD DOSE SYRINGE* (FluARIX,FluLAVAL,FluZONE) (6+ mos) TRI 07/06/2024 *STANDARD DOSE SYRINGE* (FluLAVAL,FluZONE,FluARIX or AFLURIA) (6+ mos) QUAD 05/27/2023,07/07/2022,06/12/2019,05/31,06/05/2014,06/04/2013 FluVIRIN (4+ years) Tri *VIAL* ,06/21/2012,06/14/2011,07/15 Hep B Adult, Adjuvanted (HEP LISAV-B, 2 Dose Series) 01/08/2022 HepA (Hepatitis A) 05/25/1999,10/13/1998 HepA, unspecified formulation 05/25/1999, 999 HepB (Hepatitis B) 11/05/2013,06/04/2013, 013 Herpes Zoster (SHINGRIX) 06/09/2022,04/07/2022 Influenza (0.5 not PF) 06/21/2012,06/14/2011 Influenza (0.50 not PF) 07/15/2010 Moderna SARS-CoV-2 Vaccinati on (12 + y/o)(PULP SCREEN OPERATOR) 12/12/2021 Moderna SARS-CoV-2 Vaccinati on (mNEXSPIKE) (12 + y/o) 05/20/2025 PCV20 (PREVNAR 20, Pneumococ sachi Conjugate Vaccine 20-Valent) 06/14/2025 PPV23 (PNEUMOVAX 23, Pneumoc occal Polysaccharide Vaccine) 07/15/2010 Pfizer SARS-CoV-2 Vaccinatio n (12 + y/o) (PURPLE CAP) 04/30/2021,10/16/2020,09/25/2020 Pfizer SARS-CoV-2 Vaccinatio n (12 + y/o)(Bivalent Formulation)(FRANCIS CAP) 06/23/2022 Pfizer SARS-CoV-2 Vaccinatio n (COMIRNATY) (12+ y/o) 06/22/2024,06/10/2023 RSV Vaccination (AREXVY) (50 + yrs), Recombinant 07/12/2023 Td (Tetanus, Diphtheria) 10/13/1998 Tdap (Tetanus, Diphtheria, a cellular Pertussis) 04/07/2022,01/24/2012 Social History Tobacco Use Types Packs/Day Years Used Date Smoking Tobacco: Never Assessed Comments Unknown Sex and Gender Information Value Date Recorded Sex Assigned at Not on file Legal Sex Female 5:59 AM PST Gender Identity Not on file Sexual Orientation Not on file Plan of Treatment Health Maintenance Due Date Last Done Comments COL-S Colonoscopy Needs Review/SmartForm Update 1959 Lab Test: Creatinine (med monitoring) 1959 Lab Test: Potassium (med monitoring) 1959 Lab Test: TSH (med monitoring) 1959 Personal Assessment of Total Health (PATH) 1959 Blood Pressure Check 1959 Diabetes Eye Exam 1961 Lab Test: Microalbumin 1970 Lab Test: eGFR 1970 Adult HIV Screen (1-time) 1974 DM Foot Exam 1977 Hep C Screening (1-time) 1977 Breast Cancer Screening: Mammogram 1999 Health Profile 2024 Vaccine: COVID-19 ( season) 2025 06/22/2024, 06/10/2023, 06/23/2022, Additional history exists Lab Test: A1C (Diabetes) 09/13/2025 025, 03/13/2025, 02/15/2022, Additional history exists Lab Test: A1C (med monitoring) 03/13/2026 0 03/13/2025, 03/13/2025, 02/15/2022, Additional history exists Vaccine: XFiS-Rsrd-Sb (3 - T d or Tdap) 04/07/2032 04/07/2022, 01/24/2012, 10/13/1998 COL-S Colonoscopy 08/07/2035 08/07/2025 Vaccine: Shingles Completed 06/09/2022, 04/07/2022 Vaccine: RSV Completed 07/12/2023 FLU VACCINE Completed 05/20/2025, 06/13, 05/27/2023, Additional history exists Vaccine: Pneumococcal Completed 06/14/2025, [address] [place] [address] [employer] OTHER S[employer]F [employer]ING [employer] Advance Directives For more information, please contact: [phone] Documents on File Type Date Recorded Patient Copyholder Expl anation Durable Power of Dial Maker Advance Directive and Living Will Care Teams Bushel Worker Relationship Specialty Start Date End Date [facility] [address] [place] [address] PCP - General 12/23/21
--- OUTSIDE RECORDS SUMMARY | 2025-08-17 21:52 | EXTERNAL MEDICAL SUMMARY RPT | Encounter Summary ---
Author Organization [facility] Address [address] [place] [address] Care Team Providers Care Cake Icer Name Role Phone Mary Alice Jason Primary Care Provider Unavailabl e Reason for Referral * Outpatient Service (Routine) - Authorized Specialty Diagnoses / Procedures Referred By Isamar jim Referred To Contact Rheumatology Diagnoses Other disturbances of skin sensation Procedures REF RHEUMATOLOGY - EXTERNAL OFFICE/OUTPATIENT ESTABLISHED MOD MDM 30 MIN Mary Alice Jason PRIMARY CAR [address] [place] [address] [facility] [address] [place] [phone] Referral ID Status Reason Start Date Expiration Date Visits Requested Visits Authorized [id number] Authorized Evaluate and Treat-Surgery if Indicated 12/28/2024 12/28/2025 6 6 * Outpatient Service (Routine) - Authorized Specialty Diagnoses / Procedures Referred By Isamar jim Referred To Contact Neurology Diagnoses Allodynia Procedures REF NEUROLOGY - EXTERNAL OFFICE/OUTPATIENT ESTABLISHED MOD MDM 30 MIN Mary Alice Jason PRIMARY [facility] [address] [place] [address] [facility] [address] [place] [phone] Referral ID Status Reason Start Date Expiration Date Visits Requested Visits Authorized [id number] Authorized Evaluate and Treat-Surgery if Indicated 12/28/2024 12/28/2025 6 6 Encounter Details Date Type Department Care Team (Latest Contact Info) Description 12/28/2024 Community Orders Non [facility] Provider Mary Alice Jason PRIMARY CAR [address] [place] [address] Allodynia (Primary Dx); Other disturbances of skin sensation Social History Tobacco Use Types Packs/Day [...] as of this encounter Visit Diagnoses Diagnosis Allodynia- Primary Disturbance of skin sensation Other disturbances of skin sensation documented in this encounter Care Teams Cake Icer Relationship Specialty Start Date End Date Mary Alice Jason [facility] PRIMARY [facility] [address] [place] [address] PCP - General 12/23/21 documented as of this encounter
--- OUTSIDE RECORDS SUMMARY | 2025-08-17 21:52 | EXTERNAL MEDICAL SUMMARY RPT | Encounter Summary ---
Author Organization [facility] Address [address] [place] [address] Care Team Providers Care Strategic Sourcing Manager Name Role Phone Mary Alice Jason Primary Care Provider Unavailabl e Reason for Referral * Outpatient Service (Routine) - Closed Specialty Diagnoses / Procedures Referred By Contac t Referred To Contact Pulmonary Medicine Diagnoses Cough Chronic obstructive pulmonary disease, unspecified COPD type Procedures REF PULMONOLOGY - EXTERNAL OFFICE VISIT E&M EST PT, MODERATE MDM, 30-39 MINS Maynor Sung [address] [phone] Phone: tel: fax: [facility] [address] [place] [address] Referral ID Status Reason Start Date Expiration Date V isits Requested Visits Authorized [id number] Closed Evaluate and Treat-Surgery if Indicated 06/10/2022 06/10/2023 6 6 * Outpatient Service (Routine) - Closed Specialty Diagnoses / Procedures Referred By Contac t Referred To Contact Sleep Medicine Diagnoses Respiratory obstruction Procedures REF SLEEP DISORDER - EXTERNAL OFFICE VISIT E&M EST PT, MODERATE MDM, 30-39 MINS Maynor Sung [facility] SURGERY [address] [place] [phone] Phone: tel: fax: [facility] [address] [place] [address] Phone: tel: Referral ID Status Reason Start Date Expiration Date V isits Requested Visits Authorized [id number] Closed Evaluate and Treat-Surgery if Indicated 06/10/2022 06/10/2023 6 6 * Radiology (Routine) - Closed Specialty Diagnoses / Procedures Referred By Isamar t Referred To Contact Radiology Diagnoses Chronic pansinusitis Postnasal drip Procedures REF RADIOLOGY CT MAXILLOFACIAL W/O CONTRAST Maynor Sung [facility] SURGERY [address] [place] [phone] Phone: tel: fax: Imaging, [facility] [address] [place] [address] Referral ID Status Reason Start Date Expiration Date V isits Requested Visits Authorized [id number] Closed Itemized Services 06/09/2022 09/07/2022 4 4 Encounter Details Date Type Department Care Team (Latest Contact Info) Description 06/09/2022 Community Orders Non [facility] Provider Maynor Sung [address] [place] [phone] Chronic pansinusitis (Primary Dx); Postnasal drip; Respiratory obstruction; Cough; Chronic obstructive pulmonary disease, unspecified COPD type Social History Tobacco Use Types Packs/Day Years [...] of this encounter Visit Diagnoses Diagnosis Chronic pansinusitis- Primary Other chronic sinusitis Postnasal drip Respiratory obstruction Other diseases of respiratory system, not elsewhere classified Cough Chronic obstructive pulmonary disease, unspecified COPD type documented in this encounter Care Teams Strategic Sourcing Manager Relationship Specialty Start Date End Date Mary Alice Jason [facility] PRIMARY CAR [address] [place] [address] PCP - General 12/23/21 documented as of this encounter
--- OUTSIDE RECORDS SUMMARY | 2025-08-17 21:52 | EXTERNAL MEDICAL SUMMARY RPT | Encounter Summary ---
Author Organization [facility] Address [address] [place] [address] Care Team Providers Care Canadian Bacon Tier Name Role Phone Mary Alice Jason Primary Care Provider Unavailabl e Reason for Referral * Outpatient Service (Routine) - Authorized Specialty Diagnoses / Procedures Referred By Contact Referred To Contact Nutritional Counseling Diagnoses Type 2 diabetes mellitus without complication, unspecified whether senior living insulin use Procedures REF NUTRITION FORM MAKER PLASTER MED NUTRIT THRPY INIT ASSESS 15 MIN Mary Alice Jason [facility] PR[facility] [address] [place] [address] [facility] [address] [address] [place] [address] Referral ID Status Reason Start Date Expiration Date Visits Requested Visits Authorized [id number] Authorized Itemized Services 10/04/2022 10/04/2023 999 999 * Outpatient Service (Routine) - Authorized Specialty Diagnoses / Procedures Referred By Contac t Referred To Contact Orthopedic Surgery Diagnoses Spinal stenosis of lumbar region, unspecified whether neurogenic claudication present Procedures REF ORTHO EXTERNAL OFFICE VISIT E&M EST PT, MODERATE MDM, 30-39 MINS Mary Alice Jason [facility] [address] [place] [address] Ps, [facility] [address] [place] [phone] Referral ID Status Reason Start Date Expiration Date Visits Requested Visits Authorized [id number] Authorized Evaluate and Treat-Surgery if Indicated 10/04/2022 10/04/2023 6 6 Encounter Details Date Type Department Care Team (Latest Contact Info) Description 10/04/2022 Community Orders Non [facility] Provider Mary Alice Jason [facility] [address] [place] [address] Spinal stenosis of lumbar region, unspecified whether neurogenic claudication present (Primary Dx); Type 2 diabetes mellitus without complication, unspecified whether terminal makeup operator insulin use Social History Tobacco Use Types Packs/Day Years [...] of this encounter Visit Diagnoses Diagnosis Spinal stenosis of lumbar region, unspecified whether neurogenic claudication present- Primary Type 2 diabetes mellitus without complication, unspecified whether senior living insulin use documented in this encounter Care Teams Canadian Bacon Tier Relationship Specialty Start Date End Date Mary Alice Jason [employer] PRIMARY CAR [address] [place] [address] PCP - General 12/23/21 documented as of this encounter
--- OUTSIDE RECORDS SUMMARY | 2025-08-17 21:52 | EXTERNAL MEDICAL SUMMARY RPT | Encounter Summary ---
Author Organization [facility] Address [address] [place] [address] Care Team Providers Care Assembler Radio And Electrical Name Role Phone Mary Alice Jason Primary Care Provider Unavailabl e Reason for Referral * Outpatient Service (Routine) - Authorized Specialty Diagnoses / Procedures Referred By Controb t Referred To Contact Otolaryngology (ENT) Diagnoses Throat pain Globus sensation Procedures REF BIANCA/ENT - EXTERNAL OFFICE VISIT E&M EST PT, MODERATE MDM, 30-39 MINS Amanda Adair fax: [facility] [address] [place] [address] Referral ID Status Reason Start Date Expiration Date Visits Requested Visits Authorized [id number] Authorized Evaluate and Treat-Surgery if Indicated 01/05/2023 01/06/2024 6 6 Encounter Details Date Type Department Care Team (Late st Contact Info) Description 01/05/2023 Community Orders Non [facility] Provider Amanda Adair [address] [facility] [id number] [place], [place] [id number] Throat pain (Primary Dx); Globus sensation Social [...] factors documented in this encounter Care Teams Assembler Radio And Electrical Relationship Specialty Start Date End Date Mary Alice Jason [facility] PRIMARY CAR [address] [place] [address] PCP - General 12/23/21 documented as of this encounter
--- OUTSIDE RECORDS SUMMARY | 2025-08-17 21:52 | EXTERNAL MEDICAL SUMMARY RPT | Encounter Summary ---
Author Organization [facility] Address [address] [place] [address] Care Team Providers Care Transcriber Name Role Phone Mary Alice Jason Primary Care Provider Unavailgaye e Reason for Referral * PT/OT/ST (Routine) - Closed Specialty Diagnoses / Procedures Referred By Controb t Referred To Contact Physical Therapy Diagnoses Bilateral hip pain Procedures REF PT/OT THERA PROC 1+ AREAS EA 15 MIN THERA EXERCISES Chelsey Romano BuildingOpsNARGISHappy [employer] PRIMARY CAR [address] [place] [address] Phone: tel: [facility] [address] [place] [address] Referral ID Status Reason Start Date Expiration Date V isits Requested Visits Authorized [id number] Closed Itemized Services 03/05/2022 03/05/2023 15 15 Encounter Details Date Type Department Care Team (Late st Contact Info) Description 03/05/2022 Community Orders Non [facility] Provider Chelsey Romano BuildingOpsNARIGSHappy [employer] PRIMARY CAR [address] [place] [address] Bilateral hip pain (Primary Dx) Social History [...] thigh documented in this encounter Care Teams Transcriber Relationship Specialty Start Date End Date ErenMarshain [facility] PRIMARY CAR [address] [place] [address] PCP - General 12/23/21 documented as of this encounter
--- OUTSIDE RECORDS SUMMARY | 2025-08-17 21:52 | EXTERNAL MEDICAL SUMMARY RPT | Encounter Summary ---
Author Organization [facility] Address [address] [place] [address] Care Team Providers Care Security Test Engineer Name Role Phone SharathDemetra stone Serafin Primary Care Provider [phone] Mary Alice Jason Primary Care Provider Unavailabl e Reason for Referral * Outpatient Service (Routine) - Closed Specialty Diagnoses / Procedures Referred By Contac t Referred To Contact Anesthesiology Diagnoses Chronic obstructive pulmonary disease, unspecified COPD type Procedures REF ANESTHESIOLOGY ANES LWR INTESTINAL ENDO PX, INTRO DISTAL/DUODENUM, SCREENING COL ANES UPR GI ENDO PX, INTRO PROXIMAL TO DUODERM, NOS Kosta Escobar MD Phone: tel: fax: [facility] [address] [place] [address] Referral ID Status Reason Start Date Expiration Date V isits Requested Visits Authorized [id number] Closed Procedure Only 07/16/2021 07/16/2022 1 1 * Outpatient Service (Routine) - Closed Specialty Diagnoses / Procedures Referred By Contac t Referred To Contact Gastroenterology Diagnoses Personal history of colonic polyps Dysphagia, unspecified type Procedures REF GASTROENTEROLOGY COLONOSCOPY W/ BX SINGLE/MULT UPPER GI ENDO W/ BX SINGLE/MULT UPPER GI ENDO DX (MAY PROC) Kosta Escobar MD Phone: tel: fax: [facility] [address] [place] [address] Referral ID Status Reason Start Date Expiration Date V isits Requested Visits Authorized [id number] Closed Procedure Only 07/16/2021 07/16/2022 1 1 Encounter Details Date Type Department Care Team (Late st Contact Info) Description 07/16/2021 Community Orders Non [facility] Provider Kosta Escobar MD [address] [place] [address] Personal history of colonic polyps (Primary Dx); Dysphagia, unspecified type; Chronic obstructive pulmonary disease, unspecified COPD type [...] Diagnosis Personal history of colonic polyps- Primary Dysphagia, unspecified type Chronic obstructive pulmonary disease, unspecified COPD type documented in this encounter Care Teams Security Test Engineer Relationship Specialty Start Date End Date Demetra Clark [email or web address] PR[facility] CAR [address] [place], [place] [id number] PCP - General 05/16/18 12/22/21 Mary Alice Jason [employer] PRIMARY CAR [address] [place] [address] PCP - General 12/23/21 documented as of this encounter
--- OUTSIDE RECORDS SUMMARY | 2025-08-17 21:52 | EXTERNAL MEDICAL SUMMARY RPT | Encounter Summary ---
Author Organization [facility] Address [address] [place] [address] Care Team Providers Care Lawn Mower Name Role Phone Mary Alice Jason Primary Care Provider Unavailabl e Reason for Referral * Outpatient Service (Routine) - Closed Specialty Diagnoses / Procedures Referred By Isamar jim Referred To Contact Podiatry Diagnoses Type 2 diabetes mellitus without complication, with long-term current use of insulin Procedures REF PODIATRY OFFICE VISIT E&M EST PT, MODERATE MDM, 30-39 MINS Jayjay Lees [facility] [address] [place] [address] Ps, [facility] [address] [place] [address] fax: Referral ID Status Reason Start Date Expiration Date V isits Requested Visits Authorized [id number] Closed Evaluate and Treat-Surgery if Indicated 02/23/2022 02/23/2023 6 6 Encounter Details Date Type Department Care Team (Late st Contact Info) Description 02/23/2022 Community Orders Non [facility] Provider Jayjay Lees [facility] [address] [place] [address] Type 2 diabetes mellitus without complication, with long-term current use of insulin (Primary Dx) Social History Tobacco Use Types [...] Diagnosis Type 2 diabetes mellitus without complication, with long-term current use of insulin- Primary documented in this encounter Care Teams Lawn Mower Relationship Specialty Start Date End Date Mary Alice Jason [facility] PRIMARY CAR [address] [place] [address] PCP - General 12/23/21 documented as of this encounter
--- OUTSIDE RECORDS SUMMARY | 2025-08-17 21:52 | EXTERNAL MEDICAL SUMMARY RPT | Encounter Summary ---
Author Organization [facility] Address [address] [place] [address] Care Team Providers Care Mailroom Courier Name Role Phone Mary Alice Jason Primary Care Provider Unavailgaye e Reason for Referral * PT/OT/ST (Routine) - Authorized Specialty Diagnoses / Procedures Referred By Contac t Referred To Contact Physical Therapy Diagnoses Inguinal pain, unspecified laterality Procedures REF PHYSICAL THERAPY - EXTERNAL THERA PROC 1+ AREAS EA 15 MIN THERA EXERCISES Rita [facility] PR[facility] [address] [place] [address] Phone: tel: fax: [facility] [address] [phone] Referral ID Status Reason Start Date Expiration Date Visits Requested Visits Authorized [id number] Authorized Itemized Services 02/25/2025 02/25/2026 15 15 Encounter Details Date Type Department Care Team (Late st Contact Info) Description 02/25/2025 Community Orders Non [facility] Provider Rita Forrest PRIMARY CAR [address] [place] [address] Inguinal pain, unspecified laterality (Primary Dx) Social History Tobacco [...] as of this encounter Visit Diagnoses Diagnosis Inguinal pain, unspecified laterality- Primary documented in this encounter Care Teams Mailroom Courier Relationship Specialty Start Date End Date Mary Alice Jason [facility] PRIMARY CAR [address] [place] [address] PCP - General 12/23/21 documented as of this encounter
--- OUTSIDE RECORDS SUMMARY | 2025-08-17 21:53 | EXTERNAL MEDICAL SUMMARY RPT | Encounter Summary ---
Author Organization [facility] Address [address] [place] [address] Care Team Providers Care Sports Attorney Name Role Phone Mary Alice Jason Primary Care Provider Aster ayers Reason for Referral * Outpatient Service (Routine) - Authorized Specialty Diagnoses / Procedures Referred By Isamar jim Referred To Contact Dermatology Diagnoses Neoplasm of unspecified nature of bone, soft tissue, and skin Procedures REF DERMATOLOGY-EXTERNAL OFFICE VISIT E&M EST PT, MODERATE MDM, 30-39 MINS Mary Alice Jason PRIMARY CAR [address] [place] [address] [facility] [address] [place] [address] Referral ID Status Reason Start Date Expiration Date Visits Requested Visits Authorized [id number] Authorized Evaluate and Treat-Surgery if Indicated 12/08/2022 12/09/2023 6 6 Encounter Details Date Type Department Care Team (Late st Contact Info) Description 12/08/2022 Community Orders Non [facility] Provider Mary Alice Jason PRIMARY CAR [address] [place] [address] Neoplasm of unspecified nature of bone, soft [...] Primary documented in this encounter Care Teams Sports Attorney Relationship Specialty Start Date End Date Eren Mary Alice [facility] PRIMARY CAR [address] [place] [address] PCP - General 12/23/21 documented as of this encounter
--- OUTSIDE RECORDS SUMMARY | 2025-08-17 21:53 | EXTERNAL MEDICAL SUMMARY RPT | Encounter Summary ---
Author Organization [facility] Address [address] [place] [address] Care Team Providers Care Senior Oracle Dba Name Role Phone Mary Alice Jason Primary Care Provider Unavailgaye e Reason for Referral * Outpatient Service (Routine) - Authorized Specialty Diagnoses / Procedures Referred By Isamar t Referred To Contact Vascular Surgery Diagnoses Peripheral vascular disease, unspecified Procedures REF VASC SURG REVSC OPN/PRQ ILIAC ART W/STNT PLMT & ANGIOP UNI REVSC OPN/PRQ ILIAC ART W/STNT & ANGIOP IPSI VSL Lawrence Pathak Phone: tel: fax: [facility] [address] [address] [place] [address] Referral ID Status Reason Start Date Expiration Date Visits Requested Visits Authorized [id number] Authorized Procedure Only 03/16/2023 03/15/2024 1 1 Encounter Details Date Type Department Care Team (Late st Contact Info) Description 03/16/2023 Community Orders Non [facility] Provider Lawrence Pathak [address] [phone] Peripheral vascular disease, unspecified (Primary Dx) Social History Tobacco Use Types [...] Diagnoses Diagnosis Peripheral vascular disease, unspecified- Primary documented in this encounter Care Teams Senior Oracle Dba Relationship Specialty Start Date End Date Mary Alice Jason [facility] PRIMARY CAR [address] [place] [address] PCP - General 12/23/21 documented as of this encounter
--- OUTSIDE RECORDS SUMMARY | 2025-08-17 21:53 | EXTERNAL MEDICAL SUMMARY RPT | Encounter Summary ---
Author Organization [facility] Address [address] [place] [address] Care Team Providers Care Hide Mill Worker Name Role Phone Mary Alice Jason Primary Care Provider Unavailabl e Reason for Referral * PT/OT/ST (Routine) - Authorized Specialty Diagnoses / Procedures Referred By Isamar jim Referred To Contact Physical Therapy Diagnoses Urinary incontinence, unspecified type Procedures REF PHYSICAL THERAPY - EXTERNAL THERA PROC 1+ AREAS EA 15 MIN THERA EXERCISES Ludy Brown [facility] PRIMARY CAR [address] [place] [address] [facility] Occupational And Physical Therapy [address] [place] [address] Referral ID Status Reason Start Date Expiration Date Visits Requested Visits Authorized [id number] Authorized Itemized Services 03/23/2023 03/23/2024 15 15 * Outpatient Service (Routine) - Authorized Specialty Diagnoses / Procedures Referred By Controb t Referred To Contact Dermatology Diagnoses Candidiasis of skin Procedures REF DERMATOLOGY-EXTERNAL OFFICE VISIT E&M EST PT, MODERATE MDM, 30-39 MINS Ludy Brown [facility] PRIMARY CAR [address] [place] [address] [facility] [address] [place] [address] Referral ID Status Reason Start Date Expiration Date Visits Requested Visits Authorized [id number] Authorized Evaluate and Treat-Surgery if Indicated 03/23/2023 03/23/2024 6 6 * Outpatient Service (Routine) - Authorized Specialty Diagnoses / Procedures Referred By Isamar jim Referred To Contact Orthopedic Surgery Diagnoses Spinal stenosis of lumbar region, unspecified whether neurogenic claudication present Procedures REF ORTHO EXTERNAL OFFICE VISIT E&M EST PT, MODERATE MDM, 30-39 MINS Ludy Brown [employer] PRIMARY CAR [address] [place] [address] [facility] [address] [place] [address] Referral ID Status Reason Start Date Expiration Date Visits Requested Visits Authorized [id number] Authorized Evaluate and Treat-Surgery if Indicated 03/23/2023 03/23/2024 6 6 * Outpatient Service (Routine) - Authorized Specialty Diagnoses / Procedures Referred By Isamar jim Referred To Contact Urology Diagnoses Urinary incontinence, unspecified type Procedures REF UROLOGY - EXTERNAL OFFICE VISIT E&M EST PT, MODERATE MDM, 30-39 MINS Ludy Brown [employer] PRIMARY CAR [address] [place] [address] [facility] [address] [address] [place] [address] Referral ID Status Reason Start Date Expiration Date Visits Requested Visits Authorized [id number] Authorized Evaluate and Treat-Surgery if Indicated 03/23/2023 03/23/2024 6 6 Encounter Details Date Type Department Care Team (Latest Contact Info) Description 03/23/2023 Community Orders Non [facility] Provider Ludy Brown [facility] PRIMARY CAR [address] [place] [address] Urinary incontinence, unspecified type (Primary Dx); Spinal stenosis of lumbar region, unspecified whether neurogenic claudication present; Candidiasis of skin Social History Tobacco Use Types Packs/Day Years Used Date Smoking Tobacco: Never Assessed Comments Unknown Sex and Gender Information Value Date Recorded Sex Assigned at Not on file Legal Sex Female 5:59 AM PST Gender Identity Not on file Sexual Orientation Not on file documented as of this encounter Plan of Treatment Not on file documented as of this encounter Visit Diagnoses Diagnosis Urinary incontinence, unspecified type- Primary Spinal stenosis of lumbar region, unspecified whether neurogenic claudication present Candidiasis of skin Candidiasis of skin and nails documented in this encounter Care Teams Hide Mill Worker Relationship Specialty Start Date End Date Mary Alice Jason [facility] PRIMARY CAR [address] [place] [address] PCP - General 12/23/21 documented as of this encounter
--- OUTSIDE RECORDS SUMMARY | 2025-08-17 21:53 | EXTERNAL MEDICAL SUMMARY RPT | Encounter Summary ---
Author Organization [facility] Address [address] [place] [address] Care Team Providers Care Prefabricator Name Role Phone Demetra Clark Primary Care Provider Bandar maki Encounter Details Date Type Department Care Team (Late st Contact Info) Description 02/02/2016 Lab Requisition [place], [place] [address] [place] [address] Background, Provider Not In System [address] [phone] Social History Tobacco Use Types Packs/Day Years Used Date Smoking Tobacco: Never Assessed Comments Unknown Sex and Gender Information Value Date Recorded Sex Assigned at Not on file Legal Sex Female 10:30 PM PDT Gender Identity Not on file Sexual Orientation Not on file documented as of this encounter Plan of Treatment Not on file documented as of this encounter Procedures Procedure Name Priority Date/Time Associated Diagnosis Comments VIRAL CULTURE, NON-RESPIRATORY Routine 02/01/2016 11:05 AM PDT documented in this encounter Results * Viral Culture, Non-Respiratory (02/01/2016 11:05 AM PDT) Viral Culture, Non-Respirator y Report scanned 02/18/2016 8:48 AM PDT [facility] Specimen (specimen) (Other (see Comments)) 02/01/2016 11:05 AM PDT 02/02/2016 11:13 PM PDT us Provider Not In System Background BODY FLUIDS AN D STOOLS ORDERABLES Final Result [facility] [address] [place] [address] documented in this encounter Visit Diagnoses Not on filedocumented in this encounter Care Teams Prefabricator Relationship Specialty Start Date End Date Demetra Clark DO PCP - General Family Medicine 12/23/22 documented as of this encounter
--- OUTSIDE RECORDS SUMMARY | 2025-08-17 21:53 | EXTERNAL MEDICAL SUMMARY RPT | Encounter Summary ---
Author Organization [facility] Address [address] [place] [address] Care Team Providers Care Team Automobile Assembler Name Role Phone Mary Alice Jason Primary Care Provider Unavailabl e Reason for Referral * PT/OT/ST (Routine) - Denied Specialty Diagnoses / Procedures Referred By Contac t Referred To Contact Physical Therapy Diagnoses Urinary incontinence, unspecified type Procedures REF PHYSICAL THERAPY - EXTERNAL BIOFEEDBCK TRAIN, PERINEAL MUSCLE,ANORECTAL OR URETHRAL SPHINCTER,INCL EMG AND/OR MANOMETRY; INIT 15 MINS Ludy Brown [employer] PRIMARY CAR [address] [place] [address] [facility], [facility] Occupational And Physical Therapy [address] [place] [phone] Referral ID Status Reason Start Date Expiration Date V isits Requested Visits Authorized [id number] Denied Itemized Services 04/06/2023 04/06/2023 12 0 Encounter Details Date Type Department Care Team (Late st Contact Info) Description 04/06/2023 Community Orders Non [facility] Provider Ludy Brown [employer] PRIMARY CAR [address] [place] [address] Urinary incontinence, unspecified type (Primary Dx) Social History Tobacco [...] Diagnoses Diagnosis Urinary incontinence, unspecified type- Primary documented in this encounter Care Teams Team Automobile Assembler Relationship Specialty Start Date End Date Mary Alice Jason [facility] PRIMARY CAR [address] [place] [address] PCP - General 12/23/21 documented as of this encounter
--- OUTSIDE RECORDS SUMMARY | 2025-08-17 21:53 | EXTERNAL MEDICAL SUMMARY RPT | Clinical Summary ---
Author Organization [facility] Address [address] [place] [address] Care Team Providers Care Electronic Component Processor Name Role Phone Demetra Clark Serafin ORNELAS Primary Care Provider Bandar maki Social History Tobacco Use Types Packs/Day Years Used Date Smoking Tobacco: Never Assessed Comments Unknown Sex and Gender Information Value Date Recorded Sex Assigned at Not on file Legal Sex Female 10:30 PM PDT Gender Identity Not on file Sexual Orientation Not on file Plan of Treatment Health Maintenance Due Date Last Done Comments CT Colonography 1959 Colonoscopy 1959 Colorectal Cancer Screening 1959 Disability Screening 1959 FIT-DNA (COLOGUARD) 1959 Hepatitis C Screening 1959 Sigmoidoscopy 1959 HIV Screening 1974 Lipid Panel (Cholesterol Screening) 1977 Pap Smear 1980 Cervical Cancer Screening 1989 HPV/COTEST 1989 FIT (FOBT) 2004 Zoster (1 of 2) 2009 Pneumococcal 50+ Years (2 of 2 - PCV) 07/15/2011 07/15/2010 Osteoporosis Screening 2024 Drug, Alcohol, and Depressio n Screening 09/12/2024 SOGIE 09/12/2024 Covid-19 Vaccine (5 - 2024-2 6 season) 2025 12/12/2021, 04/30/2021, 10/16/2020, Additional history exists Influenza Vaccine (#1) 2025 , 06/11/2021, 06/12/2019, Additional history exists DTaP/Tdap/Td Vaccine (3 - Td or Tdap) 04/07/2032 04/07/2022, 01/24/2012, 10/13/1998 RSV Vaccines (1 - 1-dose 75+ series) 2034 Insurance [facility] Care Teams Electronic Component Processor Relationship Specialty Start Date End Date Demetra Clark DO PCP - General Family Medicine 12/23/22
--- OUTSIDE RECORDS SUMMARY | 2025-08-17 21:53 | EXTERNAL MEDICAL SUMMARY RPT | Encounter Summary ---
Author Organization [facility] Address [address] [place] [address] Care Team Providers Care Community Outreach Coordinator Name Role Phone Mary Alice Jason Primary Care Provider Unavailabl e Reason for Referral * Outpatient Service (Routine) - Authorized Specialty Diagnoses / Procedures Referred By Controb t Referred To Contact General Surgery Diagnoses Gastroesophageal reflux disease, unspecified whether esophagitis present Procedures REF GENERAL SURGERY - EXTERNAL OFFICE VISIT E&M EST PT, MODERATE MDM, 30-39 MINS Amanda Adair fax: [facility] [address] [place] [address] Referral ID Status Reason Start Date Expiration Date Visits Requested Visits Authorized [id number] Authorized Evaluate and Treat-Surgery if Indicated 03/08/2023 03/08/2024 6 6 Encounter Details Date Type Department Care Team (Latest Contact Info) Description 03/08/2023 Community Orders Non [facility] Provider Amanda Adair [address] [facility] [id number] [place], [place] [id number] Gastroesophageal reflux disease, unspecified whether esophagitis present (Primary Dx) Social History Tobacco Use [...] as of this encounter Visit Diagnoses Diagnosis Gastroesophageal reflux disease, unspecified whether esophagitis present- Primary documented in this encounter Care Teams Community Outreach Coordinator Relationship Specialty Start Date End Date Mary Alice Jason [facility] PRIMARY CAR [address] [place] [address] PCP - General 12/23/21 documented as of this encounter
--- OUTSIDE RECORDS SUMMARY | 2025-08-17 21:53 | EXTERNAL MEDICAL SUMMARY RPT | Encounter Summary ---
Author Organization [facility] Address [address] [place] [address] Care Team Providers Care Import Export Clerk Name Role Phone Mary Alice Jason Primary Care Provider Aster e Reason for Referral * Outpatient Service (Routine) - Authorized Specialty Diagnoses / Procedures Referred By Isamar jim Referred To Contact Podiatry Diagnoses Controlled diabetes mellitus type 2 with complications, unspecified whether long-term insulin use Procedures REF PODIATRY OFFICE VISIT E&M EST PT, MODERATE MDM, 30-39 MINS Mary Alice Jason PRIMARY [address] [place] [address] Dpm, Inez Michaels [address] [place] [address] fax: Referral ID Status Reason Start Date Expiration Date Visits Requested Visits Authorized [id number] Authorized Evaluate and Treat-Surgery if Indicated 11/23/2022 11/23/2023 6 6 Encounter Details Date Type Department Care Team (Late st Contact Info) Description 11/23/2022 Community Orders Non [facility] Provider Mary Alice Jason PRIMARY CAR [address] [place] [address] Controlled diabetes mellitus type 2 with complications, unspecified whether terminal superintendent insulin use (Primary Dx) Social History Tobacco [...] as of this encounter Visit Diagnoses Diagnosis Controlled diabetes mellitus type 2 with complications, unspecified whether terminal superintendent insulin use- Primary documented in this encounter Care Teams Import Export Clerk Relationship Specialty Start Date End Date Mary Alice Jason [facility] PRIMARY [facility] [address] [place] [address] PCP - General 12/23/21 documented as of this encounter
--- OUTSIDE RECORDS SUMMARY | 2025-08-17 21:53 | EXTERNAL MEDICAL SUMMARY RPT | Encounter Summary ---
Author Organization [facility] Address [address] [place] [address] Care Team Providers Care Cork Molder Name Role Phone Mary Alice Jason Primary Care Provider Aster e Reason for Referral * Outpatient Service (Routine) - Authorized Specialty Diagnoses / Procedures Referred By Isamar jim Referred To Contact Vascular Surgery Diagnoses PAD (peripheral artery disease) Procedures REF VASC SURG OFFICE VISIT E&M EST PT, MODERATE MDM, 30-39 MINS Mary Alice Jason PRIMARY CAR [address] [place] [address] [facility] [address] [place] [address] Referral ID Status Reason Start Date Expiration Date Visits Requested Visits Authorized [id number] Authorized Evaluate and Treat-Surgery if Indicated 12/22/2022 12/22/2023 6 6 Encounter Details Date Type Department Care Team (Late st Contact Info) Description 12/22/2022 Community Orders Non [facility] Provider Mary Alice Jason PRIMARY CAR [address] [place] [address] PAD (peripheral artery disease) (Primary Dx) Social History Tobacco Use Types [...] as of this encounter Visit Diagnoses Diagnosis PAD (peripheral artery disease)- Primary Peripheral vascular disease, unspecified documented in this encounter Care Teams Cork Molder Relationship Specialty Start Date End Date Mary Alice Jason [facility] PRIMARY CAR [address] [place] [address] PCP - General 12/23/21 documented as of this encounter
--- OUTSIDE RECORDS SUMMARY | 2025-08-17 21:53 | EXTERNAL MEDICAL SUMMARY RPT | Encounter Summary ---
Author Organization [facility] Address [address] [place] [address] Care Team Providers Care Landscape Specialist Name Role Phone SharathDemetra stone Serafin ORNELAS Primary Care Provider Bandar maki Encounter Details Date Type Department Care Team (Latest Contact Info) Description 02/10/2016 Lab Requisition [place], [place] [address] [place] [address] Estela Bolaños PA-C [address] [place] [address] Herpesviral encephalitis Social History Tobacco Use Types Packs/Day Years [...] Procedure Name Priority Date/Time Associated Diagnosis Comments *CBC WITH DIFFERENTIAL, LAB GENERATED ORDER Routine 02/10/2016 10:55 AM PDT Herpesviral encephalitis SEDIMENTATION RATE, WESTERGREN Routine 02/10/2016 10:55 AM PDT Herpesviral encephalitis ALT Routine 02/10/2016 10:55 AM PDT Herpesviral encephalitis CBC WITH DIFFERENTIAL Routine 02/10/2016 10:55 AM PDT Herpesviral encephalitis CREATININE Routine 02/10/2016 10:55 AM PDT Herpesviral encephalitis documented in this encounter Results * Complete Blood Count with Automated Differential (02/10/2016 10:55 AM PDT) [facility] Signature WBC 11.0 4.0 - 11.0 K/uL 02/10/2016 7:27 PM PDT [facility] RBC 3.75 3.75 - 5.07 M/uL 02/10/2016 7:27 PM PDT [facility] HGB 12.3 11.5 - 15.0 g/dL 02/10/2016 7:27 PM PDT [facility] HCT 37.0 34.8 - 45.0 % 02/10/2016 7:27 PM PDT [facility] MCV 98.7 80.0 - 100.0 fL 02/10/2016 7:27 PM PDT [facility] MCH 32.8 25.9 - 34.2 pg 02/10/2016 7:27 PM PDT [facility] MCHC 33.2 31.5 - 36.5 g/dL 02/10/2016 7:27 PM PDT [facility] RDW 13.2 11.5 - 14.2 % 02/10/2016 7:27 PM PDT [facility] Platelets 287 150 - 400 K/uL 02/10/2016 7:27 PM PDT [facility] MPV 9.7 8.5 - 12.4 fL 02/10/2016 7:27 PM PDT [facility] Neutrophils % 66.7 % 02/10/2016 7:27 PM PDT [facility] Immat Gran % 0.6 % 02/10/2016 7:27 PM PDT [facility] Lymphocytes % 19.7 % 02/10/2016 7:27 PM PDT [facility] Monocytes % 8.9 % 02/10/2016 7:27 PM PDT [facility] Eosinophils % 3.7 % 02/10/2016 7:27 PM PDT [facility] Basophils % 0.4 % 02/10/2016 7:27 PM PDT [facility] Neutrophils # 7.3 1.5 - 8.0 K/uL 02/10/2016 7:27 PM PDT [facility] Immat Gran # 0.1 0.0 - 0.1 K/uL 02/10/2016 7:27 PM PDT [facility] Lymphocytes # 2.2 1.0 - 3.5 K/uL 02/10/2016 7:27 PM PDT [facility] Monocytes # 1.0 0.2 - 1.0 K/uL 02/10/2016 7:27 PM PDT [facility] Eosinophils # 0.4 0.0 - 0.5 K/uL 02/10/2016 7:27 PM PDT [facility] Basophils # 0.0 0.0 - 0.2 K/uL 02/10/2016 7:27 PM PDT [facility] Blood 02/10/2016 10:5 5 AM PDT 02/10/2016 6:07 PM PDT Estela HURT-C LAB BLOOD ORDERABLES Final Re sult Performing Organization Address [facility] Co de Phone Number [address] [address] * (ABNORMAL) Creatinine (02/10/2016 10:55 AM PDT) Creatinine 1.06(H) 0.44 - 1.03 mg/dL 02/10/2016 8:22 PM PDT [facility] GFR Non-Black (CKD-EPI) 59(L) >=60 mL/min/1. 73m2 02/10/2016 8:22 PM PDT [facility] GFR Black (CKD-EPI) 68 >=60 mL/min/1. 73m2 02/10/2016 8:22 PM PDT [facility] Blood 02/10/2016 10:5 5 AM PDT 02/10/2016 6:07 PM PDT Estela HURT-C LAB BLOOD ORDERABLES Final Re sult Performing Organization Address [facility]/ZIP Co de Phone Number [address] [address] * ALT (02/10/2016 10:55 AM PDT) ALT 43 15 - 54 U/L 02/10/2016 8:22 PM PDT [facility] Blood 02/10/2016 10:5 5 AM PDT 02/10/2016 6:07 PM PDT Estela Bolaños PA-C LAB BLOOD ORDERABLES Final Re sult Performing Organization Address City/[facility]/ZIP Co de Phone Number [facility] [address] [place] [phone] * (ABNORMAL) Sedimentation Rate, Westergren (02/10/2016 10:55 AM PDT) Sedimentation Rate, Westergren 55(H) 0 - 25 mm/hour 02/10/2016 8:22 PM PDT [facility] Blood 02/10/2016 10:5 5 AM PDT 02/10/2016 6:07 PM PDT Estela Bolaños PA-C LAB BLOOD ORDERABLES Final Re sult Performing Organization Address [facility] Co de Phone Number [facility] [address] [place] [phone] documented in this encounter Visit Diagnoses Diagnosis Herpesviral encephalitis Herpetic meningoencephalitis documented in this encounter Care Teams Landscape Specialist Relationship Specialty Start Date End Date Demetra Clark DO PCP - General Family Medicine 12/23/22 documented as of this encounter
--- OUTSIDE RECORDS SUMMARY | 2025-08-17 21:53 | EXTERNAL MEDICAL SUMMARY RPT | Encounter Summary ---
Author Organization [facility] Address [address] [place] [address] Care Team Providers Care Boiler Tube Blower Name Role Phone Demetra Clark Primary Care Provider Bandar maki Encounter Details Date Type Department Care Team (Late st Contact Info) Description 02/02/2016 Lab Requisition [facility] [place], [place] [address] [place] [address] Background, Provider Not In System [address] [phone] Social History Tobacco Use Types Packs/Day Years [...] Procedure Name Priority Date/Time Associated Diagnosis Comments HSV-1/HSV-2 PCR, LESIONS (RBA) Routine 02/01/2016 11:05 AM PDT documented in this encounter Results * (ABNORMAL) Herpes Simplex Virus PCR (02/01/2016 11:05 AM PDT) Source Cerebrospinal F 02/05/2016 2:26 PM PDT [facility] HSV Type 1 NOT DETECTED 02/05/2016 2:26 PM PDT [facility] HSV Type 2 HSV TYPE 2 DETECTED(A) 02/05/2016 2:26 PM PDT [facility] HSV PCR Interp See comment below 02/05/2016 2:26 PM PDT [facility] Comment: This test was developed and its performance characteristics determined by [facility]. Food and Drug Administration (FDA) clearance or approval is not required for the performance of this test. [facility] is authorized under Clinical Laboratory Improvement Amendments (CLIA) to perform high-complexity testing. Specimen (specimen) CEREBROSPINAL FLUID SPECIMEN / Unknown 02/01/2016 11:05 AM PDT 02/03/2016 5:41 AM PDT Narrative [facility] - 02/05/2016 2:26 PM PDT Copy to Provider(s): us Provider Not In System Background BODY FLUIDS AN D STOOLS ORDERABLES Final Result [facility] [address] [place] [address] documented in this encounter Visit Diagnoses Not on filedocumented in this encounter Care Teams Boiler Tube Blower Relationship Specialty Start Date End Date Demetra Clark DO PCP - General Family Medicine 12/23/22 documented as of this encounter
--- OUTSIDE RECORDS SUMMARY | 2025-08-17 21:53 | EXTERNAL MEDICAL SUMMARY RPT | Encounter Summary ---
Author Organization [facility] Address [address] [place] [address] Care Team Providers Care Signal System Testing Maintainer Name Role Phone Mary Alice Jason Primary Care Provider Unavailabl e Reason for Referral * Radiology (Urgent) - Closed Specialty Diagnoses / Procedures Referred By Isamar t Referred To Contact Radiology Diagnoses Peripheral vascular disease, unspecified Procedures REF RADIOLOGY CT ANGIO ABD ARTERIES Lawrence Pathak Phone: tel: fax: [address] [phone] fax: Referral ID Status Reason Start Date Expiration Date V isits Requested Visits Authorized [id number] Closed Itemized Services 03/03/2023 06/01/2023 4 4 Encounter Details Date Type Department Care Team (Late st Contact Info) Description 03/03/2023 Community Orders Non [facility] Provider Lawrence Pathak [address] [phone] Peripheral vascular disease, unspecified (Primary Dx) Social [...] Primary documented in this encounter Care Teams Signal System Testing Maintainer Relationship Specialty Start Date End Date Mary Alice [facility] [address] [place] [address] PCP - General 12/23/21 documented as of this encounter
--- OUTSIDE RECORDS SUMMARY | 2025-08-17 21:53 | EXTERNAL MEDICAL SUMMARY RPT | Encounter Summary ---
Author Organization [facility] Address [address] [place] [address] Care Team Providers Care Truck Driver Name Role Phone Mary Alice Jason Primary Care Provider Unavailabl e Reason for Referral * Outpatient Service (Routine) - Authorized Specialty Diagnoses / Procedures Referred By Contac t Referred To Contact Sleep Medicine Diagnoses Respiratory obstruction Procedures REF SLEEP DISORDER - EXTERNAL OFFICE VISIT E&M EST PT, MODERATE MDM, 30-39 MINS Maynor Sung [facility] [address] [place] [phone] Phone: tel: fax: [place] [address] [place] [phone] Phone: tel: Referral ID Status Reason Start Date Expiration Date Visits Requested Visits Authorized [id number] Authorized Evaluate and Treat-Surgery if Indicated 05/25/2023 05/25/2024 6 6 Encounter Details Date Type Department Care Team (Late st Contact Info) Description 05/25/2023 Community Orders Non [facility] Provider Maynor Sung [address] [place] [phone] Respiratory obstruction (Primary Dx) Social History Tobacco Use Types [...] as of this encounter Visit Diagnoses Diagnosis Respiratory obstruction- Primary Other diseases of respiratory system, not elsewhere classified documented in this encounter Care Teams Truck Driver Relationship Specialty Start Date End Date Mary Alice Jason [facility] PRIMARY CAR [address] [place] [address] PCP - General 12/23/21 documented as of this encounter
--- OUTSIDE RECORDS SUMMARY | 2025-08-17 21:53 | EXTERNAL MEDICAL SUMMARY RPT | Encounter Summary ---
Author Organization [facility] Address [address] [place] [address] Care Team Providers Care Quality Control Director Name Role Phone Mary Alice Jason Primary Care Provider Unavailabl e Reason for Referral * PT/OT/ST (Routine) - Authorized Specialty Diagnoses / Procedures Referred By Contac t Referred To Contact Physical Therapy Diagnoses Radiculopathy of lumbar region Spinal stenosis of lumbar region with neurogenic claudication Procedures REF PHYSICAL THERAPY - EXTERNAL THERA PROC 1+ AREAS EA 15 MIN THERA EXERCISES Aristeo Hale [address] [address] Phone: tel: fax: [facility] [address] [address] Referral ID Status Reason Start Date Expiration Date Visits Requested Visits Authorized [id number] Authorized Itemized Services 03/21/2023 03/21/2024 15 15 Encounter Details Date Type Department Care Team (Latest Contact Info) Description 03/21/2023 Community Orders Non [facility] Provider Aristeo Hale [address] [phone] Radiculopathy of lumbar region (Primary Dx); Spinal stenosis of lumbar region with neurogenic claudication Social History [...] as of this encounter Visit Diagnoses Diagnosis Radiculopathy of lumbar region- Primary Thoracic or lumbosacral neuritis or radiculitis, unspecified Spinal stenosis of lumbar region with neurogenic claudication Spinal stenosis, lumbar region, with neurogenic claudication documented in this encounter Care Teams Quality Control Director Relationship Specialty Start Date End Date Mary Alice Jason [facility] PRIMARY CAR [address] [place] [address] PCP - General 12/23/21 documented as of this encounter
--- OUTSIDE RECORDS SUMMARY | 2025-08-17 21:53 | EXTERNAL MEDICAL SUMMARY RPT | Encounter Summary ---
Author Organization [facility] Address [address] [place] [address] Care Team Providers Care Spark Tester Name Role Phone Mary Alice Jason Primary Care Provider Unavailabl e Reason for Referral * Radiology (Urgent) - Denied Specialty Diagnoses / Procedures Referred By Contac t Referred To Contact Radiology Diagnoses Peripheral vascular disease, unspecified Procedures REF RADIOLOGY CT ANGIO ABD ARTERIES Lawrence Pathak Phone: tel: fax: [facility] [address] [address] [place] [address] Referral ID Status Reason Start Date Expiration Date V isits Requested Visits Authorized [id number] Denied Itemized Services 02/28/2023 05/29/2023 4 0 Encounter Details Date Type Department Care Team (Late st Contact Info) Description 02/28/2023 Community Orders Non [facility] Provider Lawrence Pathak [address] [address] Peripheral vascular disease, unspecified (Primary Dx) Social [...] Primary documented in this encounter Care Teams Spark Tester Relationship Specialty Start Date End Date Mary Alice Jason [facility] PRIMARY CAR [address] [place] [address] PCP - General 12/23/21 documented as of this encounter
--- OUTSIDE RECORDS SUMMARY | 2025-08-17 21:53 | EXTERNAL MEDICAL SUMMARY RPT | Encounter Summary ---
Author Organization [facility] Address [address] [place] [address] Care Team Providers Care Narrow Gauge Operator Name Role Phone Mary Alice Jason Primary Care Provider Unavailabl e Reason for Referral * Outpatient Service (Routine) - Authorized Specialty Diagnoses / Procedures Referred By Contac t Referred To Contact Anesthesiology Diagnoses Chronic obstructive pulmonary disease, unspecified COPD type Abdominal aortic aneurysm (AAA), unspecified part, unspecified whether ruptured MARTIN (obstructive sleep apnea) Procedures REF ANESTHESIOLOGY ANES UPR GI ENDO PX, INTRO PROXIMAL TO DUODERM, NOS Law Noe MD [facility] [address], [place] [address] Phone: tel: fax: [facility]est[facility] [address] [place] [address] Referral ID Status Reason Start Date Expiration Date Visits Requested Visits Authorized [id number] Authorized Procedure Only 03/09/2023 03/08/2024 1 1 * Outpatient Service (Routine) - Authorized Specialty Diagnoses / Procedures Referred By Contac t Referred To Contact Gastroenterology Diagnoses Gastroesophageal reflux disease, unspecified whether esophagitis present Abnormal CT scan, esophagus Procedures REF GASTROENTEROLOGY UPPER GI ENDO DX (MAY PROC) G-ESOPH REFLX TST W/ELECTROD ESOPHAGUS MOTILITY STUDY Law Noe MD [facility]ERY [address] [place] [address] Phone: tel: fax: [facility] [address] [place] [address] Referral ID Status Reason Start Date Expiration Date Visits Requested Visits Authorized [id number] Authorized Procedure Only 03/09/2023 03/08/2024 3 3 Encounter Details Date Type Department Care Team (Latest Contact Info) Description 03/09/2023 Community Orders Non [facility] Provider Law Noe MD [facility] [address] [place] [phone] Gastroesophageal reflux disease, unspecified whether esophagitis present (Primary Dx); Abnormal CT scan, esophagus; Chronic obstructive pulmonary disease, unspecified COPD type; Abdominal aortic aneurysm (AAA), unspecified part, unspecified whether ruptured; MARTIN (obstructive sleep apnea) Social History Tobacco Use Types Packs/Day Years [...] reflux disease, unspecified whether esophagitis present- Primary Abnormal CT scan, esophagus Nonspecific (abnormal) findings on radiological and other examination of gastrointestinal tract Chronic obstructive pulmonary disease, unspecified COPD type Abdominal aortic aneurysm (AAA), unspecified part, unspecified whether ruptured MARTIN (obstructive sleep apnea) Obstructive sleep apnea (adult) (pediatric) documented in this encounter Care Teams Narrow Gauge Operator Relationship Specialty Start Date End Date Mary Alice Jason [facility] PRIMARY [facility] [address] [place] [address] PCP - General 12/23/21 documented as of this encounter
--- OUTSIDE RECORDS SUMMARY | 2025-08-17 21:53 | EXTERNAL MEDICAL SUMMARY RPT | Encounter Summary ---
Author Organization [facility] Address [address] [place] [address] Care Team Providers Care Evaporator Supervisor Name Role Phone Mary Alice Jason Primary Care Provider Unavailgaye e Encounter Details Date Type Department Care Team (Late st Contact Info) Description 03/14/2023 Community Orders Non [facility] Provider Lawrence Pathak [address] [facility] [address] [place], [place] [phone] Peripheral vascular disease, unspecified (Primary Dx) Social [...] Primary documented in this encounter Care Teams Evaporator Supervisor Relationship Specialty Start Date End Date Mary Alice [facility] [address] [place] [address] PCP - General 12/23/21 documented as of this encounter
--- OUTSIDE RECORDS SUMMARY | 2025-08-17 21:53 | EXTERNAL MEDICAL SUMMARY RPT | Encounter Summary ---
Author Organization [facility] Address [address] [place] [address] Care Team Providers Care Laboratory Monitor Name Role Phone Mary Alice Jason Primary Care Provider Aster e Reason for Referral * Outpatient Service (Routine) - Authorized Specialty Diagnoses / Procedures Referred By Isamar jim Referred To Contact Vascular Surgery Diagnoses Peripheral arterial disease Procedures REF VASC SURG OFFICE VISIT E&M EST PT, MODERATE MDM, 30-39 MINS Mary Alice Jason PRIMARY CAR [address] [place] [address] Surg, [facility] [address] [address] [place] [address] Referral ID Status Reason Start Date Expiration Date Visits Requested Visits Authorized [id number] Authorized Evaluate and Treat-Surgery if Indicated 12/28/2022 12/28/2023 6 6 Encounter Details Date Type Department Care Team (Late st Contact Info) Description 12/28/2022 Community Orders Non [facility] Provider Mary Alice Jason PRIMARY CAR [address] [place] [address] Peripheral arterial disease (Primary Dx) Social History Tobacco Use Types [...] of this encounter Visit Diagnoses Diagnosis Peripheral arterial disease- Primary Peripheral vascular disease, unspecified documented in this encounter Care Teams Laboratory Monitor Relationship Specialty Start Date End Date Mary Alice Jason [facility] PRIMARY CAR [address] [place] [address] PCP - General 12/23/21 documented as of this encounter
== END 2025-08-14 14:15 | disposition home or self-care (01) ==
LOC: ED 13:43 → MS2 13:43
PROVIDERS: ADMIT Physician Assistant Medical; ATTEND Physician Assistant Medical
DX: K25.9 Gastric ulcer, unspecified as acute or chronic, without hemorrhage or perforation; Z11.52 Encounter for screening for COVID-19; E11.51 Type 2 diabetes mellitus with diabetic peripheral angiopathy without gangrene; K21.9 Gastro-esophageal reflux disease without esophagitis; I25.10 Atherosclerotic heart disease of native coronary artery without angina pectoris; E87.1 Hypo-osmolality and hyponatremia; J96.21 Acute and chronic respiratory failure with hypoxia; E78.5 Hyperlipidemia, unspecified; J44.1 Chronic obstructive pulmonary disease with (acute) exacerbation; Z87.891 Personal history of nicotine dependence; Z63.4 Disappearance and death of family member; Z79.890 Hormone replacement therapy; J43.9 Emphysema, unspecified; Z79.85 Long-term (current) use of injectable non-insulin antidiabetic drugs; G47.33 Obstructive sleep apnea (adult) (pediatric); J44.0 Chronic obstructive pulmonary disease with (acute) lower respiratory infection; K44.9 Diaphragmatic hernia without obstruction or gangrene; J18.9 Pneumonia, unspecified organism; Z91.199 Patient's noncompliance with other medical treatment and regimen due to unspecified reason; E11.42 Type 2 diabetes mellitus with diabetic polyneuropathy; Z79.899 Other long term (current) drug therapy